=== PATIENT | male | born 1975 | race African-American/Black ===

== ENCOUNTER 2016-05-02 13:28 | Inpatient (IN) | payer OTHER ==
[2016-05-02 14:04] VITALS: BMI 23.7
--- NOTE | 2016-05-02 15:50 | HP ---
COWS - Scale Resting Pulse: 1= OR 81-100 Sweatin=Flushed/Facial Moisture Restless Observation: 1= Difficult to Sit Still Pupil Size: 0= Normal to Room Light Bone or Joint Aches: 2= Severe Diffuse Aches Runny Nose/ Eye Tearin= Runny Nose/Eyes GI Upset > 30mins: 2= Nausea/Diarrhea Tremor Observation: 2= Slight Tremor Visible Yawning Observation: 2= >3x During Session Anxiety or Irritability: 2=Irritable/Anxious Goose Flesh Skin: 3=Piloerection COWS Score: 19 CIWA Score - CIWA Score Nausea/Vomitin-Mild Nausea/No Vomiting Muscle Tremors: 4-Moderate,w/Arms Extend Anxiety: 4-Mod. Anxious/Guarded Agitation: 4-Moderately Restless Paroxysmal Sweats: 3 Orientation: 0-Oriented Tacttile Disturbances: 0-None Auditory Disturbances: 0-None Visual Disturbances: 0-None Headache: 2-Mild CIWA-Ar Total Score: 18 Admission ROS BHS - HPI Chief Complaint: I am here to detox. Allergies/Adverse Reactions: Allergies Allergy/AdvReac Type Severity Reaction Status Date / Time Fish Containing Products Allergy Severe Vomiting Verified 03/17/14 10:53 History of Present Illness: Pt is a 40yr old male with a history of alcohol, heroin dependence seeking detox for treatment. Exam Limitations: No Limitations - Ebola screening Have you traveled outside of the country in the last 21 days: No Have you had contact with anyone from an Ebola affected area: No Have you been sick,other than usual withdrawal symptoms: No Do you have a fever: No - Review of Systems Constitutional: Chills, Diaphoresis, Loss of Appetite, Night Sweats, Changes in sleep, Unintentional Wgt. Loss EENT: reports: Tearing, Nose Congestion Respiratory: reports: No Symptoms reported Cardiac: reports: No Symptoms Reported GI: reports: Diarrhea, Nausea, Poor Appetite, Poor Fluid Intake, Indigestion : reports: No Symptoms Reported Musculoskeletal: reports: Back Pain, Joint Pain Integumentary: reports: Flushing, Sweating Neuro: reports: Headache, Tingling, Tremors Endocrine: reports: See HPI, Excessive Sweating, Flushing, Intolerance to Cold, Intolerance to Heat Hematology: reports: No Symptoms Reported Psychiatric: reports: Judgement Intact, Mood/Affect Appropiate, Orientated x3, Agitated, Anxious Other Systems: Reviewed and Negative Patient History - Patient Medical History Hx Anemia: No Hx Asthma: No Hx Chronic Obstructive Pulmonary Disease (COPD): No Hx Cancer: No Hx Cardiac Disorders: Yes (cardiac arrest 1month d/t drugs) Hx Congestive Heart Failure: No Hx Hypertension: Yes Hx Hypercholesterolemia: No Hx Pacemaker: No HX Cerebrovascular Accident: No Hx Seizures: No Hx Dementia: No Hx Diabetes: No Hx Gastrointestinal Disorders: No Hx Liver Disease: No Hx Genitourinary Disorders: No Hx Sexually Transmitted Disorders: No Hx Renal Disease (ESRD): No Hx Thyroid Disease: No Hx Human Immunodeficiency Virus (HIV): No Hx Hepatitis C: Yes Hx Depression: No Hx Suicide Attempt: No (denies) Hx Bipolar Disorder: No Hx Schizophrenia: No - Patient Surgical History Past Surgical History: No Anesthesia Reaction: No - PPD History Previous Implant?: Yes Documented Results: Negative w/o proof Implanted On Prior [facility] Admission?: No PPD to be Administered?: Yes - Reproductive History Patient is a Female of Child Bearing Age (11 -55 yrs old): No - Smoking Cessation Smoking history: Current every day smoker Have you smoked in the past 12 months: Yes Aproximately how many cigarettes per day: 20 Hx Chewing Tobacco Use: No Initiated information on smoking cessation: Yes 'Breaking Loose' booklet given: 05/02/16 - Substance & Tx. History Hx Alcohol Use: No Hx Substance Use: No - Substances Abused heroine Route: Injection Frequency: Daily Amount used: 3 bundles Age of first use: 28 Date of Last Use: 05/02/16 Alcohol Route: Oral Frequency: Daily Amount used: 1-2 pints Age of first use: 20 Date of Last Use: 05/02/16 Family Disease History - Family Disease History Family History: Denies Admission Physical Exam BHS - Vital Signs Vital Signs: Vital Signs - 24 hr 05/02/16 13:59 Temperature 98.3 F Pulse Rate 88 Respiratory 18 Rate Blood Pressure 124/81 - Physical General Appearance: Yes: Appropriately Dressed, Moderate Distress, Tremorous, Irritable, Sweating, Anxious HEENTM: Yes: Normal Voice, Nasal Congestion, Rhinorrhea Respiratory: Yes: Lungs Clear, Normal Breath Sounds, No Respiratory Distress Neck: Yes: No masses,lesions,Nodules Breast: Yes: Within Normal Limits Cardiology: Yes: Regular Rhythm, Regular Rate, S1, S2 Abdominal: Yes: Normal Bowel Sounds, Non Tender, Soft Genitourinary: Yes: Within Normal Limits Back: Yes: Normal Inspection Musculoskeletal: Yes: full range of Motion, Gait Steady Extremities: Yes: Normal Capillary Refill, Normal Inspection, Non-Tender, Tremors 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: Yes: Fully Oriented, Alert, Normal Response Integumentary: Yes: Normal Color, Diaphoresis, Track Welch Lymphatic: Yes: Within Normal Limits - Diagnostic (1) Hepatitis C Current Visit: Yes Status: Chronic Qualifiers: Viral hepatitis chronicity: chronic Hepatic coma status: without hepatic coma Qualified Code(s): B18.2 - Chronic viral hepatitis C (2) Alcohol dependence with uncomplicated withdrawal Current Visit: Yes Status: Chronic (3) Opioid dependence with withdrawal Current Visit: Yes Status: Chronic (4) Nicotine dependence Current Visit: Yes Status: Chronic Qualifiers: Nicotine product type: cigarettes Substance use status: uncomplicated Qualified Code(s): F17.210 - Nicotine dependence, cigarettes, uncomplicated (5) Weight loss Current Visit: Yes Status: Acute Cleared for Admission [facility] - Detox or Rehab [facility] Level of Care: Medically Managed Detox Regimen/Protocol: Methadone [facility] Breath Alcohol Content Breath Alcohol Content: 0.029 Urine Drug Screen - Results Drug Screen Negative: No Urine Drug Screen Results: THC-Marijuana, OPI-Opiates, OXY-Oxycodone
[2016-05-02] MEDS ORDERED: guaiFENesin/D-METHORPHAN HB 10 ML UNIT-DOSE CUPS PO PRN (15:57)
[2016-05-02] MEDS ORDERED: IBUPROFEN 400 MG TABLET (FP) PO PRN (15:57)
[2016-05-02] MEDS ORDERED: NICOTINE POLACRILEX 4 MG GUM BC PRN (15:57)
[2016-05-02] MEDS ORDERED: MAG HYDROX/AL HYDROX/SIMETH 30 ML UNIT-DOSE CUP PO PRN (15:57)
[2016-05-02] MEDS ORDERED: MENTHOL/PHENOL 1 EACH UD MM PRN (15:57)
[2016-05-02] MEDS ORDERED: MAGNESIUM HYDROX 2400MG/30ML ORAL SUSPENSION 30 ML CUP PO PRN (15:57)
[2016-05-02] MEDS ORDERED: LOPERAMIDE HCL 2 MG CAPSULE PO PRN (15:57)
[2016-05-02] MEDS ORDERED: ACETAMINOPHEN 325 MG TABLET (FP) PO PRN (15:57)
[2016-05-02] MEDS ORDERED: hydrOXYzine PAMOATE 50 MG CAPSULE (FP) PO PRN (15:57)
[2016-05-02] MEDS ORDERED: P-EPHED 60MG/TRIPROLIDI 2.5MG TABLET PO PRN (15:57)
[2016-05-02] MEDS ORDERED: MAGNESIUM CITRATE 300 ML BOTTLE PO PRN (15:57)
[2016-05-02] MEDS ORDERED: METHADONE HCL 10 MG TABLET (FOR DETOX USE ONLY) PO ONE ×2 (18:15→23:00)
--- NOTE | 2016-05-02 18:29 | PN ---
[facility] Progress Note Note: RECEIVED NURSE CALL PATIENT REQUESTS TO WEAR OWN SHOES
[2016-05-02] MEDS: diazePAM 5 MG TABLET PO PRN (18:51)
[2016-05-02] MEDS: THIAMINE HCL 100 MG TABLET (FP) PO SCH (22:12)
[2016-05-02] MEDS: diphenhydrAMINE HCL 50 MG CAPSULE PO PRN (22:13)
[2016-05-02] MEDS: CARVEDILOL 3.125 MG TABLET (FP) PO SCH (22:14)
[2016-05-02 22:37] LABS: URINE APPEARANCE SLCLOUDY; URINE BILIRUBIN NEGATIVE (NEGATIVE); URINE BLOOD NEGATIVE (NEGATIVE); URINE COLOR AMBER; URINE GLUCOSE (UA) NEGATIVE (NEGATIVE); URINE KETONE NEGATIVE (NEGATIVE); URINE LEUK ESTERASE NEGATIVE (NEGATIVE); URINE NITRITE NEGATIVE (NEGATIVE); URINE PROTEIN NEGATIVE (NEGATIVE); URINE UROBILINOGEN 4.0 E.U/dl E.U./dl (0.2-1.0)
[2016-05-03] MEDS: diazePAM 5 MG TABLET PO PRN ×3 (05:47→15:09)
[2016-05-03] MEDS ORDERED: ASPIRIN COATED 81 MG TABLET.EC PO SCH (10:00)
[2016-05-03] MEDS ORDERED: LISINOPRIL 5 MG TABLET (FP) PO SCH (10:00)
[2016-05-03] MEDS ORDERED: METHADONE HCL 10 MG TABLET (FOR DETOX USE ONLY) PO ONE (10:00)
[2016-05-03] MEDS ORDERED: NICOTINE 21 MG/24 HOURS TOPICAL PATCH TD SCH (10:00)
[2016-05-03] MEDS ORDERED: PRENATAL VITAMINS W/ FOLIC ACID TABLET (FP) PO SCH (10:00)
[2016-05-03] MEDS: CARVEDILOL 3.125 MG TABLET (FP) PO SCH ×2 (10:13→22:16)
[2016-05-03 10:42] LABS: MCH 29.8 pg (25.7-33.7); MCHC 34.1 g/dl (32.0-35.9); MEAN CELL VOLUME 87.2 fl (80-96); MEAN PLT VOLUME 9.5 fl (7.5-11.1); PLATELET COUNT 194 K/MM3 (134-434); RDW 14.5 % (11.9-15.9); WHITE BLOOD COUNT 5.8 K/mm3 (4.0-10.0)
[2016-05-03 11:06] LABS: ALBUMIN 3.8 g/dl (3.4-5.0); ALK PHOS 71 U/L (45-117); ANION GAP 10 (8-16); BILIRUBIN,TOTAL 0.5 mg/dL (0.2-1.0); CALCIUM 8.6 mg/dL (8.5-10.1); CO2 26 mmol/L (21-32); CREATININE 0.9 mg/dL (0.7-1.3); GLUCOSE,RANDOM 99 mg/dL (74-106); SGOT/AST 18 U/L (15-37); SGPT/ALT 29 U/L (12-78); TOT PROT 6.7 g/dl (6.4-8.2)
--- NOTE | 2016-05-03 16:02 | PN ---
[facility] CIWA - CIWA Score Nausea/Vomitin Muscle Tremors: 4-Moderate,w/Arms Extend Anxiety: 4-Mod. Anxious/Guarded Agitation: 4-Moderately Restless Paroxysmal Sweats: 3 Orientation: 0-Oriented Tacttile Disturbances: 1-Very Mild Itch/Numbness Auditory Disturbances: 0-None Visual Disturbances: 0-None Headache: 0-None Present CIWA-Ar Total Score: 19 BHS COWS - Scale Resting Pulse: 1= [place] 81-100 Sweatin= Chills/Flushing Restless Observation: 1= Difficult to Sit Still Pupil Size: 1= Pupils >than Normal Bone or Joint Aches: 2= Severe Diffuse Aches Runny Nose/ Eye Tearin= Nasal Congestion GI Upset > 30mins: 2= Nausea/Diarrhea Tremor Observation of Outstretched Hands: 2= Slight Tremor Visible Yawning Observation: 1= 1-2x During Session Anxiety or Irritability: 2=Irritable/Anxious Goose Flesh Skin: 3=Piloerection COWS Score: 17 S Progress Note (SOAP) Subjective: nausea, sweats, interrupted sleep, anxeity, tremor Objective: 05/03/16 16:01 Vital Signs - 24 hr 05/02/16 05/03/16 05/03/16 21:48 00:25 03:26 Temperature 97.8 F Pulse Rate 59 L Respiratory 18 18 18 Rate Blood Pressure 97/59 05/03/16 05/03/16 05/03/16 06:03 09:34 13:28 Temperature 97.5 F L 97.6 F 97.8 F Pulse Rate 55 L 56 L 59 L Respiratory 18 18 18 Rate Blood Pressure 138/81 134/81 138/91 Laboratory Tests 05/02/16 05/03/16 05/03/16 19:20 06:15 06:15 WBC 5.8 D RBC 4.65 D Hgb 13.8 D Hct 40.5 D MCV 87.2 MCHC 34.1 RDW 14.5 Plt Count 194 D MPV 9.5 D Sodium 142 Potassium 3.8 Chloride 106 Carbon Dioxide 26 Anion Gap 10 BUN 13 D Creatinine 0.9 Creat Clearance w eGFR > 60 Random Glucose 99 Calcium 8.6 Total Bilirubin 0.5 D AST 18 ALT 29 D Alkaline Phosphatase 71 D Total Protein 6.7 Albumin 3.8 Urine Color [place] Urine Appearance Slcloudy Urine pH 5.0 Ur Specific [place] 1.021 Urine Protein Negative Urine Glucose (UA) Negative Urine Ketones Negative Urine Blood Negative Urine Nitrite Negative Urine Bilirubin Negative Urine Urobilinogen 4.0 e.u/dl Ur Leukocyte Esterase Negative RPR Titer 05/03/16 06:15 WBC RBC Hgb Hct MCV MCHC RDW Plt Count MPV Sodium Potassium Chloride Carbon Dioxide Anion Gap BUN Creatinine Creat Clearance w eGFR Random Glucose Calcium Total Bilirubin AST ALT Alkaline Phosphatase Total Protein Albumin Urine Color Urine Appearance Urine pH Ur Specific [place] Urine Protein Urine Glucose (UA) Urine Ketones Urine Blood Urine Nitrite Urine Bilirubin Urine Urobilinogen Ur Leukocyte Esterase RPR Titer Nonreactive Assessment: 05/03/16 16:01 withdrawal sx Plan: cont detox, encourage lfuids and ambulation
[2016-05-03] MEDS ORDERED: chlordiazePOXIDE HCL 25 MG CAPSULE PO PRN (18:08)
[2016-05-03] MEDS ORDERED: chlordiazePOXIDE HCL 25 MG CAPSULE PO ONE (18:08)
--- NOTE | 2016-05-03 18:11 | PN ---
B[facility] Progress Note Note: C/O ALCOHOL WITHDRAWAL SX, 3 PM VALIUM NOT EFFECTIVE DISCONTINUE VALIUM BEGIN LIBRIUM REGIMEN 50 MG X 1 NOW CONTINUE DETOX
[2016-05-03] MEDS: THIAMINE HCL 100 MG TABLET (FP) PO SCH (22:15)
[2016-05-03] MEDS: chlordiazePOXIDE HCL 25 MG CAPSULE PO SCH (22:16)
[2016-05-03] MEDS: diphenhydrAMINE HCL 50 MG CAPSULE PO PRN (22:16)
[2016-05-04] MEDS: chlordiazePOXIDE HCL 25 MG CAPSULE PO SCH (05:31)
[2016-05-04 06:21] VITALS: BP 159/101; PULSE 48; TEMP 98
[2016-05-04] MEDS ORDERED: METHADONE HCL 5 MG TABLET (FOR DETOX USE ONLY) PO ONE (10:00)
--- NOTE | 2016-05-04 12:09 | PN ---
BHS Progress Note Note: PATIENT DISCHARGED AMA
--- NOTE | 2016-05-04 12:09 | DS ---
[facility] Detox Discharge Summary Admission Date: 05/02/16 Discharge Date: 05/04/16 - History Present History: Alcohol Dependence, Cocaine Dependence, Opioid Dependence, Sedative Dependence - Physical Exam Results Vital Signs: Vital Signs Temperature 98 F 05/04/16 06:20 Pulse Rate 48 L 05/04/16 06:20 Respiratory Rate 18 05/04/16 06:20 Blood Pressure 159/101 05/04/16 06:20 O2 Sat by Pulse Oximetry (%) Pertinent Admission Physical Exam Findings: WITHDRAWAL SX Laboratory Last Values WBC 5.8 K/mm3 (4.0-10.0) D 05/03/16 06:15 RBC 4.65 M/mm3 (4.00-5.60) D 05/03/16 06:15 Hgb 13.8 GM/dL (11.7-16.9) D 05/03/16 06:15 Hct 40.5 % (35.4-49) D 05/03/16 06:15 MCV 87.2 fl (80-96) 05/03/16 06:15 MCHC 34.1 g/dl (32.0-35.9) 05/03/16 06:15 RDW 14.5 % (11.9-15.9) 05/03/16 06:15 Plt Count 194 K/MM3 (134-434) D 05/03/16 06:15 MPV 9.5 fl (7.5-11.1) D 05/03/16 06:15 Sodium 142 mmol/L (136-145) 05/03/16 06:15 Potassium 3.8 mmol/L (3.5-5.1) 05/03/16 06:15 Chloride 106 mmol/L (98-107) 05/03/16 06:15 Carbon Dioxide 26 mmol/L (21-32) 05/03/16 06:15 Anion Gap 10 (8-16) 05/03/16 06:15 BUN 13 mg/dL (7-18) D 05/03/16 06:15 Creatinine 0.9 mg/dL (0.7-1.3) 05/03/16 06:15 Creat Clearance w eGFR > 60 (>60) 05/03/16 06:15 Random Glucose 99 mg/dL (74-106) 05/03/16 06:15 Calcium 8.6 mg/dL (8.5-10.1) 05/03/16 06:15 Total Bilirubin 0.5 mg/dL (0.2-1.0) D 05/03/16 06:15 AST 18 U/L (15-37) 05/03/16 06:15 ALT 29 U/L (12-78) D 05/03/16 06:15 Alkaline Phosphatase 71 U/L (45-117) D 05/03/16 06:15 Total Protein 6.7 g/dl (6.4-8.2) 05/03/16 06:15 Albumin 3.8 g/dl (3.4-5.0) 05/03/16 06:15 Urine Color [place] 05/02/16 19:20 Urine Appearance Slcloudy 05/02/16 19:20 Urine pH 5.0 (5.0-8.0) 05/02/16 19:20 Ur Specific [place] 1.021 (1.001-1.035) 05/02/16 19:20 Urine Protein Negative (NEGATIVE) 05/02/16 19:20 Urine Glucose (UA) Negative (NEGATIVE) 05/02/16 19:20 Urine Ketones Negative (NEGATIVE) 05/02/16 19:20 Urine Blood Negative (NEGATIVE) 05/02/16 19:20 Urine Nitrite Negative (NEGATIVE) 05/02/16 19:20 Urine Bilirubin Negative (NEGATIVE) 05/02/16 19:20 Urine Urobilinogen 4.0 e.u/dl E.U./dl (0.2-1.0) 05/02/16 19:20 Ur Leukocyte Esterase Negative (NEGATIVE) 05/02/16 19:20 RPR Titer Nonreactive (NONREACTIVE) 05/03/16 06:15 LABS NOTED - Medication Discharge Medications: Ambulatory Orders Aspirin [Aspirin EC] 81 mg PO DAILY 05/02/16 Carvedilol [Coreg -] 3.125 mg PO BID 05/02/16 Lisinopril 5 mg PO DAILY 05/02/16 Thiamine HCl [B-1] 100 mg PO DAILY 05/02/16 - Diagnosis (1) Hepatitis C Status: Chronic Qualifiers: Viral hepatitis chronicity: chronic Hepatic coma status: without hepatic coma Qualified Code(s): B18.2 - Chronic viral hepatitis C (2) Nicotine dependence Status: Acute Qualifiers: Nicotine product type: cigarettes Substance use status: uncomplicated Qualified Code(s): F17.210 - Nicotine dependence, cigarettes, uncomplicated (3) Opioid dependence with withdrawal Status: Acute (4) Alcohol dependence Status: Acute Qualifiers: Substance use status: uncomplicated Qualified Code(s): F10.20 - Alcohol dependence, uncomplicated - AMA Did Patient Leave Against Medical Advice: Yes
[2016-05-04] MEDS ORDERED: chlordiazePOXIDE HCL 25 MG CAPSULE PO SCH (23:00)
[2016-05-05] MEDS ORDERED: METHADONE HCL 5 MG TABLET (FOR DETOX USE ONLY) PO ONE (10:00)
[2016-05-05] MEDS ORDERED: chlordiazePOXIDE 5 MG CAPSULE PO SCH (23:00)
[2016-05-06] MEDS ORDERED: METHADONE HCL 10 MG TABLET (FOR DETOX USE ONLY) PO ONE (10:00)
--- NOTE | 2016-05-06 12:53 | EKG ---
Test Reason : Blood Pressure : / mmHG Vent. Rate : 063 BPM Atrial Rate : 063 BPM P-R Int : 202 ms QRS Dur : 092 ms QT Int : 412 ms P-R-T Axes : 053 061 025 degrees QTc Int : 421 ms NORMAL SINUS RHYTHM INFERIOR-POSTERIOR INFARCT (CITED ON OR BEFORE 02-MAY-2016) ABNORMAL ECG WHEN COMPARED WITH ECG OF 02-MAY-2016 19:03, NO SIGNIFICANT CHANGE WAS FOUND Confirmed by NILESH HAMM, HUI ([id number]) on 05/06/2016 12:53:19 PM Referred By: Avel Escoto Confirmed By:HUI GALLOWAY MD
--- NOTE | 2016-05-06 13:01 | EKG ---
Test Reason : Blood Pressure : / mmHG Vent. Rate : 070 BPM Atrial Rate : 070 BPM P-R Int : 190 ms QRS Dur : 086 ms QT Int : 402 ms P-R-T Axes : 051 070 038 degrees QTc Int : 434 ms NORMAL SINUS RHYTHM INFERIOR-POSTERIOR INFARCT , AGE UNDETERMINED ABNORMAL ECG NO PREVIOUS ECGS AVAILABLE Confirmed by NILESH HAMM, HUI ([id number]) on 05/06/2016 1:01:19 PM Referred By: Avel Escoto Confirmed By:HUI GALLOWAY MD
[2016-05-06] MEDS ORDERED: chlordiazePOXIDE HCL 10 MG CAPSULE PO SCH (23:00)
[2016-05-07] MEDS ORDERED: METHADONE HCL 5 MG TABLET (FOR DETOX USE ONLY) PO ONE (06:00)
== END 2016-05-04 09:46 | disposition left against medical advice (07) | DRG 770 ==
LOC: YASAS 13:28 → Y3N 17:50
PROVIDERS: ADMIT Internal Medicine; ATTEND Internal Medicine
PROC: HZ2ZZZZ Detoxification Services for Substance Abuse Treatment (ICD-10-PCS; principal; 2016-05-02)
DX: F11.23 Opioid dependence with withdrawal (principal); F10.230 Alcohol dependence with withdrawal, uncomplicated; F17.210 Nicotine dependence, cigarettes, uncomplicated; B18.2 Chronic viral hepatitis C; I10 Essential (primary) hypertension; Z87.898 Personal history of other specified conditions; Z86.74 Personal history of sudden cardiac arrest
CPT/HCPCS: 36415; 80053; 81003; 85027; 86593; 93005; 93010

== ENCOUNTER 2016-06-27 14:34 | Inpatient (IN) | payer OTHER ==
[2016-06-27 15:14] VITALS: BMI 23.2
--- NOTE | 2016-06-27 16:25 | HP ---
COWS - Scale Resting Pulse: 1= [place] 81-100 Sweatin=Flushed/Facial Moisture Restless Observation: 3= Extraneous Movement Pupil Size: 2= Moderately Dilated Bone or Joint Aches: 2= Severe Diffuse Aches Runny Nose/ Eye Tearin= Runny Nose/Eyes GI Upset > 30mins: 3= Vomiting/Diarrhea Tremor Observation: 2= Slight Tremor Visible Yawning Observation: 1= 1-2x During Session Anxiety or Irritability: 2=Irritable/Anxious Goose Flesh Skin: 0=Smooth Skin COWS Score: 20 CIWA Score - CIWA Score Nausea/Vomitin Muscle Tremors: 3 Anxiety: 3 Agitation: 3 Paroxysmal Sweats: 2 Orientation: 0-Oriented Tacttile Disturbances: 2-Mild Itch/Numbness/Burn Auditory Disturbances: 2-Mild Harshness/Frighten Visual Disturbances: 2-Mild Sensitivity Headache: 2-Mild CIWA-Ar Total Score: 22 Admission ROS BHS - HPI Chief Complaint: I NEED HELP TO STOP USING HEROIN,ALCOHOL AND MARIJUANA Allergies/Adverse Reactions: Allergies Allergy/AdvReac Type Severity Reaction Status Date / Time Fish Containing Products Allergy Severe Vomiting Verified 06/27/16 16:15 No Known Drug Allergies Allergy Verified 06/27/16 16:15 History of Present Illness: THIS 40 YEARS OLD MALE WITH HEROIN,ALCOHOL AND MARIJUANA DEPENDENCE,WITHDRAWAL SYMPTOM,LAST DETOX 05/02/16 TO 05/04/16 NOT COMPLETED SEVERAL ADMISSIONS TO DETOX LONGEST PERIOD OF SOBRIETY 2 YEARS WEIGHT LOSS Exam Limitations: No Limitations - Ebola screening Have you traveled outside of the country in the last 21 days: No (N) Have you had contact with anyone from an Ebola affected area: No Have you been sick,other than usual withdrawal symptoms: No Do you have a fever: No - Review of Systems Constitutional: Chills, Diaphoresis, Loss of Appetite, Malaise, Night Sweats, Changes in sleep, Weakness, Unintentional Wgt. Loss EENT: reports: Tearing, Nose Congestion Respiratory: reports: No Symptoms reported, Other (OLD CT S/P ANGIOPLAST WITH STENT) Cardiac: reports: Palpitations GI: reports: Diarrhea, Nausea, Vomiting, Abdominal cramping : reports: No Symptoms Reported Musculoskeletal: reports: Back Pain, Joint Pain, Muscle Pain, Joint Stiffness Integumentary: reports: Dryness Neuro: reports: Headache, Tremors Endocrine: reports: No Symptoms Reported Hematology: reports: No Symptoms Reported Psychiatric: reports: No Sypmtoms Reported, Judgement Intact, Mood/Affect Appropiate, Orientated x3 Patient History - Patient Medical History Hx Anemia: No Hx Asthma: No Hx Chronic Obstructive Pulmonary Disease (COPD): No Hx Cancer: No Hx Cardiac Disorders: Yes (cardiac arrest 1month d/t drugs S/P ANGIOPLASTY WITH STENT) Hx Congestive Heart Failure: No Hx Hypertension: Yes (ON MEDICATION) Hx Hypercholesterolemia: No Hx Pacemaker: No HX Cerebrovascular Accident: No Hx Seizures: No Hx Dementia: No Hx Diabetes: No Hx Gastrointestinal Disorders: No Hx Liver Disease: No Hx Genitourinary Disorders: No Hx Sexually Transmitted Disorders: No Hx Renal Disease (ESRD): No Hx Thyroid Disease: No Hx Human Immunodeficiency Virus (HIV): No (LAST 03/29 NEGATIVE) Hx Hepatitis C: Yes Hx Depression: No Hx Suicide Attempt: No (denies) Hx Bipolar Disorder: No Hx Schizophrenia: No Other Medical History: NO SUICIDAL,NO HOMICIDAL - Patient Surgical History Past Surgical History: No Hx Cardiac Surgery: Yes (S/P ANGIOPLASTY WITH STENT) Anesthesia Reaction: No - PPD History Previous Implant?: Yes Documented Results: Negative w/o proof PPD to be Administered?: Yes - Smoking Cessation Smoking history: Current every day smoker Have you smoked in the past 12 months: Yes Aproximately how many cigarettes per day: 20 Hx Chewing Tobacco Use: No Initiated information on smoking cessation: Yes 'Breaking Loose' booklet given: 06/27/16 - Substance & Tx. History Hx Alcohol Use: Yes Hx Substance Use: Yes Substance Use Type: Alcohol, Heroin, Marijuana Hx Substance Use Treatment: Yes ([facility] 05/02/16 TO 05/04/16 NOT COMPLETED) - Substances Abused Heroin Route: Injection Frequency: Daily Amount used: 30 BAGS Age of first use: 28 Date of Last Use: 06/27/16 Alcohol Route: Oral Frequency: Daily Amount used: 1-2 [place] Age of first use: 20 Date of Last Use: 06/27/16 Marijuana/Hashish Route: Smoking Frequency: Daily Amount used: 1/4 OUNCE Age of first use: 17 Date of Last Use: 06/27/16 Family Disease History - Family Disease History Family History: Denies Admission Physical Exam BHS - Vital Signs Vital Signs: Vital Signs - 24 hr 06/27/16 15:10 Temperature 97.8 F Pulse Rate 81 Respiratory 18 Rate Blood Pressure 118/68 - Physical General Appearance: Yes: Moderate Distress, Tremorous, Irritable, Sweating, Anxious HEENTM: Yes: KADIE, Pharynx Normal, Nasal Congestion Respiratory: Yes: Lungs Clear, Normal Breath Sounds, No Respiratory Distress Neck: Yes: Within Normal Limits, Supple, Trachea in good position Breast: Yes: Within Normal Limits Cardiology: Yes: Within Normal Limits, Regular Rhythm, Regular Rate, S1, S2 Abdominal: Yes: Within Normal Limits, Normal Bowel Sounds, Non Tender, Flat, Soft Genitourinary: Yes: Within Normal Limits Back: Yes: Within Normal Limits, Normal Inspection, Muscle Spasm Musculoskeletal: Yes: Back pain, Joint Stiffness, Joint swelling, Muscle Pain Extremities: Yes: Within Normal Limits, Normal Range of Motion, Tremors 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, Fully Oriented, Alert, Motor Strength 5/5 Integumentary: Yes: Dry, Track Welch Lymphatic: Yes: Within Normal Limits - Diagnostic (1) Alcohol dependence with uncomplicated withdrawal Current Visit: No Status: Acute (2) Nicotine dependence Current Visit: No Status: Acute Qualifiers: Nicotine product type: cigarettes Substance use status: uncomplicated Qualified Code(s): F17.210 - Nicotine dependence, cigarettes, uncomplicated (3) Opioid dependence with withdrawal Current Visit: No Status: Acute (4) Weight loss Current Visit: No Status: Acute (5) Hepatitis C Current Visit: No Status: Chronic Qualifiers: Viral hepatitis chronicity: chronic Hepatic coma status: without hepatic coma Qualified Code(s): B18.2 - Chronic viral hepatitis C (6) PPD positive Current Visit: No Status: Chronic (7) Old CT (myocardial infarction) Current Visit: Yes Status: Acute (8) H/O heart artery stent Current Visit: Yes Status: Acute Cleared for Admission S - Detox or Rehab S Level of Care: Medically Managed Detox Regimen/Protocol: Methadone/Librium B[facility] Breath Alcohol Content Breath Alcohol Content: 0.062 Urine Drug Screen - Results Drug Screen Negative: No Urine Drug Screen Results: THC-Marijuana, OPI-Opiates, OXY-Oxycodone
[2016-06-27] MEDS ORDERED: hydrOXYzine PAMOATE 50 MG CAPSULE (FP) PO PRN (16:40)
[2016-06-27] MEDS ORDERED: MAGNESIUM CITRATE 300 ML BOTTLE PO PRN (16:40)
[2016-06-27] MEDS ORDERED: ACETAMINOPHEN 325 MG TABLET (FP) PO PRN (16:40)
[2016-06-27] MEDS ORDERED: guaiFENesin/D-METHORPHAN HB 10 ML UNIT-DOSE CUPS PO PRN (16:40)
[2016-06-27] MEDS ORDERED: MAGNESIUM HYDROX 2400MG/30ML ORAL SUSPENSION 30 ML CUP PO PRN (16:40)
[2016-06-27] MEDS ORDERED: P-EPHED 60MG/TRIPROLIDI 2.5MG TABLET PO PRN (16:40)
[2016-06-27] MEDS ORDERED: MAG HYDROX/AL HYDROX/SIMETH 30 ML UNIT-DOSE CUP PO PRN (16:40)
[2016-06-27] MEDS ORDERED: LOPERAMIDE HCL 2 MG CAPSULE PO PRN (16:40)
[2016-06-27] MEDS ORDERED: NICOTINE POLACRILEX 2 MG GUM BC PRN (16:40)
[2016-06-27] MEDS ORDERED: MENTHOL/PHENOL 1 EACH UD MM PRN (16:40)
[2016-06-27] MEDS ORDERED: METHADONE HCL 10 MG TABLET (FOR DETOX USE ONLY) PO ONE ×2 (18:15→23:00)
[2016-06-27] MEDS ORDERED: chlordiazePOXIDE HCL 25 MG CAPSULE PO ONE (18:15)
[2016-06-27] MEDS: chlordiazePOXIDE HCL 25 MG CAPSULE PO SCH ×2 (18:44→22:16)
[2016-06-27 20:23] LABS: URINE APPEARANCE CLEAR; URINE BILIRUBIN NEGATIVE (NEGATIVE); URINE BLOOD NEGATIVE (NEGATIVE); URINE COLOR YELLOW; URINE GLUCOSE (UA) NEGATIVE (NEGATIVE); URINE KETONE NEGATIVE (NEGATIVE); URINE NITRITE NEGATIVE (NEGATIVE); URINE PROTEIN NEGATIVE (NEGATIVE); URINE UROBILINOGEN 4.0 E.U/dl E.U./dl (0.2-1.0)
[2016-06-27 20:25] LABS: URINE LEUK ESTERASE TRACE (NEGATIVE)
[2016-06-27 20:41] LABS: GRANULAR CASTS 1 /lpf; URINE MUCUS RARE; URINE RBC 1 /hpf (0-3); URINE WBC 3 /hpf (3-5)
[2016-06-27] MEDS: diphenhydrAMINE HCL 50 MG CAPSULE PO PRN (22:16)
[2016-06-27] MEDS: cloNIDine HCL 0.1 MG TABLET PO SCH (22:16)
[2016-06-27] MEDS: THIAMINE HCL 100 MG TABLET (FP) PO SCH (22:16)
[2016-06-27] MEDS: CARVEDILOL 3.125 MG TABLET (FP) PO SCH (22:16)
[2016-06-28] MEDS: chlordiazePOXIDE HCL 25 MG CAPSULE PO SCH ×4 (05:58→22:14)
[2016-06-28] MEDS: CYCLOBENZAPRINE HCL 10 MG TABLET (FP) PO PRN ×2 (05:59→22:14)
[2016-06-28] MEDS ORDERED: METHADONE HCL 10 MG TABLET (FOR DETOX USE ONLY) PO SCH (10:00)
[2016-06-28 10:19] LABS: MCH 28.8 pg (25.7-33.7); MCHC 33.1 g/dl (32.0-35.9); MEAN PLT VOLUME 9.5 fl (7.5-11.1); PLATELET COUNT 191 K/MM3 (134-434); RDW 15.1 % (11.9-15.9); WHITE BLOOD COUNT 6.9 K/mm3 (4.0-10.0)
--- NOTE | 2016-06-28 10:27 | PN ---
[facility] CIWA - CIWA Score Nausea/Vomitin-Mild Nausea/No Vomiting Muscle Tremors: 4-Moderate,w/Arms Extend Anxiety: 3 Agitation: 4-Moderately Restless Paroxysmal Sweats: 3 Orientation: 0-Oriented Tacttile Disturbances: 0-None Auditory Disturbances: 0-None Visual Disturbances: 0-None Headache: 1-Very Mild CIWA-Ar Total Score: 16 BHS COWS - Scale Resting Pulse: 0= [place] 80 or Below Sweatin= Chills/Flushing Restless Observation: 0= Sits Still Pupil Size: 0= Normal to Room Light Bone or Joint Aches: 2= Severe Diffuse Aches Runny Nose/ Eye Tearin= Runny Nose/Eyes GI Upset > 30mins: 2= Nausea/Diarrhea Tremor Observation of Outstretched Hands: 2= Slight Tremor Visible Yawning Observation: 2= >3x During Session Anxiety or Irritability: 2=Irritable/Anxious Goose Flesh Skin: 3=Piloerection COWS Score: 16 [facility] Progress Note (SOAP) Subjective: sweats shakes body aches interrupted sleep agitation chills headache Objective: 06/28/16 10:25 Vital Signs Temperature 98.1 F 06/28/16 06:00 Pulse Rate 58 L 06/28/16 06:00 Respiratory Rate 18 06/28/16 06:00 Blood Pressure 139/90 06/28/16 06:00 O2 Sat by Pulse Oximetry (%) Laboratory Tests 06/27/16 20:01 Urine Color Yellow Urine Appearance Clear Urine pH 6.0 Ur Specific [place] 1.015 Urine Protein Negative Urine Glucose (UA) Negative Urine Ketones Negative Urine Blood Negative Urine Nitrite Negative Urine Bilirubin Negative Urine Urobilinogen 4.0 e.u/dl Ur Leukocyte Esterase Trace H Urine RBC 1 Urine WBC 3 Ur Epithelial Cells Rare Granular Casts 1 Urine Mucus Rare labs pending awake/alert ambulating no acute distress Assessment: 06/28/16 10:26 withdrawal sx Plan: continue detox increase fluids
[2016-06-28 10:28] LABS: ALBUMIN 3.7 g/dl (3.4-5.0); ANION GAP 11 (8-16); BILIRUBIN,TOTAL 0.8 mg/dL (0.2-1.0); CALCIUM 8.5 mg/dL (8.5-10.1); CO2 28 mmol/L (21-32); CREATININE 0.9 mg/dL (0.7-1.3); GLUCOSE,RANDOM 93 mg/dL (74-106); SGOT/AST 26 U/L (15-37); SGPT/ALT 32 U/L (12-78); TOT PROT 6.9 g/dl (6.4-8.2)
[2016-06-28 10:29] LABS: ALK PHOS 77 U/L (45-117)
[2016-06-28] MEDS: ASPIRIN COATED 81 MG TABLET.EC PO SCH (11:09)
[2016-06-28] MEDS: PRENATAL VITAMINS W/ FOLIC ACID TABLET (FP) PO SCH (11:09)
[2016-06-28] MEDS: cloNIDine HCL 0.1 MG TABLET PO SCH ×2 (11:09→22:14)
[2016-06-28] MEDS: LISINOPRIL 5 MG TABLET (FP) PO SCH (11:10)
[2016-06-28] MEDS: CARVEDILOL 3.125 MG TABLET (FP) PO SCH ×2 (11:10→22:14)
[2016-06-28] MEDS: diphenhydrAMINE HCL 50 MG CAPSULE PO PRN (22:13)
[2016-06-28] MEDS: THIAMINE HCL 100 MG TABLET (FP) PO SCH (22:14)
[2016-06-29] MEDS: chlordiazePOXIDE HCL 25 MG CAPSULE PO PRN (00:23)
[2016-06-29] MEDS: IBUPROFEN 400 MG TABLET (FP) PO PRN (00:24)
[2016-06-29] MEDS: CYCLOBENZAPRINE HCL 10 MG TABLET (FP) PO PRN ×3 (05:02→22:29)
[2016-06-29] MEDS: chlordiazePOXIDE HCL 25 MG CAPSULE PO SCH ×2 (05:02→10:48)
[2016-06-29] MEDS: PRENATAL VITAMINS W/ FOLIC ACID TABLET (FP) PO SCH (10:47)
[2016-06-29] MEDS: ASPIRIN COATED 81 MG TABLET.EC PO SCH (10:47)
[2016-06-29] MEDS: LISINOPRIL 5 MG TABLET (FP) PO SCH (10:48)
[2016-06-29] MEDS: cloNIDine HCL 0.1 MG TABLET PO SCH ×2 (10:48→22:25)
[2016-06-29] MEDS: CARVEDILOL 3.125 MG TABLET (FP) PO SCH ×2 (10:48→22:25)
[2016-06-29] MEDS: METHADONE HCL 5 MG TABLET (FOR DETOX USE ONLY) PO SCH (10:48)
--- NOTE | 2016-06-29 13:07 | PN ---
S CIWA - CIWA Score Nausea/Vomitin Muscle Tremors: 3 Anxiety: 2 Agitation: 2 Paroxysmal Sweats: 1-Minimal Palms Moist Orientation: 0-Oriented Tacttile Disturbances: 1-Very Mild Itch/Numbness Auditory Disturbances: 1-Very Mild Visual Disturbances: 1-Very Mild Sensitivity Headache: 2-Mild (0.) CIWA-Ar Total Score: 16 BHS COWS - Scale Resting Pulse: 0= [place] 80 or Below Sweatin= Chills/Flushing Restless Observation: 3= Extraneous Movement Pupil Size: 1= Pupils >than Normal Bone or Joint Aches: 2= Severe Diffuse Aches Runny Nose/ Eye Tearin= Nasal Congestion GI Upset > 30mins: 2= Nausea/Diarrhea Tremor Observation of Outstretched Hands: 2= Slight Tremor Visible Yawning Observation: 1= 1-2x During Session Anxiety or Irritability: 2=Irritable/Anxious Goose Flesh Skin: 0=Smooth Skin COWS Score: 15 S Progress Note (SOAP) Subjective: ALERT,IRRITABLE,ANXIOUS,INTERRUPTED SLEEP,PAIN N THE BODY,JOINT AND BACK Objective: 06/29/16 13:06 Vital Signs Temperature 98.2 F 06/29/16 10:37 Pulse Rate 53 L 06/29/16 10:37 Respiratory Rate 18 06/29/16 10:37 Blood Pressure 137/81 06/29/16 10:37 O2 Sat by Pulse Oximetry (%) Laboratory Last Values WBC 6.9 K/mm3 (4.0-10.0) 06/28/16 06:00 RBC 5.37 M/mm3 (4.00-5.60) 06/28/16 06:00 Hgb 15.5 GM/dL (11.7-16.9) D 06/28/16 06:00 Hct 46.7 % (35.4-49) D 06/28/16 06:00 MCV 87.0 fl (80-96) 06/28/16 06:00 MCHC 33.1 g/dl (32.0-35.9) 06/28/16 06:00 RDW 15.1 % (11.9-15.9) 06/28/16 06:00 Plt Count 191 K/MM3 (134-434) 06/28/16 06:00 MPV 9.5 fl (7.5-11.1) 06/28/16 06:00 Sodium 140 mmol/L (136-145) 06/28/16 06:00 Potassium 3.8 mmol/L (3.5-5.1) 06/28/16 06:00 Chloride 101 mmol/L (98-107) 06/28/16 06:00 Carbon Dioxide 28 mmol/L (21-32) 06/28/16 06:00 Anion Gap 11 (8-16) 06/28/16 06:00 BUN 14 mg/dL (7-18) 06/28/16 06:00 Creatinine 0.9 mg/dL (0.7-1.3) 06/28/16 06:00 Creat Clearance w eGFR > 60 (>60) 06/28/16 06:00 Random Glucose 93 mg/dL (74-106) 06/28/16 06:00 Calcium 8.5 mg/dL (8.5-10.1) 06/28/16 06:00 Total Bilirubin 0.8 mg/dL (0.2-1.0) D 06/28/16 06:00 AST 26 U/L (15-37) D 06/28/16 06:00 ALT 32 U/L (12-78) 06/28/16 06:00 Alkaline Phosphatase 77 U/L (45-117) 06/28/16 06:00 Total Protein 6.9 g/dl (6.4-8.2) 06/28/16 06:00 Albumin 3.7 g/dl (3.4-5.0) 06/28/16 06:00 Urine Color Yellow 06/27/16 20:01 Urine Appearance Clear 06/27/16 20:01 Urine pH 6.0 (5.0-8.0) 06/27/16 20:01 Ur Specific [place] 1.015 (1.001-1.035) 06/27/16 20:01 Urine Protein Negative (NEGATIVE) 06/27/16 20:01 Urine Glucose (UA) Negative (NEGATIVE) 06/27/16 20:01 Urine Ketones Negative (NEGATIVE) 06/27/16 20:01 Urine Blood Negative (NEGATIVE) 06/27/16 20:01 Urine Nitrite Negative (NEGATIVE) 06/27/16 20:01 Urine Bilirubin Negative (NEGATIVE) 06/27/16 20:01 Urine Urobilinogen 4.0 e.u/dl E.U./dl (0.2-1.0) 06/27/16 20:01 Ur Leukocyte Esterase Trace (NEGATIVE) H 06/27/16 20:01 Urine RBC 1 /hpf (0-3) 06/27/16 20:01 Urine WBC 3 /hpf (3-5) 06/27/16 20:01 Ur Epithelial Cells Rare /hpf (FEW) 06/27/16 20:01 Granular Casts 1 /lpf 06/27/16 20:01 Urine Mucus Rare 06/27/16 20:01 RPR Titer Nonreactive (NONREACTIVE) 06/28/16 06:00 Assessment: 06/29/16 13:07 WITHDRAWAL SYMPTOM Plan: CONTINUE DETOX
[2016-06-29] MEDS: chlordiazePOXIDE 5 MG CAPSULE PO SCH ×2 (18:03→22:26)
[2016-06-29] MEDS: THIAMINE HCL 100 MG TABLET (FP) PO SCH (22:25)
[2016-06-29] MEDS: diphenhydrAMINE HCL 50 MG CAPSULE PO PRN (22:28)
[2016-06-30] MEDS: chlordiazePOXIDE HCL 25 MG CAPSULE PO PRN (02:37)
[2016-06-30] MEDS: IBUPROFEN 400 MG TABLET (FP) PO PRN (02:37)
[2016-06-30] MEDS: chlordiazePOXIDE 5 MG CAPSULE PO SCH ×2 (05:59→11:27)
[2016-06-30] MEDS: CYCLOBENZAPRINE HCL 10 MG TABLET (FP) PO PRN (06:01)
--- NOTE | 2016-06-30 09:36 | PN ---
BHS Progress Note (SOAP) Subjective: ALERT,IRRITABLE,ANXIOUS,INTERRUPTED SLEEP,PAIN IN THE BODY AND BACK Objective: 06/30/16 09:35 Vital Signs Temperature 97.3 F L 06/30/16 07:34 Pulse Rate 67 06/30/16 07:34 Respiratory Rate 18 06/30/16 07:34 Blood Pressure 133/80 06/30/16 07:34 O2 Sat by Pulse Oximetry (%) Assessment: 06/30/16 09:35 WITHDRAWAL SYMPTOM Plan: CONTINUE DETOX
--- NOTE | 2016-06-30 09:37 | PN ---
S Progress Note Note: PATIENT DID NOT WANT TO COMPLETE TREATMENT,SINGED RELEASE AMA,SEEN BY COUNSELOR
--- NOTE | 2016-06-30 09:42 | DS ---
[facility] Detox Discharge Summary Admission Date: 06/27/16 Discharge Date: 06/30/16 - History Present History: Alcohol Dependence, Cocaine Dependence, Opioid Dependence Additional Comments: FOLLOW UP WITH AFTER CARE PROGRAM ARRANGEMENT AND PMD AND OWN [facility] FOR FOLLOW UP PATIENT DID NOT WANT TO COMPLETE TREATMENT,BON RELEASE AMA Pertinent Past History: OLD [place] HISTORY OF ANGIOPLASTY WITH STENT HEPATITIS C WEIGHT LOSS NICOTINE DEPENDENCE - Physical Exam Results Vital Signs: Vital Signs Temperature 97.3 F L 06/30/16 07:34 Pulse Rate 67 06/30/16 07:34 Respiratory Rate 18 06/30/16 07:34 Blood Pressure 133/80 06/30/16 07:34 O2 Sat by Pulse Oximetry (%) Pertinent Admission Physical Exam Findings: WITHDRAWAL SYMPTOM - Treatment Patient has Accepted a Rehab Referral to: DECLINED - Medication Discharge Medications: Ambulatory Orders Aspirin [Aspirin EC] 81 mg PO DAILY 05/02/16 Carvedilol [Coreg -] 3.125 mg PO BID 05/02/16 Lisinopril 5 mg PO DAILY 05/02/16 Thiamine HCl [B-1] 100 mg PO DAILY 05/02/16 - Diagnosis (1) Alcohol dependence with uncomplicated withdrawal Current Visit: No Status: Acute (2) Nicotine dependence Current Visit: No Status: Acute Qualifiers: Nicotine product type: cigarettes Substance use status: uncomplicated Qualified Code(s): F17.210 - Nicotine dependence, cigarettes, uncomplicated (3) Opioid dependence with withdrawal Current Visit: No Status: Acute (4) Weight loss Current Visit: No Status: Acute (5) Hepatitis C Current Visit: No Status: Chronic Qualifiers: Viral hepatitis chronicity: chronic Hepatic coma status: without hepatic coma Qualified Code(s): B18.2 - Chronic viral hepatitis C (6) 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
[2016-06-30 09:59] VITALS: BP 175/96; PULSE 52; TEMP 98.1
[2016-06-30] MEDS: ASPIRIN COATED 81 MG TABLET.EC PO SCH (11:27)
[2016-06-30] MEDS: LISINOPRIL 5 MG TABLET (FP) PO SCH (11:27)
[2016-06-30] MEDS: METHADONE HCL 5 MG TABLET (FOR DETOX USE ONLY) PO SCH (11:27)
[2016-06-30] MEDS: PRENATAL VITAMINS W/ FOLIC ACID TABLET (FP) PO SCH (11:27)
[2016-06-30] MEDS: cloNIDine HCL 0.1 MG TABLET PO SCH (11:28)
[2016-06-30] MEDS: CARVEDILOL 3.125 MG TABLET (FP) PO SCH (11:28)
[2016-06-30] MEDS ORDERED: chlordiazePOXIDE HCL 10 MG CAPSULE PO SCH (17:00)
[2016-07-01] MEDS ORDERED: METHADONE HCL 10 MG TABLET (FOR DETOX USE ONLY) PO SCH (10:00)
[2016-07-02] MEDS ORDERED: METHADONE HCL 5 MG TABLET (FOR DETOX USE ONLY) PO SCH (06:00)
--- NOTE | 2016-07-02 17:02 | EKG ---
Test Reason : Blood Pressure : / mmHG Vent. Rate : 059 BPM Atrial Rate : 059 BPM P-R Int : 186 ms QRS Dur : 088 ms QT Int : 424 ms P-R-T Axes : 054 067 089 degrees QTc Int : 419 ms SINUS RHYTM WITH MARKED SINUS ARRHYTHMIA NONSPECIFIC ST AND T WAVE ABNORMALITY SMALL Q WAVES IN INFERIOR LEADS WHEN COMPARED WITH ECG OF 03-MAY-2016 09:54, NO SIGNIFICANT CHANGE WAS FOUND Confirmed by NILESH HAMM, HUI ([id number]) on 07/02/2016 5:01:33 PM Referred By: Chase Muro Confirmed By:HUI GALLOWAY MD
== END 2016-06-30 11:28 | disposition left against medical advice (07) | DRG 770 ==
LOC: YASAS 14:34 → Y6N 17:53
PROVIDERS: ADMIT Internal Medicine Addiction Medicine; ATTEND Internal Medicine Addiction Medicine
PROC: HZ2ZZZZ Detoxification Services for Substance Abuse Treatment (ICD-10-PCS; principal; 2016-06-27)
DX: F11.23 Opioid dependence with withdrawal (principal); F10.230 Alcohol dependence with withdrawal, uncomplicated; F12.20 Cannabis dependence, uncomplicated; F17.210 Nicotine dependence, cigarettes, uncomplicated; I10 Essential (primary) hypertension; I25.2 Old myocardial infarction; B18.2 Chronic viral hepatitis C; R76.11 Nonspecific reaction to tuberculin skin test without active tuberculosis; Z95.5 Presence of coronary angioplasty implant and graft; Z86.74 Personal history of sudden cardiac arrest; Z87.898 Personal history of other specified conditions
CPT/HCPCS: 36415; 71020-TC; 80053; 81003; 81015; 85027; 86593; 93005; 93010

== ENCOUNTER 2016-08-23 10:05 | Inpatient (IN) | payer OTHER ==
--- NOTE | 2016-08-23 12:43 | HP ---
COWS - Scale Resting Pulse: 0= [place] 80 or Below Sweatin=Flushed/Facial Moisture Restless Observation: 1= Difficult to Sit Still Pupil Size: 0= Normal to Room Light Bone or Joint Aches: 2= Severe Diffuse Aches Runny Nose/ Eye Tearin= Runny Nose/Eyes GI Upset > 30mins: 1= Stomach Cramp Tremor Observation: 2= Slight Tremor Visible Yawning Observation: 2= >3x During Session Anxiety or Irritability: 2=Irritable/Anxious Goose Flesh Skin: 3=Piloerection COWS Score: 17 CIWA Score - CIWA Score Nausea/Vomitin-Mild Nausea/No Vomiting Muscle Tremors: 4-Moderate,w/Arms Extend Anxiety: 3 Agitation: 4-Moderately Restless Paroxysmal Sweats: 3 Orientation: 0-Oriented Tacttile Disturbances: 0-None Auditory Disturbances: 0-None Visual Disturbances: 0-None Headache: 0-None Present CIWA-Ar Total Score: 15 Admission ROS S - HPI Chief Complaint: I need to try again. Allergies/Adverse Reactions: Allergies Allergy/AdvReac Type Severity Reaction Status Date / Time Fish Containing Products Allergy Severe Vomiting Verified 08/23/16 12:26 No Known Drug Allergies Allergy Verified 08/23/16 12:26 History of Present Illness: pt is a 41yr old male with a history of alcohol, heroin and benzodiazapine dependence seeking detox for treatment. Exam Limitations: No Limitations - Ebola screening Have you traveled outside of the country in the last 21 days: No Have you had contact with anyone from an Ebola affected area: No Have you been sick,other than usual withdrawal symptoms: No Do you have a fever: No - Review of Systems Constitutional: Chills, Diaphoresis, Loss of Appetite, Night Sweats, Changes in sleep, Weight Stable, Unintentional Wgt. Loss EENT: reports: No Symptoms Reported, Nose Congestion Respiratory: reports: No Symptoms reported Cardiac: reports: No Symptoms Reported GI: reports: Nausea, Poor Appetite, Poor Fluid Intake, Indigestion : reports: No Symptoms Reported Musculoskeletal: reports: Back Pain, Joint Pain Integumentary: reports: Flushing, Sweating Neuro: reports: Headache, Tingling, Tremors Endocrine: reports: Excessive Sweating, Flushing, Intolerance to Cold, Intolerance to Heat Psychiatric: reports: Judgement Intact, Mood/Affect Appropiate, Orientated x3, Agitated, Anxious Other Systems: Reviewed and Negative Patient History - Patient Medical History Hx Anemia: No Hx Asthma: No Hx Chronic Obstructive Pulmonary Disease (COPD): No Hx Cancer: No Hx Cardiac Disorders: Yes (cardiac arrest 1month d/t drugs S/P ANGIOPLASTY WITH STENT) Hx Congestive Heart Failure: No Hx Hypertension: Yes (ON MEDICATION) Hx Hypercholesterolemia: No Hx Pacemaker: No HX Cerebrovascular Accident: No Hx Seizures: No Hx Dementia: No Hx Diabetes: No Hx Gastrointestinal Disorders: No Hx Liver Disease: No Hx Genitourinary Disorders: No Hx Sexually Transmitted Disorders: No Hx Renal Disease (ESRD): No Hx Thyroid Disease: No Hx Human Immunodeficiency Virus (HIV): No (negative) Hx Hepatitis C: Yes Hx Depression: No Hx Suicide Attempt: No (denies) Hx Bipolar Disorder: No Hx Schizophrenia: No - Patient Surgical History Past Surgical History: No Hx Cardiac Surgery: Yes (S/P ANGIOPLASTY WITH STENT) Anesthesia Reaction: No - PPD History Previous Implant?: Yes Documented Results: Negative w/o proof Implanted On Prior R Admission?: No PPD to be Administered?: No - Reproductive History Patient is a Female of Child Bearing Age (11 -55 yrs old): No - Smoking Cessation Smoking history: Current every day smoker Have you smoked in the past 12 months: Yes Aproximately how many cigarettes per day: 20 Hx Chewing Tobacco Use: No Initiated information on smoking cessation: Yes 'Breaking Loose' booklet given: 08/23/16 - Substance & Tx. History Hx Alcohol Use: Yes Hx Substance Use: Yes Substance Use Type: Alcohol, Heroin, Marijuana, Tranquilizers Hx Substance Use Treatment: Yes Family Disease History - Family Disease History Family History: Denies Admission Physical Exam S - Physical General Appearance: Yes: Appropriately Dressed, Moderate Distress, Tremorous, Irritable, Sweating, Anxious HEENTM: Yes: Normal Voice, Nasal Congestion Respiratory: Yes: Lungs Clear, Normal Breath Sounds, No Respiratory Distress Neck: Yes: No masses,lesions,Nodules Breast: Yes: Within Normal Limits Cardiology: Yes: Regular Rhythm, Regular Rate, S1, S2 Abdominal: Yes: Normal Bowel Sounds, Non Tender, Soft Genitourinary: Yes: Within Normal Limits Back: Yes: Normal Inspection Musculoskeletal: Yes: full range of Motion, Back pain Extremities: Yes: Normal Inspection, Tremors 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: Yes: Fully Oriented, Alert, Normal Response Integumentary: Yes: Normal Color, Diaphoresis Lymphatic: Yes: Within Normal Limits - Diagnostic (1) Sedative, hypnotic or anxiolytic dependence with withdrawal, uncomplicated Current Visit: Yes Status: Chronic (2) H/O heart artery stent Current Visit: No Status: Chronic (3) Old [place] (myocardial infarction) Current Visit: No Status: Chronic (4) Alcohol dependence with uncomplicated withdrawal Current Visit: Yes Status: Chronic (5) Hepatitis C Current Visit: Yes Status: Chronic Qualifiers: Viral hepatitis chronicity: chronic Hepatic coma status: without hepatic coma Qualified Code(s): B18.2 - Chronic viral hepatitis C (6) Nicotine dependence Current Visit: Yes Status: Chronic Qualifiers: Nicotine product type: cigarettes Substance use status: uncomplicated Qualified Code(s): F17.210 - Nicotine dependence, cigarettes, uncomplicated (7) Opioid dependence with withdrawal Current Visit: Yes Status: Chronic (8) PPD positive Current Visit: No Status: Chronic (9) Weight loss Current Visit: Yes Status: Chronic Cleared for Admission S - Detox or Rehab [facility] Level of Care: Medically Managed Detox Regimen/Protocol: Methadone/Valium S Breath Alcohol Content Breath Alcohol Content: 0.006
[2016-08-23 12:48] VITALS: BMI 23.6
[2016-08-23] MEDS ORDERED: guaiFENesin/D-METHORPHAN HB 10 ML UNIT-DOSE CUPS PO PRN (12:57)
[2016-08-23] MEDS ORDERED: MENTHOL/PHENOL 1 EACH UD MM PRN (12:57)
[2016-08-23] MEDS ORDERED: MAGNESIUM HYDROX 2400MG/30ML ORAL SUSPENSION 30 ML CUP PO PRN (12:57)
[2016-08-23] MEDS ORDERED: LOPERAMIDE HCL 2 MG CAPSULE PO PRN (12:57)
[2016-08-23] MEDS ORDERED: ACETAMINOPHEN 325 MG TABLET (FP) PO PRN (12:57)
[2016-08-23] MEDS ORDERED: P-EPHED 60MG/TRIPROLIDI 2.5MG TABLET PO PRN (12:57)
[2016-08-23] MEDS ORDERED: MAG HYDROX/AL HYDROX/SIMETH 30 ML UNIT-DOSE CUP PO PRN (12:57)
[2016-08-23] MEDS ORDERED: hydrOXYzine PAMOATE 50 MG CAPSULE (FP) PO PRN (12:57)
[2016-08-23] MEDS ORDERED: NICOTINE POLACRILEX 4 MG GUM BUC PRN (12:57)
[2016-08-23] MEDS ORDERED: IBUPROFEN 400 MG TABLET (FP) PO PRN (12:57)
[2016-08-23] MEDS ORDERED: diazePAM 5 MG TABLET PO ONE (13:30)
[2016-08-23] MEDS ORDERED: METHADONE HCL 10 MG TABLET (FOR DETOX USE ONLY) PO ONE ×2 (13:32→23:00)
[2016-08-23] MEDS: diazePAM 5 MG TABLET PO SCH ×2 (14:52→22:39)
[2016-08-23 18:40] LABS: URINE APPEARANCE CLEAR; URINE BILIRUBIN NEGATIVE (NEGATIVE); URINE BLOOD NEGATIVE (NEGATIVE); URINE COLOR YELLOW; URINE GLUCOSE (UA) NEGATIVE (NEGATIVE); URINE KETONE NEGATIVE (NEGATIVE); URINE LEUK ESTERASE NEGATIVE (NEGATIVE); URINE NITRITE NEGATIVE (NEGATIVE); URINE PROTEIN NEGATIVE (NEGATIVE); URINE UROBILINOGEN 4.0 E.U/dl E.U./dl (0.2-1.0)
[2016-08-23] MEDS: diazePAM 5 MG TABLET PO PRN (20:26)
[2016-08-23 20:31] LABS: HIV 1 & 2 AB NEGATIVE; HIV 1 AGp24 NEGATIVE
[2016-08-23] MEDS: THIAMINE HCL 100 MG TABLET (FP) PO SCH (22:39)
[2016-08-23] MEDS: diphenhydrAMINE HCL 50 MG CAPSULE PO PRN (22:40)
[2016-08-24] MEDS: diazePAM 5 MG TABLET PO SCH ×3 (06:00→22:15)
[2016-08-24] MEDS: cloNIDine HCL 0.1 MG TABLET PO PRN ×2 (06:38→10:35)
[2016-08-24] MEDS ORDERED: METHADONE HCL 10 MG TABLET (FOR DETOX USE ONLY) PO SCH (10:00)
[2016-08-24 10:20] LABS: MCH 29.5 pg (25.7-33.7); MCHC 33.5 g/dl (32.0-35.9); MEAN PLT VOLUME 9.5 fl (7.5-11.1); PLATELET COUNT 172 K/MM3 (134-434); RDW 15.8 % (11.9-15.9); WHITE BLOOD COUNT 6.6 K/mm3 (4.0-10.0)
[2016-08-24] MEDS: PRENATAL VITAMINS W/ FOLIC ACID TABLET (FP) PO SCH (10:34)
[2016-08-24] MEDS: diazePAM 5 MG TABLET PO PRN ×2 (10:35→19:04)
[2016-08-24] MEDS: NICOTINE 21 MG/24 HOURS TOPICAL PATCH TD SCH (10:35)
[2016-08-24 10:36] LABS: CALCIUM 9.1 mg/dL (8.5-10.1)
[2016-08-24 10:41] LABS: ALK PHOS 88 U/L (45-117); ANION GAP 10 (8-16); BILIRUBIN,TOTAL 0.5 mg/dL (0.2-1.0); CO2 31 mmol/L (21-32); COCKROFT - GAULT 127.25; CREATININE 0.8 mg/dL (0.7-1.3); GLUCOSE,RANDOM 77 mg/dL (74-106); SGOT/AST 28 U/L (15-37); SGPT/ALT 30 U/L (12-78); TOT PROT 7.2 g/dl (6.4-8.2)
[2016-08-24] MEDS: ASPIRIN COATED 81 MG TABLET.EC PO SCH (11:25)
[2016-08-24] MEDS: LISINOPRIL 5 MG TABLET (FP) PO SCH (11:25)
[2016-08-24] MEDS: CYCLOBENZAPRINE HCL 10 MG TABLET (FP) PO PRN ×2 (14:02→22:17)
--- NOTE | 2016-08-24 15:14 | PN ---
S CIWA - CIWA Score Nausea/Vomitin Muscle Tremors: 4-Moderate,w/Arms Extend Anxiety: 3 Agitation: 2 Paroxysmal Sweats: 4-Forehead w/Sweat Beads Orientation: 0-Oriented Tacttile Disturbances: 3-Moderate Itch/Numb/Burn Auditory Disturbances: 2-Mild Harshness/Frighten Visual Disturbances: 2-Mild Sensitivity Headache: 2-Mild CIWA-Ar Total Score: 25 BHS COWS - Scale Resting Pulse: 1= [place] 81-100 Sweatin=Flushed/Facial Moisture Restless Observation: 1= Difficult to Sit Still Pupil Size: 0= Normal to Room Light Bone or Joint Aches: 2= Severe Diffuse Aches Runny Nose/ Eye Tearin= None GI Upset > 30mins: 2= Nausea/Diarrhea Tremor Observation of Outstretched Hands: 4= Gross Tremor/Twitching Yawning Observation: 1= 1-2x During Session Anxiety or Irritability: 2=Irritable/Anxious Goose Flesh Skin: 3=Piloerection COWS Score: 18 BHS Progress Note (SOAP) Subjective: Diarrhea, Nausea, Interrupted sleep, Tremors, Anxious, Body aches, H/A, Sweating. Objective: PT. A & O X 3, OBSERVED AMBULATING ON UNIT. PT. DENIES CHEST PAIN. 08/24/16 15:10 Vital Signs Temperature 96.4 F L 08/24/16 13:11 Pulse Rate 94 H 08/24/16 13:11 Respiratory Rate 20 08/24/16 13:11 Blood Pressure 139/94 08/24/16 13:11 O2 Sat by Pulse Oximetry (%) Laboratory Last Values WBC 6.6 K/mm3 (4.0-10.0) 08/24/16 06:05 RBC 5.50 M/mm3 (4.00-5.60) 08/24/16 06:05 Hgb 16.2 GM/dL (11.7-16.9) 08/24/16 06:05 Hct 48.4 % (35.4-49) 08/24/16 06:05 MCV 88.0 fl (80-96) 08/24/16 06:05 MCHC 33.5 g/dl (32.0-35.9) 08/24/16 06:05 RDW 15.8 % (11.9-15.9) 08/24/16 06:05 Plt Count 172 K/MM3 (134-434) 08/24/16 06:05 MPV 9.5 fl (7.5-11.1) 08/24/16 06:05 Sodium 142 mmol/L (136-145) 08/24/16 06:05 Potassium 4.2 mmol/L (3.5-5.1) 08/24/16 06:05 Chloride 101 mmol/L (98-107) 08/24/16 06:05 Carbon Dioxide 31 mmol/L (21-32) 08/24/16 06:05 Anion Gap 10 (8-16) 08/24/16 06:05 BUN 12 mg/dL (7-18) 08/24/16 06:05 Creatinine 0.8 mg/dL (0.7-1.3) 08/24/16 06:05 Creat Clearance w eGFR > 60 (>60) 08/24/16 06:05 Random Glucose 77 mg/dL (74-106) 08/24/16 06:05 Calcium 9.1 mg/dL (8.5-10.1) 08/24/16 06:05 Total Bilirubin 0.5 mg/dL (0.2-1.0) D 08/24/16 06:05 AST 28 U/L (15-37) 08/24/16 06:05 ALT 30 U/L (12-78) 08/24/16 06:05 Alkaline Phosphatase 88 U/L (45-117) 08/24/16 06:05 Total Protein 7.2 g/dl (6.4-8.2) 08/24/16 06:05 Albumin 4.0 g/dl (3.4-5.0) 08/24/16 06:05 Urine Color Yellow 08/23/16 15:00 Urine Appearance Clear 08/23/16 15:00 Urine pH 7.0 (5.0-8.0) 08/23/16 15:00 Ur Specific [place] 1.015 (1.005-1.025) 08/23/16 15:00 Urine Protein Negative (NEGATIVE) 08/23/16 15:00 Urine Glucose (UA) Negative (NEGATIVE) 08/23/16 15:00 Urine Ketones Negative (NEGATIVE) 08/23/16 15:00 Urine Blood Negative (NEGATIVE) 08/23/16 15:00 Urine Nitrite Negative (NEGATIVE) 08/23/16 15:00 Urine Bilirubin Negative (NEGATIVE) 08/23/16 15:00 Urine Urobilinogen 4.0 e.u/dl E.U./dl (0.2-1.0) 08/23/16 15:00 Ur Leukocyte Esterase Negative (NEGATIVE) 08/23/16 15:00 RPR Titer Nonreactive (NONREACTIVE) 08/24/16 06:05 HIV 1&2 Antibody Screen Negative 08/23/16 14:00 HIV P24 Antigen Negative 08/23/16 14:00 LABS NOTED. Assessment: 08/24/16 15:12 WITHDRAWAL SYMPTOMS. Plan: CONTINUE DETOX. CLONIDINE, 0.1 MG FOR WITHDRAWAL SYMPTOMS AND ELEVATED BP. ADVISED PATIENT TO FOLLOW-UP WITH [facility] AFTER DISCHARGE FROM DETOX FOR GENERAL MEDICAL ASSESSMENT AND FOR ABNORMAL ADMISSION LAB VALUES.
[2016-08-24] MEDS: CARVEDILOL 3.125 MG TABLET (FP) PO SCH (22:15)
[2016-08-24] MEDS: diphenhydrAMINE HCL 50 MG CAPSULE PO PRN (22:16)
[2016-08-24] MEDS: THIAMINE HCL 100 MG TABLET (FP) PO SCH (22:16)
[2016-08-25] MEDS: diazePAM 5 MG TABLET PO PRN (04:31)
[2016-08-25] MEDS: CYCLOBENZAPRINE HCL 10 MG TABLET (FP) PO PRN (04:31)
[2016-08-25 06:32] VITALS: BP 173/94; PULSE 51; TEMP 97.7
[2016-08-25] MEDS ORDERED: TRIMETHOBENZAMIDE HCL 200MG/2ML INJ IM PRN (08:33)
[2016-08-25] MEDS ORDERED: TRIMETHOBENZAMIDE HCL 200MG/2ML INJ IM ONE (08:42)
[2016-08-25] MEDS ORDERED: METHADONE HCL 5 MG TABLET (FOR DETOX USE ONLY) PO SCH (10:00)
[2016-08-25] MEDS ORDERED: diazePAM 5 MG TABLET PO SCH (10:00)
[2016-08-25] MEDS: PRENATAL VITAMINS W/ FOLIC ACID TABLET (FP) PO SCH (10:01)
[2016-08-25] MEDS: CARVEDILOL 3.125 MG TABLET (FP) PO SCH (10:01)
[2016-08-25] MEDS: LISINOPRIL 5 MG TABLET (FP) PO SCH (10:01)
[2016-08-25] MEDS: ASPIRIN COATED 81 MG TABLET.EC PO SCH (10:01)
[2016-08-25] MEDS: NICOTINE 21 MG/24 HOURS TOPICAL PATCH TD SCH (10:02)
[2016-08-25] MEDS ORDERED: ONDANSETRON *ODT* 4 MG TABLET SL PRN (10:04)
[2016-08-25] MEDS: cloNIDine HCL 0.1 MG TABLET PO PRN (11:18)
--- NOTE | 2016-08-25 11:20 | PN ---
[facility] CIWA - CIWA Score Nausea/Vomitin-Cont. Nausea/Vomiting Muscle Tremors: 4-Moderate,w/Arms Extend Anxiety: 4-Mod. Anxious/Guarded Agitation: 3 Paroxysmal Sweats: 4-Forehead w/Sweat Beads Orientation: 0-Oriented Tacttile Disturbances: 2-Mild Itch/Numbness/Burn Auditory Disturbances: 0-None Visual Disturbances: 0-None Headache: 0-None Present CIWA-Ar Total Score: 24 S COWS - Scale Resting Pulse: 0= [place] 80 or Below Sweatin= Beads of Sweat on Face Restless Observation: 1= Difficult to Sit Still Pupil Size: 0= Normal to Room Light Bone or Joint Aches: 4=Acute Joint/Muscle Pain Runny Nose/ Eye Tearin= Constantly Teary/Runny GI Upset > 30mins: 5=Frequent Vomit/Diarrhea Tremor Observation of Outstretched Hands: 2= Slight Tremor Visible Yawning Observation: 0= None Anxiety or Irritability: 2=Irritable/Anxious Goose Flesh Skin: 0=Smooth Skin COWS Score: 21 [facility] Progress Note (SOAP) Subjective: Vomiting (Frequent), Stomach Cramping, Body Aches, Sweating, Anxious. Objective: PT. A & O X 3. 08/25/16 11:18 Vital Signs Temperature 97.7 F 08/25/16 06:31 Pulse Rate 51 L 08/25/16 06:31 Respiratory Rate 18 08/25/16 06:31 Blood Pressure 173/94 08/25/16 06:31 O2 Sat by Pulse Oximetry (%) Laboratory Last Values WBC 6.6 K/mm3 (4.0-10.0) 08/24/16 06:05 RBC 5.50 M/mm3 (4.00-5.60) 08/24/16 06:05 Hgb 16.2 GM/dL (11.7-16.9) 08/24/16 06:05 Hct 48.4 % (35.4-49) 08/24/16 06:05 MCV 88.0 fl (80-96) 08/24/16 06:05 MCHC 33.5 g/dl (32.0-35.9) 08/24/16 06:05 RDW 15.8 % (11.9-15.9) 08/24/16 06:05 Plt Count 172 K/MM3 (134-434) 08/24/16 06:05 MPV 9.5 fl (7.5-11.1) 08/24/16 06:05 Sodium 142 mmol/L (136-145) 08/24/16 06:05 Potassium 4.2 mmol/L (3.5-5.1) 08/24/16 06:05 Chloride 101 mmol/L (98-107) 08/24/16 06:05 Carbon Dioxide 31 mmol/L (21-32) 08/24/16 06:05 Anion Gap 10 (8-16) 08/24/16 06:05 BUN 12 mg/dL (7-18) 08/24/16 06:05 Creatinine 0.8 mg/dL (0.7-1.3) 08/24/16 06:05 Creat Clearance w eGFR > 60 (>60) 08/24/16 06:05 Random Glucose 77 mg/dL (74-106) 08/24/16 06:05 Calcium 9.1 mg/dL (8.5-10.1) 08/24/16 06:05 Total Bilirubin 0.5 mg/dL (0.2-1.0) D 08/24/16 06:05 AST 28 U/L (15-37) 08/24/16 06:05 ALT 30 U/L (12-78) 08/24/16 06:05 Alkaline Phosphatase 88 U/L (45-117) 08/24/16 06:05 Total Protein 7.2 g/dl (6.4-8.2) 08/24/16 06:05 Albumin 4.0 g/dl (3.4-5.0) 08/24/16 06:05 Urine Color Yellow 08/23/16 15:00 Urine Appearance Clear 08/23/16 15:00 Urine pH 7.0 (5.0-8.0) 08/23/16 15:00 Ur Specific [place] 1.015 (1.005-1.025) 08/23/16 15:00 Urine Protein Negative (NEGATIVE) 08/23/16 15:00 Urine Glucose (UA) Negative (NEGATIVE) 08/23/16 15:00 Urine Ketones Negative (NEGATIVE) 08/23/16 15:00 Urine Blood Negative (NEGATIVE) 08/23/16 15:00 Urine Nitrite Negative (NEGATIVE) 08/23/16 15:00 Urine Bilirubin Negative (NEGATIVE) 08/23/16 15:00 Urine Urobilinogen 4.0 e.u/dl E.U./dl (0.2-1.0) 08/23/16 15:00 Ur Leukocyte Esterase Negative (NEGATIVE) 08/23/16 15:00 RPR Titer Nonreactive (NONREACTIVE) 08/24/16 06:05 HIV 1&2 Antibody Screen Negative 08/23/16 14:00 HIV P24 Antigen Negative 08/23/16 14:00 LABS NOTED. Assessment: 08/25/16 11:19 WITHDRAWAL SYMPTOMS. Plan: CONTINUE DETOX. ADVISED PATIENT TO FOLLOW-UP WITH [facility] AFTER DISCHARGE FROM DETOX FOR GENERAL MEDICAL ASSESSMENT AND FOR ABNORMAL ADMISSION LAB VALUES.
--- NOTE | 2016-08-25 11:28 | PN ---
[facility] Progress Note Note: Patient reporting frequent vomiting since early this AM along with abdominal discomfort and severe body aches and sweating. Patient himself requesting to go to ER for evaluation. Patient appears to be in considerable distress. VS: BP: 183/97, P: 49; T: 97.9. Tigan, 200 mg IM administered at approx. 8:30 AM for relief of vomiting with moderate effect. Clonidine, 0.1 mg PO given at approx. 11:20 AM for relief of Detox symptoms and for elevated BP. Report given to Adenike Gallegos NP at [facility]. Patient taken via ambulance to [facility] for further evaluation. Lupis Kelley NP
--- NOTE | 2016-08-26 13:06 | EKG ---
Test Reason : Blood Pressure : / mmHG Vent. Rate : 071 BPM Atrial Rate : 071 BPM P-R Int : 190 ms QRS Dur : 092 ms QT Int : 410 ms P-R-T Axes : 051 049 048 degrees QTc Int : 445 ms NORMAL SINUS RHYTHM INFERIOR INFARCT (CITED ON OR BEFORE 23-AUG-2016) ABNORMAL ECG WHEN COMPARED WITH ECG OF 27-JUN-2016 17:57, NO SIGNIFICANT CHANGE WAS FOUND Confirmed by HUI GALLOWAY MD ([id number]) on 08/26/2016 1:05:54 PM Referred By: Confirmed By:HUI GALLOWAY MD
[2016-08-27] MEDS ORDERED: diazePAM 5 MG TABLET PO SCH (10:00)
[2016-08-27] MEDS ORDERED: METHADONE HCL 10 MG TABLET (FOR DETOX USE ONLY) PO SCH (10:00)
--- NOTE | 2016-08-27 11:45 | DS ---
[facility] Detox Discharge Summary Admission Date: 08/23/16 Discharge Date: 08/25/16 - History Present History: Alcohol Dependence - Physical Exam Results Vital Signs: Vital Signs Temperature 97.7 F 08/25/16 06:31 Pulse Rate 51 L 08/25/16 06:31 Respiratory Rate 18 08/25/16 06:31 Blood Pressure 173/94 08/25/16 06:31 O2 Sat by Pulse Oximetry (%) - Treatment Hospital Course: Detox Protocol Followed - Medication Discharge Medications: Ambulatory Orders Acetaminophen [Acetaminophen 8 Hour] 650 mg PO DAILY 08/25/16 Aspirin [ASA -] 81 mg PO DAILY 08/25/16 Carvedilol [Coreg -] 3.125 mg PO BID 08/25/16 Clonidine HCl [Clonidine HCl ER] 0.1 mg PO BID 08/25/16 Cyclobenzaprine HCl [Flexeril 10 mg] 10 mg PO TID 08/25/16 Diazepam [Valium] 5 mg PO BID 08/25/16 Diphenhydramine [Benadryl Capsule -] 50 mg PO DAILY 08/25/16 Eucalyptus/Menthol [Cough Drops] 1 each MM DAILY 08/25/16 Mag Hydrox/Al Hydrox/Simeth [Mylanta Oral Suspension -] 30 ml PO Q6H 08/25/16 Magnesium Hydroxide [Milk of Magnesia -] 30 ml PO DAILY 08/25/16 Nicotine [Nicotine Patch] 1 each TD DAILY 08/25/16 Ondansetron [Zofran Odt -] 4 mg SL BID 08/25/16 Pseudoephedrine HCl 30 mg PO DAILY 08/25/16 Thiamine HCl [B-1] 100 mg PO DAILY 08/25/16 - Diagnosis (1) Abdominal pain Status: Acute (2) Alcohol abuse Status: Chronic (3) Intractable vomiting Status: Acute (4) CAD (coronary artery disease) Status: Chronic Qualifiers: (5) Alcohol dependence with uncomplicated withdrawal Status: Chronic (6) Hepatitis C Status: Chronic Qualifiers: Viral hepatitis chronicity: chronic Hepatic coma status: without hepatic coma Qualified Code(s): B18.2 - Chronic viral hepatitis C (7) Nicotine dependence Status: Chronic Qualifiers: Nicotine product type: cigarettes Substance use status: uncomplicated Qualified Code(s): F17.210 - Nicotine dependence, cigarettes, uncomplicated (8) Opioid dependence with withdrawal Status: Chronic - AMA Did Patient Leave Against Medical Advice: No (pt trasfered to ED fpr further eval of abdominal pain )
[2016-08-28] MEDS ORDERED: METHADONE HCL 5 MG TABLET (FOR DETOX USE ONLY) PO SCH (06:00)
== END 2016-08-25 18:53 | disposition short-term general hospital (02) | DRG 773 ==
LOC: YASAS 10:05 → Y3N 13:24
PROVIDERS: ADMIT Internal Medicine Addiction Medicine; ATTEND Internal Medicine Addiction Medicine
PROC: HZ2ZZZZ Detoxification Services for Substance Abuse Treatment (ICD-10-PCS; principal; 2016-08-25)
DX: F11.23 Opioid dependence with withdrawal (principal); F13.230 Sedative, hypnotic or anxiolytic dependence with withdrawal, uncomplicated; F10.230 Alcohol dependence with withdrawal, uncomplicated; F17.210 Nicotine dependence, cigarettes, uncomplicated; B18.2 Chronic viral hepatitis C; I25.2 Old myocardial infarction; Z95.5 Presence of coronary angioplasty implant and graft; Z86.74 Personal history of sudden cardiac arrest; R76.11 Nonspecific reaction to tuberculin skin test without active tuberculosis; R63.4 Abnormal weight loss; Z68.23 Body mass index [BMI] 23.0-23.9, adult
CPT/HCPCS: 36415; 80053; 81003; 85027; 86593; 87389; 93005; 93010

== ENCOUNTER 2016-08-25 11:44 | Inpatient (IN) | payer OTHER ==
[2016-08-25 11:57] VITALS: BMI 23.6
[2016-08-25] MEDS ORDERED: ONDANSETRON 4 MG/2 ML VIAL IVPUSH ONE (12:04)
[2016-08-25] MEDS ORDERED: ONDANSETRON 4 MG/2 ML VIAL ONE (12:05)
--- NOTE | 2016-08-25 12:10 | PDOC ---
History of Present Illness - General History Source: Patient Exam Limitations: No Limitations - History of Present Illness Initial Comments: 41 y/o M w/PMH of alcohol, heroin and benzodiazapine dependence presents from detox at [facility] for abd pain and nausea and vomiting. Pt last used heroin, alcohol, xanax, and marijuana on Friday. He began having nausea and vomiting all of a sudden last night and has been vomiting "countless times" since. Vomit is yellow in color and without blood. Pt also c/o 10/10 diffuse abdominal pain. Last BM was yesterday and has been passing gas since. C/o chills since this morning. He denies fevers, chills, chest pain, sob, cough, sputum production, diarrhea, peripheral swelling. <Fabian Gallego - Last Filed: 08/25/16 16:11> <Darya Grewal - Last Filed: 08/25/16 17:07> - General Chief Complaint: Pain Stated Complaint: ABD PAIN/VOMITING Time Seen by Provider: 08/25/16 11:53 Past History - Past Medical History Anemia: No Asthma: No Cancer: No Cardiac Disorders: Yes (cardiac arrest d/t drugs S/P ANGIOPLASTY WITH STENT) CVA: No COPD: No CHF: No Dementia: No Diabetes: No GI Disorders: No Disorders: No HTN: Yes (ON MEDICATION) Hypercholesterolemia: No Kidney Stones: No Liver Disease: No Suicide Attempt (Hx): No (denies) Seizures: No Thyroid Disease: No - Surgical History Abdominal Surgery: No Appendectomy: No Cardiac Surgery: Yes (S/P ANGIOPLASTY WITH STENT) Cholecystectomy: No Lung Surgery: No Neurologic Surgery: No Orthopedic Surgery: No - Reproductive History Testicular Surgery: No - Immunization History Immunization Up to Date: Yes - Psycho/Social/Smoking Cessation Hx Anxiety: No Suicidal Ideation: No Smoking History: Current every day smoker Have you smoked in the past 12 months: Yes Number of Cigarettes Smoked Daily: 20 Information on smoking cessation initiated: No 'Breaking Loose' booklet given: 08/23/16 Hx Alcohol Use: No Drug/Substance Use Hx: No Substance Use Type: Alcohol, Heroin, Marijuana, Tranquilizers Hx Substance Use Treatment: Yes <Fabian Gallego - Last Filed: 08/25/16 16:11> <Darya Grewal - Last Filed: 08/25/16 17:07> - Past Medical History Allergies/Adverse Reactions: Allergies Allergy/AdvReac Type Severity Reaction Status Date / Time Fish Containing Products Allergy Severe Vomiting Verified 08/25/16 11:52 No Known Drug Allergies Allergy Verified 08/25/16 11:52 Home Medications: Ambulatory Orders Acetaminophen [Acetaminophen 8 Hour] 650 mg PO DAILY 08/25/16 Aspirin [ASA -] 81 mg PO DAILY 08/25/16 Carvedilol [Coreg -] 3.125 mg PO BID 08/25/16 Clonidine HCl [Clonidine HCl ER] 0.1 mg PO BID 08/25/16 Cyclobenzaprine HCl [Flexeril 10 mg] 10 mg PO TID 08/25/16 Diazepam [Valium] 5 mg PO BID 08/25/16 Diphenhydramine [Benadryl -] 50 mg PO DAILY 08/25/16 Eucalyptus/Menthol [Cough Drops] 1 each MM DAILY 08/25/16 Mag Hydrox/Al Hydrox/Simeth [Mylanta *Suspension*] 30 ml PO Q6H 08/25/16 Magnesium Hydroxide [Milk of Magnesia -] 30 ml PO DAILY 08/25/16 Nicotine [Nicotine Patch] 1 each TD DAILY 08/25/16 Ondansetron [Zofran Odt -] 4 mg SL BID 08/25/16 Pseudoephedrine HCl 30 mg PO DAILY 08/25/16 Thiamine HCl [B-1] 100 mg PO DAILY 08/25/16 Review of Systems - Review of Systems Able to Perform ROS?: Yes Comments:: CONSTITUTIONAL: +chills Absent: fever, no fatigue CARDIOVASCULAR: Absent: chest pain RESPIRATORY: Absent: cough, no SOB GI: +abd pain, nausea, vomiting Absent: no constipation, no diarrhea GENITOURINARY: Absent: dysuria NEURO: Absent: headache Is the patient limited Nigerien proficient: No <Fabian Gallego - Last Filed: 08/25/16 16:11> *Physical Exam - Vital Signs Last Vital Signs Temp Pulse Resp BP Pulse Ox 98.9 F 52 L 18 193/112 100 08/25/16 11:52 08/25/16 11:52 08/25/16 11:52 08/25/16 11:52 08/25/16 11:52 - Physical Exam Comments: GENERAL: Well-appearing, well-nourished. No apparent distress. HEENT: Normocephalic, atraumatic. EOM intact. CARDIOVASCULAR: Normal S1, S2. Regular rate and rhythm. PULMONARY: Auscultated anteriorly. B/L coarse breath sounds. ABDOMEN: Soft, Tender to palpation in all 4 quadrants, hypoactive bowel sounds. EXTREMITIES: No gross deformities. SKIN: Warm, dry. NEUROLOGICAL: No focal neurological deficits. <Fabian Gallego - Last Filed: 08/25/16 16:11> - Vital Signs Last Vital Signs Temp Pulse Resp BP Pulse Ox 98.9 F 52 L 18 193/112 100 08/25/16 11:52 08/25/16 11:52 08/25/16 11:52 08/25/16 11:52 08/25/16 11:52 <Darya Grewal - Last Filed: 08/25/16 17:07> Procedures - Bedside Ultrasound Bedside Ultrasound: Gallbladder Other: focused ED ultrasound RUQ, normal wall no edema, no stones, nml gb . <Darya Grewal - Last Filed: 08/25/16 17:07> Heart Score/ECG Review - ECG Intrepretation Comment:: NSR @ 71 bpm, QTc 445 J point elevations on V3-V6. NO changes compared to EKG from 06/27/2016 <Fabian Gallego - Last Filed: 08/25/16 16:11> ED Treatment Course - LABORATORY CBC & Chemistry Diagram: 08/25/16 14:07 08/25/16 13:56 <Fabian Gallego - Last Filed: 08/25/16 16:11> - LABORATORY CBC & Chemistry Diagram: 08/25/16 14:07 08/25/16 13:56 - ADDITIONAL ORDERS Additional order review: Laboratory Results 08/25/16 08/25/16 13:21 12:25 Sodium Cancelled Cancelled Potassium Cancelled Cancelled Chloride Cancelled Cancelled Carbon Dioxide Cancelled Cancelled Anion Gap Cancelled Cancelled BUN Cancelled Cancelled Creatinine Cancelled Cancelled Creat Clearance w eGFR Cancelled Cancelled Random Glucose Cancelled Cancelled Calcium Cancelled Cancelled Total Bilirubin Cancelled Cancelled AST Cancelled Cancelled ALT Cancelled Cancelled Alkaline Phosphatase Cancelled Cancelled Total Protein Cancelled Cancelled Albumin Cancelled Cancelled Lipase Cancelled Cancelled 08/25/16 12:25 RBC 6.52 H MCV 86.8 MCHC 33.7 RDW 15.9 MPV 8.0 D Neutrophils % 89.0 H Lymphocytes % 7.9 L Monocytes % 2.6 L Eosinophils % 0.1 Basophils % 0.4 - Medications Given in the ED: ED Medications Discontinued Medications Generic Name Dose Route Start Last Admin Trade Name Luis Felipe PRN Reason Stop Dose Admin Al Hydroxide/Mg Hydroxide 30 ml 08/25/16 12:21 08/25/16 12:36 Mylanta Oral Suspension - PO 08/25/16 12:22 Not Given ONCE ONE Famotidine/Sodium Chloride 50 mls @ 100 mls/hr 08/25/16 12:21 08/25/16 12:33 Pepcid 20 Mg Premixed Ivpb - IVPB 08/25/16 12:50 100 mls/hr ONCE ONE Administration Methadone HCl 10 mg 08/25/16 13:21 08/25/16 13:36 Dolophine - PO 08/25/16 13:22 10 mg ONCE ONE Administration Metoclopramide HCl 10 mg 08/25/16 14:07 08/25/16 14:11 Reglan Injection - IVPUSH 08/25/16 14:08 10 mg ONCE ONE Administration Ondansetron HCl 4 mg 08/25/16 12:04 08/25/16 12:29 Zofran Injection IVPUSH 08/25/16 12:05 4 mg ONCE ONE Administration <Darya Grewal - Last Filed: 08/25/16 17:07> Medical Decision Making - Medical Decision Making 08/25/16 12:21 Zofran 4 mg IV ordered. mylaanta and pepcid 20 mg iv ordred. IVF - NS @ 100 ml/hr ordered Will get CBC, CMP, RUQ US, Lipase, abd xr, EKG to r/o cholecystitis, cholelithiasis, pancreatitis, hypokalemia Will also get CXR to r/o aspiration pna 08/25/16 13:56 bloodwork hemolyzed. Will reorder CMP, and lipase 08/25/16 14:25 Pt reports he had similar symptoms 2 months ago and had CT abd at [facility] which was "normal". Methadone 10 mg given here as he threw up after taking methadone this morning at [facility], [place]. Bedside RUQ ultrasound done which shows no cholelithiasis, cholecystitis. 08/25/16 15:24 Pt c/o throwing up again. States he "threw up methadone" and would like pain meds. Vomit is bilious at this time. Offered patient tylenol and pt refused tylenol. Abd XR and CXR with no acute pathology. 08/25/16 15:53 Pt to be admitted for intractable vomiting. Case discussed with Dr. Horn and Dr. Rickey Eason. Admission accepted. Will make pt NPO as well at this time. <Fabian Gallego - Last Filed: 08/25/16 16:11> - Medical Decision Making 08/25/16 14:20 focused Ed ultrasound RUQ, indication epigastric pain, vomiting. GB scannned in two planes in B mode. no wall edema. no stones. CBD normal neg sonographic bah's. wall 2.8mm, CBD 3.8mm. impression: normal gallbladder. <Darya Grewal - Last Filed: 08/25/16 17:07> *DC/Admit/Observation/Transfer - Discharge Dispostion Admit: Yes <Fabian Gallego - Last Filed: 08/25/16 16:11> <Darya Grewal - Last Filed: 08/25/16 17:07> Diagnosis at time of Disposition: Intractable vomiting Qualifiers: Vomiting type: unspecified Nausea presence: with nausea Qualified Code(s): R11.2 - Nausea with vomiting, unspecified Abdominal pain Qualifiers: Abdominal location: generalized Qualified Code(s): R10.84 - Generalized abdominal pain - Discharge Dispostion Condition at time of disposition: Stable - Referrals Referrals: Yesi Wills [Primary Care Provider] -
[2016-08-25] MEDS ORDERED: FAMOTIDINE 20 MG/50 ML IVPB 50 ML IVPB ONE ×2 (12:21→12:30)
[2016-08-25] MEDS ORDERED: MAG HYDROX/AL HYDROX/SIMETH 30 ML UNIT-DOSE CUP PO ONE (12:21)
[2016-08-25] MEDS ORDERED: MAG HYDROX/AL HYDROX/SIMETH 30 ML UNIT-DOSE CUP ONE (12:30)
[2016-08-25 12:33] LABS: BASOPHIL 0.4 % (0-2.0); EOSINOPHIL 0.1 % (0-4.5); MCH 29.2 pg (25.7-33.7); MCHC 33.7 g/dl (32.0-35.9); MEAN CELL VOLUME 86.8 fl (80-96); PLATELET COUNT 232 K/MM3 (134-434); RDW 15.9 % (11.9-15.9); WHITE BLOOD COUNT 10.2 K/mm3 (4.0-10.0)
[2016-08-25] MEDS ORDERED: SODIUM CHLORIDE 1,000 ML IV SCH (12:45)
[2016-08-25] MEDS ORDERED: METHADONE HCL 10 MG TABLET PO ONE (13:21)
[2016-08-25] MEDS ORDERED: METHADONE HCL 10 MG TABLET ONE (13:27)
[2016-08-25] MEDS ORDERED: METOCLOPRAMIDE HCL INJECTION 10 MG/2 ML VIAL IVPUSH ONE (14:07)
[2016-08-25] MEDS ORDERED: METOCLOPRAMIDE HCL INJECTION 10 MG/2 ML VIAL ONE (14:09)
[2016-08-25 14:20] LABS: BASOPHIL 0.7 % (0-2.0); EOSINOPHIL 0.1 % (0-4.5); MCH 29.4 pg (25.7-33.7); MEAN CELL VOLUME 86.2 fl (80-96); MEAN PLT VOLUME 7.6 fl (7.5-11.1); NEUTROPHILS 88.1 % (42.8-82.8); PLATELET COUNT 195 K/MM3 (134-434); RDW 15.3 % (11.9-15.9); WHITE BLOOD COUNT 8.9 K/mm3 (4.0-10.0)
--- NOTE | 2016-08-25 14:34 | PDOC ---
Attending Attestation - Resident Resident Name: Fabian Gallego - ED Attending Attestation I have performed the following: I have examined & evaluated the patient, The case was reviewed & discussed with the resident, I agree w/resident's findings & plan, Exceptions are as noted - HPI HPI: 08/25/16 14:25 41 yo M with h/o heroin abuse etoh abuse, here from rehab/ detox. pt was currently being treated for heroin withdrawal. today sent to ED for evaluation of abdominal pain , n/v. states he threw up his methadone today. no cp no sob. no f/c. states had similar 2 mo ago was evaluated in [place] ed with ct a/p which was reportedly normal. burning sensation. - Physicial Exam PE: 08/25/16 14:34 awake alert NAD dry mucous membranes. lungs CTAB no wheeze no crackle, abd soft , mild epigastric ttp, no rebound no guarding. skin warm and dry. ext wwp. nuero alert intact. - Medical Decision Making 08/25/16 14:37 41 yo M with h/o heroin abuse, gastritis, currently in detox , here with n/v abd pain. differential gastritis, cholecystitis, cholelithiasis, pancreatitis., heroin withdrawal, plan treat wtih antacid, antiemetics, repleat methadone as pt threw his up this am, maalox, pepcid, zofran, methadone. bedside us, xray abdomien. no ct at this time due to recent normal ct. reassess.
[2016-08-25 14:50] LABS: ALBUMIN 3.9 g/dl (3.4-5.0); ANION GAP 12 (8-16); BILIRUBIN,TOTAL 0.8 mg/dL (0.2-1.0); CALCIUM 9.3 mg/dL (8.5-10.1); CO2 26 mmol/L (21-32); GLUCOSE,RANDOM 89 mg/dL (74-106); SGPT/ALT 32 U/L (12-78); TOT PROT 7.6 g/dl (6.4-8.2)
[2016-08-25 14:54] LABS: ALK PHOS 95 U/L (45-117); TROPONIN I 0.02 ng/ml (0.00-0.05)
[2016-08-25 14:55] LABS: SGOT/AST 34 U/L (15-37)
[2016-08-25] MEDS ORDERED: amLODIPine BESYLATE 10 MG TABLET (FP) PO ONE (17:09)
[2016-08-25] MEDS ORDERED: chlordiazePOXIDE HCL 25 MG CAPSULE PO PRN (17:12)
[2016-08-25] MEDS ORDERED: ONDANSETRON 4 MG/2 ML VIAL IVPB PRN (17:14)
[2016-08-25] MEDS ORDERED: FOLIC ACID 1 MG TABLET (FP) PO ONE (17:15)
--- NOTE | 2016-08-25 17:17 | HP ---
CHIEF COMPLAINT: vomiting/abdominal pain PCP: HISTORY OF PRESENT ILLNESS: 41 yo M with signicant pmhx of heroin and Alcohol abuse, sent here from [facility] detox for intractable abdmonial pain and vomiting. He is currently being treated for heroin withdrawal on methadone.He states that he last used drugs on 3 days prior and today has had countless bouts of non-billous vomiting. Denies CP, GRAFF, SOB, palpitations. Similar event 2 mo ago was evaluated in [place] ed with ct a/p which was reportedly normal. ER course was notable for: (1) EKG - NSR with no ST or T wave changes (2) Bedside RUQ US was negative for gallbladder wall thickening/sludge or stones. (3) Given IVF and Zofran Recent Travel: Denies PAST MEDICAL HISTORY: CAD (s/p stent) , ETOH and heroin abuse PAST SURGICAL HISTORY: angioplasty and stent Social History: Smoking:yes - 1ppd Alcohol:yes - h/o abuse Drugs: yes- cocaine/marijuana/heroin Family History: Allergies Fish Containing Products Allergy (Severe, Verified 08/25/16 11:52) Vomiting No Known Drug Allergies Allergy (Verified 08/25/16 11:52) HOME MEDICATIONS: Home Medications Medication Instructions Recorded Acetaminophen [Acetaminophen 8 650 mg PO DAILY 08/25/16 Hour] Aspirin [ASA -] 81 mg PO DAILY 08/25/16 Carvedilol [Coreg -] 3.125 mg PO BID 08/25/16 Clonidine HCl [Clonidine HCl ER] 0.1 mg PO BID 08/25/16 Cyclobenzaprine HCl [Flexeril 10 10 mg PO TID 08/25/16 mg] Diazepam [Valium] 5 mg PO BID 08/25/16 Diphenhydramine [Benadryl -] 50 mg PO DAILY 08/25/16 Eucalyptus/Menthol [Cough Drops] 1 each MM DAILY 08/25/16 Mag Hydrox/Al Hydrox/Simeth 30 ml PO Q6H 08/25/16 [Mylanta *Suspension*] Magnesium Hydroxide [Milk of 30 ml PO DAILY 08/25/16 Magnesia -] Nicotine [Nicotine Patch] 1 each TD DAILY 08/25/16 Ondansetron [Zofran Odt -] 4 mg SL BID 08/25/16 Pseudoephedrine HCl 30 mg PO DAILY 08/25/16 Thiamine HCl [B-1] 100 mg PO DAILY 08/25/16 REVIEW OF SYSTEMS CONSTITUTIONAL: (+)chills, diaphoresis Absent: fever, generalized weakness, malaise, loss of appetite, weight change HEENT: Absent: rhinorrhea, nasal congestion, throat pain, throat swelling, difficulty swallowing, mouth swelling, ear pain, eye pain, visual changes CARDIOVASCULAR: Absent: chest pain, syncope, palpitations, irregular heart rate, lightheadedness , peripheral edema RESPIRATORY: Absent: cough, shortness of breath, dyspnea with exertion, orthopnea, wheezing, stridor, hemoptysis GASTROINTESTINAL:(+)abdominal pain, nausea, vomiting Absent: , abdominal distension,, diarrhea, constipation, melena, hematochezia GENITOURINARY: Absent: dysuria, frequency, urgency, hesitancy, hematuria, flank pain, genital pain MUSCULOSKELETAL: Absent: myalgia, arthralgia, joint swelling, back pain, neck pain SKIN: Absent: rash, itching, pallor HEMATOLOGIC/IMMUNOLOGIC: Absent: easy bleeding, easy bruising, lymphadenopathy, frequent infections ENDOCRINE: Absent: unexplained weight gain, unexplained weight loss, heat intolerance, cold intolerance NEUROLOGIC: Absent: headache, focal weakness or paresthesias, dizziness, unsteady gait, seizure, mental status changes, bladder or bowel incontinence PSYCHIATRIC: Absent: anxiety, depression, suicidal or homicidal ideation, hallucinations. PHYSICAL EXAMINATION Vital Signs - 24 hr 08/25/16 11:52 Temperature 98.9 F Pulse Rate 52 L Respiratory 18 Rate Blood Pressure 193/112 O2 Sat by Pulse 100 Oximetry (%) GENERAL: AAOx3, mod. distress HEAD: NC/AT EYES: PERRLA,EOMI, sclera anicteric, conjunctiva clear. No lid lag. EARS, NOSE, THROAT: Dry mucous membranes. NECK: supple without lymphadenopathy, JVD, or masses. LUNGS: CTAB, No wheezes, and no crackles. No accessory muscle use. HEART: RRR, normal S1 and S2 , no m/g/r ABDOMEN: Soft, generalized tenderness, not distended, normoactive bowel sounds, no guarding, no rebound, no masses. No hepatomegaly or splenomegaly. MUSCULOSKELETAL: Normal range of motion at all joints. No bony deformities or tenderness. No CVA tenderness. UPPER EXTREMITIES: 2+ pulses, warm, well-perfused. No cyanosis. No clubbing. No peripheral edema. LOWER EXTREMITIES: 2+ pulses, warm, well-perfused. No calf tenderness. No peripheral edema. NEUROLOGICAL: Cranial nerves II-XII intact. Normal speech. gait not observed. PSYCHIATRIC: anxious SKIN: Warm, clammy, normal turgor, no rashes or lesions noted, normal capillary refill. Laboratory Results - last 24 hr 08/25/16 08/25/16 08/25/16 12:25 12:25 13:21 WBC 10.2 H D RBC 6.52 H Hgb 19.1 H D Hct 56.6 H D MCV 86.8 MCHC 33.7 RDW 15.9 Plt Count 232 D MPV 8.0 D Neutrophils % 89.0 H Lymphocytes % 7.9 L Monocytes % 2.6 L Eosinophils % 0.1 Basophils % 0.4 Sodium Cancelled Cancelled Potassium Cancelled Cancelled Chloride Cancelled Cancelled Carbon Dioxide Cancelled Cancelled Anion Gap Cancelled Cancelled BUN Cancelled Cancelled Creatinine Cancelled Cancelled Creat Clearance w eGFR Cancelled Cancelled Random Glucose Cancelled Cancelled Calcium Cancelled Cancelled Total Bilirubin Cancelled Cancelled AST Cancelled Cancelled ALT Cancelled Cancelled Alkaline Phosphatase Cancelled Cancelled Creatine Kinase Creatine Kinase Index CK-MB (CK-2) CK-MB (CK-2) Rel Index Troponin I Total Protein Cancelled Cancelled Albumin Cancelled Cancelled Lipase Cancelled Cancelled 08/25/16 08/25/16 08/25/16 13:56 13:56 14:07 WBC 8.9 RBC 6.50 H Hgb 19.1 H Hct 56.0 H MCV 86.2 MCHC 34.0 RDW 15.3 Plt Count 195 MPV 7.6 Neutrophils % 88.1 H Lymphocytes % 8.6 Monocytes % 2.5 L Eosinophils % 0.1 Basophils % 0.7 Sodium 143 Potassium 4.4 Chloride 105 Carbon Dioxide 26 Anion Gap 12 BUN 11 Creatinine 1.0 D Creat Clearance w eGFR > 60 Random Glucose 89 Calcium 9.3 Total Bilirubin 0.8 D AST 34 D ALT 32 Alkaline Phosphatase 95 Creatine Kinase 393 H Creatine Kinase Index 0.5 CK-MB (CK-2) 1.8 CK-MB (CK-2) Rel Index Cancelled Troponin I 0.02 Total Protein 7.6 Albumin 3.9 Lipase 102 08/25/16 14:07 WBC RBC Hgb Hct MCV MCHC RDW Plt Count MPV Neutrophils % Lymphocytes % Monocytes % Eosinophils % Basophils % Sodium Potassium Chloride Carbon Dioxide Anion Gap BUN Creatinine Creat Clearance w eGFR Random Glucose Calcium Total Bilirubin AST ALT Alkaline Phosphatase Creatine Kinase Cancelled Creatine Kinase Index CK-MB (CK-2) CK-MB (CK-2) Rel Index Troponin I Cancelled Total Protein Albumin Lipase ASSESSMENT/PLAN: 41 yo M with h/o heroin abuse ,etoh abuse, here from rehab/ detox. admitted for heroin withdrawl and intractable vomiting/abdominal pain. Problem List - Problem (1) Opioid dependence with withdrawal Assessment/Plan: * NPO * IVF with NS @ 125 ml/hr * Zofran Q4H PRN * Protonix 40mg IV daily * Methadone 15mg PO daily - confirmed (2) Alcohol abuse Assessment/Plan: * [facility] detox protocol * Librium taper * [facility] consulted * Thiamine and Folic acid supplementation (3) CAD (coronary artery disease) Assessment/Plan: * s/p stent * ASA * Coreg 3.125 mg PO BID * EKG done in ED showed NSR with no st or t wave abnorm. (4) DVT prophylaxis Assessment/Plan: * Lovenox 40mg SQ Visit type - Emergency Visit Emergency Visit: Yes ED Registration Date: 08/25/16 Care time: The patient presented to the Emergency Department on the above date and was hospitalized for further evaluation of their emergent condition. - New Patient This patient is new to me today: Yes Date on this admission: 08/25/16 - Critical Care Critical Care patient: No
[2016-08-25] MEDS ORDERED: amLODIPine BESYLATE 5 MG TABLET (FP) PO ONE (17:30)
[2016-08-25] MEDS ORDERED: chlordiazePOXIDE HCL 25 MG CAPSULE ONE (17:43)
[2016-08-25] MEDS ORDERED: amLODIPine BESYLATE 5 MG TABLET (FP) ONE (17:43)
[2016-08-25] MEDS ORDERED: FOLIC ACID 1 MG TABLET (FP) ONE (17:44)
[2016-08-25] MEDS: chlordiazePOXIDE HCL 25 MG CAPSULE PO SCH ×2 (17:53→23:20)
[2016-08-25] MEDS ORDERED: MAG HYDROX/AL HYDROX/SIMETH 30 ML UNIT-DOSE CUP PO PRN (18:30)
--- NOTE | 2016-08-25 18:51 | PN ---
Teaching Attending Note Name of Resident: Rickey Eason ATTENDING PHYSICIAN STATEMENT I saw and evaluated the patient. I reviewed the resident's note and discussed the case with the resident. I agree with the resident's findings and plan as documented. SUBJECTIVE: C/o severe abdominal pain , unable to tolerate any diet at this time. OBJECTIVE: Vital Signs Temperature 98.9 F 08/25/16 11:52 Pulse Rate 55 L 08/25/16 17:57 Respiratory Rate 17 08/25/16 17:57 Blood Pressure 174/80 08/25/16 17:57 O2 Sat by Pulse Oximetry (%) 100 08/25/16 17:57 CBCD WBC 8.9 K/mm3 (4.0-10.0) 08/25/16 14:07 RBC 6.50 M/mm3 (4.00-5.60) H 08/25/16 14:07 Hgb 19.1 GM/dL (11.7-16.9) H 08/25/16 14:07 Hct 56.0 % (35.4-49) H 08/25/16 14:07 MCV 86.2 fl (80-96) 08/25/16 14:07 MCHC 34.0 g/dl (32.0-35.9) 08/25/16 14:07 RDW 15.3 % (11.9-15.9) 08/25/16 14:07 Plt Count 195 K/MM3 (134-434) 08/25/16 14:07 MPV 7.6 fl (7.5-11.1) 08/25/16 14:07 CMP Sodium 143 mmol/L (136-145) 08/25/16 13:56 Potassium 4.4 mmol/L (3.5-5.1) 08/25/16 13:56 Chloride 105 mmol/L (98-107) 08/25/16 13:56 Carbon Dioxide 26 mmol/L (21-32) 08/25/16 13:56 Anion Gap 12 (8-16) 08/25/16 13:56 BUN 11 mg/dL (7-18) 08/25/16 13:56 Creatinine 1.0 mg/dL (0.7-1.3) D 08/25/16 13:56 Creat Clearance w eGFR > 60 (>60) 08/25/16 13:56 Random Glucose 89 mg/dL (74-106) 08/25/16 13:56 Calcium 9.3 mg/dL (8.5-10.1) 08/25/16 13:56 Total Bilirubin 0.8 mg/dL (0.2-1.0) D 08/25/16 13:56 AST 34 U/L (15-37) D 08/25/16 13:56 ALT 32 U/L (12-78) 08/25/16 13:56 Alkaline Phosphatase 95 U/L (45-117) 08/25/16 13:56 Total Protein 7.6 g/dl (6.4-8.2) 08/25/16 13:56 Albumin 3.9 g/dl (3.4-5.0) 08/25/16 13:56 CARDIAC ENZYMES Creatine Kinase Cancelled 08/25/16 14:07 Troponin I Cancelled 08/25/16 14:07 Current Medications Generic Name Dose Route Start Last Admin Trade Name Freq PRN Reason Stop Dose Admin Al Hydroxide/Mg Hydroxide 30 ml 08/25/16 18:30 Mylanta Oral Suspension - PO Q6H TAY Aspirin 81 mg 08/26/16 10:00 Asa - PO DAILY TAY Carvedilol 3.125 mg 08/25/16 22:00 Coreg - PO BID TAY Chlordiazepoxide HCl 50 mg 08/25/16 17:00 08/25/16 17:53 Librium - PO 08/26/16 11:01 50 mg [id number] TAY Administration Chlordiazepoxide HCl 25 mg 08/25/16 17:12 Librium - PO 08/28/16 17:11 Q4H PRN WITHDRAWAL(CONT SUBST) Chlordiazepoxide HCl 25 mg 08/26/16 17:00 Librium - PO 08/27/16 11:01 [id number] TAY Chlordiazepoxide HCl 15 mg 08/27/16 17:00 Librium - PO 08/28/16 11:01 [id number] TAY Diphenhydramine HCl 50 mg 08/26/16 10:00 Benadryl - PO DAILY TAY Enoxaparin Sodium 40 mg 08/26/16 10:00 Lovenox - SQ DAILY [facility] Sodium Chloride 1,000 mls @ 125 mls/hr 08/25/16 12:45 08/25/16 12:34 Normal Saline - IV 125 mls/hr ASDIR TAY Administration Non-Formulary Medication 650 mg 08/26/16 10:00 Acetaminophen [Acetaminophen 8 Hour] PO DAILY [facility] Non-Formulary Medication 0.1 mg 08/25/16 22:00 Clonidine Hcl [Clonidine Hcl Er] PO BID [facility] Non-Formulary Medication 1 each 08/26/16 10:00 Eucalyptus/Menthol [Cough Drops] MM DAILY [facility] Non-Formulary Medication 30 ml 08/26/16 10:00 Magnesium Hydroxide PO DAILY [facility] Non-Formulary Medication 1 each 08/26/16 10:00 Nicotine [Nicotine Patch] TD DAILY [facility] Ondansetron HCl 4 mg 08/25/16 17:14 Zofran Injection IVPB Q4H PRN NAUSEA AND/OR VOMITING Thiamine HCl 200 mg 08/26/16 10:00 Vitamin B1 Injection - IVPB DAILY [facility] Home Medications Medication Instructions Recorded Acetaminophen [Acetaminophen 8 650 mg PO DAILY 08/25/16 Hour] Aspirin [ASA -] 81 mg PO DAILY 08/25/16 Carvedilol [Coreg -] 3.125 mg PO BID 08/25/16 Clonidine HCl [Clonidine HCl ER] 0.1 mg PO BID 08/25/16 Cyclobenzaprine HCl [Flexeril 10 10 mg PO TID 08/25/16 mg] Diazepam [Valium] 5 mg PO BID 08/25/16 Diphenhydramine [Benadryl -] 50 mg PO DAILY 08/25/16 Eucalyptus/Menthol [Cough Drops] 1 each MM DAILY 08/25/16 Mag Hydrox/Al Hydrox/Simeth 30 ml PO Q6H 08/25/16 [Mylanta *Suspension*] Magnesium Hydroxide [Milk of 30 ml PO DAILY 08/25/16 Magnesia -] Nicotine [Nicotine Patch] 1 each TD DAILY 08/25/16 Ondansetron [Zofran Odt -] 4 mg SL BID 08/25/16 Pseudoephedrine HCl 30 mg PO DAILY 08/25/16 Thiamine HCl [B-1] 100 mg PO DAILY 08/25/16 ASSESSMENT AND PLAN: 41 yo M with h/o heroin abuse ,etoh abuse, here from rehab/ detox.[facility] admitted for heroin withdrawl and intractable vomiting and abdominal pain. # Opioid dependence with withdrawal with intractable nausea and vomiting ; keep him NPO for now, IVF with NS @ 125 ml/hrZofran Q4H PRN, Protonix 40mg IV daily; Methadone 15mg PO daily - confirmed , Missy treviño for consult # Alcohol abuse r/p DTs on Librium detox protocol; [facility] consulted; on Thiamine 100mg and Folic acid 1mg daily # CAD (coronary artery disease): s/p stent , continue Asa, coreg DVT prophylaxis :Lovenox 40mg SQ
[2016-08-25] MEDS ORDERED: MAGNESIUM HYDROX 2400MG/30ML ORAL SUSPENSION 30 ML CUP PO PRN (18:57)
[2016-08-25] MEDS ORDERED: ZOLPIDEM TARTRATE 5 MG TABLET PO PRN (18:57)
[2016-08-25] MEDS ORDERED: ACETAMINOPHEN 325 MG TABLET (FP) PO PRN (19:00)
[2016-08-25] MEDS ORDERED: DICYCLOMINE HCL 20 MG/2 ML AMPUL IM PRN (19:36)
[2016-08-25] MEDS: cloNIDine HCL 0.1 MG TABLET PO SCH (21:29)
[2016-08-25] MEDS: CARVEDILOL 3.125 MG TABLET (FP) PO SCH (21:29)
[2016-08-25] MEDS: NICOTINE 14 MG/24 HOURS TOPICAL PATCH TD SCH (21:29)
[2016-08-25] MEDS: FAMOTIDINE 20 MG/50 ML IVPB 50 ML IVPB SCH (21:30)
[2016-08-25] MEDS ORDERED: diphenhydrAMINE HCL 25 MG CAPSULE (FP) PO SCH (22:00)
[2016-08-26] MEDS: chlordiazePOXIDE HCL 25 MG CAPSULE PO SCH ×2 (05:33→12:14)
[2016-08-26 08:38] LABS: BASOPHIL 0.8 % (0-2.0); EOSINOPHIL 0.2 % (0-4.5); MCHC 33.8 g/dl (32.0-35.9); MEAN CELL VOLUME 85.8 fl (80-96); MEAN PLT VOLUME 7.6 fl (7.5-11.1); PLATELET COUNT 203 K/MM3 (134-434); RDW 15.5 % (11.9-15.9); WHITE BLOOD COUNT 10.2 K/mm3 (4.0-10.0)
[2016-08-26 09:21] LABS: ALBUMIN 3.6 g/dl (3.4-5.0); ALK PHOS 83 U/L (45-117); ANION GAP 14 (8-16); BILIRUBIN,TOTAL 0.9 mg/dL (0.2-1.0); CALCIUM 8.9 mg/dL (8.5-10.1); CO2 24 mmol/L (21-32); GLUCOSE,RANDOM 87 mg/dL (74-106); PHOSPHOROUS 3.4 mg/dL (2.5-4.9); SGOT/AST 37 U/L (15-37); SGPT/ALT 30 U/L (12-78)
[2016-08-26] MEDS: CARVEDILOL 3.125 MG TABLET (FP) PO SCH (09:34)
[2016-08-26] MEDS: FAMOTIDINE 20 MG/50 ML IVPB 50 ML IVPB SCH (09:34)
[2016-08-26] MEDS: cloNIDine HCL 0.1 MG TABLET PO SCH (09:34)
[2016-08-26] MEDS: NICOTINE 14 MG/24 HOURS TOPICAL PATCH TD SCH (09:38)
[2016-08-26] MEDS ORDERED: MENTHOL MM SCH (10:00)
[2016-08-26] MEDS ORDERED: ENOXAPARIN NA (PORCINE) 40 MG/0.4 ML DISP.SYRIN SQ SCH (10:00)
[2016-08-26] MEDS ORDERED: ASPIRIN 81 MG CHEWABLE TABLETS PO SCH (10:00)
[2016-08-26] MEDS ORDERED: EUCALYPTUS MM SCH (10:00)
[2016-08-26] MEDS ORDERED: THIAMINE HCL 200 MG/2 ML VIAL IVPB SCH (10:00)
[2016-08-26] MEDS ORDERED: diphenhydrAMINE HCL 25 MG CAPSULE (FP) PO SCH (10:00)
[2016-08-26] MEDS ORDERED: METHADONE HCL 10 MG TABLET PO ONE (10:30)
--- NOTE | 2016-08-26 10:36 | EKG ---
Test Reason : Blood Pressure : / mmHG Vent. Rate : 050 BPM Atrial Rate : 050 BPM P-R Int : 156 ms QRS Dur : 084 ms QT Int : 464 ms P-R-T Axes : -29 060 057 degrees QTc Int : 423 ms SINUS BRADYCARDIA PROMINENT T WAVE IN V3 NONSPECIFIC ST AND T WAVE ABNORMALITY ABNORMAL ECG WHEN COMPARED WITH ECG OF 23-AUG-2016 14:00, NO SIGNIFICANT CHANGE WAS FOUND Confirmed by HUI GALLOWAY MD ([id number]) on 08/26/2016 10:36:02 AM Referred By: Confirmed By:HIU GALLOWAY MD
--- NOTE | 2016-08-26 10:57 | PN ---
[facility] Progress Note (SOAP) Subjective: Pt. was transferred from [facility] to med/surg because of constant vomiting. Lipase is WNL r/o pancreatitis. Pt. is not vomiting at present. Objective: 08/26/16 10:55 Vital Signs - 8 hr 08/26/16 06:00 Temperature 98.8 F Pulse Rate 55 L Respiratory 18 Rate Blood Pressure 154/86 Laboratory Tests 08/25/16 08/25/16 08/25/16 12:25 12:25 13:21 WBC 10.2 H D RBC 6.52 H Hgb 19.1 H D Hct 56.6 H D MCV 86.8 MCHC 33.7 RDW 15.9 Plt Count 232 D MPV 8.0 D Neutrophils % 89.0 H Lymphocytes % 7.9 L Monocytes % 2.6 L Eosinophils % 0.1 Basophils % 0.4 Sodium Cancelled Cancelled Potassium Cancelled Cancelled Chloride Cancelled Cancelled Carbon Dioxide Cancelled Cancelled Anion Gap Cancelled Cancelled BUN Cancelled Cancelled Creatinine Cancelled Cancelled Creat Clearance w eGFR Cancelled Cancelled Random Glucose Cancelled Cancelled Calcium Cancelled Cancelled Phosphorus Magnesium Total Bilirubin Cancelled Cancelled AST Cancelled Cancelled ALT Cancelled Cancelled Alkaline Phosphatase Cancelled Cancelled Creatine Kinase Creatine Kinase Index CK-MB (CK-2) CK-MB (CK-2) Rel Index Troponin I Total Protein Cancelled Cancelled Albumin Cancelled Cancelled Lipase Cancelled Cancelled 08/25/16 08/25/16 08/25/16 13:56 13:56 14:07 WBC 8.9 RBC 6.50 H Hgb 19.1 H Hct 56.0 H MCV 86.2 MCHC 34.0 RDW 15.3 Plt Count 195 MPV 7.6 Neutrophils % 88.1 H Lymphocytes % 8.6 Monocytes % 2.5 L Eosinophils % 0.1 Basophils % 0.7 Sodium 143 Potassium 4.4 Chloride 105 Carbon Dioxide 26 Anion Gap 12 BUN 11 Creatinine 1.0 D Creat Clearance w eGFR > 60 Random Glucose 89 Calcium 9.3 Phosphorus Magnesium Total Bilirubin 0.8 D AST 34 D ALT 32 Alkaline Phosphatase 95 Creatine Kinase 393 H Creatine Kinase Index 0.5 CK-MB (CK-2) 1.8 CK-MB (CK-2) Rel Index Cancelled Troponin I 0.02 Total Protein 7.6 Albumin 3.9 Lipase 102 08/25/16 08/26/16 08/26/16 14:07 08:25 08:25 WBC 10.2 H RBC 5.93 H Hgb 17.2 H Hct 50.9 H MCV 85.8 MCHC 33.8 RDW 15.5 Plt Count 203 MPV 7.6 Neutrophils % 76.0 Lymphocytes % 14.4 D Monocytes % 8.6 D Eosinophils % 0.2 D Basophils % 0.8 Sodium 141 Potassium 4.2 Chloride 103 Carbon Dioxide 24 Anion Gap 14 BUN 16 D Creatinine 1.0 Creat Clearance w eGFR > 60 Random Glucose 87 Calcium 8.9 Phosphorus 3.4 Magnesium 2.0 Total Bilirubin 0.9 AST 37 ALT 30 Alkaline Phosphatase 83 Creatine Kinase Cancelled Creatine Kinase Index CK-MB (CK-2) CK-MB (CK-2) Rel Index Troponin I Cancelled Total Protein 7.0 Albumin 3.6 Lipase labs noted Assessment: 08/26/16 10:56 Withdrawal sx. Plan: Continue detox
[2016-08-26 13:50] VITALS: PULSE 83; TEMP 98.9
[2016-08-26 13:52] VITALS: BP 125/68
--- NOTE | 2016-08-26 13:59 | PN ---
Teaching Attending Note Name of Resident: Rickey Eason ATTENDING PHYSICIAN STATEMENT I saw and evaluated the patient. I reviewed the resident's note and discussed the case with the resident. I agree with the resident's findings and plan as documented. SUBJECTIVE: Patient is comfortable today , no further abdominal pain OBJECTIVE: Vital Signs Temperature 98.9 F 08/26/16 13:49 Pulse Rate 83 08/26/16 13:49 Respiratory Rate 18 08/26/16 13:49 Blood Pressure 125/68 08/26/16 13:49 O2 Sat by Pulse Oximetry (%) 100 08/26/16 09:00 CBCD WBC 10.2 K/mm3 (4.0-10.0) H 08/26/16 08:25 RBC 5.93 M/mm3 (4.00-5.60) H 08/26/16 08:25 Hgb 17.2 GM/dL (11.7-16.9) H 08/26/16 08:25 Hct 50.9 % (35.4-49) H 08/26/16 08:25 MCV 85.8 fl (80-96) 08/26/16 08:25 MCHC 33.8 g/dl (32.0-35.9) 08/26/16 08:25 RDW 15.5 % (11.9-15.9) 08/26/16 08:25 Plt Count 203 K/MM3 (134-434) 08/26/16 08:25 MPV 7.6 fl (7.5-11.1) 08/26/16 08:25 CMP Sodium 141 mmol/L (136-145) 08/26/16 08:25 Potassium 4.2 mmol/L (3.5-5.1) 08/26/16 08:25 Chloride 103 mmol/L (98-107) 08/26/16 08:25 Carbon Dioxide 24 mmol/L (21-32) 08/26/16 08:25 Anion Gap 14 (8-16) 08/26/16 08:25 BUN 16 mg/dL (7-18) D 08/26/16 08:25 Creatinine 1.0 mg/dL (0.7-1.3) 08/26/16 08:25 Creat Clearance w eGFR > 60 (>60) 08/26/16 08:25 Random Glucose 87 mg/dL (74-106) 08/26/16 08:25 Calcium 8.9 mg/dL (8.5-10.1) 08/26/16 08:25 Total Bilirubin 0.9 mg/dL (0.2-1.0) 08/26/16 08:25 AST 37 U/L (15-37) 08/26/16 08:25 ALT 30 U/L (12-78) 08/26/16 08:25 Alkaline Phosphatase 83 U/L (45-117) 08/26/16 08:25 Total Protein 7.0 g/dl (6.4-8.2) 08/26/16 08:25 Albumin 3.6 g/dl (3.4-5.0) 08/26/16 08:25 CARDIAC ENZYMES Creatine Kinase Cancelled 08/25/16 14:07 Troponin I Cancelled 08/25/16 14:07 Current Medications Generic Name Dose Route Start Last Admin Trade Name Freq PRN Reason Stop Dose Admin Acetaminophen 650 mg 08/25/16 19:00 Tylenol - PO Q4H PRN FEVER OR PAIN Al Hydroxide/Mg Hydroxide 30 ml 08/25/16 18:30 Mylanta Oral Suspension - PO Q6H PRN INDIGESTION Carvedilol 3.125 mg 08/25/16 22:00 08/26/16 09:34 Coreg - PO 3.125 mg BID TAY Administration Chlordiazepoxide HCl 25 mg 08/25/16 17:12 Librium - PO 08/28/16 17:11 Q4H PRN WITHDRAWAL(CONT SUBST) Chlordiazepoxide HCl 25 mg 08/26/16 17:00 Librium - PO 08/27/16 11:01 [id number] TAY Chlordiazepoxide HCl 15 mg 08/27/16 17:00 Librium - PO 08/28/16 11:01 [id number] TAY Clonidine 0.1 mg 08/25/16 22:00 08/26/16 09:34 Catapres - PO 0.1 mg BID TAY Administration Diphenhydramine HCl 50 mg 08/25/16 22:00 08/25/16 21:29 Benadryl - PO 50 mg HS TAY Administration Enoxaparin Sodium 40 mg 08/26/16 10:00 08/26/16 09:38 Lovenox - SQ Not Given DAILY TAY Sodium Chloride 1,000 mls @ 125 mls/hr 08/25/16 12:45 08/25/16 12:34 Normal Saline - IV 125 mls/hr ASDIR TAY Administration Famotidine/Sodium Chloride 50 mls @ 100 mls/hr 08/25/16 22:00 08/26/16 09:34 Pepcid 20 Mg Premixed Ivpb - IVPB 100 mls/hr BID TAY Administration Magnesium Hydroxide 30 ml 08/25/16 18:57 Milk Of Magnesia - PO DAILY PRN CONSTIPATION Methadone HCl 10 mg 08/27/16 10:00 Dolophine - PO 08/27/16 10:01 ONCE ONE Methadone HCl 5 mg 08/28/16 06:00 Dolophine - PO 08/28/16 06:01 DAILY@0600 [facility] Nicotine 14 mg 08/25/16 19:00 08/26/16 09:38 Nicoderm Patch - TD Not Given DAILY [facility] Ondansetron HCl 4 mg 08/25/16 17:14 Zofran Injection IVPB Q4H PRN NAUSEA AND/OR VOMITING Thiamine HCl 200 mg 08/26/16 10:00 08/26/16 11:04 Vitamin B1 Injection - IVPB 200 mg DAILY TAY Administration Home Medications Medication Instructions Recorded Acetaminophen [Acetaminophen 8 650 mg PO DAILY 08/25/16 Hour] Aspirin [ASA -] 81 mg PO DAILY 08/25/16 Carvedilol [Coreg -] 3.125 mg PO BID 08/25/16 Clonidine HCl [Clonidine HCl ER] 0.1 mg PO BID 08/25/16 Cyclobenzaprine HCl [Flexeril 10 10 mg PO TID 08/25/16 mg] Diazepam [Valium] 5 mg PO BID 08/25/16 Diphenhydramine [Benadryl -] 50 mg PO DAILY 08/25/16 Eucalyptus/Menthol [Cough Drops] 1 each MM DAILY 08/25/16 Mag Hydrox/Al Hydrox/Simeth 30 ml PO Q6H 08/25/16 [Mylanta *Suspension*] Magnesium Hydroxide [Milk of 30 ml PO DAILY 08/25/16 Magnesia -] Nicotine [Nicotine Patch] 1 each TD DAILY 08/25/16 Ondansetron [Zofran Odt -] 4 mg SL BID 08/25/16 Pseudoephedrine HCl 30 mg PO DAILY 08/25/16 Thiamine HCl [B-1] 100 mg PO DAILY 08/25/16 ASSESSMENT AND PLAN: 41 yo M with h/o heroin abuse ,etoh abuse, here from rehab/ detox.[facility] admitted for heroin withdrawl and intractable vomiting and abdominal pain. # Opioid dependence with withdrawal , will send the patient back to Detox, since no further nausea and vomiting. Methadone 15mg PO daily - confirmed , Missy treviño accepted the patient back to [facility] for Detox # Alcohol abuse on Librium detox protocol; [facility] accepted the patient on Thiamine 100mg and Folic acid 1mg daily. will send the patient back to detox. # CAD (coronary artery disease): s/p stent , continue Asa, coreg
--- NOTE | 2016-08-26 16:32 | DS ---
Physical Exam: SUBJECTIVE: Patient seen and examined at bedside. No overnight events. No new complaints. Abd. pain is resolved. Denies CP,GRAFF,SOB, abd. pain, N/V. OBJECTIVE: Vital Signs Period Temp Pulse Resp BP Sys/Lehman Pulse Ox Last 24 Hr 98.0 F-99.7 F 52-83 17-18 125-174/68-99 100-100 PHYSICAL EXAM GENERAL: The patient is awake, alert, and fully oriented, in no acute distress. HEAD: Normal with no signs of trauma. EYES: PERRL, extraocular movements intact, sclera anicteric, conjunctiva clear. ENT: Ears normal, nares patent, oropharynx clear without exudates, moist mucous membranes. NECK: Trachea midline, full range of motion, supple. LUNGS: Breath sounds equal, clear to auscultation bilaterally, no wheezes, no crackles, no accessory muscle use. HEART: Regular rate and rhythm, S1, S2 without murmur, rub or gallop. ABDOMEN: Soft, nontender, nondistended, normoactive bowel sounds, no guarding, no rebound, no hepatosplenomegaly, no masses. EXTREMITIES: 2+ pulses, warm, well-perfused, no edema. NEUROLOGICAL: Cranial nerves II through XII grossly intact. Normal speech, gait not observed. PSYCH: Normal mood, normal affect. SKIN: Warm, dry, normal turgor, no rashes or lesions noted. LABS Laboratory Results - last 24 hr 08/26/16 08/26/16 08:25 08:25 WBC 10.2 H RBC 5.93 H Hgb 17.2 H Hct 50.9 H MCV 85.8 MCHC 33.8 RDW 15.5 Plt Count 203 MPV 7.6 Neutrophils % 76.0 Lymphocytes % 14.4 D Monocytes % 8.6 D Eosinophils % 0.2 D Basophils % 0.8 Sodium 141 Potassium 4.2 Chloride 103 Carbon Dioxide 24 Anion Gap 14 BUN 16 D Creatinine 1.0 Creat Clearance w eGFR > 60 Random Glucose 87 Calcium 8.9 Phosphorus 3.4 Magnesium 2.0 Total Bilirubin 0.9 AST 37 ALT 30 Alkaline Phosphatase 83 Total Protein 7.0 Albumin 3.6 HOSPITAL COURSE: Patient was admitted for opiate withdrawal symptoms of intractable vomiting and abdominal pain. He was given Zofran and kept npo. Patient was also continued on librium lili for his etoh detox. Patient abdominal pain improved to point where he was able to tolerate his PO methadone and was later discharge back to [facility] for continuation of his detox. Patient was medically stable at time of discharge. Date of Admission:08/25/16 Date of Discharge: 08/26/16 Minutes to complete discharge: 33 Discharge Summary Reason For Visit: DEHYDRATION, INTRACTABLE VOMITING, GASTRI Current Active Problems Abdominal pain (Acute) Alcohol abuse (Acute) DVT prophylaxis (Acute) Intractable vomiting (Acute) CAD (coronary artery disease) (Chronic) Condition: Stable - Instructions Diet, Activity, Other Instructions: Please continue and complete detox treatment at [facility]. Follow up with PCP once discharged from detox. Regular diet. Increase activity as tolerated. Referrals: Yesi Wills [Primary Care Provider] - Disposition: TRANSFER ACUTE CARE/OTHER HOSP - Home Medications Comprehensive Discharge Medication List: Ambulatory Orders Acetaminophen [Acetaminophen 8 Hour] 650 mg PO DAILY 08/25/16 Aspirin [ASA -] 81 mg PO DAILY 08/25/16 Carvedilol [Coreg -] 3.125 mg PO BID 08/25/16 Clonidine HCl [Clonidine HCl ER] 0.1 mg PO BID 08/25/16 Cyclobenzaprine HCl [Flexeril 10 mg] 10 mg PO TID 08/25/16 Diazepam [Valium] 5 mg PO BID 08/25/16 Diphenhydramine [Benadryl Capsule -] 50 mg PO DAILY 08/25/16 Eucalyptus/Menthol [Cough Drops] 1 each MM DAILY 08/25/16 Mag Hydrox/Al Hydrox/Simeth [Mylanta Oral Suspension -] 30 ml PO Q6H 08/25/16 Magnesium Hydroxide [Milk of Magnesia -] 30 ml PO DAILY 08/25/16 Nicotine [Nicotine Patch] 1 each TD DAILY 08/25/16 Ondansetron [Zofran Odt -] 4 mg SL BID 08/25/16 Pseudoephedrine HCl 30 mg PO DAILY 08/25/16 Thiamine HCl [B-1] 100 mg PO DAILY 08/25/16 Problem List - Problems (1) Opioid dependence with withdrawal Assessment/Plan: * NPO * IVF with NS @ 125 ml/hr * Zofran Q4H PRN * Protonix 40mg IV daily * Methadone 15mg PO daily - confirmed (2) Alcohol abuse (3) CAD (coronary artery disease) (4) DVT prophylaxis This patient is new to me today: No Emergency Visit: Yes ED Registration Date: 08/25/16 Care time: The patient presented to the Emergency Department on the above date and was hospitalized for further evaluation of their emergent condition. Critical Care patient: No - Discharge Referral Referred to [facility] No
[2016-08-26] MEDS ORDERED: chlordiazePOXIDE HCL 25 MG CAPSULE PO SCH (17:00)
[2016-08-26] MEDS ORDERED: RANITIDINE HCL 150 MG TABLET (FP) PO SCH (22:00)
[2016-08-27] MEDS ORDERED: METHADONE HCL 10 MG TABLET PO ONE (10:00)
[2016-08-27] MEDS ORDERED: chlordiazePOXIDE 5 MG CAPSULE PO SCH (17:00)
[2016-08-28] MEDS ORDERED: METHADONE HCL 5 MG TABLET PO SCH (06:00)
== END 2016-08-26 15:27 | disposition other institution (70) | DRG 773 ==
LOC: JER 11:44 → JERBED 16:04 → UNDOADMIN 17:25 → J8W 18:45
PROVIDERS: ADMIT Internal Medicine; ATTEND Internal Medicine
PROC: HZ2ZZZZ Detoxification Services for Substance Abuse Treatment (ICD-10-PCS; principal; 2016-08-25)
DX: F11.23 Opioid dependence with withdrawal (principal); F10.10 Alcohol abuse, uncomplicated; I25.10 Atherosclerotic heart disease of native coronary artery without angina pectoris; Z98.61 Coronary angioplasty status; F17.210 Nicotine dependence, cigarettes, uncomplicated; E86.0 Dehydration; R11.10 Vomiting, unspecified; R10.9 Unspecified abdominal pain
CPT/HCPCS: 36415; 71020-TC; 74190-TC; 80053; 82550; 82553; 83690; 83735; 84100; 84484; 85025; 93005; 93010; 99285-25

== ENCOUNTER 2016-11-05 11:47 | Inpatient (IN) | payer OTHER ==
[2016-11-05 12:59] VITALS: BMI 24.3
--- NOTE | 2016-11-05 14:35 | HP ---
COWS - Scale Resting Pulse: 1= DC 81-100 Sweatin=Flushed/Facial Moisture Restless Observation: 1= Difficult to Sit Still Pupil Size: 0= Normal to Room Light Bone or Joint Aches: 2= Severe Diffuse Aches Runny Nose/ Eye Tearin= Runny Nose/Eyes GI Upset > 30mins: 2= Nausea/Diarrhea Tremor Observation: 2= Slight Tremor Visible Yawning Observation: 2= >3x During Session Anxiety or Irritability: 2=Irritable/Anxious Goose Flesh Skin: 3=Piloerection COWS Score: 19 CIWA Score - CIWA Score Nausea/Vomitin-Mild Nausea/No Vomiting Muscle Tremors: 4-Moderate,w/Arms Extend Anxiety: 3 Agitation: 4-Moderately Restless Paroxysmal Sweats: 3 Orientation: 0-Oriented Tacttile Disturbances: 0-None Auditory Disturbances: 0-None Visual Disturbances: 0-None Headache: 0-None Present CIWA-Ar Total Score: 15 Admission ROS S - HPI Chief Complaint: I am here for detox and try to stay sober. Allergies/Adverse Reactions: Allergies Allergy/AdvReac Type Severity Reaction Status Date / Time Fish Containing Products Allergy Severe Vomiting Verified 11/05/16 14:10 No Known Drug Allergies Allergy Verified 11/05/16 14:10 History of Present Illness: pt is a 41yr old male with a history of alcohol and heroin dependence seeking detox for treatment. Pt last detox was here at [facility] on 08/2016. Exam Limitations: No Limitations - Ebola screening Have you traveled outside of the country in the last 21 days: No Have you had contact with anyone from an Ebola affected area: No Have you been sick,other than usual withdrawal symptoms: No - Review of Systems Constitutional: Chills, Diaphoresis, Loss of Appetite, Night Sweats, Changes in sleep EENT: reports: Nose Congestion Cardiac: reports: No Symptoms Reported GI: reports: Nausea, Poor Fluid Intake : reports: No Symptoms Reported Musculoskeletal: reports: No Symptoms Reported Integumentary: reports: Flushing, Sweating Neuro: reports: Tingling, Tremors Endocrine: reports: Excessive Sweating, Flushing, Intolerance to Cold, Intolerance to Heat Hematology: reports: No Symptoms Reported Psychiatric: reports: Judgement Intact, Mood/Affect Appropiate, Orientated x3, Agitated, Anxious Other Systems: Reviewed and Negative Patient History - Patient Medical History Hx Anemia: No Hx Asthma: No Hx Chronic Obstructive Pulmonary Disease (COPD): No Hx Cancer: No Hx Cardiac Disorders: Yes (cardiac arrest d/t drugs S/P ANGIOPLASTY WITH STENT) Hx Congestive Heart Failure: No Hx Hypertension: Yes (ON MEDICATION) Hx Hypercholesterolemia: No Hx Pacemaker: No HX Cerebrovascular Accident: No Hx Seizures: No Hx Dementia: No Hx Diabetes: No Hx Gastrointestinal Disorders: No Hx Liver Disease: No Hx Genitourinary Disorders: No Hx Sexually Transmitted Disorders: No Hx Renal Disease (ESRD): No Hx Thyroid Disease: No Hx Human Immunodeficiency Virus (HIV): No (negative) Hx Hepatitis C: Yes Hx Depression: No Hx Suicide Attempt: No (denies) Hx Bipolar Disorder: No Hx Schizophrenia: No - Patient Surgical History Past Surgical History: No Hx Neurologic Surgery: No Hx Cataract Extraction: No Hx Cardiac Surgery: Yes (S/P ANGIOPLASTY WITH STENT) Hx Lung Surgery: No Hx Breast Surgery: No Hx Breast Biopsy: No Hx Abdominal Surgery: No Hx Appendectomy: No Hx Cholecystectomy: No Hx Genitourinary Surgery: No Hx Section: No Hx Orthopedic Surgery: No Anesthesia Reaction: No - PPD History Previous Implant?: No PPD to be Administered?: No - Reproductive History Patient is a Female of Child Bearing Age (11 -55 yrs old): No - Smoking Cessation Smoking history: Current every day smoker Have you smoked in the past 12 months: Yes Aproximately how many cigarettes per day: 20 Hx Chewing Tobacco Use: No Initiated information on smoking cessation: Yes 'Breaking Loose' booklet given: 11/05/16 - Substance & Tx. History Hx Alcohol Use: Yes Hx Substance Use: Yes Substance Use Type: Alcohol, Heroin Hx Substance Use Treatment: Yes (last detox [facility] 08/2016) - Substances Abused Alcohol-cognac Route: Oral Frequency: Daily Amount used: 3 pts. Age of first use: 20 Date of Last Use: 11/05/16 Xanax Route: Oral Frequency: Daily Amount used: 2 mg. Age of first use: 41 Date of Last Use: 11/01/16 Heroin Route: Injection Frequency: Daily Amount used: 20 bags Age of first use: 27 Date of Last Use: 11/05/16 Family Disease History - Family Disease History Family History: Denies Admission Physical Exam BHS - Vital Signs Vital Signs: Vital Signs - 24 hr 11/05/16 12:57 Temperature 97.8 F Pulse Rate 89 Respiratory 20 Rate Blood Pressure 97/78 - Physical General Appearance: Yes: Appropriately Dressed, Moderate Distress, Thin, Tremorous, Irritable, Sweating, Anxious HEENTM: Yes: Normal Voice, Nasal Congestion, Rhinorrhea Respiratory: Yes: Lungs Clear, Normal Breath Sounds, No Respiratory Distress Neck: Yes: No masses,lesions,Nodules Breast: Yes: Within Normal Limits Cardiology: Yes: Regular Rhythm, Regular Rate, S1, S2 Abdominal: Yes: Normal Bowel Sounds, Non Tender, Soft Genitourinary: Yes: Within Normal Limits Back: Yes: Normal Inspection Musculoskeletal: Yes: full range of Motion, Gait Steady Extremities: Yes: Normal Capillary Refill, Normal Inspection, Non-Tender, Tremors 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: Yes: Fully Oriented, Alert, Normal Response Integumentary: Yes: Normal Color, Diaphoresis, Track Welch Lymphatic: Yes: Within Normal Limits - Diagnostic (1) Alcohol dependence with uncomplicated withdrawal Current Visit: Yes Status: Chronic (2) H/O heart artery stent Current Visit: No Status: Chronic (3) Hepatitis C Current Visit: Yes Status: Chronic Qualifiers: Viral hepatitis chronicity: chronic Hepatic coma status: without hepatic coma Qualified Code(s): B18.2 - Chronic viral hepatitis C (4) Nicotine dependence Current Visit: Yes Status: Chronic Qualifiers: Nicotine product type: cigarettes Substance use status: uncomplicated Qualified Code(s): F17.210 - Nicotine dependence, cigarettes, uncomplicated (5) Old VA (myocardial infarction) Current Visit: No Status: Chronic (6) Opioid dependence with withdrawal Current Visit: No Status: Chronic (7) PPD positive Current Visit: No Status: Chronic Cleared for Admission [facility] - Detox or Rehab [facility] Level of Care: Medically Managed Detox Regimen/Protocol: Methadone/Librium [facility] Breath Alcohol Content Breath Alcohol Content: 0.093 Urine Drug Screen - Results Drug Screen Negative: No Urine Drug Screen Results: THC-Marijuana, OPI-Opiates
[2016-11-05] MEDS ORDERED: MAGNESIUM CITRATE 300 ML BOTTLE PO PRN (14:43)
[2016-11-05] MEDS ORDERED: NICOTINE POLACRILEX 4 MG GUM BUC PRN (14:43)
[2016-11-05] MEDS ORDERED: MENTHOL/PHENOL 1 EACH UD MM PRN (14:43)
[2016-11-05] MEDS ORDERED: LOPERAMIDE HCL 2 MG CAPSULE PO PRN (14:43)
[2016-11-05] MEDS ORDERED: guaiFENesin/D-METHORPHAN HB 10 ML UNIT-DOSE CUPS PO PRN (14:43)
[2016-11-05] MEDS ORDERED: MAG HYDROX/AL HYDROX/SIMETH 30 ML UNIT-DOSE CUP PO PRN (14:43)
[2016-11-05] MEDS ORDERED: IBUPROFEN 400 MG TABLET (FP) PO PRN (14:43)
[2016-11-05] MEDS ORDERED: MAGNESIUM HYDROX 2400MG/30ML ORAL SUSPENSION 30 ML CUP PO PRN (14:43)
[2016-11-05] MEDS ORDERED: P-EPHED 60MG/TRIPROLIDI 2.5MG TABLET PO PRN (14:43)
[2016-11-05] MEDS ORDERED: ACETAMINOPHEN 325 MG TABLET (FP) PO PRN (14:43)
[2016-11-05] MEDS ORDERED: chlordiazePOXIDE HCL 25 MG CAPSULE PO PRN (14:43)
[2016-11-05] MEDS ORDERED: METHADONE HCL 10 MG TABLET (FOR DETOX USE ONLY) PO ONE ×2 (15:01→23:00)
[2016-11-05] MEDS ORDERED: chlordiazePOXIDE HCL 25 MG CAPSULE PO ONE (15:01)
[2016-11-05 16:29] LABS: MCH 29.8 pg (25.7-33.7); MEAN CELL VOLUME 87.5 fl (80-96); MEAN PLT VOLUME 8.1 fl (7.5-11.1); PLATELET COUNT 253 K/MM3 (134-434); RDW 14.4 % (11.9-15.9); WHITE BLOOD COUNT 6.3 K/mm3 (4.0-10.0)
[2016-11-05] MEDS: METOCLOPRAMIDE HCL 10 MG TABLET (FP) PO SCH ×2 (17:26→22:19)
[2016-11-05] MEDS: chlordiazePOXIDE HCL 25 MG CAPSULE PO SCH ×2 (17:27→22:18)
[2016-11-05 17:29] LABS: ALBUMIN 3.7 g/dl (3.4-5.0); ANION GAP 8 (8-16); CALCIUM 9.2 mg/dL (8.5-10.1); CO2 30 mmol/L (21-32); GLUCOSE,RANDOM 93 mg/dL (74-106)
[2016-11-05 17:33] LABS: ALK PHOS 83 U/L (45-117); BILIRUBIN,TOTAL 0.7 mg/dL (0.2-1.0); SGOT/AST 32 U/L (15-37); SGPT/ALT 40 U/L (12-78); TOT PROT 7.1 g/dl (6.4-8.2)
[2016-11-05] MEDS: THIAMINE HCL 100 MG TABLET (FP) PO SCH (22:19)
[2016-11-05] MEDS: diphenhydrAMINE HCL 50 MG CAPSULE PO PRN (22:22)
[2016-11-05 23:30] LABS: URINE APPEARANCE CLEAR; URINE BILIRUBIN NEGATIVE (NEGATIVE); URINE BLOOD NEGATIVE (NEGATIVE); URINE COLOR LTYELLOW; URINE GLUCOSE (UA) NEGATIVE (NEGATIVE); URINE KETONE NEGATIVE (NEGATIVE); URINE LEUK ESTERASE NEGATIVE (NEGATIVE); URINE NITRITE NEGATIVE (NEGATIVE); URINE PROTEIN NEGATIVE (NEGATIVE); URINE UROBILINOGEN NEGATIVE mg/dL (0.2-1.0)
[2016-11-06] MEDS: chlordiazePOXIDE HCL 25 MG CAPSULE PO SCH ×4 (05:52→21:59)
[2016-11-06] MEDS: METOCLOPRAMIDE HCL 10 MG TABLET (FP) PO SCH ×4 (07:27→21:57)
[2016-11-06] MEDS ORDERED: METHADONE HCL 10 MG TABLET (FOR DETOX USE ONLY) PO SCH (10:00)
[2016-11-06] MEDS: PRENATAL VITAMINS W/ FOLIC ACID TABLET (FP) PO SCH (10:21)
[2016-11-06] MEDS: ASPIRIN 81 MG CHEWABLE TABLETS PO SCH (10:22)
[2016-11-06] MEDS: NICOTINE 21 MG/24 HOURS TOPICAL PATCH TD SCH (10:22)
--- NOTE | 2016-11-06 10:27 | PN ---
[facility] CIWA - CIWA Score Nausea/Vomitin-Mild Nausea/No Vomiting Muscle Tremors: 4-Moderate,w/Arms Extend Anxiety: 3 Agitation: 4-Moderately Restless Paroxysmal Sweats: 3 Orientation: 0-Oriented Tacttile Disturbances: 0-None Auditory Disturbances: 0-None Visual Disturbances: 0-None Headache: 1-Very Mild CIWA-Ar Total Score: 16 S COWS - Scale Resting Pulse: 0= DC 80 or Below Sweatin=Flushed/Facial Moisture Restless Observation: 1= Difficult to Sit Still Pupil Size: 0= Normal to Room Light Bone or Joint Aches: 2= Severe Diffuse Aches Runny Nose/ Eye Tearin= Runny Nose/Eyes GI Upset > 30mins: 2= Nausea/Diarrhea Tremor Observation of Outstretched Hands: 2= Slight Tremor Visible Yawning Observation: 2= >3x During Session Anxiety or Irritability: 2=Irritable/Anxious Goose Flesh Skin: 3=Piloerection COWS Score: 18 [facility] Progress Note (SOAP) Subjective: agitation anxiety sweats shakes teary eyes nausea body aches Objective: 11/06/16 10:24 Vital Signs Temperature 98.8 F 11/06/16 10:00 Pulse Rate 63 11/06/16 10:00 Respiratory Rate 16 11/06/16 10:00 Blood Pressure 118/78 11/06/16 10:00 O2 Sat by Pulse Oximetry (%) Laboratory Tests 11/05/16 11/05/16 11/05/16 14:00 14:00 14:00 WBC 6.3 D RBC 5.13 Hgb 15.3 D Hct 44.9 MCV 87.5 MCH 29.8 MCHC 34.0 RDW 14.4 Plt Count 253 D MPV 8.1 Sodium 141 Potassium 4.4 Chloride 103 Carbon Dioxide 30 D Anion Gap 8 BUN 15 Creatinine 1.0 Creat Clearance w eGFR > 60 Random Glucose 93 Calcium 9.2 Total Bilirubin 0.7 D AST 32 ALT 40 D Alkaline Phosphatase 83 Total Protein 7.1 Albumin 3.7 Urine Color Urine Appearance Urine pH Urine Protein Urine Glucose (UA) Urine Ketones Urine Blood Urine Nitrite Urine Bilirubin Urine Urobilinogen Ur Leukocyte Esterase RPR Titer Nonreactive 11/05/16 20:00 WBC RBC Hgb Hct MCV MCH MCHC RDW Plt Count MPV Sodium Potassium Chloride Carbon Dioxide Anion Gap BUN Creatinine Creat Clearance w eGFR Random Glucose Calcium Total Bilirubin AST ALT Alkaline Phosphatase Total Protein Albumin Urine Color Ltyellow Urine Appearance Clear Urine pH 6.0 Urine Protein Negative Urine Glucose (UA) Negative Urine Ketones Negative Urine Blood Negative Urine Nitrite Negative Urine Bilirubin Negative Urine Urobilinogen Negative Ur Leukocyte Esterase Negative RPR Titer awake/alert ambulating no acute distress Assessment: 11/06/16 10:26 withdrawal sx Plan: continue detox increase fluids continue reglan po as scheduled
[2016-11-06] MEDS ORDERED: TRIMETHOBENZAMIDE HCL 200MG/2ML INJ IM ONE (10:42)
--- NOTE | 2016-11-06 10:50 | PN ---
[facility] Progress Note Note: Pt was just medicated and pt began to feel nausea. Pt was given anti-nausea medication and had pt sit near the nurses station for observation. No more than five minutes pt vomited all had just ingested. Tigan IM x one ordered. Methadone 10mg IM x one ordered. will continue to monitor.
[2016-11-06] MEDS ORDERED: ONDANSETRON *ODT* 4 MG TABLET SL ONE (10:55)
[2016-11-06] MEDS ORDERED: METHADONE DETOX 10 MG/1 ML [20ML VIAL] IM ONE (10:59)
--- NOTE | 2016-11-06 12:21 | EKG ---
Test Reason : Blood Pressure : / mmHG Vent. Rate : 074 BPM Atrial Rate : 074 BPM P-R Int : 170 ms QRS Dur : 088 ms QT Int : 388 ms P-R-T Axes : 050 063 046 degrees QTc Int : 430 ms NORMAL SINUS RHYTHM LATERAL INFARCT , AGE UNDETERMINED INFERIOR-POSTERIOR INFARCT (CITED ON OR BEFORE 05-NOV-2016) ABNORMAL ECG WHEN COMPARED WITH ECG OF 25-AUG-2016 13:58, VENT. RATE HAS INCREASED BY 24 BPM Confirmed by SASCHA OLIVEIRA MD ([id number]) on 11/06/2016 12:21:35 PM Referred By: Confirmed By:SASCHA OLIVEIRA MD
[2016-11-06] MEDS: ONDANSETRON *ODT* 4 MG TABLET SL PRN (21:31)
[2016-11-06] MEDS ORDERED: cloNIDine HCL 0.1 MG TABLET PO ONE (21:52)
[2016-11-06] MEDS: diphenhydrAMINE HCL 50 MG CAPSULE PO PRN (21:57)
[2016-11-06] MEDS: CYCLOBENZAPRINE HCL 10 MG TABLET (FP) PO PRN (21:57)
[2016-11-06] MEDS: THIAMINE HCL 100 MG TABLET (FP) PO SCH (21:57)
--- NOTE | 2016-11-06 22:41 | PN ---
[facility] Progress Note Note: patient with withdrawal symptom,nausea,vomiting with pain over the body,extremities at this present time no vomiting t98.1,p55/min,r18,t 98.1 no chest pain,no sob,no dizziness heart normal heart sound lung clear abdomen soft,no distension,no pain or tenderness bowel sound active no calf tenderness withdrawal symptom clonidine 0.1 mg po then bid flexeril 10 mgs po tid prn zofran 4 mgs sl q 6hrs prn for naudsea,vomiting contiune detox
[2016-11-07] MEDS: hydrOXYzine PAMOATE 50 MG CAPSULE (FP) PO PRN ×3 (01:31→18:20)
[2016-11-07] MEDS ORDERED: cloNIDine HCL 0.1 MG TABLET PO ONE (02:30)
[2016-11-07] MEDS: ONDANSETRON *ODT* 4 MG TABLET SL PRN ×2 (02:35→11:14)
--- NOTE | 2016-11-07 02:41 | PN ---
S Progress Note Note: withdrawal symptom Vital Signs Temperature 98.1 F 11/06/16 22:55 Pulse Rate 55 L 11/06/16 22:55 Respiratory Rate 18 11/07/16 00:30 Blood Pressure 158/90 11/06/16 22:55 O2 Sat by Pulse Oximetry (%) continue detox clonidine 0.1 mg po now libnrium 25 mgs po prn dose close monotoring
[2016-11-07] MEDS: METOCLOPRAMIDE HCL 10 MG TABLET (FP) PO SCH ×4 (06:50→21:23)
[2016-11-07] MEDS: CYCLOBENZAPRINE HCL 10 MG TABLET (FP) PO PRN ×2 (06:50→23:33)
[2016-11-07] MEDS: chlordiazePOXIDE HCL 25 MG CAPSULE PO SCH ×2 (06:50→11:13)
[2016-11-07] MEDS ORDERED: METHADONE DETOX 10 MG/1 ML [20ML VIAL] IM ONE (09:25)
[2016-11-07] MEDS ORDERED: METHADONE HCL 5 MG TABLET (FOR DETOX USE ONLY) PO SCH (10:00)
[2016-11-07] MEDS: ASPIRIN 81 MG CHEWABLE TABLETS PO SCH (11:13)
[2016-11-07] MEDS: PRENATAL VITAMINS W/ FOLIC ACID TABLET (FP) PO SCH (11:13)
[2016-11-07] MEDS: NICOTINE 21 MG/24 HOURS TOPICAL PATCH TD SCH (11:14)
--- NOTE | 2016-11-07 11:44 | PN ---
[facility] CIWA - CIWA Score Nausea/Vomitin Muscle Tremors: 5 Anxiety: 4-Mod. Anxious/Guarded Agitation: 2 Paroxysmal Sweats: 3 Orientation: 0-Oriented Tacttile Disturbances: 2-Mild Itch/Numbness/Burn Auditory Disturbances: 0-None Visual Disturbances: 0-None Headache: 0-None Present CIWA-Ar Total Score: 22 BHS COWS - Scale Resting Pulse: 0= [place] 80 or Below Sweatin=Flushed/Facial Moisture Restless Observation: 1= Difficult to Sit Still Pupil Size: 0= Normal to Room Light Bone or Joint Aches: 2= Severe Diffuse Aches Runny Nose/ Eye Tearin= Runny Nose/Eyes GI Upset > 30mins: 5=Frequent Vomit/Diarrhea Tremor Observation of Outstretched Hands: 2= Slight Tremor Visible Yawning Observation: 1= 1-2x During Session Anxiety or Irritability: 2=Irritable/Anxious Goose Flesh Skin: 0=Smooth Skin COWS Score: 17 S Progress Note (SOAP) Subjective: Vomiting, Interrupted sleep, Tremors, Sweating. Objective: PT. A & O X 3. NO ACUTE DISTRESS. 11/07/16 11:40 Vital Signs Temperature 97.0 F L 11/07/16 10:00 Pulse Rate 53 L 11/07/16 10:00 Respiratory Rate 18 11/07/16 10:00 Blood Pressure 151/89 11/07/16 10:00 O2 Sat by Pulse Oximetry (%) Laboratory Tests 11/05/16 11/05/16 11/05/16 14:00 14:00 14:00 WBC 6.3 D RBC 5.13 Hgb 15.3 D Hct 44.9 MCV 87.5 MCH 29.8 MCHC 34.0 RDW 14.4 Plt Count 253 D MPV 8.1 Sodium 141 Potassium 4.4 Chloride 103 Carbon Dioxide 30 D Anion Gap 8 BUN 15 Creatinine 1.0 Creat Clearance w eGFR > 60 Random Glucose 93 Calcium 9.2 Total Bilirubin 0.7 D AST 32 ALT 40 D Alkaline Phosphatase 83 Total Protein 7.1 Albumin 3.7 Urine Color Urine Appearance Urine pH Ur Specific [place] Urine Protein Urine Glucose (UA) Urine Ketones Urine Blood Urine Nitrite Urine Bilirubin Urine Urobilinogen Ur Leukocyte Esterase RPR Titer Nonreactive 11/05/16 20:00 WBC RBC Hgb Hct MCV MCH MCHC RDW Plt Count MPV Sodium Potassium Chloride Carbon Dioxide Anion Gap BUN Creatinine Creat Clearance w eGFR Random Glucose Calcium Total Bilirubin AST ALT Alkaline Phosphatase Total Protein Albumin Urine Color Ltyellow Urine Appearance Clear Urine pH 6.0 Ur Specific [place] <= 1.005 Urine Protein Negative Urine Glucose (UA) Negative Urine Ketones Negative Urine Blood Negative Urine Nitrite Negative Urine Bilirubin Negative Urine Urobilinogen Negative Ur Leukocyte Esterase Negative RPR Titer LABS NOTED. Assessment: 11/07/16 11:40 WITHDRAWAL SYMPTOMS. Plan: CONTINUE DETOX. TODAY'S DOSE OF DETOX METHADONE GIVEN IN IM FORM (7.5 MG) DUE TO VOMITING. PRN ZOFRAN SL FOR NAUSEA / VOMITING.
[2016-11-07] MEDS: LISINOPRIL 5 MG TABLET (FP) PO SCH (13:31)
[2016-11-07] MEDS: amLODIPine BESYLATE 5 MG TABLET (FP) PO SCH (13:31)
[2016-11-07] MEDS: ISOSORBIDE MONONITRATE 60 MG TAB.SR.24H (FP) PO SCH (14:48)
[2016-11-07] MEDS: chlordiazePOXIDE 5 MG CAPSULE PO SCH ×2 (18:19→23:34)
[2016-11-07] MEDS: THIAMINE HCL 100 MG TABLET (FP) PO SCH (23:34)
[2016-11-07] MEDS: diphenhydrAMINE HCL 50 MG CAPSULE PO PRN (23:34)
[2016-11-08] MEDS: ONDANSETRON *ODT* 4 MG TABLET SL PRN ×2 (04:40→11:53)
[2016-11-08] MEDS: hydrOXYzine PAMOATE 50 MG CAPSULE (FP) PO PRN (04:41)
[2016-11-08] MEDS ORDERED: cloNIDine HCL 0.1 MG TABLET PO ONE (04:51)
[2016-11-08] MEDS: CYCLOBENZAPRINE HCL 10 MG TABLET (FP) PO PRN ×2 (05:01→22:30)
[2016-11-08] MEDS: chlordiazePOXIDE 5 MG CAPSULE PO SCH ×2 (05:02→11:16)
[2016-11-08] MEDS: METOCLOPRAMIDE HCL 10 MG TABLET (FP) PO SCH ×4 (08:14→22:30)
[2016-11-08] MEDS ORDERED: METHADONE HCL 5 MG TABLET (FOR DETOX USE ONLY) PO SCH (10:00)
[2016-11-08] MEDS ORDERED: METHADONE HCL 10 MG TABLET (FOR DETOX USE ONLY) PO ONE (11:12)
[2016-11-08] MEDS: amLODIPine BESYLATE 5 MG TABLET (FP) PO SCH (11:15)
[2016-11-08] MEDS: PRENATAL VITAMINS W/ FOLIC ACID TABLET (FP) PO SCH (11:15)
[2016-11-08] MEDS: LISINOPRIL 5 MG TABLET (FP) PO SCH (11:15)
[2016-11-08] MEDS: ISOSORBIDE MONONITRATE 60 MG TAB.SR.24H (FP) PO SCH (11:15)
[2016-11-08] MEDS: ASPIRIN 81 MG CHEWABLE TABLETS PO SCH (11:15)
[2016-11-08] MEDS: NICOTINE 21 MG/24 HOURS TOPICAL PATCH TD SCH (11:16)
--- NOTE | 2016-11-08 11:19 | PN ---
[facility] Progress Note (SOAP) Subjective: nausea dry heave body aches sweats Objective: 11/08/16 11:19 Vital Signs Temperature 100.8 F H 11/08/16 10:00 Pulse Rate 58 L 11/08/16 10:00 Respiratory Rate 16 11/08/16 10:00 Blood Pressure 140/87 11/08/16 10:00 O2 Sat by Pulse Oximetry (%) Laboratory Tests 11/05/16 11/05/16 11/05/16 14:00 14:00 14:00 WBC 6.3 D RBC 5.13 Hgb 15.3 D Hct 44.9 MCV 87.5 MCH 29.8 MCHC 34.0 RDW 14.4 Plt Count 253 D MPV 8.1 Sodium 141 Potassium 4.4 Chloride 103 Carbon Dioxide 30 D Anion Gap 8 BUN 15 Creatinine 1.0 Creat Clearance w eGFR > 60 Random Glucose 93 Calcium 9.2 Total Bilirubin 0.7 D AST 32 ALT 40 D Alkaline Phosphatase 83 Total Protein 7.1 Albumin 3.7 Urine Color Urine Appearance Urine pH Ur Specific [place] Urine Protein Urine Glucose (UA) Urine Ketones Urine Blood Urine Nitrite Urine Bilirubin Urine Urobilinogen Ur Leukocyte Esterase RPR Titer Nonreactive 11/05/16 20:00 WBC RBC Hgb Hct MCV MCH MCHC RDW Plt Count MPV Sodium Potassium Chloride Carbon Dioxide Anion Gap BUN Creatinine Creat Clearance w eGFR Random Glucose Calcium Total Bilirubin AST ALT Alkaline Phosphatase Total Protein Albumin Urine Color Ltyellow Urine Appearance Clear Urine pH 6.0 Ur Specific [place] <= 1.005 Urine Protein Negative Urine Glucose (UA) Negative Urine Ketones Negative Urine Blood Negative Urine Nitrite Negative Urine Bilirubin Negative Urine Urobilinogen Negative Ur Leukocyte Esterase Negative RPR Titer awake/alert ambulating no acute distress Assessment: 11/08/16 11:20 withdrawal sx Plan: continue detox methadone detox 7.5mg IMx one ordered continue reglan po
[2016-11-08] MEDS ORDERED: METHADONE DETOX 10 MG/1 ML [20ML VIAL] IM ONE (11:34)
[2016-11-08] MEDS: chlordiazePOXIDE HCL 10 MG CAPSULE PO SCH ×2 (18:01→22:30)
[2016-11-08] MEDS: THIAMINE HCL 100 MG TABLET (FP) PO SCH (22:30)
[2016-11-08] MEDS: diphenhydrAMINE HCL 50 MG CAPSULE PO PRN (22:31)
[2016-11-09] MEDS: chlordiazePOXIDE HCL 10 MG CAPSULE PO SCH ×2 (06:07→10:11)
[2016-11-09] MEDS: METOCLOPRAMIDE HCL 10 MG TABLET (FP) PO SCH ×2 (07:07→10:10)
[2016-11-09 09:52] VITALS: BP 115/60; PULSE 92; TEMP 96.3
[2016-11-09] MEDS ORDERED: METHADONE HCL 5 MG TABLET (FOR DETOX USE ONLY) PO SCH (10:00)
[2016-11-09] MEDS ORDERED: METHADONE HCL 10 MG TABLET (FOR DETOX USE ONLY) PO SCH (10:00)
[2016-11-09] MEDS: ISOSORBIDE MONONITRATE 60 MG TAB.SR.24H (FP) PO SCH (10:10)
[2016-11-09] MEDS: LISINOPRIL 5 MG TABLET (FP) PO SCH (10:10)
[2016-11-09] MEDS: ASPIRIN 81 MG CHEWABLE TABLETS PO SCH (10:10)
[2016-11-09] MEDS: PRENATAL VITAMINS W/ FOLIC ACID TABLET (FP) PO SCH (10:10)
[2016-11-09] MEDS: amLODIPine BESYLATE 5 MG TABLET (FP) PO SCH (10:13)
[2016-11-09] MEDS: NICOTINE 21 MG/24 HOURS TOPICAL PATCH TD SCH (10:14)
--- NOTE | 2016-11-09 15:20 | DS ---
[facility] Detox Discharge Summary Admission Date: 11/05/16 Discharge Date: 11/09/16 - History Present History: Alcohol Dependence, Opioid Dependence Pertinent Past History: CAD Hep C - Physical Exam Results Vital Signs: Vital Signs Temperature 96.3 F L 11/09/16 09:52 Pulse Rate 92 H 11/09/16 09:52 Respiratory Rate 16 11/09/16 09:52 Blood Pressure 115/60 11/09/16 09:52 O2 Sat by Pulse Oximetry (%) Pertinent Admission Physical Exam Findings: Withdrawal sx. Laboratory Last Values WBC 6.3 K/mm3 (4.0-10.0) D 11/05/16 14:00 RBC 5.13 M/mm3 (4.00-5.60) 11/05/16 14:00 Hgb 15.3 GM/dL (11.7-16.9) D 11/05/16 14:00 Hct 44.9 % (35.4-49) 11/05/16 14:00 MCV 87.5 fl (80-96) 11/05/16 14:00 MCH 29.8 pg (25.7-33.7) 11/05/16 14:00 MCHC 34.0 g/dl (32.0-35.9) 11/05/16 14:00 RDW 14.4 % (11.9-15.9) 11/05/16 14:00 Plt Count 253 K/MM3 (134-434) D 11/05/16 14:00 MPV 8.1 fl (7.5-11.1) 11/05/16 14:00 Sodium 141 mmol/L (136-145) 11/05/16 14:00 Potassium 4.4 mmol/L (3.5-5.1) 11/05/16 14:00 Chloride 103 mmol/L (98-107) 11/05/16 14:00 Carbon Dioxide 30 mmol/L (21-32) D 11/05/16 14:00 Anion Gap 8 (8-16) 11/05/16 14:00 BUN 15 mg/dL (7-18) 11/05/16 14:00 Creatinine 1.0 mg/dL (0.7-1.3) 11/05/16 14:00 Creat Clearance w eGFR > 60 (>60) 11/05/16 14:00 Random Glucose 93 mg/dL (74-106) 11/05/16 14:00 Calcium 9.2 mg/dL (8.5-10.1) 11/05/16 14:00 Total Bilirubin 0.7 mg/dL (0.2-1.0) D 11/05/16 14:00 AST 32 U/L (15-37) 11/05/16 14:00 ALT 40 U/L (12-78) D 11/05/16 14:00 Alkaline Phosphatase 83 U/L (45-117) 11/05/16 14:00 Total Protein 7.1 g/dl (6.4-8.2) 11/05/16 14:00 Albumin 3.7 g/dl (3.4-5.0) 11/05/16 14:00 Urine Color Ltyellow 11/05/16 20:00 Urine Appearance Clear 11/05/16 20:00 Urine pH 6.0 (5.0-8.0) 11/05/16 20:00 Ur Specific [place] <= 1.005 (1.005-1.025) 11/05/16 20:00 Urine Protein Negative (NEGATIVE) 11/05/16 20:00 Urine Glucose (UA) Negative (NEGATIVE) 11/05/16 20:00 Urine Ketones Negative (NEGATIVE) 11/05/16 20:00 Urine Blood Negative (NEGATIVE) 11/05/16 20:00 Urine Nitrite Negative (NEGATIVE) 11/05/16 20:00 Urine Bilirubin Negative (NEGATIVE) 11/05/16 20:00 Urine Urobilinogen Negative mg/dL (0.2-1.0) 11/05/16 20:00 Ur Leukocyte Esterase Negative (NEGATIVE) 11/05/16 20:00 RPR Titer Nonreactive (NONREACTIVE) 11/05/16 14:00 labs noted - Treatment Hospital Course: Detox Protocol Followed, Detoxed Safely, Responded well, Discharged Condition Good, Rehab Referral Accepted Patient has Accepted a Rehab Referral to: Pt. was not accepted by [facility] for rehab,refuses other referral. - Medication Discharge Medications: Ambulatory Orders Aspirin [ASA -] 81 mg PO DAILY 08/25/16 Amlodipine Besylate [Norvasc -] 5 mg PO DAILY 11/05/16 Isosorbide Mononitrate [Imdur -] 60 mg PO DAILY 11/05/16 Lisinopril [Zestril] 2.5 mg PO DAILY 11/05/16 - Diagnosis (1) Alcohol dependence with uncomplicated withdrawal Status: Acute (2) CAD (coronary artery disease) Status: Chronic Qualifiers: Coronary Disease-Associated Artery/Lesion type: [place] artery [place] vs. transplanted heart: [place] heart Associated angina: without angina Qualified Code(s): I25.10 - Atherosclerotic heart disease of [place] coronary artery without angina pectoris (3) H/O heart artery stent Status: Chronic (4) Hepatitis C Status: Chronic Qualifiers: Viral hepatitis chronicity: chronic Hepatic coma status: without hepatic coma Qualified Code(s): B18.2 - Chronic viral hepatitis C (5) Nicotine dependence Status: Chronic Qualifiers: Nicotine product type: cigarettes Substance use status: uncomplicated Qualified Code(s): F17.210 - Nicotine dependence, cigarettes, uncomplicated (6) Opioid dependence with withdrawal Status: Acute - AMA Did Patient Leave Against Medical Advice: No
[2016-11-10] MEDS ORDERED: METHADONE HCL 5 MG TABLET (FOR DETOX USE ONLY) PO SCH (06:00)
== END 2016-11-09 10:57 | disposition home or self-care (01) | DRG 773 ==
LOC: YASAS 11:47 → Y6N 14:58
PROVIDERS: ADMIT Internal Medicine; ATTEND Internal Medicine
PROC: HZ2ZZZZ Detoxification Services for Substance Abuse Treatment (ICD-10-PCS; principal; 2016-11-09)
DX: F11.23 Opioid dependence with withdrawal (principal); F10.230 Alcohol dependence with withdrawal, uncomplicated; F17.210 Nicotine dependence, cigarettes, uncomplicated; I25.2 Old myocardial infarction; I25.10 Atherosclerotic heart disease of native coronary artery without angina pectoris; I10 Essential (primary) hypertension; Z95.5 Presence of coronary angioplasty implant and graft; B18.2 Chronic viral hepatitis C; R76.11 Nonspecific reaction to tuberculin skin test without active tuberculosis; Z86.74 Personal history of sudden cardiac arrest
CPT/HCPCS: 36415; 80053; 81003; 85027; 86593; 93005; 93010

== ENCOUNTER 2017-04-30 11:22 | Inpatient (IN) | payer OTHER ==
[2017-04-30 13:07] VITALS: BMI 25.1
--- NOTE | 2017-04-30 15:42 | HP ---
COWS - Scale Resting Pulse: 1= [place] 81-100 Sweatin=Flushed/Facial Moisture Restless Observation: 1= Difficult to Sit Still Pupil Size: 1= Pupils >than Normal Bone or Joint Aches: 2= Severe Diffuse Aches Runny Nose/ Eye Tearin= Nasal Congestion GI Upset > 30mins: 2= Nausea/Diarrhea Tremor Observation: 1= Tremor [place], Not Seen Yawning Observation: 0= None Anxiety or Irritability: 1=Feels Anxious/Irritable Goose Flesh Skin: 0=Smooth Skin COWS Score: 12 CIWA Score - CIWA Score Nausea/Vomitin Muscle Tremors: 2 Anxiety: 2 Agitation: 2 Paroxysmal Sweats: 3 Orientation: 0-Oriented Tacttile Disturbances: 2-Mild Itch/Numbness/Burn Auditory Disturbances: 0-None Visual Disturbances: 0-None Headache: 1-Very Mild CIWA-Ar Total Score: 15 Admission [facility] Chief Complaint: 41 y/o m pt with h/o heroin , xanax and alcohol dependency. Allergies/Adverse Reactions: Allergies Allergy/AdvReac Type Severity Reaction Status Date / Time Fish Containing Products Allergy Severe Vomiting Verified 11/05/16 14:10 No Known Drug Allergies Allergy Verified 11/05/16 14:10 History of Present Illness: pt seeking detox has h/o drug and alcohol dependency /abuse since age 27. Pt now seeking detox. Exam Limitations: No Limitations - Ebola screening Have you traveled outside of the country in the last 21 days: No Have you had contact with anyone from an Ebola affected area: No Have you been sick,other than usual withdrawal symptoms: No Do you have a fever: No - Review of Systems Constitutional: Diaphoresis, Malaise EENT: reports: Blurred Vision Respiratory: reports: Shortness of Breath Cardiac: reports: Chest Pain, Other (h/o cad s/p stent x -2016) GI: reports: Diarrhea, Nausea : reports: No Symptoms Reported Musculoskeletal: reports: Back Pain Integumentary: reports: Rash, Other (eczema) Neuro: reports: Headache, Weakness, Dizziness Endocrine: reports: No Symptoms Reported Hematology: reports: No Symptoms Reported Psychiatric: reports: No Sypmtoms Reported Other Systems: Reviewed and Negative Patient History - Patient Medical History Hx Anemia: No Hx Asthma: No Hx Chronic Obstructive Pulmonary Disease (COPD): No Hx Cancer: No Hx Cardiac Disorders: Yes (cardiac arrest d/t drugs S/P ANGIOPLASTY WITH STENT) Hx Congestive Heart Failure: No Hx Hypertension: Yes (ON MEDICATION) Hx Hypercholesterolemia: No Hx Pacemaker: No HX Cerebrovascular Accident: No Hx Seizures: No Hx Dementia: No Hx Diabetes: No Hx Gastrointestinal Disorders: No Hx Liver Disease: No Hx Genitourinary Disorders: No Hx Sexually Transmitted Disorders: No Hx Renal Disease (ESRD): No Hx Thyroid Disease: No Hx Human Immunodeficiency Virus (HIV): No (negative) Hx Hepatitis C: Yes Hx Depression: No Hx Suicide Attempt: No (denies) Hx Bipolar Disorder: No Hx Schizophrenia: No - Patient Surgical History Past Surgical History: No Hx Neurologic Surgery: No Hx Cataract Extraction: No Hx Cardiac Surgery: Yes (S/P ANGIOPLASTY WITH STENT) Hx Lung Surgery: No Hx Breast Surgery: No Hx Breast Biopsy: No Hx Abdominal Surgery: No Hx Appendectomy: No Hx Cholecystectomy: No Hx Genitourinary Surgery: No Hx Section: No Hx Orthopedic Surgery: No Anesthesia Reaction: No - PPD History Results: c-xray(-), Reproductive History Patient is a Female of Child Bearing Age (11 -55 yrs old): No - Smoking Cessation Smoking history: Smoker current status UNK Have you smoked in the past 12 months: No Aproximately how many cigarettes per day: 20 Cigars Per Day: 0 Hx Chewing Tobacco Use: No Initiated information on smoking cessation: Yes 'Breaking Loose' booklet given: 04/30/17 - Substance & Tx. History Hx Alcohol Use: Yes Hx Substance Use: Yes Substance Use Type: Alcohol, Heroin, Marijuana Hx Substance Use Treatment: Yes - Substances Abused Alprazolam (Xanax) Route: Oral Frequency: Daily Amount used: 12mg Age of first use: 20 Date of Last Use: 04/29/17 Heroin Route: Injection Frequency: Daily Amount used: 3 bags Age of first use: 27 Date of Last Use: 04/29/17 Alcohol Route: Oral Frequency: Daily Amount used: 2 quarts Age of first use: 20 Date of Last Use: 04/30/17 Family Disease History - Family Disease History Family History: Denies Admission Physical Exam BHS - Vital Signs Vital Signs: Vital Signs - 24 hr 04/30/17 13:02 Temperature 97.7 F Pulse Rate 76 Respiratory 20 Rate Blood Pressure 135/87 41 y/o m pt aox3 in nad ambulating , cooperative with exam. - Physical General Appearance: Yes: Disheveled HEENTM: Yes: EOMI, Hearing grossly Normal, Normocephalic, KADIE, Muffled/Hoarse Voice Respiratory: Yes: Rhonchi, Wheezing Neck: Yes: Supple, Trachea in good position Breast: Yes: Within Normal Limits Cardiology: Yes: Regular Rhythm, Regular Rate, S1, S2 Abdominal: Yes: Normal Bowel Sounds, Non Tender, Flat, Soft, Increased Bowel Sounds Genitourinary: Yes: Within Normal Limits Back: Yes: Decreased Range of Motion Musculoskeletal: Yes: Back pain, Muscle Pain Extremities: Yes: Tremors 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: Yes: services account manager II-XII NML intact, Fully Oriented, Alert, Motor Strength 5/5, Abnormal Cranial NS Integumentary: Yes: Moist, Track [place] Lymphatic: Yes: Within Normal Limits - Diagnostic (1) Alcohol dependence with uncomplicated withdrawal Current Visit: No Status: Chronic (2) Opioid dependence with withdrawal Current Visit: No Status: Chronic (3) CAD (coronary artery disease) Current Visit: No Status: Chronic Qualifiers: Coronary Disease-Associated Artery/Lesion type: [place] artery [place] vs. transplanted heart: [place] heart Associated angina: without angina Qualified Code(s): I25.10 - Atherosclerotic heart disease of [place] coronary artery without angina pectoris (4) Hepatitis C Current Visit: No Status: Chronic Qualifiers: Viral hepatitis chronicity: chronic Hepatic coma status: without hepatic coma Qualified Code(s): B18.2 - Chronic viral hepatitis C (5) Nicotine dependence Current Visit: Yes Status: Chronic Qualifiers: Nicotine product type: cigarettes Substance use status: uncomplicated Qualified Code(s): F17.210 - Nicotine dependence, cigarettes, uncomplicated Cleared for Admission [facility] - Detox or Rehab [facility] Level of Care: Medically Managed Detox Regimen/Protocol: Methadone/Valium [facility] Breath Alcohol Content Breath Alcohol Content: 0.015 Urine Drug Screen - Results Drug Screen Negative: No Urine Drug Screen Results: THC-Marijuana, OPI-Opiates, BZO-Benzodiazepines
[2017-04-30] MEDS ORDERED: guaiFENesin/D-METHORPHAN HB 10 ML UNIT-DOSE CUPS PO PRN (16:01)
[2017-04-30] MEDS ORDERED: MENTHOL/PHENOL 1 EACH UD MM PRN (16:01)
[2017-04-30] MEDS ORDERED: MAGNESIUM CITRATE 300 ML BOTTLE PO PRN (16:01)
[2017-04-30] MEDS ORDERED: LOPERAMIDE HCL 2 MG CAPSULE PO PRN (16:01)
[2017-04-30] MEDS ORDERED: ACETAMINOPHEN 325 MG TABLET (FP) PO PRN (16:01)
[2017-04-30] MEDS ORDERED: MAGNESIUM HYDROX 2400MG/30ML ORAL SUSPENSION 30 ML CUP PO PRN (16:01)
[2017-04-30] MEDS ORDERED: MAG HYDROX/AL HYDROX/SIMETH 30 ML UNIT-DOSE CUP PO PRN (16:01)
[2017-04-30] MEDS ORDERED: P-EPHED 60MG/TRIPROLIDI 2.5MG TABLET PO PRN (16:01)
[2017-04-30] MEDS ORDERED: IBUPROFEN 400 MG TABLET (FP) PO PRN (16:01)
[2017-04-30] MEDS ORDERED: diazePAM 5 MG TABLET PO ONE (17:30)
[2017-04-30] MEDS ORDERED: METHADONE HCL 10 MG TABLET (FOR DETOX USE ONLY) PO ONE ×2 (17:30→23:00)
[2017-04-30] MEDS: THIAMINE HCL 100 MG TABLET (FP) PO SCH (22:55)
[2017-04-30] MEDS: diazePAM 5 MG TABLET PO SCH (22:56)
[2017-04-30] MEDS: TOLNAFTATE 1% CREAM 15 GM TUBE TP SCH (22:56)
[2017-04-30 23:36] LABS: URINE APPEARANCE CLEAR; URINE BILIRUBIN NEGATIVE (NEGATIVE); URINE BLOOD NEGATIVE (NEGATIVE); URINE COLOR YELLOW; URINE GLUCOSE (UA) NEGATIVE (NEGATIVE); URINE KETONE NEGATIVE (NEGATIVE); URINE LEUK ESTERASE NEGATIVE (NEGATIVE); URINE NITRITE NEGATIVE (NEGATIVE); URINE PROTEIN NEGATIVE (NEGATIVE); URINE UROBILINOGEN 4.0 E.U/dl mg/dL (0.2-1.0)
[2017-05-01] MEDS: diazePAM 5 MG TABLET PO SCH ×3 (05:36→22:11)
[2017-05-01] MEDS ORDERED: CYCLOBENZAPRINE HCL 10 MG TABLET (FP) PO ONE (09:40)
[2017-05-01] MEDS ORDERED: ONDANSETRON *ODT* 4 MG TABLET SL PRN (09:41)
[2017-05-01] MEDS ORDERED: METHADONE HCL 10 MG TABLET (FOR DETOX USE ONLY) PO SCH (10:00)
[2017-05-01] MEDS: amLODIPine BESYLATE 5 MG TABLET (FP) PO SCH (10:21)
[2017-05-01] MEDS: ASPIRIN 81 MG CHEWABLE TABLETS PO SCH (10:21)
[2017-05-01] MEDS: PRENATAL VITAMINS W/ FOLIC ACID TABLET (FP) PO SCH (10:21)
[2017-05-01] MEDS: LISINOPRIL 5 MG TABLET (FP) PO SCH (10:21)
[2017-05-01] MEDS: diazePAM 5 MG TABLET PO PRN (10:21)
[2017-05-01] MEDS: NICOTINE 21 MG/24 HOURS TOPICAL PATCH TD SCH (10:22)
[2017-05-01] MEDS: TOLNAFTATE 1% CREAM 15 GM TUBE TP SCH ×2 (10:22→22:11)
[2017-05-01 10:43] LABS: HEMATOCRIT 43.3 % (35.4-49); HEMOGLOBIN 14.3 GM/dL (11.7-16.9); MCHC 33.1 g/dl (32.0-35.9); MEAN CELL VOLUME 87.7 fl (80-96); MEAN PLT VOLUME 9.7 fl (7.5-11.1); PLATELET COUNT 224 K/MM3 (134-434); RBC 4.94 M/mm3 (4.00-5.60); RDW 15.3 % (11.9-15.9); WHITE BLOOD COUNT 6.2 K/mm3 (4.0-10.0)
[2017-05-01 10:51] LABS: CHLORIDE 106 mmol/L (98-107); POTASSIUM 4.7 mmol/L (3.5-5.1); SODIUM 142 mmol/L (136-145)
[2017-05-01 11:00] LABS: ALBUMIN 3.6 g/dl (3.4-5.0); ALK PHOS 96 U/L (45-117); ANION GAP 8 (8-16); BILIRUBIN,TOTAL 0.4 mg/dL (0.2-1.0); BLOOD UREA NITROGEN 14 mg/dL (7-18); CALCIUM 8.8 mg/dL (8.5-10.1); CO2 28 mmol/L (21-32); GLUCOSE,RANDOM 74 mg/dL (74-106); SGOT/AST 33 U/L (15-37); SGPT/ALT 42 U/L (12-78); TOT PROT 7.1 g/dl (6.4-8.2)
[2017-05-01] MEDS: ISOSORBIDE MONONITRATE 60 MG TAB.SR.24H (FP) PO SCH (11:45)
--- NOTE | 2017-05-01 12:27 | PN ---
S CIWA - CIWA Score Nausea/Vomitin Muscle Tremors: 3 Anxiety: 4-Mod. Anxious/Guarded Agitation: 0-Normal Activity Paroxysmal Sweats: 3 Orientation: 2-Disoriented Date<2 days Tacttile Disturbances: 2-Mild Itch/Numbness/Burn Auditory Disturbances: 0-None Visual Disturbances: 0-None Headache: 0-None Present CIWA-Ar Total Score: 19 BHS COWS - Scale Resting Pulse: 0= [place] 80 or Below Sweatin=Flushed/Facial Moisture Restless Observation: 1= Difficult to Sit Still Pupil Size: 0= Normal to Room Light Bone or Joint Aches: 2= Severe Diffuse Aches Runny Nose/ Eye Tearin= None GI Upset > 30mins: 3= Vomiting/Diarrhea Tremor Observation of Outstretched Hands: 2= Slight Tremor Visible Yawning Observation: 0= None Anxiety or Irritability: 4=Extreme Anxiety Goose Flesh Skin: 3=Piloerection COWS Score: 17 BHS Progress Note (SOAP) Subjective: Tremors, Vomiting, Body Aches, Sweating, Anxious, Diarrhea, Interrupted Sleep. Objective: PT. A & O X 2 (UNCERTAIN ABOUT CURRENT DAY/ DATE). PT. OBSERVED AMBULATING ON UNIT. NO ACUTE DISTRESS. 05/01/17 12:24 Vital Signs Temperature 98.4 F 05/01/17 09:15 Pulse Rate 66 05/01/17 09:15 Respiratory Rate 18 05/01/17 09:15 Blood Pressure 159/107 05/01/17 09:15 O2 Sat by Pulse Oximetry (%) Laboratory Tests 04/30/17 05/01/17 05/01/17 21:06 06:00 06:00 WBC 6.2 RBC 4.94 Hgb 14.3 Hct 43.3 MCV 87.7 MCH 29.0 MCHC 33.1 RDW 15.3 Plt Count 224 MPV 9.7 D Sodium 142 Potassium 4.7 Chloride 106 Carbon Dioxide 28 Anion Gap 8 BUN 14 Creatinine 1.0 Creat Clearance w eGFR > 60 Random Glucose 74 D Calcium 8.8 Total Bilirubin 0.4 D AST 33 ALT 42 Alkaline Phosphatase 96 Total Protein 7.1 Albumin 3.6 Urine Color Yellow Urine Appearance Clear Urine pH 6.0 Ur Specific [place] 1.013 Urine Protein Negative Urine Glucose (UA) Negative Urine Ketones Negative Urine Blood Negative Urine Nitrite Negative Urine Bilirubin Negative Urine Urobilinogen 4.0 e.u/dl Ur Leukocyte Esterase Negative LABS NOTED. HIV AB, RPR RESULTS PENDING. 05/01/17 12:27 Assessment: 05/01/17 12:25 WITHDRAWAL SYMPTOMS. Plan: CONTINUE DETOX. PRN ZOFRAN SL FOR NAUSEA / VOMITING. FLEXERIL, 10 MG PO X 1 FOR BODY ACHES /MUSCLE SPASMS. INCREASE DAILY PO FLUID INTAKE. CONTINUE TO MONITOR BP.
--- NOTE | 2017-05-01 12:35 | EKG ---
Test Reason : Blood Pressure : / mmHG Vent. Rate : 069 BPM Atrial Rate : 069 BPM P-R Int : 186 ms QRS Dur : 082 ms QT Int : 394 ms P-R-T Axes : 055 047 064 degrees QTc Int : 422 ms NORMAL SINUS RHYTHM NORMAL ECG WHEN COMPARED WITH ECG OF 30-APR-2017 18:55, T WAVE AMPLITUDE HAS DECREASED IN LATERAL LEADS Confirmed by RANDY CONTI MD ([id number]) on 05/01/2017 12:35:28 PM Referred By: Confirmed By:RANDY CONTI MD
--- NOTE | 2017-05-01 12:36 | EKG ---
Test Reason : Blood Pressure : / mmHG Vent. Rate : 063 BPM Atrial Rate : 063 BPM P-R Int : 166 ms QRS Dur : 092 ms QT Int : 402 ms P-R-T Axes : 059 069 067 degrees QTc Int : 411 ms NORMAL SINUS RHYTHM WITH SINUS ARRHYTHMIA INCREASED R/S RATIO IN V1, CONSIDER EARLY TRANSITION OR POSTERIOR INFARCT ABNORMAL ECG WHEN COMPARED WITH ECG OF 05-NOV-2016 15:05, CRITERIA FOR LATERAL INFARCT ARE NO LONGER PRESENT ST ELEVATION NOW PRESENT IN LATERAL LEADS NONSPECIFIC T WAVE ABNORMALITY NO LONGER EVIDENT IN INFERIOR LEADS NONSPECIFIC T WAVE ABNORMALITY NO LONGER EVIDENT IN LATERAL LEADS Confirmed by RANDY CONTI MD ([id number]) on 05/01/2017 12:36:24 PM Referred By: Confirmed By:RANDY CONTI MD
[2017-05-01] MEDS: hydrOXYzine PAMOATE 25 MG CAPSULE (FP) PO PRN ×2 (12:49→22:11)
[2017-05-01] MEDS ORDERED: NICOTINE POLACRILEX 2 MG GUM BUC PRN (13:35)
[2017-05-01] MEDS: THIAMINE HCL 100 MG TABLET (FP) PO SCH (22:11)
[2017-05-02] MEDS: hydrOXYzine PAMOATE 25 MG CAPSULE (FP) PO PRN (06:49)
[2017-05-02] MEDS: diazePAM 5 MG TABLET PO PRN ×2 (07:24→16:37)
[2017-05-02] MEDS ORDERED: METHADONE HCL 5 MG TABLET (FOR DETOX USE ONLY) PO SCH (10:00)
[2017-05-02] MEDS ORDERED: METHADONE DETOX 10 MG/1 ML [20ML VIAL] IM ONE (10:35)
[2017-05-02] MEDS ORDERED: TRIMETHOBENZAMIDE HCL 200MG/2ML INJ IM ONE (10:38)
[2017-05-02] MEDS ORDERED: TRIMETHOBENZAMIDE HCL 200MG/2ML INJ IM PRN (10:51)
[2017-05-02] MEDS: ISOSORBIDE MONONITRATE 60 MG TAB.SR.24H (FP) PO SCH (12:24)
[2017-05-02] MEDS: NICOTINE 21 MG/24 HOURS TOPICAL PATCH TD SCH (12:24)
[2017-05-02] MEDS: ASPIRIN 81 MG CHEWABLE TABLETS PO SCH (12:24)
[2017-05-02] MEDS: amLODIPine BESYLATE 5 MG TABLET (FP) PO SCH (12:24)
[2017-05-02] MEDS: diazePAM 5 MG TABLET PO SCH ×2 (12:24→22:29)
[2017-05-02] MEDS: TOLNAFTATE 1% CREAM 15 GM TUBE TP SCH ×2 (12:25→22:29)
[2017-05-02] MEDS: PRENATAL VITAMINS W/ FOLIC ACID TABLET (FP) PO SCH (12:25)
[2017-05-02] MEDS: LISINOPRIL 5 MG TABLET (FP) PO SCH (12:26)
[2017-05-02] MEDS ORDERED: BACLOFEN 10 MG TABLET (FP) PO ONE (12:33)
--- NOTE | 2017-05-02 12:37 | PN ---
S CIWA - CIWA Score Nausea/Vomitin Muscle Tremors: 2 Anxiety: 4-Mod. Anxious/Guarded Agitation: 3 Paroxysmal Sweats: 3 Orientation: 0-Oriented Tacttile Disturbances: 1-Very Mild Itch/Numbness Auditory Disturbances: 0-None Visual Disturbances: 1-Very Mild Sensitivity Headache: 0-None Present CIWA-Ar Total Score: 19 BHS COWS - Scale Resting Pulse: 0= [place] 80 or Below Sweatin=Flushed/Facial Moisture Restless Observation: 1= Difficult to Sit Still Pupil Size: 0= Normal to Room Light Bone or Joint Aches: 2= Severe Diffuse Aches Runny Nose/ Eye Tearin= None GI Upset > 30mins: 3= Vomiting/Diarrhea Tremor Observation of Outstretched Hands: 2= Slight Tremor Visible Yawning Observation: 0= None Anxiety or Irritability: 4=Extreme Anxiety Goose Flesh Skin: 3=Piloerection COWS Score: 17 S Progress Note (SOAP) Subjective: Tremors, Body Aches, Sweating, Vomiting, Interrupted Sleep, Diarrhea, Stomach Cramping. Objective: PT. A & O X 3, OBSERVED AMBULATING ON UNIT. NO ACUTE DISTRESS. 05/02/17 12:34 Vital Signs Temperature 94.8 F L 05/02/17 09:53 Pulse Rate 66 05/02/17 09:53 Respiratory Rate 18 05/02/17 09:53 Blood Pressure 130/87 05/02/17 09:53 O2 Sat by Pulse Oximetry (%) Laboratory Tests 04/30/17 05/01/17 05/01/17 21:06 06:00 06:00 WBC 6.2 RBC 4.94 Hgb 14.3 Hct 43.3 MCV 87.7 MCH 29.0 MCHC 33.1 RDW 15.3 Plt Count 224 MPV 9.7 D Sodium Potassium Chloride Carbon Dioxide Anion Gap BUN Creatinine Creat Clearance w eGFR Random Glucose Calcium Total Bilirubin AST ALT Alkaline Phosphatase Total Protein Albumin Urine Color Yellow Urine Appearance Clear Urine pH 6.0 Ur Specific [place] 1.013 Urine Protein Negative Urine Glucose (UA) Negative Urine Ketones Negative Urine Blood Negative Urine Nitrite Negative Urine Bilirubin Negative Urine Urobilinogen 4.0 e.u/dl Ur Leukocyte Esterase Negative RPR Titer HIV 1&2 Antibody Screen Negative HIV P24 Antigen Negative 05/01/17 05/01/17 06:00 06:00 WBC RBC Hgb Hct MCV MCH MCHC RDW Plt Count MPV Sodium 142 Potassium 4.7 Chloride 106 Carbon Dioxide 28 Anion Gap 8 BUN 14 Creatinine 1.0 Creat Clearance w eGFR > 60 Random Glucose 74 D Calcium 8.8 Total Bilirubin 0.4 D AST 33 ALT 42 Alkaline Phosphatase 96 Total Protein 7.1 Albumin 3.6 Urine Color Urine Appearance Urine pH Ur Specific [place] Urine Protein Urine Glucose (UA) Urine Ketones Urine Blood Urine Nitrite Urine Bilirubin Urine Urobilinogen Ur Leukocyte Esterase RPR Titer Nonreactive HIV 1&2 Antibody Screen HIV P24 Antigen LABS NOTED. Assessment: 05/02/17 12:34 WITHDRAWAL SYMPTOMS. Plan: CONTINUE DETOX. INCREASE DAILY PO FLUID INTAKE. TIGAN IM X 1 NOW, THEN PRN AFTER FOR NAUSEA / VOMITING. BACLOFEN, 10 MG PO X 1 NOW FOR SEVERE MUSCLE SPASMS WHEN LYING DOWN. AT PATIENT'S REQUEST, DAILY METHADONE DETOX DOSE FOR TODAY (15 MG PO) CHANGED TO IM (7.5 MG) DUE TO FREQUENCY OF VOMITING.
--- NOTE | 2017-05-02 13:26 | PN ---
[facility] Progress Note Note: Clonidine, 0.2 mg PO X 1 ordered at 1400 for persistently elevated BP and for severe detox symptoms. Lupis Kelley AUTHORIZATION MANAGER
[2017-05-02] MEDS ORDERED: cloNIDine HCL 0.1 MG TABLET PO ONE (14:45)
[2017-05-02 18:19] VITALS: TEMP 100.2
--- NOTE | 2017-05-02 21:32 | PN ---
[facility] Progress Note Note: Patient was seen and examined with complaint of chest pain radiating to his left arm, multiple episodes of vomiting and low grade fever. He has a history of HTN, cardiac arrest and he is status post angioplasty with stent. V/S 154/85 , HR 63, R18, T100.3F. He has dry mucous membrane and reports that he has been unable to eat all day. Patient is transferred to [facility] for evaluation. Endorsed to Dr. Olivo.
[2017-05-02 22:17] VITALS: BP 159/91; PULSE 58
[2017-05-02] MEDS: THIAMINE HCL 100 MG TABLET (FP) PO SCH (22:30)
[2017-05-03] MEDS ORDERED: METHADONE DETOX 10 MG/1 ML [20ML VIAL] IM ONE (10:00)
--- NOTE | 2017-05-03 15:22 | DS ---
[facility] Detox Discharge Summary Admission Date: 04/30/17 Discharge Date: 05/03/17 - History Present History: Alcohol Dependence, Opioid Dependence Pertinent Past History: CAD DVT - Physical Exam Results Vital Signs: Vital Signs Temperature 100.2 F H 05/02/17 22:16 Pulse Rate 58 L 05/02/17 22:16 Respiratory Rate 20 05/02/17 22:16 Blood Pressure 159/91 05/02/17 22:16 O2 Sat by Pulse Oximetry (%) Pertinent Admission Physical Exam Findings: Withdrawal sx. Laboratory Last Values WBC 6.2 K/mm3 (4.0-10.0) 05/01/17 06:00 RBC 4.94 M/mm3 (4.00-5.60) 05/01/17 06:00 Hgb 14.3 GM/dL (11.7-16.9) 05/01/17 06:00 Hct 43.3 % (35.4-49) 05/01/17 06:00 MCV 87.7 fl (80-96) 05/01/17 06:00 MCH 29.0 pg (25.7-33.7) 05/01/17 06:00 MCHC 33.1 g/dl (32.0-35.9) 05/01/17 06:00 RDW 15.3 % (11.9-15.9) 05/01/17 06:00 Plt Count 224 K/MM3 (134-434) 05/01/17 06:00 MPV 9.7 fl (7.5-11.1) D 05/01/17 06:00 Sodium 142 mmol/L (136-145) 05/01/17 06:00 Potassium 4.7 mmol/L (3.5-5.1) 05/01/17 06:00 Chloride 106 mmol/L (98-107) 05/01/17 06:00 Carbon Dioxide 28 mmol/L (21-32) 05/01/17 06:00 Anion Gap 8 (8-16) 05/01/17 06:00 BUN 14 mg/dL (7-18) 05/01/17 06:00 Creatinine 1.0 mg/dL (0.7-1.3) 05/01/17 06:00 Creat Clearance w eGFR > 60 (>60) 05/01/17 06:00 Random Glucose 74 mg/dL (74-106) D 05/01/17 06:00 Calcium 8.8 mg/dL (8.5-10.1) 05/01/17 06:00 Total Bilirubin 0.4 mg/dL (0.2-1.0) D 05/01/17 06:00 AST 33 U/L (15-37) 05/01/17 06:00 ALT 42 U/L (12-78) 05/01/17 06:00 Alkaline Phosphatase 96 U/L (45-117) 05/01/17 06:00 Total Protein 7.1 g/dl (6.4-8.2) 05/01/17 06:00 Albumin 3.6 g/dl (3.4-5.0) 05/01/17 06:00 Urine Color Yellow 04/30/17 21:06 Urine Appearance Clear 04/30/17 21:06 Urine pH 6.0 (5.0-8.0) 04/30/17 21:06 Ur Specific Hermann 1.013 (1.001-1.035) 04/30/17 21:06 Urine Protein Negative (NEGATIVE) 04/30/17 21:06 Urine Glucose (UA) Negative (NEGATIVE) 04/30/17 21:06 Urine Ketones Negative (NEGATIVE) 04/30/17 21:06 Urine Blood Negative (NEGATIVE) 04/30/17 21:06 Urine Nitrite Negative (NEGATIVE) 04/30/17 21:06 Urine Bilirubin Negative (NEGATIVE) 04/30/17 21:06 Urine Urobilinogen 4.0 e.u/dl mg/dL (0.2-1.0) 04/30/17 21:06 Ur Leukocyte Esterase Negative (NEGATIVE) 04/30/17 21:06 RPR Titer Nonreactive (NONREACTIVE) 05/01/17 06:00 HIV 1&2 Antibody Screen Negative 05/01/17 06:00 HIV P24 Antigen Negative 05/01/17 06:00 labs noted - Treatment Patient has Accepted a Rehab Referral to: pt. was sent to [email or web address]] because of chest pain, he signed out AMA from the ED - Medication Discharge Medications: Ambulatory Orders Aspirin [ASA -] 81 mg PO DAILY 08/25/16 Amlodipine Besylate [Norvasc -] 5 mg PO DAILY 11/05/16 Lisinopril [Zestril] 5 mg PO DAILY 11/05/16 Diazepam [Valium] 5 mg PO DAILY 05/03/17 Isosorbide Mononitrate [Imdur -] 60 mg PO DAILY 05/03/17 Mag Hydrox/Al Hydrox/Simeth [Mylanta *Suspension*] 30 ml PO Q6H 05/03/17 Methadone [Dolophine -] 10 mg PO DAILY 05/03/17 Thiamine HCl [B-1] 100 mg PO HS 05/03/17 - Diagnosis (1) Alcohol dependence with uncomplicated withdrawal Status: Acute (2) CAD (coronary artery disease) Status: Chronic Qualifiers: Coronary Disease-Associated Artery/Lesion type: [place] artery [place] vs. transplanted heart: [place] heart Associated angina: without angina Qualified Code(s): I25.10 - Atherosclerotic heart disease of [place] coronary artery without angina pectoris (3) Nicotine dependence Status: Chronic Qualifiers: Nicotine product type: cigarettes Substance use status: uncomplicated Qualified Code(s): F17.210 - Nicotine dependence, cigarettes, uncomplicated (4) Opioid dependence with withdrawal Status: Acute - AMA Did Patient Leave Against Medical Advice: No
[2017-05-04] MEDS ORDERED: diazePAM 5 MG TABLET PO SCH (10:00)
[2017-05-04] MEDS ORDERED: METHADONE HCL 10 MG TABLET (FOR DETOX USE ONLY) PO SCH (10:00)
[2017-05-05] MEDS ORDERED: METHADONE HCL 5 MG TABLET (FOR DETOX USE ONLY) PO SCH (06:00)
== END 2017-05-03 06:58 | disposition short-term general hospital (02) | DRG 773 ==
LOC: YASAS 11:22 → Y3N 16:43
PROVIDERS: ADMIT Internal Medicine; ATTEND Internal Medicine
PROC: HZ2ZZZZ Detoxification Services for Substance Abuse Treatment (ICD-10-PCS; principal; 2017-04-30)
DX: F11.23 Opioid dependence with withdrawal (principal); F10.230 Alcohol dependence with withdrawal, uncomplicated; F17.210 Nicotine dependence, cigarettes, uncomplicated; I25.10 Atherosclerotic heart disease of native coronary artery without angina pectoris; I10 Essential (primary) hypertension; B18.2 Chronic viral hepatitis C; R50.9 Fever, unspecified; R07.9 Chest pain, unspecified; R11.10 Vomiting, unspecified; M62.838 Other muscle spasm; Z79.82 Long term (current) use of aspirin; Z95.5 Presence of coronary angioplasty implant and graft; Z86.74 Personal history of sudden cardiac arrest; Z91.013 Allergy to seafood
CPT/HCPCS: 36415; 80053; 81003; 85027; 86593; 87389; 93005; 93010; J0475

== ENCOUNTER 2017-05-02 22:01 | Inpatient (IN) | payer OTHER ==
--- NOTE | 2017-05-02 22:09 | PDOC ---
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 He has had nausea and vomiting since 8 hours after admission to [facility] on 04/30. He describes the vomit as bilious but non-bloody. States that his chest pain started suddenly this AM at an unknown time and is worse with vomiting and wretching. Did not see any blood specks in his spit or vomit. Describes the chest pain as sharp, 10/10 in severity, co-presentied twith diaphoresis, occasionally radiates down his arms, is non-exertional, and radiates to his back. States that he feels some of his active withdrawal symptoms which includes tremors but denies visual symptoms. Last BM was three days prior has been passing gas since. He denies fevers, chills, sob, cough, sputum production, diarrhea, peripheral swelling, palpitations, or other sick symptoms. 05/02/17 22:25 <Kavya Vega - Last Filed: 05/02/17 23:31> <Emil Noriega - Last Filed: 05/03/17 01:46> - General Chief Complaint: Chest Pain Stated Complaint: CHEST PAIN Time Seen by Provider: 05/02/17 22:09 Past History - Past Medical History Anemia: No Asthma: No Cancer: No Cardiac Disorders: Yes (cardiac arrest d/t drugs S/P ANGIOPLASTY WITH STENT) CVA: No COPD: No CHF: No Dementia: No Diabetes: No GI Disorders: No Disorders: No HTN: Yes (ON MEDICATION) Hypercholesterolemia: No Kidney Stones: No Liver Disease: No Seizures: No Thyroid Disease: No - Surgical History Abdominal Surgery: No Appendectomy: No Cardiac Surgery: Yes (S/P ANGIOPLASTY WITH STENT) Cholecystectomy: No Lung Surgery: No Neurologic Surgery: No Orthopedic Surgery: No - Reproductive History Testicular Surgery: No - Immunization History Immunization Up to Date: Yes - Suicide/Smoking/Psychosocial Hx Smoking History: Smoker current status UNK Have you smoked in the past 12 months: No Number of Cigarettes Smoked Daily: 20 Cigars Per Day: 0 'Breaking Loose' booklet given: 04/30/17 Hx Alcohol Use: Yes Drug/Substance Use Hx: Yes Substance Use Type: Alcohol, Heroin, Marijuana Hx Substance Use Treatment: Yes <Kavya Vega - Last Filed: 05/02/17 23:31> <Emil Noriega - Last Filed: 05/03/17 01:46> - Past Medical History Allergies/Adverse Reactions: Allergies Allergy/AdvReac Type Severity Reaction Status Date / Time Fish Containing Products Allergy Severe Vomiting Verified 05/02/17 22:08 No Known Drug Allergies Allergy Verified 05/02/17 22:08 Home Medications: Ambulatory Orders Aspirin [ASA -] 81 mg PO DAILY 08/25/16 Amlodipine Besylate [Norvasc -] 5 mg PO DAILY 11/05/16 Isosorbide Mononitrate [Imdur -] 60 mg PO DAILY 11/05/16 Lisinopril [Zestril] 2.5 mg PO DAILY 11/05/16 Review of Systems - Review of Systems Constitutional: No: Chills, Diaphoresis <Kavya Vega - Last Filed: 05/02/17 23:31> *Physical Exam - Vital Signs Last Vital Signs Temp Pulse Resp BP Pulse Ox 99.3 F 58 L 20 142/81 97 05/02/17 22:08 05/02/17 22:08 05/02/17 22:08 05/02/17 22:08 05/02/17 22:08 <Emil Noriega - Last Filed: 05/03/17 01:46> ED Treatment Course - LABORATORY CBC & Chemistry Diagram: 05/02/17 22:38 05/02/17 22:38 <Kavya Vega - Last Filed: 05/02/17 23:31> - LABORATORY CBC & Chemistry Diagram: 05/02/17 22:38 05/02/17 22:38 - ADDITIONAL ORDERS Additional order review: Laboratory Results 05/02/17 05/02/17 22:38 22:38 Sodium 142 Potassium 4.2 Chloride 103 Carbon Dioxide 29 Anion Gap 10 BUN 17 D Creatinine 1.1 Creat Clearance w eGFR > 60 Random Glucose 103 D Calcium 8.7 Total Bilirubin 0.6 D AST 36 ALT 45 Alkaline Phosphatase 100 Creatine Kinase 155 Creatine Kinase Index CK-MB (CK-2) < 1.000 Troponin I < 0.02 B-Natriuretic Peptide 4202.14 H Total Protein 7.9 Albumin 3.8 05/02/17 22:38 RBC 5.82 H MCV 85.5 MCHC 34.0 RDW 15.1 MPV 7.7 D Neutrophils % 75.4 Lymphocytes % 17.9 D Monocytes % 5.7 Eosinophils % 0.4 D Basophils % 0.6 - Medications Given in the ED: ED Medications Discontinued Medications Generic Name Dose Route Start Last Admin Trade Name Luis Felipe PRN Reason Stop Dose Admin Acetaminophen 1,000 mg 05/02/17 22:52 05/02/17 22:59 Ofirmev Injection - IVPB 05/02/17 22:53 1,000 mg ONCE ONE Administration Hydromorphone HCl 1 mg 05/02/17 23:37 05/03/17 00:06 Dilaudid Injection - IVPUSH 05/02/17 23:38 1 mg ONCE ONE Administration Sodium Chloride 1,000 ml 05/02/17 22:55 05/02/17 23:00 Normal Saline - IV 05/02/17 22:56 1,000 ml ONCE ONE Administration <Emil Noriega - Last Filed: 05/03/17 01:46> *DC/Admit/Observation/Transfer <Kavya Vega - Last Filed: 05/02/17 23:31> - Discharge Dispostion Admit: Yes <Emil Noriega - Last Filed: 05/03/17 01:46> Diagnosis at time of Disposition: Fever Qualifiers: Fever type: unspecified Qualified Code(s): R50.9 - Fever, unspecified
[2017-05-02 22:11] VITALS: BMI 25.0
[2017-05-02] MEDS ORDERED: ACETAMINOPHEN 1000 MG/100 ML VIAL (NON FORMULARY) IVPB ONE (22:52)
[2017-05-02] MEDS ORDERED: ACETAMINOPHEN INJECTION 100 ML IVPB ONE (22:54)
[2017-05-02] MEDS ORDERED: SODIUM CHLORIDE 0.9% 1000 ML INFUS.BAG IV ONE (22:55)
[2017-05-02 23:09] LABS: BASO % 0.6 % (0-2.0); EOS % 0.4 % (0-4.5); HEMATOCRIT 49.7 % (35.4-49); HEMOGLOBIN 16.9 GM/dL (11.7-16.9); LYMPH % 17.9 % (8-40); MEAN CELL VOLUME 85.5 fl (80-96); MEAN PLT VOLUME 7.7 fl (7.5-11.1); MONO % 5.7 % (3.8-10.2); NEUT % 75.4 % (42.8-82.8); PLATELET COUNT 284 K/MM3 (134-434); RBC 5.82 M/mm3 (4.00-5.60); RDW 15.1 % (11.9-15.9); WHITE BLOOD COUNT 7.7 K/mm3 (4.0-10.0)
[2017-05-02 23:34] LABS: ALBUMIN 3.8 g/dl (3.4-5.0); ANION GAP 10 (8-16); BILIRUBIN,TOTAL 0.6 mg/dL (0.2-1.0); BLOOD UREA NITROGEN 17 mg/dL (7-18); CALCIUM 8.7 mg/dL (8.5-10.1); CHLORIDE 103 mmol/L (98-107); CO2 29 mmol/L (21-32); CREATININE 1.1 mg/dL (0.7-1.3); GLUCOSE,RANDOM 103 mg/dL (74-106); POTASSIUM 4.2 mmol/L (3.5-5.1); SGOT/AST 36 U/L (15-37); SGPT/ALT 45 U/L (12-78); SODIUM 142 mmol/L (136-145); TOT PROT 7.9 g/dl (6.4-8.2)
[2017-05-02 23:37] LABS: ALK PHOS 100 U/L (45-117)
[2017-05-02] MEDS ORDERED: HYDROmorphone HCL CARPU-JECT 1 MG/1 ML DISP.SYRIN IVPUSH ONE (23:37)
[2017-05-02] MEDS ORDERED: HYDROmorphone HCL CARPU-JECT 2 MG/1 ML DISP.SYRIN ONE (23:57)
[2017-05-03] MEDS ORDERED: VANCOMYCIN 1,000 MG in DEXTROSE 5%-WATER - 250 ML IVPB ONE ×2 (01:36→03:25)
[2017-05-03] MEDS ORDERED: LEVOFLOXACIN 750 MG IVPB 750 MG/150 ML BAG IVPB ONE ×3 (01:36→03:24)
[2017-05-03] MEDS ORDERED: METHADONE HCL 10 MG TABLET (FOR DETOX USE ONLY) PO ONE (01:42)
--- NOTE | 2017-05-03 01:47 | PDOC ---
Attending Attestation - Resident Resident Name: GaryLeoneljose - ED Attending Attestation I have performed the following: I have examined & evaluated the patient, The case was reviewed & discussed with the resident, I agree w/resident's findings & plan, Exceptions are as noted - Medical Decision Making 05/03/17 01:46 41 years old recent IV drug use presents to the ED with fever or chills left- sided chest pain. Patient also with significant cardiac history status post stent one year ago Given fever or chills recent drug use slight concern for endocarditis although clinical examination more consistent with pneumonia No elevated white blood cell count on CBC. No definitive evidence of pneumonia on chest x-ray We will check blood cultures. We'll treat empirically with Vanc for possible endocarditis and Levaquin for possible pneumonia admit to hospitalist for further management. <Emil Noriega - Last Filed: 05/03/17 01:46> - HPI HPI: 05/03/17 01:50 The patient is a 41 year old male with past medical history of hypertension, [place] s/p stent, polysubstance abuse (alcohol, benzos, marijuana, IV heroin and cocaine use, last use was three days ago) who was sent from [facility] with complaints of chest pain. He complains of L sided, non-exertional chest pain that is 10/10 in severity and radiates to his back and occasionally down his arms. The patient states that the onset of his pain was this morning at some point and was accompanied by diaphoresis. He also notes multiple episodes of nausea and vomiting which is bilious but non-bloody. He complains of withdrawal tremors and shakes as well since admission to [facility]. - Physicial Exam PE: 05/03/17 01:50 General Appearance: well nourished, well developed Head: Atraumatic, normocephalic Neck: Supple;No Nuchal rigidity Chest Wall: Nontender Cardiac: Regular rate and rhythm, no murmurs, no rubs, no gallops, Lungs: Diffuse crackles, good air movement bilaterally, Abdomen: Soft, nondistended, normal bowel sounds, nontender to palpation Rectal: Exam deferred Extremities: Full range of motion to all extremities, no cyanosis, clubbing, or edema Skin: Warm and dry, no rashes or lesions, no petechiae Neuro: AOX3; Cranial Nerves 2-12 grossly c intact Psych: teary on evaluation - Medical Decision Making 05/03/17 01:52 Documentation prepared by Izabella June, acting as director biomedical engineering for Emil Noriega MD. <Izabella June - Last Filed: 05/03/17 01:52>
[2017-05-03] MEDS ORDERED: METHADONE HCL 10 MG TABLET ONE (01:58)
[2017-05-03] MEDS ORDERED: VANCOMYCIN 1 GRAM (PRE-DOCKED) 1,000 MG/250 ML BAG IVPB ONE (01:58)
[2017-05-03] MEDS ORDERED: SODIUM CHLORIDE 1,000 ML IV SCH (03:45)
[2017-05-03] MEDS ORDERED: morphine CARPU-JECT 10 MG/1 ML DISP.SYRIN IVPUSH ONE (04:01)
[2017-05-03] MEDS ORDERED: morphine CARPU-JECT 10 MG/1 ML DISP.SYRIN IVPUSH PRN (04:05)
--- NOTE | 2017-05-03 04:13 | HP ---
CHIEF COMPLAINT: chest pain PCP: unknown HISTORY OF PRESENT ILLNESS: 41 year old male with a past medical history of IVDA (heroin, cocaine and xanax , currently only using heroin and xanax), CAD s/p stent in 2016, cardiac arrest , hypertension was transferred to the ED from [facility] for chest pain which he states radiates to his back and his arms bilaterally and multiple episodes of non-bilious vomiting and low grade fever. He states that he gets these chest pain episodes fairly frequently, and makes it go away by holding his breath, but states that this time it has stayed. He states that he has some abdominal pain, which he attributes to withdrawal symptoms. States that he hasnt taken any of his home medications in a long time. ER course was notable for: (1) Low grade fever (2) Normal CXR (3) BNP 4000 Recent Travel: unknown PAST MEDICAL HISTORY: Cocaine abuse, quit Heroin dependence, current Xanax dependence, current PAST SURGICAL HISTORY: Coronary stent placement 2015 Social History: Smoking: current smoker Alcohol: unknown Drugs: cocaine abuse, heroin dependence, xanax dependence Family History: unknown Allergies Fish Containing Products Allergy (Severe, Verified 05/02/17 22:08) Vomiting No Known Drug Allergies Allergy (Verified 05/02/17 22:08) HOME MEDICATIONS: Home Medications Medication Instructions Recorded Aspirin [ASA -] 81 mg PO DAILY 08/25/16 Amlodipine Besylate [Norvasc -] 5 mg PO DAILY 11/05/16 Lisinopril [Zestril] 5 mg PO DAILY 11/05/16 Diazepam [Valium] 5 mg PO DAILY 05/03/17 Isosorbide Mononitrate [Imdur -] 60 mg PO DAILY 05/03/17 Mag Hydrox/Al Hydrox/Simeth 30 ml PO Q6H 05/03/17 [Mylanta *Suspension*] Methadone [Dolophine -] 10 mg PO DAILY 05/03/17 Thiamine HCl [B-1] 100 mg PO HS 05/03/17 REVIEW OF SYSTEMS CONSTITUTIONAL: fever, chills, diaphoresis, Absent: generalized weakness, malaise, loss of appetite, weight change HEENT: Absent: rhinorrhea, nasal congestion, throat pain, throat swelling, difficulty swallowing, mouth swelling, ear pain, eye pain, visual changes CARDIOVASCULAR: chest pain, Absent: syncope, palpitations, irregular heart rate, lightheadedness, peripheral edema RESPIRATORY: Absent: cough, shortness of breath, dyspnea with exertion, orthopnea, wheezing, stridor, hemoptysis GASTROINTESTINAL: abdominal pain, nausea, vomiting Absent: abdominal distension, diarrhea, constipation, melena, hematochezia GENITOURINARY: Absent: dysuria, frequency, urgency, hesitancy, hematuria, flank pain, genital pain MUSCULOSKELETAL: Absent: myalgia, arthralgia, joint swelling, back pain, neck pain SKIN: Absent: rash, itching, pallor HEMATOLOGIC/IMMUNOLOGIC: Absent: easy bleeding, easy bruising, lymphadenopathy, frequent infections ENDOCRINE: Absent: unexplained weight gain, unexplained weight loss, heat intolerance, cold intolerance NEUROLOGIC: Absent: headache, focal weakness or paresthesias, dizziness, unsteady gait, seizure, mental status changes, bladder or bowel incontinence PSYCHIATRIC: Absent: anxiety, depression, suicidal or homicidal ideation, hallucinations. PHYSICAL EXAMINATION Vital Signs - 24 hr 05/02/17 22:08 Temperature 99.3 F Pulse Rate 58 L Respiratory 20 Rate Blood Pressure 142/81 O2 Sat by Pulse 97 Oximetry (%) GENERAL: Awake, alert, and fully oriented, in no acute distress. HEAD: Normal with no signs of trauma. EYES: Pupils equal, round and reactive to light, extraocular movements intact, sclera anicteric, conjunctiva clear. No lid lag. LUNGS: Breath sounds equal, diffuse crackles auscultated in both lobes of the lungs bilaterally HEART: Regular rate and rhythm, normal S1 and S2 without murmur, rub or gallop. ABDOMEN: Soft, mildly tender to palpation in the hypogastrum, not distended, normoactive bowel sounds, no guarding, no rebound, no masses. No hepatomegaly or splenomegaly. MUSCULOSKELETAL: Normal range of motion at all joints. No bony deformities or tenderness. No CVA tenderness. UPPER EXTREMITIES: 2+ pulses, warm, well-perfused. No cyanosis. No clubbing. No peripheral edema. LOWER EXTREMITIES: 2+ pulses, warm, well-perfused. No calf tenderness. No peripheral edema. NEUROLOGICAL: Cranial nerves II-XII intact. Normal speech. Normal gait. PSYCHIATRIC: Cooperative. Good eye contact. Appropriate mood and affect. Somewhat restless appearing. SKIN: Warm, dry, normal turgor, no rashes or lesions noted, normal capillary refill. Laboratory Results - last 24 hr 05/02/17 05/02/17 05/02/17 22:38 22:38 22:38 WBC 7.7 RBC 5.82 H Hgb 16.9 D Hct 49.7 H MCV 85.5 MCH 29.0 MCHC 34.0 RDW 15.1 Plt Count 284 D MPV 7.7 D Neutrophils % 75.4 Lymphocytes % 17.9 D Monocytes % 5.7 Eosinophils % 0.4 D Basophils % 0.6 Sodium 142 Potassium 4.2 Chloride 103 Carbon Dioxide 29 Anion Gap 10 BUN 17 D Creatinine 1.1 Creat Clearance w eGFR > 60 Random Glucose 103 D Calcium 8.7 Total Bilirubin 0.6 D AST 36 ALT 45 Alkaline Phosphatase 100 Creatine Kinase 155 Creatine Kinase Index CK-MB (CK-2) < 1.000 Troponin I < 0.02 B-Natriuretic Peptide 4202.14 H Total Protein 7.9 Albumin 3.8 Current Medications Al Hydroxide/Mg Hydroxide (Mylanta Oral Suspension -) 30 ml PO Q6H PRN PRN Reason: INDIGESTION Amlodipine Besylate (Norvasc -) 5 mg PO DAILY [facility] Aspirin (Asa -) 81 mg PO DAILY [facility] Diazepam (Valium -) 5 mg PO DAILY [facility] Heparin Sodium (Porcine) (Heparin -) 5,000 unit SQ Q8H-IV TAY Levofloxacin (Levaquin 750 Mg Premixed Ivpb -) 750 mg in 150 mls @ 100 mls/hr IVPB HS [facility] Sodium Chloride (Normal Saline -) 1,000 mls @ 100 mls/hr IV ASDIR [facility] Isosorbide Mononitrate (Imdur -) 60 mg PO DAILY [facility] Lisinopril (Prinivil) 5 mg PO DAILY [facility] Methadone HCl (Dolophine -) 10 mg PO DAILY [facility] Morphine Sulfate (Morphine Injection -) 2 mg IVPUSH Q4H PRN PRN Reason: PAIN LEVEL 7 - 10 Thiamine HCl (Vitamin B1 -) 100 mg PO HS [facility] ASSESSMENT/PLAN: 41 year old male with a hx of IV drug abuse (current heroin/xanax dependence), CAD s/p stent 2015, cardiac arrest, and hypertension is admitted for the treatment of suspected endocarditis and/or pneumonia. #Endocarditis: risk factors of consistent IV drug abuse make this diagnosis a possibility -echocardiogram -EKG in the ED did not show QT prolongation -repeat EKG in AM -morphine 2mg for cardiac-related pain -Vanc/Levoquin given in ED -continue Vanc 1000 QD and levoquin 750 tomorrow -appreciate ID/cardiology recommendations #Pneumonia: possible due to the fever and diffuse crackles on exam -CXR not suggested of PNA. However, presentation could be either an early sign of PNA without radiographic evidence or patient is hypovolemic and not producing the changes on CXR -continue vanc and levoquin -repeat CXR -appreciate ID recommendations #CAD s/p stent in 2016: this does not look like an acute ACS event -continue aspirin 81mg QD -continue isosorbide mononitrate 60mg PO -trops and EKG negative -repeat trops and get new EKG -cardiology recs appreciated #Hypertension: blood pressure elevated and pt not taking his home medications -restart home lisinopril 2.5mg -restart amlodipine 5mg -recheck BP in AM #FEN -NS @ 100cc/hr -Repeat lytes in AM -cholesterol diet #Prophylaxis -Heparin 5000 subQ #Disposition -Admit to telemetry -full code Visit type - Emergency Visit Emergency Visit: Yes ED Registration Date: 05/03/17 Care time: The patient presented to the Emergency Department on the above date and was hospitalized for further evaluation of their emergent condition. - New Patient This patient is new to me today: Yes Date on this admission: 05/03/17 - Critical Care Critical Care patient: No
[2017-05-03] MEDS ORDERED: MAG HYDROX/AL HYDROX/SIMETH 30 ML UNIT-DOSE CUP PO PRN (04:15)
[2017-05-03] MEDS ORDERED: MAG HYDROX/AL HYDROX/SIMETH 30 ML UNIT-DOSE CUP ONE (04:19)
[2017-05-03] MEDS ORDERED: morphine CARPU-JECT 10 MG/1 ML DISP.SYRIN ONE ×2 (04:19→09:49)
[2017-05-03] MEDS ORDERED: HEPARIN NA (PORCINE) 5,000 UNITS/ML 1ML VIAL ONE (04:19)
[2017-05-03] MEDS: HEPARIN NA (PORCINE) 5,000 UNITS/ML 1ML VIAL SQ SCH ×2 (04:28→12:36)
--- NOTE | 2017-05-03 05:01 | PN ---
Teaching Attending Note Name of Resident: Scooter Rey ATTENDING PHYSICIAN STATEMENT I saw and evaluated the patient. I reviewed the resident's note and discussed the case with the resident. I agree with the resident's findings and plan as documented. SUBJECTIVE: OBJECTIVE: ASSESSMENT AND PLAN: 41 year old male with a hx of IV drug abuse (current heroin/xanax dependence), CAD s/p stent 2016, cardiac arrest, and hypertension is admitted for the treatment of suspected endocarditis and/or pneumonia. #possible Endocarditis: risk factors of consistent IV drug abuse make this diagnosis a possibility -echocardiogram -EKG in the ED did not show QT prolongation -repeat EKG in AM -morphine 2mg for cardiac-related pain -Vanc/Levoquin given in ED -continue Vanc 1000 QD and levoquin 750 tomorrow -appreciate ID/cardiology recommendations #Pneumonia: possible due to the fever and diffuse crackles on exam -CXR not suggested of PNA. However, presentation could be either an early sign of PNA without radiographic evidence or patient is hypovolemic and not producing the changes on CXR -continue vanc and levofloxacin -appreciate ID recommendations #CAD s/p stent in 2016: this does not look like an acute ACS event -continue aspirin 81mg QD -continue isosorbide mononitrate 60mg PO -trops and EKG negative -repeat trops and get new EKG -cardiology recs appreciated - obtain echocardiogram #Hypertension: blood pressure elevated and pt not taking his home medications -restart home lisinopril 2.5mg -restart amlodipine 5mg -recheck BP in AM
--- NOTE | 2017-05-03 08:30 | CON.CARD ---
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 He has had nausea and vomiting since 8 hours after admission to [facility] on 04/30. He describes the vomit as bilious but non-bloody. States that his chest pain started suddenly this AM at an unknown time and is worse with vomiting and wretching. Did not see any blood specks in his spit or vomit. Describes the chest pain as sharp, 10/10 in severity, co-presentied twith diaphoresis, occasionally radiates down his arms, is non-exertional, and radiates to his back. States that he feels some of his active withdrawal symptoms which includes tremors but denies visual symptoms. Last BM was three days prior has been passing gas since. He denies fevers, chills, sob, cough, sputum production, diarrhea, peripheral swelling, palpitations, or other sick symptoms. 05/02/17 22:25 - History Source History Provided By: Patient, Medical Record - Alcohol/Substance Use Hx Alcohol Use: Yes - Smoking History Smoking history: Smoker current status UNK Have you smoked in the past 12 months: No Aproximately how many cigarettes per day: 20 Home Medications - Allergies Allergies/Adverse Reactions: Allergies Allergy/AdvReac Type Severity Reaction Status Date / Time Fish Containing Products Allergy Severe Vomiting Verified 05/02/17 22:08 No Known Drug Allergies Allergy Verified 05/02/17 22:08 - Home Medications Home Medications: Ambulatory Orders Aspirin [ASA -] 81 mg PO DAILY 08/25/16 Amlodipine Besylate [Norvasc -] 5 mg PO DAILY 11/05/16 Lisinopril [Zestril] 5 mg PO DAILY 11/05/16 Diazepam [Valium] 5 mg PO DAILY 05/03/17 Isosorbide Mononitrate [Imdur -] 60 mg PO DAILY 05/03/17 Mag Hydrox/Al Hydrox/Simeth [Mylanta *Suspension*] 30 ml PO Q6H 05/03/17 Methadone [Dolophine -] 10 mg PO DAILY 05/03/17 Thiamine HCl [B-1] 100 mg PO HS 05/03/17 Vital Signs: Vital Signs Temperature 98.1 F 05/03/17 06:37 Pulse Rate 63 05/03/17 06:37 Respiratory Rate 16 05/03/17 06:37 Blood Pressure 140/80 05/03/17 06:37 O2 Sat by Pulse Oximetry (%) 98 05/03/17 07:10 - Other Data Labs, Other Data: CBC, BMP 05/02/17 22:38 05/02/17 22:38 Troponin, BNP 05/02/17 05/02/17 05/03/17 22:38 22:38 06:15 Troponin I < 0.02 0.02 B-Natriuretic Peptide 4202.14 H Troponin, BNP 05/02/17 05/02/17 05/03/17 22:38 22:38 06:15 Troponin I < 0.02 0.02 B-Natriuretic Peptide 4202.14 H
[2017-05-03] MEDS ORDERED: amLODIPine BESYLATE 5 MG TABLET (FP) PO SCH (10:00)
[2017-05-03] MEDS ORDERED: METHADONE HCL 10 MG TABLET PO SCH (10:00)
[2017-05-03] MEDS ORDERED: LISINOPRIL 5 MG TABLET (FP) PO SCH (10:00)
[2017-05-03] MEDS ORDERED: ASPIRIN 81 MG CHEWABLE TABLETS PO SCH (10:00)
[2017-05-03] MEDS ORDERED: ISOSORBIDE MONONITRATE 60 MG TAB.SR.24H (FP) PO SCH (10:00)
[2017-05-03] MEDS ORDERED: diazePAM 5 MG TABLET PO SCH (10:00)
--- NOTE | 2017-05-03 10:00 | HOSP ---
Subjective - Review of Symptoms Events since last encounter: Vital Signs Temperature 98.1 F 05/03/17 06:37 Pulse Rate 63 05/03/17 06:37 Respiratory Rate 16 05/03/17 06:37 Blood Pressure 140/80 05/03/17 06:37 O2 Sat by Pulse Oximetry (%) 98 05/03/17 07:10 CBCD WBC 7.7 K/mm3 (4.0-10.0) 05/02/17 22:38 RBC 5.82 M/mm3 (4.00-5.60) H 05/02/17 22:38 Hgb 16.9 GM/dL (11.7-16.9) D 05/02/17 22:38 Hct 49.7 % (35.4-49) H 05/02/17 22:38 MCV 85.5 fl (80-96) 05/02/17 22:38 MCHC 34.0 g/dl (32.0-35.9) 05/02/17 22:38 RDW 15.1 % (11.9-15.9) 05/02/17 22:38 Plt Count 284 K/MM3 (134-434) D 05/02/17 22:38 MPV 7.7 fl (7.5-11.1) D 05/02/17 22:38 CMP Sodium 142 mmol/L (136-145) 05/02/17 22:38 Potassium 4.2 mmol/L (3.5-5.1) 05/02/17 22:38 Chloride 103 mmol/L (98-107) 05/02/17 22:38 Carbon Dioxide 29 mmol/L (21-32) 05/02/17 22:38 Anion Gap 10 (8-16) 05/02/17 22:38 BUN 17 mg/dL (7-18) D 05/02/17 22:38 Creatinine 1.1 mg/dL (0.7-1.3) 05/02/17 22:38 Creat Clearance w eGFR > 60 (>60) 05/02/17 22:38 Random Glucose 103 mg/dL (74-106) D 05/02/17 22:38 Calcium 8.7 mg/dL (8.5-10.1) 05/02/17 22:38 Total Bilirubin 0.6 mg/dL (0.2-1.0) D 05/02/17 22:38 AST 36 U/L (15-37) 05/02/17 22:38 ALT 45 U/L (12-78) 05/02/17 22:38 Alkaline Phosphatase 100 U/L (45-117) 05/02/17 22:38 Total Protein 7.9 g/dl (6.4-8.2) 05/02/17 22:38 Albumin 3.8 g/dl (3.4-5.0) 05/02/17 22:38 CARDIAC ENZYMES Creatine Kinase 110 IU/L (39-308) 05/03/17 06:15 Troponin I 0.02 ng/ml (0.00-0.05) 05/03/17 06:15 Current Medications Generic Name Dose Route Start Last Admin Trade Name Freq PRN Reason Stop Dose Admin Al Hydroxide/Mg Hydroxide 30 ml 05/03/17 04:15 05/03/17 04:28 Mylanta Oral Suspension - PO 30 ml Q6H PRN Administration INDIGESTION Amlodipine Besylate 5 mg 05/03/17 10:00 Norvasc - PO DAILY [facility] Aspirin 81 mg 05/03/17 10:00 Asa - PO DAILY [facility] Diazepam 5 mg 05/03/17 10:00 Valium - PO DAILY [facility] Heparin Sodium (Porcine) 5,000 unit 05/03/17 03:45 05/03/17 04:28 Heparin - SQ Not Given Q8H-IV [facility] Levofloxacin 750 mg in 150 mls @ 100 mls/hr 05/03/17 22:00 Levaquin 750 Mg Premixed Ivpb - IVPB HS [facility] Sodium Chloride 1,000 mls @ 100 mls/hr 05/03/17 03:45 05/03/17 04:28 Normal Saline - IV 100 mls/hr ASDIR [facility] Administration Isosorbide Mononitrate 60 mg 05/03/17 10:00 Imdur - PO DAILY [facility] Lisinopril 5 mg 05/03/17 10:00 Prinivil PO DAILY [facility] Methadone HCl 10 mg 05/03/17 10:00 Dolophine - PO DAILY [facility] Morphine Sulfate 2 mg 05/03/17 04:05 05/03/17 09:54 Morphine Injection - IVPUSH 2 mg Q4H PRN Administration PAIN LEVEL 7 - 10 Thiamine HCl 100 mg 05/03/17 22:00 Vitamin B1 - PO HS [facility] Home Medications Medication Instructions Recorded Aspirin [ASA -] 81 mg PO DAILY 08/25/16 Amlodipine Besylate [Norvasc -] 5 mg PO DAILY 11/05/16 Lisinopril [Zestril] 5 mg PO DAILY 11/05/16 Diazepam [Valium] 5 mg PO DAILY 05/03/17 Isosorbide Mononitrate [Imdur -] 60 mg PO DAILY 05/03/17 Mag Hydrox/Al Hydrox/Simeth 30 ml PO Q6H 05/03/17 [Mylanta *Suspension*] Methadone [Dolophine -] 10 mg PO DAILY 05/03/17 Thiamine HCl [B-1] 100 mg PO HS 05/03/17 Physical Examination Vital Signs: Vital Signs Temperature 98.1 F 05/03/17 06:37 Pulse Rate 63 05/03/17 06:37 Respiratory Rate 16 05/03/17 06:37 Blood Pressure 140/80 05/03/17 06:37 O2 Sat by Pulse Oximetry (%) 98 05/03/17 07:10 Labs: CBC, BMP 05/02/17 22:38 05/02/17 22:38
[2017-05-03 11:15] LABS: COCAINE, UR NEGATIVE ng/ml (CUTOFF=300); METHADONE, UR NEGATIVE ng/ml (CUTOFF=300); URINE AMPHETAMINES NEGATIVE ng/ml (CUTOFF=500); URINE BARBITURATES NEGATIVE ng/ml (CUTOFF=200)
[2017-05-03 11:16] LABS: URINE BENZODIAZEPINES POSITIVE ng/ml (CUTOFF=200)
[2017-05-03 11:17] LABS: OPIATES, URI POSITIVE ng/ml (CUTOFF=300); PHENCYCLIDINE,URINE POSITIVE ng/ml (CUTOFF=25)
--- NOTE | 2017-05-03 12:40 | PN ---
[facility] Progress Note (SOAP) Subjective: Pt. was sent from detox because of nausea, vomiting, chest pain radiating to left UE Objective: 05/03/17 12:39 Vital Signs - 8 hr 05/03/17 05/03/17 06:37 07:10 Temperature 98.1 F Pulse Rate [ 63 Apical] Respiratory 16 Rate Blood Pressure 140/80 [Right Arm] O2 Sat by Pulse 99 98 Oximetry (%) Laboratory Tests 05/02/17 05/02/17 05/02/17 22:38 22:38 22:38 WBC 7.7 RBC 5.82 H Hgb 16.9 D Hct 49.7 H MCV 85.5 MCH 29.0 MCHC 34.0 RDW 15.1 Plt Count 284 D MPV 7.7 D Neutrophils % 75.4 Lymphocytes % 17.9 D Monocytes % 5.7 Eosinophils % 0.4 D Basophils % 0.6 Sodium 142 Potassium 4.2 Chloride 103 Carbon Dioxide 29 Anion Gap 10 BUN 17 D Creatinine 1.1 Creat Clearance w eGFR > 60 Random Glucose 103 D Calcium 8.7 Total Bilirubin 0.6 D AST 36 ALT 45 Alkaline Phosphatase 100 Creatine Kinase 155 Creatine Kinase Index CK-MB (CK-2) < 1.000 Troponin I < 0.02 B-Natriuretic Peptide 4202.14 H Total Protein 7.9 Albumin 3.8 Triglycerides Cholesterol Total LDL Cholesterol HDL Cholesterol TSH Opiates Screen Methadone Screen Barbiturate Screen Phencyclidine Screen Ur Amphetamines Screen MDMA (Ecstasy) Screen Benzodiazepines Screen Cocaine Screen U Marijuana (THC) Screen Alcohol, Quantitative 05/03/17 05/03/17 05/03/17 06:15 06:15 06:15 WBC RBC Hgb Hct MCV MCH MCHC RDW Plt Count MPV Neutrophils % Lymphocytes % Monocytes % Eosinophils % Basophils % Sodium Potassium Chloride Carbon Dioxide Anion Gap BUN Creatinine Creat Clearance w eGFR Random Glucose Calcium Total Bilirubin AST ALT Alkaline Phosphatase Creatine Kinase 110 Creatine Kinase Index CK-MB (CK-2) Troponin I 0.02 B-Natriuretic Peptide Total Protein Albumin Triglycerides 107 Cancelled Cholesterol 210 H Cancelled Total LDL Cholesterol 106 H Cancelled HDL Cholesterol 89 H Cancelled TSH 0.86 Cancelled Opiates Screen Methadone Screen Barbiturate Screen Phencyclidine Screen Ur Amphetamines Screen MDMA (Ecstasy) Screen Benzodiazepines Screen Cocaine Screen U Marijuana (THC) Screen Alcohol, Quantitative 05/03/17 05/03/17 08:40 09:09 WBC RBC Hgb Hct MCV MCH MCHC RDW Plt Count MPV Neutrophils % Lymphocytes % Monocytes % Eosinophils % Basophils % Sodium Potassium Chloride Carbon Dioxide Anion Gap BUN Creatinine Creat Clearance w eGFR Random Glucose Calcium Total Bilirubin AST ALT Alkaline Phosphatase Creatine Kinase Creatine Kinase Index CK-MB (CK-2) Troponin I B-Natriuretic Peptide Total Protein Albumin Triglycerides Cholesterol Total LDL Cholesterol HDL Cholesterol TSH Opiates Screen Positive Methadone Screen Negative Barbiturate Screen Negative Phencyclidine Screen Positive Ur Amphetamines Screen Negative MDMA (Ecstasy) Screen Negative Benzodiazepines Screen Positive Cocaine Screen Negative U Marijuana (THC) Screen Positive Alcohol, Quantitative < 5.0 labs noted Assessment: 05/03/17 12:40 Withdrawal sx Plan: Continue detox Pt. signed out AMA from [place]
[2017-05-03 12:51] VITALS: BP 147/87; PULSE 68; TEMP 98.6
--- NOTE | 2017-05-03 16:54 | DS ---
Physical Exam: SUBJECTIVE: Patient seen and examined Patient is feeling better, does not want to stay , wants to sign against medical advice. OBJECTIVE: Vital Signs Temperature 98.6 F 05/03/17 11:00 Pulse Rate 68 05/03/17 11:00 Respiratory Rate 18 05/03/17 11:00 Blood Pressure 147/87 05/03/17 11:00 O2 Sat by Pulse Oximetry (%) 98 05/03/17 11:00 PHYSICAL EXAM GENERAL: The patient is awake, alert, and fully oriented, in no acute distress. HEAD: Normal with no signs of trauma. EYES: PERRL, extraocular movements intact, sclera anicteric, conjunctiva clear. ENT: Ears normal, oropharynx clear without exudates, moist mucous membranes. NECK: Trachea midline, full range of motion, supple. LUNGS: Breath sounds equal, clear to auscultation bilaterally, no wheezes, no crackles, no accessory muscle use. HEART: Regular rate and rhythm, S1, S2 without murmur, rub or gallop. ABDOMEN: Soft, nontender, nondistended, normoactive bowel sounds, no guarding, no rebound, no hepatosplenomegaly, no masses. EXTREMITIES: 2+ pulses, warm, well-perfused, no edema. NEUROLOGICAL: Cranial nerves II through XII grossly intact. Normal speech, gait is stable PSYCH: Normal mood, normal affect. SKIN: Warm, dry, normal turgor, no rashes or lesions noted. LABS Laboratory Results - last 24 hr 05/02/17 05/02/17 05/02/17 22:38 22:38 22:38 WBC 7.7 RBC 5.82 H Hgb 16.9 D Hct 49.7 H MCV 85.5 MCH 29.0 MCHC 34.0 RDW 15.1 Plt Count 284 D MPV 7.7 D Neutrophils % 75.4 Lymphocytes % 17.9 D Monocytes % 5.7 Eosinophils % 0.4 D Basophils % 0.6 Sodium 142 Potassium 4.2 Chloride 103 Carbon Dioxide 29 Anion Gap 10 BUN 17 D Creatinine 1.1 Creat Clearance w eGFR > 60 Random Glucose 103 D Calcium 8.7 Total Bilirubin 0.6 D AST 36 ALT 45 Alkaline Phosphatase 100 Creatine Kinase 155 Creatine Kinase Index CK-MB (CK-2) < 1.000 Troponin I < 0.02 B-Natriuretic Peptide 4202.14 H Total Protein 7.9 Albumin 3.8 Triglycerides Cholesterol Total LDL Cholesterol HDL Cholesterol TSH Opiates Screen Methadone Screen Barbiturate Screen Phencyclidine Screen Ur Amphetamines Screen MDMA (Ecstasy) Screen Benzodiazepines Screen Cocaine Screen U Marijuana (THC) Screen Alcohol, Quantitative 05/03/17 05/03/17 05/03/17 06:15 06:15 06:15 WBC RBC Hgb Hct MCV MCH MCHC RDW Plt Count MPV Neutrophils % Lymphocytes % Monocytes % Eosinophils % Basophils % Sodium Potassium Chloride Carbon Dioxide Anion Gap BUN Creatinine Creat Clearance w eGFR Random Glucose Calcium Total Bilirubin AST ALT Alkaline Phosphatase Creatine Kinase 110 Creatine Kinase Index CK-MB (CK-2) Troponin I 0.02 B-Natriuretic Peptide Total Protein Albumin Triglycerides 107 Cancelled Cholesterol 210 H Cancelled Total LDL Cholesterol 106 H Cancelled HDL Cholesterol 89 H Cancelled TSH 0.86 Cancelled Opiates Screen Methadone Screen Barbiturate Screen Phencyclidine Screen Ur Amphetamines Screen MDMA (Ecstasy) Screen Benzodiazepines Screen Cocaine Screen U Marijuana (THC) Screen Alcohol, Quantitative 05/03/17 05/03/17 08:40 09:09 WBC RBC Hgb Hct MCV MCH MCHC RDW Plt Count MPV Neutrophils % Lymphocytes % Monocytes % Eosinophils % Basophils % Sodium Potassium Chloride Carbon Dioxide Anion Gap BUN Creatinine Creat Clearance w eGFR Random Glucose Calcium Total Bilirubin AST ALT Alkaline Phosphatase Creatine Kinase Creatine Kinase Index CK-MB (CK-2) Troponin I B-Natriuretic Peptide Total Protein Albumin Triglycerides Cholesterol Total LDL Cholesterol HDL Cholesterol TSH Opiates Screen Positive Methadone Screen Negative Barbiturate Screen Negative Phencyclidine Screen Positive Ur Amphetamines Screen Negative MDMA (Ecstasy) Screen Negative Benzodiazepines Screen Positive Cocaine Screen Negative U Marijuana (THC) Screen Positive Alcohol, Quantitative < 5.0 Current Medications Generic Name Dose Route Start Last Admin Trade Name Freq PRN Reason Stop Dose Admin Al Hydroxide/Mg Hydroxide 30 ml 05/03/17 04:15 05/03/17 04:28 Mylanta Oral Suspension - PO 30 ml Q6H PRN Administration INDIGESTION Amlodipine Besylate 5 mg 05/03/17 10:00 05/03/17 12:36 Norvasc - PO Not Given DAILY TAY Aspirin 81 mg 05/03/17 10:00 05/03/17 12:36 Asa - PO Not Given DAILY TAY Diazepam 5 mg 05/03/17 10:00 05/03/17 12:38 Valium - PO 05/05/17 09:59 Not Given DAILY [facility] Heparin Sodium (Porcine) 5,000 unit 05/03/17 03:45 05/03/17 12:36 Heparin - SQ Not Given Q8H-IV [facility] Levofloxacin 750 mg in 150 mls @ 100 mls/hr 05/03/17 22:00 Levaquin 750 Mg Premixed Ivpb - IVPB [facility] Sodium Chloride 1,000 mls @ 100 mls/hr 05/03/17 03:45 05/03/17 04:28 Normal Saline - IV 100 mls/hr ASDIR [facility] Administration Isosorbide Mononitrate 60 mg 05/03/17 10:00 05/03/17 12:36 Imdur - PO 60 mg DAILY [facility] Administration Lisinopril 5 mg 05/03/17 10:00 05/03/17 12:38 Prinivil PO Not Given DAILY [facility] Methadone HCl 10 mg 05/04/17 10:00 Dolophine - PO 05/04/17 10:01 ONCE ONE Methadone HCl 5 mg 05/05/17 10:00 Dolophine - PO 05/05/17 10:01 DAILY [facility] Morphine Sulfate 2 mg 05/03/17 04:05 05/03/17 09:54 Morphine Injection - IVPUSH 2 mg Q4H PRN Administration PAIN LEVEL 7 - 10 Thiamine HCl 100 mg 05/03/17 22:00 Vitamin B1 - PO [facility] Home Medications Medication Instructions Recorded Aspirin [ASA -] 81 mg PO DAILY 08/25/16 Amlodipine Besylate [Norvasc -] 5 mg PO DAILY 11/05/16 Lisinopril [Zestril] 5 mg PO DAILY 11/05/16 Diazepam [Valium] 5 mg PO DAILY 05/03/17 Isosorbide Mononitrate [Imdur -] 60 mg PO DAILY 05/03/17 Mag Hydrox/Al Hydrox/Simeth 30 ml PO Q6H 05/03/17 [Mylanta *Suspension*] Methadone [Dolophine -] 10 mg PO DAILY 05/03/17 Thiamine HCl [B-1] 100 mg PO HS 05/03/17 HOSPITAL COURSE: Date of Admission:05/03/17 Date of Discharge: 05/03/17 Patient is a 41 year old male with a hx of IV drug abuse (current heroin/xanax dependence), CAD s/p stent 2016, cardiac arrest, and hypertension is admitted for chest pain, and tertained , with possible early endocarditis and/or pneumonia. #questionable Pneumonia: given Vancomycin and Levaquin in ED #CAD s/p stent in 2016: continue home meds #Hypertension: restart home lisinopril 2.5mg, and amlodipine 5mg daily patient signed AMA , patient was explained the risks of signing against medical advice, cardiac arrest, heart attack, heart failure and . Minutes to complete discharge: 35 Discharge Summary Reason For Visit: CHEST PAIN,FEVER Current Active Problems Fever (Acute) - Instructions - Home Medications Comprehensive Discharge Medication List: Ambulatory Orders Aspirin [ASA -] 81 mg PO DAILY 08/25/16 Amlodipine Besylate [Norvasc -] 5 mg PO DAILY 11/05/16 Lisinopril [Zestril] 5 mg PO DAILY 11/05/16 Diazepam [Valium] 5 mg PO DAILY 05/03/17 Isosorbide Mononitrate [Imdur -] 60 mg PO DAILY 05/03/17 Mag Hydrox/Al Hydrox/Simeth [Mylanta *Suspension*] 30 ml PO Q6H 05/03/17 Methadone [Dolophine -] 10 mg PO DAILY 05/03/17 Thiamine HCl [B-1] 100 mg PO HS 05/03/17 This patient is new to me today: Yes Date on this admission: 05/03/17 Emergency Visit: Yes ED Registration Date: 05/03/17 Care time: The patient presented to the Emergency Department on the above date and was hospitalized for further evaluation of their emergent condition. Critical Care patient: No - Discharge Referral Referred to [facility] No
[2017-05-03] MEDS ORDERED: LEVOFLOXACIN 750 MG IVPB 750 MG/150 ML BAG IVPB SCH (22:00)
[2017-05-03] MEDS ORDERED: THIAMINE HCL 100 MG TABLET (FP) PO SCH (22:00)
[2017-05-04] MEDS ORDERED: METHADONE HCL 10 MG TABLET (FOR DETOX USE ONLY) PO ONE (10:00)
--- NOTE | 2017-05-04 14:34 | PN ---
Progress Note, Physician - Current Medication List Current Medications: Active Medications Al Hydroxide/Mg Hydroxide (Mylanta Oral Suspension -) 30 ml PO Q6H PRN PRN Reason: INDIGESTION Last Admin: 05/03/17 04:28 Dose: 30 ml Amlodipine Besylate (Norvasc -) 5 mg PO DAILY [facility] Last Admin: 05/03/17 12:36 Dose: Not Given Aspirin (Asa -) 81 mg PO DAILY [facility] Last Admin: 05/03/17 12:36 Dose: Not Given Diazepam (Valium -) 5 mg PO DAILY [facility] Stop: 05/05/17 09:59 Last Admin: 05/03/17 12:38 Dose: Not Given Heparin Sodium (Porcine) (Heparin -) 5,000 unit SQ Q8H-IV [facility] Last Admin: 05/03/17 12:36 Dose: Not Given Levofloxacin (Levaquin 750 Mg Premixed Ivpb -) 750 mg in 150 mls @ 100 mls/hr IVPB [facility] Sodium Chloride (Normal Saline -) 1,000 mls @ 100 mls/hr IV ASDIR [facility] Last Admin: 05/03/17 04:28 Dose: 100 mls/hr Isosorbide Mononitrate (Imdur -) 60 mg PO DAILY [facility] Last Admin: 05/03/17 12:36 Dose: 60 mg Lisinopril (Prinivil) 5 mg PO DAILY [facility] Last Admin: 05/03/17 12:38 Dose: Not Given Methadone HCl (Dolophine -) 5 mg PO DAILY [facility] Stop: 05/05/17 10:01 Morphine Sulfate (Morphine Injection -) 2 mg IVPUSH Q4H PRN PRN Reason: PAIN LEVEL 7 - 10 Last Admin: 05/03/17 09:54 Dose: 2 mg Thiamine HCl (Vitamin B1 -) 100 mg PO [facility] - Objective Vital Signs: Vital Signs Temperature 98.6 F 05/03/17 11:00 Pulse Rate 68 05/03/17 11:00 Respiratory Rate 18 05/03/17 11:00 Blood Pressure 147/87 05/03/17 11:00 O2 Sat by Pulse Oximetry (%) 98 05/03/17 11:00 Labs: CBC, BMP 05/02/17 22:38 05/02/17 22:38
[2017-05-05] MEDS ORDERED: METHADONE HCL 5 MG TABLET (FOR DETOX USE ONLY) PO SCH (10:00)
--- NOTE | 2017-05-05 21:47 | EKG ---
Test Reason : Blood Pressure : / mmHG Vent. Rate : 058 BPM Atrial Rate : 058 BPM P-R Int : 136 ms QRS Dur : 086 ms QT Int : 472 ms P-R-T Axes : 050 073 083 degrees QTc Int : 463 ms SINUS BRADYCARDIA NONSPECIFIC T WAVE ABNORMALITY WHEN COMPARED WITH ECG OF 01-MAY-2017 10:01, NO SIGNIFICANT CHANGE WAS FOUND Confirmed by HUI GALLOWAY MD ([id number]) on 05/05/2017 9:47:19 PM Referred By: Confirmed By:HUI GALLOWAY MD
== END 2017-05-03 16:54 | disposition home or self-care (01) | DRG 139 ==
LOC: JER 22:01 → JERBED 05-03 01:39 → UNDOADMOB 05-03 01:55 → JERBED 05-03 01:55 → OBSVTOIN 05-03 03:33
PROVIDERS: ADMIT Internal Medicine; ATTEND Internal Medicine
DX: J18.9 Pneumonia, unspecified organism (principal); I25.10 Atherosclerotic heart disease of native coronary artery without angina pectoris; Z98.61 Coronary angioplasty status; I10 Essential (primary) hypertension; R50.9 Fever, unspecified; F11.20 Opioid dependence, uncomplicated; F12.20 Cannabis dependence, uncomplicated
CPT/HCPCS: 36415; 71045-TC; 80053; 80061; 80307; 82550; 82553; 83721; 83880; 84443; 84484; 85025; 87040; 93005; 93010; 99285-25; G0378

== ENCOUNTER 2017-06-09 11:38 | Inpatient (IN) | payer OTHER ==
[2017-06-09 14:16] VITALS: BMI 24.2
--- NOTE | 2017-06-09 14:55 | HP ---
COWS - Scale Resting Pulse: 0= FL 80 or Below Sweatin=Flushed/Facial Moisture Restless Observation: 5= Unable to Sit Still Pupil Size: 0= Normal to Room Light Bone or Joint Aches: 1= Mild Discomfort Runny Nose/ Eye Tearin= Nasal Congestion GI Upset > 30mins: 2= Nausea/Diarrhea Tremor Observation: 4= Gross Tremor/Twitching Yawning Observation: 1= 1-2x During Session Anxiety or Irritability: 2=Irritable/Anxious Goose Flesh Skin: 3=Piloerection COWS Score: 21 CIWA Score - CIWA Score Nausea/Vomitin Muscle Tremors: 4-Moderate,w/Arms Extend Anxiety: 5 Agitation: 4-Moderately Restless Paroxysmal Sweats: 1-Minimal Palms Moist Orientation: 0-Oriented Tacttile Disturbances: 0-None Auditory Disturbances: 0-None Visual Disturbances: 0-None Headache: 0-None Present CIWA-Ar Total Score: 17 Admission ROS S - HPI Allergies/Adverse Reactions: Allergies Allergy/AdvReac Type Severity Reaction Status Date / Time Fish Containing Products Allergy Severe Vomiting Verified 05/02/17 22:08 No Known Drug Allergies Allergy Verified 05/02/17 22:08 Exam Limitations: No Limitations - Ebola screening Have you traveled outside of the country in the last 21 days: No Have you had contact with anyone from an Ebola affected area: No Have you been sick,other than usual withdrawal symptoms: No Do you have a fever: No - Review of Systems Constitutional: No Symptoms Reported EENT: reports: Nose Congestion Respiratory: reports: No Symptoms reported Cardiac: reports: No Symptoms Reported GI: reports: Diarrhea, Nausea : reports: No Symptoms Reported Musculoskeletal: reports: Back Pain, Other (ocassional leg spasm from withdrawal per pt) Neuro: reports: No Symptoms reported Endocrine: reports: No Symptoms Reported Hematology: reports: No Symptoms Reported Psychiatric: reports: Anxious Other Systems: Reviewed and Negative Patient History - Patient Medical History Hx Anemia: No Hx Asthma: No Hx Chronic Obstructive Pulmonary Disease (COPD): No Hx Cancer: No Hx Cardiac Disorders: Yes (cardiac arrest d/t drugs S/P ANGIOPLASTY WITH STENT ( Feb 2013)) Hx Congestive Heart Failure: No Hx Hypertension: Yes (ON MEDICATION - Unable to remeber name now) Hx Hypercholesterolemia: No Hx Pacemaker: No HX Cerebrovascular Accident: No Hx Seizures: No Hx Dementia: No Hx Diabetes: No Hx Gastrointestinal Disorders: No Hx Liver Disease: No Hx Genitourinary Disorders: No Hx Sexually Transmitted Disorders: No Hx Renal Disease (ESRD): No Hx Thyroid Disease: No Hx Human Immunodeficiency Virus (HIV): No (negative) Hx Hepatitis C: Yes (Not treated) Hx Depression: No Hx Suicide Attempt: No (denies past or current ideation/Attempt) Hx Bipolar Disorder: No Hx Schizophrenia: No - Patient Surgical History Past Surgical History: No Hx Neurologic Surgery: No Hx Cataract Extraction: No Hx Cardiac Surgery: Yes (S/P ANGIOPLASTY WITH STENT) Hx Lung Surgery: No Hx Breast Surgery: No Hx Breast Biopsy: No Hx Abdominal Surgery: No Hx Appendectomy: No Hx Cholecystectomy: No Hx Genitourinary Surgery: No Hx Section: No Hx Orthopedic Surgery: No Anesthesia Reaction: No - PPD History Previous Implant?: Yes Results: c-xray(-), Reproductive History Patient is a Female of Child Bearing Age (11 -55 yrs old): No - Smoking Cessation Smoking history: Current every day smoker Have you smoked in the past 12 months: Yes Aproximately how many cigarettes per day: 20 Cigars Per Day: 0 Hx Chewing Tobacco Use: No Initiated information on smoking cessation: Yes 'Breaking Loose' booklet given: 06/09/17 - Substance & Tx. History Hx Alcohol Use: Yes (vodka - a pint/daily, 2(40oz) beer daily) Hx Substance Use: Yes Substance Use Type: Alcohol, Heroin, Marijuana, Tranquilizers Hx Substance Use Treatment: Yes - Substances Abused Alcohol Route: Oral Frequency: Daily Amount used: 1 pint vodka, 2 (40oz) beer Age of first use: 18 Date of Last Use: 06/09/17 Heroin Route: Injection (neck vein) Frequency: Daily Amount used: 3 bundles ($300) Age of first use: 27 Date of Last Use: 06/09/17 Alprazolam (Xanax) Route: Oral Frequency: Daily Amount used: "4 sticks" Age of first use: 37 Date of Last Use: 06/08/17 Family Disease History - Family Disease History Family Disease History: Respiratory: Mother (Emphysema), Other: Father (Unknown) Admission Physical Exam [facility] - Vital Signs Vital Signs: Vital Signs - 24 hr 06/09/17 14:15 Temperature 98 F Pulse Rate 79 Respiratory 20 Rate Blood Pressure 111/66 - Physical General Appearance: Yes: Moderate Distress, Anxious HEENTM: Yes: Nasal Congestion Respiratory: Yes: Chest Non-Tender, Lungs Clear, Normal Breath Sounds Neck: Yes: Other (Track rhona to L external jugular) Breast: Yes: Breast Exam Deferred Cardiology: Yes: Regular Rhythm, Regular Rate Abdominal: Yes: Normal Bowel Sounds, Soft, Tenderness Genitourinary: Yes: Within Normal Limits Back: Yes: Normal Inspection Musculoskeletal: Yes: full range of Motion, Back pain (lower back) Extremities: Yes: Normal Inspection, Tremors 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: Yes: Fully Oriented Integumentary: Yes: Dry, Warm Lymphatic: Yes: Within Normal Limits - Diagnostic (1) Alcohol dependence with uncomplicated withdrawal Current Visit: No Status: Acute (2) Opioid dependence with withdrawal Current Visit: No Status: Acute (3) H/O heart artery stent Current Visit: No Status: Chronic (4) Hepatitis C Current Visit: No Status: Chronic Qualifiers: Viral hepatitis chronicity: chronic Hepatic coma status: without hepatic coma Qualified Code(s): B18.2 - Chronic viral hepatitis C (5) Nicotine dependence Current Visit: No Status: Chronic Qualifiers: Nicotine product type: cigarettes Substance use status: uncomplicated Qualified Code(s): F17.210 - Nicotine dependence, cigarettes, uncomplicated (6) [place] (myocardial infarction) Current Visit: No Status: Chronic (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
[2017-06-09] MEDS ORDERED: hydrOXYzine PAMOATE 50 MG CAPSULE (FP) PO PRN (15:25)
[2017-06-09] MEDS ORDERED: MAGNESIUM HYDROX 2400MG/30ML ORAL SUSPENSION 30 ML CUP PO PRN (15:25)
[2017-06-09] MEDS ORDERED: ACETAMINOPHEN 325 MG TABLET (FP) PO PRN (15:25)
[2017-06-09] MEDS ORDERED: guaiFENesin/D-METHORPHAN HB 10 ML UNIT-DOSE CUPS PO PRN (15:25)
[2017-06-09] MEDS ORDERED: MENTHOL/PHENOL 1 EACH UD MM PRN (15:25)
[2017-06-09] MEDS ORDERED: LOPERAMIDE HCL 2 MG CAPSULE PO PRN (15:25)
[2017-06-09] MEDS ORDERED: MAG HYDROX/AL HYDROX/SIMETH 30 ML UNIT-DOSE CUP PO PRN (15:25)
[2017-06-09] MEDS ORDERED: MAGNESIUM CITRATE 300 ML BOTTLE PO PRN (15:25)
[2017-06-09] MEDS ORDERED: P-EPHED 60MG/TRIPROLIDI 2.5MG TABLET PO PRN (15:25)
[2017-06-09] MEDS ORDERED: IBUPROFEN 400 MG TABLET (FP) PO PRN (15:25)
[2017-06-09] MEDS ORDERED: chlordiazePOXIDE HCL 25 MG CAPSULE PO ONE (19:15)
[2017-06-09] MEDS ORDERED: METHADONE HCL 10 MG TABLET (FOR DETOX USE ONLY) PO ONE ×2 (19:15→23:00)
[2017-06-09] MEDS: ASPIRIN 81 MG CHEWABLE TABLETS PO SCH (19:18)
[2017-06-09] MEDS: NICOTINE 21 MG/24 HOURS TOPICAL PATCH TD SCH (19:21)
[2017-06-09] MEDS: NICOTINE POLACRILEX 2 MG GUM BC PRN ×2 (19:22→22:39)
[2017-06-09] MEDS ORDERED: TRIMETHOBENZAMIDE HCL 200MG/2ML INJ IM ONE (22:11)
--- NOTE | 2017-06-09 22:13 | PN ---
S Progress Note Note: Patient vomiting profusely on the unit . Attributes vomiting d/t apple juice consumption. Patent AOx3, in no apparent distress. withdrawal symptoms Continue to monitor [facility]
[2017-06-09] MEDS: THIAMINE HCL 100 MG TABLET (FP) PO SCH (22:36)
[2017-06-09] MEDS: chlordiazePOXIDE HCL 25 MG CAPSULE PO SCH (22:37)
[2017-06-10 00:01] LABS: URINE APPEARANCE CLEAR; URINE BILIRUBIN NEGATIVE (NEGATIVE); URINE BLOOD NEGATIVE (NEGATIVE); URINE COLOR YELLOW; URINE GLUCOSE (UA) NEGATIVE (NEGATIVE); URINE KETONE NEGATIVE (NEGATIVE); URINE LEUK ESTERASE NEGATIVE (NEGATIVE); URINE NITRITE NEGATIVE (NEGATIVE); URINE PROTEIN NEGATIVE (NEGATIVE); URINE UROBILINOGEN 4.0 E.U/dl mg/dL (0.2-1.0)
[2017-06-10] MEDS: chlordiazePOXIDE HCL 25 MG CAPSULE PO SCH ×4 (06:01→22:41)
--- NOTE | 2017-06-10 09:44 | CONSULT ---
[facility] Psychiatric Consult - Data Date of interview: 06/10/17 Admission source: [facility] Identifying data: Pt. is a 41 year old male, single, father of three, and currently unemployed. This is one of multiple admissions for patient. Pt. admitted to for alcohol, opiate, and benzodiazepine dependence. Substance Abuse History: Following information confirmed with Mr. Fuller: Smoking Cessation. Smoking history: Current every day smoker. Have you smoked in the past 12 months: Yes. Aproximately how many cigarettes per day: 20. Cigars Per Day: 0. Hx Chewing Tobacco Use: No. Initiated information on smoking cessation: Yes. 'Breaking Loose' booklet given: 06/09/17. - Substance & Tx. History. Hx Alcohol Use: Yes (vodka - a pint/daily, 2(40oz) beer daily). Hx Substance Use: Yes. Substance Use Type: Alcohol, Heroin, Marijuana, Tranquilizers. Hx Substance Use Treatment: Yes. - Substances Abused. Alcohol. Route: Oral. Frequency: Daily. Amount used: 1 pint vodka, 2 (40oz) beer. Age of first use: 18. Date of Last Use: 06/09/17. Heroin. Route: Injection (neck vein). Frequency: Daily. Amount used: 3 bundles ($300). Age of first use: 27. Date of Last Use: 06/09/17. Alprazolam (Xanax). Route: Oral. Frequency: Daily. Amount used: "4 sticks". Age of first use: 37. Date of Last Use: 06/08/17 Medical History: cardiac arrest d/t drugs S/P ANGIOPLASTY WITH STENT Feb 2013. Hypertension. Hep C Psychiatric History: Pt. denies h/o psychiatric hospitalizations, suicide attempts, and outpatient care. Physical/Sexual Abuse/Trauma History: Denies. Mental Status Exam - Mental Status Exam Alert and Oriented to: Time, Place, Person Cognitive Function: Good Mood: Euthymic Affect: Flat Patient Behavior: Guarded, Cooperative Speech Pattern: Clear Voice Loudness: Normal Thought Process: Goal Oriented Thought Disorder: Not Present Hallucinations: Denies Suicidal Ideation: Denies Homicidal Ideation: Denies Insight/Judgement: Poor Sleep: Poorly Appetite: Fair Muscle strength/Tone: Normal Gait/Station: Normal Psychiatric Findings - Problem List ([place] 1, 2,3) (1) Alcohol dependence with uncomplicated withdrawal Current Visit: Yes Status: Acute (2) Opioid dependence with withdrawal Current Visit: Yes Status: Acute (3) Nicotine dependence Current Visit: Yes Status: Chronic Qualifiers: Nicotine product type: cigarettes Substance use status: uncomplicated Qualified Code(s): F17.210 - Nicotine dependence, cigarettes, uncomplicated (4) Benzodiazepine dependence Current Visit: Yes Status: Acute (5) Insomnia Current Visit: Yes Status: Acute - Initial Treatment Plan Initial Treatment Plan: Psychoeducation provided. Detoxification in progress. Ambien 10mg qhs prn ordered. Benefits and side effects (sleep walking) discussed. Verbal consent given. Will continue to monitor patient.
[2017-06-10 09:49] LABS: ALBUMIN 3.4 g/dl (3.4-5.0); ANION GAP 7 (8-16); BLOOD UREA NITROGEN 16 mg/dL (7-18); CHLORIDE 104 mmol/L (98-107); CO2 29 mmol/L (21-32); GLUCOSE,RANDOM 68 mg/dL (74-106); POTASSIUM 4.2 mmol/L (3.5-5.1); SODIUM 140 mmol/L (136-145)
[2017-06-10 09:50] LABS: HEMATOCRIT 44.3 % (35.4-49); HEMOGLOBIN 14.6 GM/dL (11.7-16.9); MCH 29.4 pg (25.7-33.7); MEAN CELL VOLUME 89.1 fl (80-96); MEAN PLT VOLUME 8.4 fl (7.5-11.1); PLATELET COUNT 163 K/MM3 (134-434); RBC 4.97 M/mm3 (4.00-5.60); RDW 15.1 % (11.9-15.9); WHITE BLOOD COUNT 5.2 K/mm3 (4.0-10.0)
[2017-06-10 09:54] LABS: ALK PHOS 87 U/L (45-117); BILIRUBIN,TOTAL 1.1 mg/dL (0.2-1.0); CREATININE 0.9 mg/dL (0.7-1.3); SGOT/AST 34 U/L (15-37); SGPT/ALT 35 U/L (12-78); TOT PROT 6.3 g/dl (6.4-8.2)
[2017-06-10] MEDS ORDERED: METHADONE HCL 10 MG TABLET (FOR DETOX USE ONLY) PO SCH (10:00)
[2017-06-10] MEDS: NICOTINE POLACRILEX 2 MG GUM BC PRN (10:18)
[2017-06-10] MEDS: amLODIPine BESYLATE 5 MG TABLET (FP) PO SCH (10:18)
[2017-06-10] MEDS: NICOTINE 21 MG/24 HOURS TOPICAL PATCH TD SCH (10:18)
[2017-06-10] MEDS: ASPIRIN 81 MG CHEWABLE TABLETS PO SCH (10:18)
[2017-06-10] MEDS: LISINOPRIL 5 MG TABLET (FP) PO SCH (10:18)
[2017-06-10] MEDS: PRENATAL VITAMINS W/ FOLIC ACID TABLET (FP) PO SCH (10:18)
--- NOTE | 2017-06-10 10:47 | PN ---
S CIWA - CIWA Score Nausea/Vomitin Muscle Tremors: 3 Anxiety: 3 Agitation: 3 Paroxysmal Sweats: 1-Minimal Palms Moist Orientation: 0-Oriented Tacttile Disturbances: 1-Very Mild Itch/Numbness Auditory Disturbances: 1-Very Mild Visual Disturbances: 0-None Headache: 2-Mild CIWA-Ar Total Score: 17 BHS Progress Note (SOAP) Subjective: ALERT,IRRITABLE,ANXIOUS,INTERRUPTED SLEEP,TREMOR,PAIN IN THE BODY AND BACK, TREMOR Objective: 06/10/17 10:43 Vital Signs Temperature 98.4 F 06/10/17 09:59 Pulse Rate 67 06/10/17 09:59 Respiratory Rate 18 06/10/17 09:59 Blood Pressure 140/61 06/10/17 09:59 O2 Sat by Pulse Oximetry (%) EKG SINUS BRADYCARDIA WITH SINUS ARRHYTHMIA ST IN V3 NO CHEST PAIN,NO SOB,NO DIZZINESS Laboratory Last Values WBC 5.2 K/mm3 (4.0-10.0) D 06/10/17 07:30 RBC 4.97 M/mm3 (4.00-5.60) 06/10/17 07:30 Hgb 14.6 GM/dL (11.7-16.9) D 06/10/17 07:30 Hct 44.3 % (35.4-49) 06/10/17 07:30 MCV 89.1 fl (80-96) 06/10/17 07:30 MCH 29.4 pg (25.7-33.7) 06/10/17 07:30 MCHC 33.0 g/dl (32.0-35.9) 06/10/17 07:30 RDW 15.1 % (11.9-15.9) 06/10/17 07:30 Plt Count 163 K/MM3 (134-434) D 06/10/17 07:30 MPV 8.4 fl (7.5-11.1) 06/10/17 07:30 Sodium 140 mmol/L (136-145) 06/10/17 07:30 Potassium 4.2 mmol/L (3.5-5.1) 06/10/17 07:30 Chloride 104 mmol/L (98-107) 06/10/17 07:30 Carbon Dioxide 29 mmol/L (21-32) 02/27/18 07:30 Anion Gap 7 (8-16) L 06/10/17 07:30 BUN 16 mg/dL (7-18) 06/10/17 07:30 Creatinine 0.9 mg/dL (0.7-1.3) 06/10/17 07:30 Creat Clearance w eGFR > 60 (>60) 06/10/17 07:30 Random Glucose 68 mg/dL (74-106) L D 06/10/17 07:30 Calcium 8.0 mg/dL (8.5-10.1) L 06/10/17 07:30 Total Bilirubin 1.1 mg/dL (0.2-1.0) H D 06/10/17 07:30 AST 34 U/L (15-37) 06/10/17 07:30 ALT 35 U/L (12-78) D 06/10/17 07:30 Alkaline Phosphatase 87 U/L (45-117) 06/10/17 07:30 Total Protein 6.3 g/dl (6.4-8.2) L D 06/10/17 07:30 Albumin 3.4 g/dl (3.4-5.0) 06/10/17 07:30 Urine Color Yellow 06/09/17 23:40 Urine Appearance Clear 06/09/17 23:40 Urine pH 6.0 (5.0-8.0) 06/09/17 23:40 Ur Specific [place] 1.014 (1.001-1.035) 06/09/17 23:40 Urine Protein Negative (NEGATIVE) 06/09/17 23:40 Urine Glucose (UA) Negative (NEGATIVE) 06/09/17 23:40 Urine Ketones Negative (NEGATIVE) 06/09/17 23:40 Urine Blood Negative (NEGATIVE) 06/09/17 23:40 Urine Nitrite Negative (NEGATIVE) 06/09/17 23:40 Urine Bilirubin Negative (NEGATIVE) 06/09/17 23:40 Urine Urobilinogen 4.0 e.u/dl mg/dL (0.2-1.0) 06/09/17 23:40 Ur Leukocyte Esterase Negative (NEGATIVE) 06/09/17 23:40 Assessment: 06/10/17 10:46 WITHDRAWAL SYMPTOM Plan: CONTINUE DETOX
--- NOTE | 2017-06-10 13:34 | EKG ---
Test Reason : Blood Pressure : / mmHG Vent. Rate : 056 BPM Atrial Rate : 056 BPM P-R Int : 176 ms QRS Dur : 088 ms QT Int : 422 ms P-R-T Axes : 048 054 044 degrees QTc Int : 407 ms SINUS BRADYCARDIA WITH SINUS ARRHYTHMIA POSSIBLE INFERIOR INFARCT (CITED ON OR BEFORE 09-JUN-2017) ABNORMAL ECG WHEN COMPARED WITH ECG OF 02-MAY-2017 22:12, QT HAS SHORTENED Confirmed by MD Gil, Butch ([id number]) on 06/10/2017 1:34:12 PM Referred By: Confirmed By:Butch Cordero MD
[2017-06-10] MEDS: chlordiazePOXIDE HCL 25 MG CAPSULE PO PRN (13:53)
[2017-06-10] MEDS ORDERED: ZOLPIDEM TARTRATE 10 MG TABLET (PARK CARE ONLY) PO PRN (22:00)
[2017-06-10] MEDS: THIAMINE HCL 100 MG TABLET (FP) PO SCH (22:41)
[2017-06-11] MEDS: chlordiazePOXIDE HCL 25 MG CAPSULE PO PRN (01:27)
[2017-06-11] MEDS: chlordiazePOXIDE HCL 25 MG CAPSULE PO SCH ×2 (05:48→10:19)
[2017-06-11] MEDS ORDERED: METHADONE HCL 5 MG TABLET (FOR DETOX USE ONLY) PO SCH (10:00)
[2017-06-11] MEDS: PRENATAL VITAMINS W/ FOLIC ACID TABLET (FP) PO SCH (10:20)
[2017-06-11] MEDS: amLODIPine BESYLATE 5 MG TABLET (FP) PO SCH (10:21)
[2017-06-11] MEDS: ASPIRIN 81 MG CHEWABLE TABLETS PO SCH (10:21)
[2017-06-11] MEDS: LISINOPRIL 5 MG TABLET (FP) PO SCH (10:21)
[2017-06-11] MEDS: NICOTINE POLACRILEX 2 MG GUM BC PRN (10:21)
[2017-06-11] MEDS: NICOTINE 21 MG/24 HOURS TOPICAL PATCH TD SCH (10:21)
--- NOTE | 2017-06-11 11:23 | PN ---
S CIWA - CIWA Score Nausea/Vomitin Muscle Tremors: 3 Anxiety: 3 Agitation: 3 Paroxysmal Sweats: 1-Minimal Palms Moist Orientation: 0-Oriented Tacttile Disturbances: 1-Very Mild Itch/Numbness Auditory Disturbances: 1-Very Mild Visual Disturbances: 0-None Headache: 2-Mild CIWA-Ar Total Score: 17 BHS COWS - Scale Resting Pulse: 0= [place] 80 or Below Sweatin= Chills/Flushing Restless Observation: 3= Extraneous Movement Pupil Size: 1= Pupils >than Normal Bone or Joint Aches: 2= Severe Diffuse Aches Runny Nose/ Eye Tearin= Runny Nose/Eyes GI Upset > 30mins: 2= Nausea/Diarrhea Tremor Observation of Outstretched Hands: 2= Slight Tremor Visible Yawning Observation: 1= 1-2x During Session Anxiety or Irritability: 2=Irritable/Anxious Goose Flesh Skin: 0=Smooth Skin COWS Score: 16 S Progress Note (SOAP) Subjective: ALERT,IRRITABLE,ANXIOUS,INTERRUPTED SLEEP,TREMOR,PAIN IN THE BODY AND BACK Objective: 06/11/17 11:21 Vital Signs Temperature 99.7 F H 06/11/17 09:54 Pulse Rate 57 L 06/11/17 09:54 Respiratory Rate 18 06/11/17 09:54 Blood Pressure 141/63 06/11/17 09:54 O2 Sat by Pulse Oximetry (%) Laboratory Last Values WBC 5.2 K/mm3 (4.0-10.0) D 06/10/17 07:30 RBC 4.97 M/mm3 (4.00-5.60) 06/10/17 07:30 Hgb 14.6 GM/dL (11.7-16.9) D 06/10/17 07:30 Hct 44.3 % (35.4-49) 06/10/17 07:30 MCV 89.1 fl (80-96) 06/10/17 07:30 MCH 29.4 pg (25.7-33.7) 06/10/17 07:30 MCHC 33.0 g/dl (32.0-35.9) 06/10/17 07:30 RDW 15.1 % (11.9-15.9) 06/10/17 07:30 Plt Count 163 K/MM3 (134-434) D 06/10/17 07:30 MPV 8.4 fl (7.5-11.1) 06/10/17 07:30 Sodium 140 mmol/L (136-145) 06/10/17 07:30 Potassium 4.2 mmol/L (3.5-5.1) 06/10/17 07:30 Chloride 104 mmol/L (98-107) 06/10/17 07:30 Carbon Dioxide 29 mmol/L (21-32) 06/10/17 07:30 Anion Gap 7 (8-16) L 06/10/17 07:30 BUN 16 mg/dL (7-18) 06/10/17 07:30 Creatinine 0.9 mg/dL (0.7-1.3) 06/10/17 07:30 Creat Clearance w eGFR > 60 (>60) 06/10/17 07:30 Random Glucose 68 mg/dL (74-106) L D 06/10/17 07:30 Calcium 8.0 mg/dL (8.5-10.1) L 06/10/17 07:30 Total Bilirubin 1.1 mg/dL (0.2-1.0) H D 06/10/17 07:30 AST 34 U/L (15-37) 06/10/17 07:30 ALT 35 U/L (12-78) D 06/10/17 07:30 Alkaline Phosphatase 87 U/L (45-117) 06/10/17 07:30 Total Protein 6.3 g/dl (6.4-8.2) L D 06/10/17 07:30 Albumin 3.4 g/dl (3.4-5.0) 06/10/17 07:30 Urine Color Yellow 06/09/17 23:40 Urine Appearance Clear 06/09/17 23:40 Urine pH 6.0 (5.0-8.0) 06/09/17 23:40 Ur Specific [place] 1.014 (1.001-1.035) 06/09/17 23:40 Urine Protein Negative (NEGATIVE) 06/09/17 23:40 Urine Glucose (UA) Negative (NEGATIVE) 06/09/17 23:40 Urine Ketones Negative (NEGATIVE) 06/09/17 23:40 Urine Blood Negative (NEGATIVE) 06/09/17 23:40 Urine Nitrite Negative (NEGATIVE) 06/09/17 23:40 Urine Bilirubin Negative (NEGATIVE) 06/09/17 23:40 Urine Urobilinogen 4.0 e.u/dl mg/dL (0.2-1.0) 06/09/17 23:40 Ur Leukocyte Esterase Negative (NEGATIVE) 06/09/17 23:40 RPR Titer Nonreactive (NONREACTIVE) 06/10/17 07:30 Assessment: 06/11/17 11:22 WITHDRAWAL SYMPTOM Plan: CONTINUE DETOX
--- NOTE | 2017-06-11 13:17 | PN ---
S Progress Note Note: PATIENT DID NOT WANT TO COMPLETE TREATMENT,SEEN BY COUNSELOR,DAVIDED KHUSHI CUBA, DID NOT WANT TO WAIT
--- NOTE | 2017-06-11 13:20 | DS ---
[facility] Detox Discharge Summary Admission Date: 06/09/17 Discharge Date: 06/11/17 - History Present History: Alcohol Dependence, Opioid Dependence, Sedative Dependence Additional Comments: PATIENT DID NOT WANT TO COMPLETE TREATMENT,SEEN BY COUNSELOR,SIGNED RELEASE AMA, DID NOT WANT TO WAIT Pertinent Past History: CORONARY ARTERY DISEASE S/P ANGIOPLASTY WITH STENT [place] HEPATITIS C POSITIVE PPD - Physical Exam Results Vital Signs: Vital Signs Temperature 99.7 F H 06/11/17 09:54 Pulse Rate 57 L 06/11/17 09:54 Respiratory Rate 18 06/11/17 09:54 Blood Pressure 141/63 06/11/17 09:54 O2 Sat by Pulse Oximetry (%) Pertinent Admission Physical Exam Findings: WITHDRAWAL SIGNS AND SYMPTOM - Medication Discharge Medications: Ambulatory Orders Aspirin [ASA -] 81 mg PO DAILY 08/25/16 Amlodipine Besylate [Norvasc -] 5 mg PO DAILY 11/05/16 Lisinopril [Zestril] 5 mg PO DAILY 11/05/16 Isosorbide Mononitrate [Imdur -] 60 mg PO DAILY 05/03/17 - Diagnosis (1) Opioid dependence with withdrawal Current Visit: Yes Status: Acute (2) Alcohol dependence with uncomplicated withdrawal Current Visit: Yes Status: Acute (3) Benzodiazepine dependence Current Visit: Yes Status: Acute (4) Nicotine dependence Current Visit: Yes Status: Chronic Qualifiers: Nicotine product type: cigarettes Substance use status: uncomplicated Qualified Code(s): F17.210 - Nicotine dependence, cigarettes, uncomplicated (5) CAD (coronary artery disease) Current Visit: No Status: Chronic Qualifiers: Coronary Disease-Associated Artery/Lesion type: [place] artery [place] vs. transplanted heart: [place] heart Associated angina: without angina Qualified Code(s): I25.10 - Atherosclerotic heart disease of [place] coronary artery without angina pectoris (6) H/O heart artery stent Current Visit: No Status: Chronic (7) Hepatitis C Current Visit: No Status: Chronic Qualifiers: Viral hepatitis chronicity: chronic Hepatic coma status: without hepatic coma Qualified Code(s): B18.2 - Chronic viral hepatitis C (8) [place] (myocardial infarction) Current Visit: No Status: Chronic (9) PPD positive Current Visit: No Status: Chronic (10) Hypertension Current Visit: Yes Status: Acute - AMA Did Patient Leave Against Medical Advice: Yes
[2017-06-11 15:45] VITALS: BP 155/84; PULSE 73; TEMP 98.4
[2017-06-11] MEDS ORDERED: chlordiazePOXIDE 5 MG CAPSULE PO SCH (23:00)
[2017-06-12] MEDS ORDERED: chlordiazePOXIDE HCL 10 MG CAPSULE PO SCH (23:00)
[2017-06-13] MEDS ORDERED: METHADONE HCL 10 MG TABLET (FOR DETOX USE ONLY) PO SCH (10:00)
[2017-06-14] MEDS ORDERED: METHADONE HCL 5 MG TABLET (FOR DETOX USE ONLY) PO SCH (06:00)
== END 2017-06-11 15:00 | disposition left against medical advice (07) | DRG 770 ==
LOC: YASAS 11:38 → Y6N 17:09
PROVIDERS: ADMIT Internal Medicine; ATTEND Internal Medicine
PROC: HZ2ZZZZ Detoxification Services for Substance Abuse Treatment (ICD-10-PCS; principal; 2017-06-07)
DX: F11.23 Opioid dependence with withdrawal (principal); F10.230 Alcohol dependence with withdrawal, uncomplicated; F13.20 Sedative, hypnotic or anxiolytic dependence, uncomplicated; F17.210 Nicotine dependence, cigarettes, uncomplicated; I10 Essential (primary) hypertension; I25.10 Atherosclerotic heart disease of native coronary artery without angina pectoris; I25.2 Old myocardial infarction; I49.9 Cardiac arrhythmia, unspecified; R00.1 Bradycardia, unspecified; B18.2 Chronic viral hepatitis C; Z86.74 Personal history of sudden cardiac arrest; Z95.5 Presence of coronary angioplasty implant and graft; Z91.013 Allergy to seafood
CPT/HCPCS: 36415; 80053; 81003; 85027; 86593; 93005; 93010

== ENCOUNTER 2018-03-29 14:06 | Inpatient (IN) | payer OTHER ==
[2018-03-29 14:18] VITALS: BMI 22.7
--- NOTE | 2018-03-29 16:38 | HP ---
COWS - Scale Resting Pulse: 1= [place] 81-100 Sweatin= Chills/Flushing Restless Observation: 0= Sits Still Pupil Size: 0= Normal to Room Light Bone or Joint Aches: 2= Severe Diffuse Aches Runny Nose/ Eye Tearin= Nasal Congestion GI Upset > 30mins: 3= Vomiting/Diarrhea Tremor Observation: 2= Slight Tremor Visible Yawning Observation: 0= None Anxiety or Irritability: 1=Feels Anxious/Irritable Goose Flesh Skin: 0=Smooth Skin COWS Score: 11 CIWA Score Nausea/Vomitin Muscle Tremors: 3 Anxiety: 3 Agitation: 4-Moderately Restless Paroxysmal Sweats: 3 Orientation: 0-Oriented Tacttile Disturbances: 0-None Auditory Disturbances: 0-None Visual Disturbances: 0-None Headache: 0-None Present CIWA-Ar Total Score: 16 - Admission Criteria [facility]ASAS Guidelines: Admission for Medically Managed Detox: Requires at least one of the followin. CIWA greater than 12 2. Seizures within the past 24 hours 3. Delirium tremens within the past 24 hours 4. Hallucinations within the past 24 hours 5. Acute intervention needed for co occurring medical disorder 6. Acute intervention needed for co occurring psychiatric disorder 7. Severe withdrawal that cannot be handled at a lower level of care (continued vomiting, continued diarrhea, abnormal vital signs) requiring intravenous medication and/or fluids 8. Patient presents the following: CIWA greater than 12 Admission Criteria Met: Admission criteria met Admission ROS [facility] Chief Complaint: "I am here to get help" I never did the rehab befor, I want to do the rehab this time Allergies/Adverse Reactions: Allergies Allergy/AdvReac Type Severity Reaction Status Date / Time Fish Containing Products Allergy Severe Vomiting Verified 03/29/18 14:23 No Known Drug Allergies Allergy Verified 03/29/18 14:23 History of Present Illness: 42 yr old male with a heroin and alcohol addiction presents for detox. pt was last here in may. Endorses a 2yr Sober period in 2016 18 months of which he was in skilled nursing. Denies withdrawal induced seizures or blackouts. Denies previous nor past SI/HI. Hx: [place] (2016), cardiac stent, HTN, Hep C Denies psych hx Exam Limitations: No Limitations - Ebola screening Have you traveled outside of the country in the last 21 days: No Have you had contact with anyone from an Ebola affected area: No Have you been sick,other than usual withdrawal symptoms: No Do you have a fever: No - Review of Systems Constitutional: Loss of Appetite, Night Sweats, Unintentional Wgt. Loss EENT: reports: Nose Congestion Respiratory: reports: No Symptoms reported Cardiac: reports: Irregular Heart Rate GI: reports: Constipated, Diarrhea, Nausea, Poor Appetite, Vomiting : reports: No Symptoms Reported Musculoskeletal: reports: Back Pain (lower) Integumentary: reports: No Symptoms Reported Neuro: reports: No Symptoms reported Endocrine: reports: No Symptoms Reported Hematology: reports: No Symptoms Reported Psychiatric: reports: No Sypmtoms Reported, Orientated x3 Other Systems: Reviewed and Negative Patient History - Patient Medical History Hx Anemia: No Hx Asthma: No Hx Chronic Obstructive Pulmonary Disease (COPD): No Hx Cancer: No Hx Cardiac Disorders: Yes (cardiac arrest d/t drugs S/P ANGIOPLASTY WITH STENT ( Feb 2013)) Hx Congestive Heart Failure: No Hx Hypertension: Yes (ON MEDICATION - Lisinopril 5 mg and Isorbide ) Hx Hypercholesterolemia: No Hx Pacemaker: No HX Cerebrovascular Accident: No Hx Seizures: No Hx Dementia: No Hx Diabetes: No Hx Gastrointestinal Disorders: No Hx Liver Disease: No Hx Genitourinary Disorders: No Hx Sexually Transmitted Disorders: No Hx Renal Disease (ESRD): No Hx Thyroid Disease: No Hx Human Immunodeficiency Virus (HIV): No (negative) Hx Hepatitis C: Yes (Not treated) Hx Depression: No Hx Suicide Attempt: No (denies past or current ideation/Attempt) Hx Bipolar Disorder: No Hx Schizophrenia: No - Patient Surgical History Past Surgical History: Yes Hx Neurologic Surgery: No Hx Cataract Extraction: No Hx Cardiac Surgery: Yes (S/P ANGIOPLASTY WITH STENT) Hx Lung Surgery: No Hx Breast Surgery: No Hx Breast Biopsy: No Hx Abdominal Surgery: No Hx Appendectomy: No Hx Cholecystectomy: No Hx Genitourinary Surgery: No Hx Section: No Hx Orthopedic Surgery: No Other Surgical History: tonsillectomy in 1994 Anesthesia Reaction: No - PPD History Previous Implant?: No Results: c-xray(-),08/25/ PPD to be Administered?: No - Reproductive History Patient is a Female of Child Bearing Age (11 -55 yrs old): No - Smoking Cessation Smoking history: Current every day smoker Have you smoked in the past 12 months: Yes Aproximately how many cigarettes per day: 20 Cigars Per Day: 0 Hx Chewing Tobacco Use: No Initiated information on smoking cessation: Yes 'Breaking Loose' booklet given: 03/29/18 - Substance & Tx. History Hx Alcohol Use: Yes Hx Substance Use: Yes Substance Use Type: Alcohol, Heroin, Marijuana Hx Substance Use Treatment: Yes - Substances Abused Heroin Route: Injection Frequency: Daily Amount used: 22 bags Age of first use: 27 Date of Last Use: 03/29/18 Alcohol Route: Oral Frequency: Daily Amount used: 2 pints of vodka, 2 40oz cans of malt liquor Age of first use: 18 Date of Last Use: 03/29/18 Alprazolam (Xanax) Route: Oral Frequency: Daily Amount used: 2 mg daily Age of first use: 37 Date of Last Use: 03/28/18 marijuana Route: Smoking Frequency: Daily Amount used: 1 Age of first use: 18 Date of Last Use: 03/29/18 Family Disease History - Family Disease History Family Disease History: Respiratory: Mother (Emphysema), Other: Father (Unknown) Admission Physical Exam S - Vital Signs Vital Signs: Vital Signs - 24 hr 03/29/18 14:15 Temperature 99.6 F Pulse Rate 89 Respiratory 18 Rate Blood Pressure 125/85 - Physical General Appearance: Yes: Mild Distress, Other (labile mood) HEENTM: Yes: Nasal Congestion Respiratory: Yes: Lungs Clear, No Respiratory Distress, No Accessory Muscle Use Neck: Yes: No masses,lesions,Nodules, Trachea in good position, Other (Track qureshi to L aspect, no s/s of infection) Breast: Yes: Breast Exam Deferred Cardiology: Yes: Regular Rate Abdominal: Yes: Non Tender, Soft, Distended Genitourinary: Yes: Within Normal Limits Back: Yes: Normal Inspection Musculoskeletal: Yes: full range of Motion, Gait Steady Extremities: Yes: Normal Capillary Refill, Normal Inspection 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: Yes: Within Normal Limits, Fully Oriented, Alert, Motor Strength 5 /5 Integumentary: Yes: Normal Color, Dry, Warm Lymphatic: Yes: Within Normal Limits - Diagnostic (1) Alcohol dependence with uncomplicated withdrawal Current Visit: Yes Status: Acute (2) Benzodiazepine dependence Current Visit: Yes Status: Acute (3) DVT prophylaxis Current Visit: Yes Status: Chronic (4) Opioid dependence with withdrawal Current Visit: Yes Status: Acute (5) H/O heart artery stent Current Visit: Yes Status: Chronic (6) Hepatitis C Current Visit: Yes Status: Chronic Qualifiers: Viral hepatitis chronicity: chronic Hepatic coma status: without hepatic coma Qualified Code(s): B18.2 - Chronic viral hepatitis C (7) Hypertension Current Visit: Yes Status: Chronic (8) Nicotine dependence Current Visit: Yes Status: Acute Qualifiers: Nicotine product type: cigarettes Substance use status: uncomplicated Qualified Code(s): F17.210 - Nicotine dependence, cigarettes, uncomplicated (9) [place] (myocardial infarction) Current Visit: Yes Status: Chronic (10) PPD positive Current Visit: No Status: Chronic (11) Tinea pedis of both feet Current Visit: Yes Status: Chronic (12) Track qureshi due to intravenous drug abuse Current Visit: Yes Status: Acute Cleared for Admission [facility] - Detox or Rehab [facility] Level of Care: Medically Managed Detox Regimen/Protocol: Methadone/Valium S Breath Alcohol Content Breath Alcohol Content: 0.041 Urine Drug Screen - Results Drug Screen Negative: No Urine Drug Screen Results: THC-Marijuana, LUPIS-Cocaine, OPI-Opiates, BZO- Benzodiazepines
[2018-03-29] MEDS ORDERED: diazePAM 5 MG TABLET PO ONE (17:18)
[2018-03-29] MEDS ORDERED: P-EPHED 60MG/TRIPROLIDI 2.5MG TABLET PO PRN (17:18)
[2018-03-29] MEDS ORDERED: MENTHOL/PHENOL 1 EACH UD MM PRN (17:18)
[2018-03-29] MEDS ORDERED: IBUPROFEN 400 MG TABLET (FP) PO PRN (17:18)
[2018-03-29] MEDS ORDERED: LOPERAMIDE HCL 2 MG CAPSULE PO PRN (17:18)
[2018-03-29] MEDS ORDERED: NICOTINE POLACRILEX 2 MG GUM BC PRN (17:18)
[2018-03-29] MEDS ORDERED: METHADONE HCL 10 MG TABLET (FOR DETOX USE ONLY) PO ONE ×2 (17:18→23:00)
[2018-03-29] MEDS ORDERED: MAG HYDROX/AL HYDROX/SIMETH 30 ML UNIT-DOSE CUP PO PRN (17:18)
[2018-03-29] MEDS ORDERED: MAGNESIUM CITRATE 300 ML BOTTLE PO PRN (17:18)
[2018-03-29] MEDS ORDERED: MAGNESIUM HYDROX 2400MG/30ML ORAL SUSPENSION 30 ML CUP PO PRN (17:18)
[2018-03-29] MEDS ORDERED: guaiFENesin/D-METHORPHAN HB 10 ML UNIT-DOSE CUPS PO PRN (17:18)
[2018-03-29] MEDS ORDERED: ISOSORBIDE MONONITRATE 60 MG TAB.SR.24H (FP) PO SCH (17:45)
--- NOTE | 2018-03-29 18:42 | PN ---
S Progress Note Note: Imdur stopped and Verapamil ordered because pt's stated pt does not take IMDUR (any more?) but is on verapamil 80mg daily
[2018-03-29] MEDS: amLODIPine BESYLATE 5 MG TABLET (FP) PO SCH (19:54)
[2018-03-29] MEDS: LISINOPRIL 5 MG TABLET (FP) PO SCH (19:55)
[2018-03-29] MEDS: ASPIRIN 81 MG CHEWABLE TABLETS PO SCH (19:55)
[2018-03-29] MEDS: NICOTINE 14 MG/24 HOURS TOPICAL PATCH TD SCH (19:55)
[2018-03-29] MEDS: diazePAM 5 MG TABLET PO SCH (23:28)
[2018-03-29] MEDS: THIAMINE HCL 100 MG TABLET (FP) PO SCH (23:28)
[2018-03-30] MEDS: diazePAM 5 MG TABLET PO SCH ×3 (05:28→22:36)
[2018-03-30] MEDS ORDERED: TRIMETHOBENZAMIDE HCL 200MG/2ML INJ IM PRN (05:42)
[2018-03-30] MEDS: ONDANSETRON *ODT* 4 MG TABLET SL PRN ×3 (06:27→15:59)
[2018-03-30] MEDS ORDERED: METHADONE HCL 10 MG TABLET (FOR DETOX USE ONLY) PO SCH (10:00)
[2018-03-30] MEDS: diazePAM 5 MG TABLET PO PRN ×2 (11:00→14:49)
[2018-03-30] MEDS: VERAPAMIL HCL 80 MG TABLET PO SCH (11:05)
[2018-03-30] MEDS: BACITRACIN 0.9 GM PACKET TP SCH (11:05)
[2018-03-30] MEDS: ASPIRIN 81 MG CHEWABLE TABLETS PO SCH (11:05)
[2018-03-30] MEDS: LISINOPRIL 5 MG TABLET (FP) PO SCH (11:06)
[2018-03-30] MEDS: amLODIPine BESYLATE 5 MG TABLET (FP) PO SCH (11:06)
[2018-03-30] MEDS: NICOTINE 14 MG/24 HOURS TOPICAL PATCH TD SCH (11:06)
[2018-03-30] MEDS: PRENATAL VITAMINS W/ FOLIC ACID TABLET (FP) PO SCH (11:06)
--- NOTE | 2018-03-30 12:28 | PN ---
[facility] CIWA - CIWA Score Nausea/Vomitin-Mild Nausea/No Vomiting (patient reports vomiting requests IM methadone no vomitus noted methadone jpo given tolerate well) Muscle Tremors: 4-Moderate,w/Arms Extend Anxiety: 3 Agitation: 2 Paroxysmal Sweats: 1-Minimal Palms Moist Orientation: 1-Uncertain about Date Tacttile Disturbances: 0-None Auditory Disturbances: 0-None Visual Disturbances: 0-None Headache: 2-Mild CIWA-Ar Total Score: 14 S COWS - Scale Resting Pulse: 0= [place] 80 or Below Sweatin= Chills/Flushing Restless Observation: 0= Sits Still Pupil Size: 0= Normal to Room Light Bone or Joint Aches: 2= Severe Diffuse Aches Runny Nose/ Eye Tearin= Runny Nose/Eyes GI Upset > 30mins: 2= Nausea/Diarrhea Tremor Observation of Outstretched Hands: 2= Slight Tremor Visible Yawning Observation: 2= >3x During Session Anxiety or Irritability: 2=Irritable/Anxious Goose Flesh Skin: 0=Smooth Skin COWS Score: 13 S Progress Note (SOAP) Subjective: gi distress nausea tremor sweat body ache joints pain Objective: 03/30/18 12:29 Vital Signs Temperature 98.7 F 03/30/18 06:04 Pulse Rate 64 03/30/18 06:04 Respiratory Rate 18 03/30/18 06:04 Blood Pressure 138/84 03/30/18 06:04 O2 Sat by Pulse Oximetry (%) lab pending Assessment: 03/30/18 12:33 withdrawal sx Plan: continue detox
[2018-03-30] MEDS ORDERED: VERAPAMIL HCL 80 MG TABLET PO ONE (12:57)
[2018-03-30] MEDS ORDERED: LISINOPRIL 5 MG TABLET (FP) PO ONE ×2 (12:58→18:30)
[2018-03-30] MEDS ORDERED: amLODIPine BESYLATE 5 MG TABLET (FP) PO ONE (12:59)
--- NOTE | 2018-03-30 15:43 | EKG ---
Test Reason : Blood Pressure : / mmHG Vent. Rate : 068 BPM Atrial Rate : 068 BPM P-R Int : 176 ms QRS Dur : 092 ms QT Int : 418 ms P-R-T Axes : 056 060 067 degrees QTc Int : 444 ms NORMAL SINUS RHYTHM INFERIOR-POSTERIOR INFARCT (CITED ON OR BEFORE 09-JUN-2017) ABNORMAL ECG WHEN COMPARED WITH ECG OF 09-JUN-2017 22:02, NO SIGNIFICANT CHANGE WAS FOUND Confirmed by HUI GALLOWAY MD ([id number]) on 03/30/2018 3:42:46 PM Referred By: Bouchra Jackson Confirmed By:HUI GALLOWAY MD
[2018-03-30] MEDS ORDERED: ONDANSETRON *ODT* 4 MG TABLET SL ONE (15:47)
[2018-03-30] MEDS ORDERED: METHOCARBAMOL 500 MG TABLET PO ONE (16:15)
[2018-03-30] MEDS: RANITIDINE HCL 150 MG TABLET (FP) PO SCH (22:36)
[2018-03-30] MEDS: ACETAMINOPHEN 325 MG TABLET (FP) PO PRN (22:37)
[2018-03-30] MEDS: THIAMINE HCL 100 MG TABLET (FP) PO SCH (22:39)
[2018-03-30] MEDS: MELATONIN 5 MG TABLETS PO PRN (23:52)
[2018-03-31] MEDS: ONDANSETRON *ODT* 4 MG TABLET SL PRN (00:54)
[2018-03-31] MEDS: diazePAM 5 MG TABLET PO PRN ×2 (00:59→16:39)
[2018-03-31] MEDS ORDERED: CYCLOBENZAPRINE HCL 5 MG TABLET PO ONE (03:27)
[2018-03-31] MEDS: cloNIDine HCL 0.1 MG TABLET PO PRN ×2 (07:21→17:22)
[2018-03-31 10:22] LABS: HEMATOCRIT 50.8 % (35.4-49); MCH 29.1 pg (25.7-33.7); MCHC 33.4 g/dl (32.0-35.9); MEAN CELL VOLUME 87.1 fl (80-96); MEAN PLT VOLUME 8.3 fl (7.5-11.1); PLATELET COUNT 223 K/MM3 (134-434); RBC 5.84 M/mm3 (4.00-5.60); RDW 14.1 % (11.9-15.9); WHITE BLOOD COUNT 8.7 K/mm3 (4.0-10.0)
[2018-03-31] MEDS: amLODIPine BESYLATE 5 MG TABLET (FP) PO SCH ×2 (11:18→22:33)
[2018-03-31] MEDS: METHADONE HCL 5 MG TABLET (FOR DETOX USE ONLY) PO SCH (11:18)
[2018-03-31] MEDS: BACITRACIN 0.9 GM PACKET TP SCH (11:18)
[2018-03-31] MEDS: RANITIDINE HCL 150 MG TABLET (FP) PO SCH ×2 (11:18→22:33)
[2018-03-31] MEDS: PRENATAL VITAMINS W/ FOLIC ACID TABLET (FP) PO SCH (11:18)
[2018-03-31] MEDS: diazePAM 5 MG TABLET PO SCH ×2 (11:18→22:33)
[2018-03-31] MEDS: ASPIRIN 81 MG CHEWABLE TABLETS PO SCH (11:19)
[2018-03-31] MEDS: VERAPAMIL HCL 80 MG TABLET PO SCH (11:19)
[2018-03-31] MEDS: NICOTINE 14 MG/24 HOURS TOPICAL PATCH TD SCH (11:19)
[2018-03-31] MEDS: LISINOPRIL 5 MG TABLET (FP) PO SCH ×2 (11:20→22:33)
[2018-03-31 12:07] LABS: ALK PHOS 108 U/L (45-117); ANION GAP 10 MMOL/L (8-16); BLOOD UREA NITROGEN 16 mg/dL (7-18); CALCIUM 9.1 mg/dL (8.5-10.1); CHLORIDE 103 mmol/L (98-107); CO2 26 mmol/L (21-32); CREATININE 1.2 mg/dL (0.55-1.3); GLUCOSE,RANDOM 94 mg/dL (74-106); POTASSIUM 3.5 mmol/L (3.5-5.1); SGOT/AST 48 U/L (15-37); SGPT/ALT 43 U/L (13-61); SODIUM 138 mmol/L (136-145); TOT PROT 8.4 g/dl (6.4-8.2)
--- NOTE | 2018-03-31 15:07 | PN ---
[facility] CIWA - CIWA Score Nausea/Vomitin-Mild Nausea/No Vomiting (no vomiting today) Muscle Tremors: 4-Moderate,w/Arms Extend Anxiety: 3 Agitation: 3 Paroxysmal Sweats: 1-Minimal Palms Moist Orientation: 0-Oriented Tacttile Disturbances: 0-None Auditory Disturbances: 0-None Visual Disturbances: 0-None Headache: 1-Very Mild CIWA-Ar Total Score: 13 BHS COWS - Scale Resting Pulse: 0= [place] 80 or Below Sweatin= Chills/Flushing Restless Observation: 0= Sits Still Pupil Size: 0= Normal to Room Light Bone or Joint Aches: 2= Severe Diffuse Aches Runny Nose/ Eye Tearin= Nasal Congestion GI Upset > 30mins: 2= Nausea/Diarrhea Tremor Observation of Outstretched Hands: 2= Slight Tremor Visible Yawning Observation: 1= 1-2x During Session Anxiety or Irritability: 1=Feels Anxious/Irritable Goose Flesh Skin: 0=Smooth Skin COWS Score: 10 [facility] Progress Note (SOAP) Subjective: tremor sweat body aches joints pain restlessness gi distress Objective: 03/31/18 15:27 Vital Signs Temperature 98.4 F 03/31/18 14:49 Pulse Rate 55 L 03/31/18 14:49 Respiratory Rate 16 03/31/18 14:49 Blood Pressure 150/91 03/31/18 14:49 O2 Sat by Pulse Oximetry (%) Laboratory Last Values WBC 8.7 K/mm3 (4.0-10.0) 03/31/18 07:00 RBC 5.84 M/mm3 (4.00-5.60) H 03/31/18 07:00 Hgb 17.0 GM/dL (11.7-16.9) H 03/31/18 07:00 Hct 50.8 % (35.4-49) H 03/31/18 07:00 MCV 87.1 fl (80-96) 03/31/18 07:00 MCH 29.1 pg (25.7-33.7) 03/31/18 07:00 MCHC 33.4 g/dl (32.0-35.9) 03/31/18 07:00 RDW 14.1 % (11.9-15.9) 03/31/18 07:00 Plt Count 223 K/MM3 (134-434) D 03/31/18 07:00 MPV 8.3 fl (7.5-11.1) 03/31/18 07:00 Sodium 138 mmol/L (136-145) 03/31/18 07:00 Potassium 3.5 mmol/L (3.5-5.1) 03/31/18 07:00 Chloride 103 mmol/L (98-107) 03/31/18 07:00 Carbon Dioxide 26 mmol/L (21-32) 03/31/18 07:00 Anion Gap 10 MMOL/L (8-16) 03/31/18 07:00 BUN 16 mg/dL (7-18) 03/31/18 07:00 Creatinine 1.2 mg/dL (0.55-1.3) 03/31/18 07:00 Creat Clearance w eGFR > 60 (>60) 03/31/18 07:00 Random Glucose 94 mg/dL (74-106) 03/31/18 07:00 Calcium 9.1 mg/dL (8.5-10.1) 03/31/18 07:00 Total Bilirubin 1.0 mg/dL (0.2-1) 03/31/18 07:00 AST 48 U/L (15-37) H 03/31/18 07:00 ALT 43 U/L (13-61) 03/31/18 07:00 Alkaline Phosphatase 108 U/L (45-117) 03/31/18 07:00 Total Protein 8.4 g/dl (6.4-8.2) H 03/31/18 07:00 Albumin 4.0 g/dl (3.4-5.0) 03/31/18 07:00 RPR Titer Nonreactive (NONREACTIVE) 03/31/18 07:00 HIV 1&2 Antibody Screen Negative 03/31/18 07:00 HIV P24 Antigen Negative 03/31/18 07:00 lab noted Assessment: 03/31/18 15:37 withdrawal sx Plan: continue detox increase amlodipine to 5 mg bid
[2018-03-31] MEDS: THIAMINE HCL 100 MG TABLET (FP) PO SCH (22:33)
[2018-03-31] MEDS: MELATONIN 5 MG TABLETS PO PRN (22:38)
[2018-04-01] MEDS: ACETAMINOPHEN 325 MG TABLET (FP) PO PRN (01:01)
[2018-04-01] MEDS: diazePAM 5 MG TABLET PO PRN ×4 (01:01→17:13)
[2018-04-01] MEDS: amLODIPine BESYLATE 5 MG TABLET (FP) PO SCH ×2 (09:33→22:25)
[2018-04-01] MEDS: ASPIRIN 81 MG CHEWABLE TABLETS PO SCH (09:33)
[2018-04-01] MEDS: PRENATAL VITAMINS W/ FOLIC ACID TABLET (FP) PO SCH (09:33)
[2018-04-01] MEDS: RANITIDINE HCL 150 MG TABLET (FP) PO SCH ×2 (09:33→22:26)
[2018-04-01] MEDS: VERAPAMIL HCL 80 MG TABLET PO SCH (09:33)
[2018-04-01] MEDS: BACITRACIN 0.9 GM PACKET TP SCH (09:33)
[2018-04-01] MEDS: LISINOPRIL 5 MG TABLET (FP) PO SCH ×2 (09:33→22:25)
[2018-04-01] MEDS: diazePAM 5 MG TABLET PO SCH ×2 (09:34→22:26)
[2018-04-01] MEDS: NICOTINE 14 MG/24 HOURS TOPICAL PATCH TD SCH (09:34)
[2018-04-01] MEDS: METHADONE HCL 5 MG TABLET (FOR DETOX USE ONLY) PO SCH (09:34)
--- NOTE | 2018-04-01 11:36 | PN ---
[facility] Progress Note Note: PATIENT CONTINUES WITH DETOX REGIMEN. C/O NAUSEA, CHILLS AND SHAKES. Vital Signs Temperature 97.7 F 04/01/18 09:08 Pulse Rate 63 04/01/18 09:08 Respiratory Rate 16 04/01/18 09:08 Blood Pressure 136/90 04/01/18 09:08 O2 Sat by Pulse Oximetry (%) Laboratory Tests 03/31/18 03/31/18 03/31/18 07:00 07:00 07:00 WBC 8.7 RBC 5.84 H Hgb 17.0 H Hct 50.8 H MCV 87.1 MCH 29.1 MCHC 33.4 RDW 14.1 Plt Count 223 D MPV 8.3 Sodium 138 Potassium 3.5 Chloride 103 Carbon Dioxide 26 Anion Gap 10 BUN 16 Creatinine 1.2 Creat Clearance w eGFR > 60 Random Glucose 94 Calcium 9.1 Total Bilirubin 1.0 AST 48 H ALT 43 Alkaline Phosphatase 108 Total Protein 8.4 H Albumin 4.0 RPR Titer HIV 1&2 Antibody Screen Negative HIV P24 Antigen Negative 03/31/18 07:00 WBC RBC Hgb Hct MCV MCH MCHC RDW Plt Count MPV Sodium Potassium Chloride Carbon Dioxide Anion Gap BUN Creatinine Creat Clearance w eGFR Random Glucose Calcium Total Bilirubin AST ALT Alkaline Phosphatase Total Protein Albumin RPR Titer Nonreactive HIV 1&2 Antibody Screen HIV P24 Antigen PE: ALERT AND ORIENTED X 3 SKIN WARM AND DRY EXT FULL ROM, NO VISIBLE TREMORS AT THIS TIME AMB AD TRUDY WITHDRAWAL SX CONTINUE DETOX ENCOURAGE ORAL FLUIDS CONTINUE TO MONITOR CLINICALLY FOR D/C Friday04/03/18
[2018-04-01] MEDS: cloNIDine HCL 0.1 MG TABLET PO PRN (12:11)
[2018-04-01] MEDS: CYCLOBENZAPRINE HCL 10 MG TABLET (FP) PO PRN (19:01)
[2018-04-01] MEDS: MELATONIN 5 MG TABLETS PO PRN (22:26)
[2018-04-01] MEDS: THIAMINE HCL 100 MG TABLET (FP) PO SCH (22:26)
[2018-04-02] MEDS: cloNIDine HCL 0.1 MG TABLET PO PRN (02:43)
[2018-04-02] MEDS: CYCLOBENZAPRINE HCL 10 MG TABLET (FP) PO PRN (02:43)
--- NOTE | 2018-04-02 08:09 | PN ---
[facility] Progress Note Note: seen for report of pain to right inner wrist after blood draw. Client denies numbness, tingling, decrease/loss of rom to hand/wrist or digits, fever, chills. client seen seated at bedside after just coming out of the shower a/o x 3 nad pointing to his right wrist, concerned about having his blood drawn right wrist examined no visible injuries, swelling, ecchyhmosis or s/sx of infection noted. there is full rom to wrist, elbow and shoulder. muscle strength 5/5. good radial/ ulnar and brachial pulses noted. no tactile disturbances noted Vital Signs Temperature 97.5 F L 04/02/18 06:26 Pulse Rate 53 L 04/02/18 06:26 Respiratory Rate 18 04/02/18 06:26 Blood Pressure 122/83 04/02/18 06:26 O2 Sat by Pulse Oximetry (%) a- s/p blood draw with no injuries noted p- continue to monitor may use ice packs for comfort should client request prn x 10 mn qid x 24 hours tylenol for pain
[2018-04-02] MEDS ORDERED: METHADONE HCL 5 MG TABLET (FOR DETOX USE ONLY) PO ONE (08:57)
[2018-04-02 09:11] VITALS: BP 109/75; PULSE 74; TEMP 98.4
[2018-04-02] MEDS: RANITIDINE HCL 150 MG TABLET (FP) PO SCH (09:20)
[2018-04-02] MEDS: ASPIRIN 81 MG CHEWABLE TABLETS PO SCH (09:20)
[2018-04-02] MEDS: BACITRACIN 0.9 GM PACKET TP SCH (09:20)
[2018-04-02] MEDS: LISINOPRIL 5 MG TABLET (FP) PO SCH (09:20)
[2018-04-02] MEDS: PRENATAL VITAMINS W/ FOLIC ACID TABLET (FP) PO SCH (09:20)
[2018-04-02] MEDS: NICOTINE 14 MG/24 HOURS TOPICAL PATCH TD SCH (09:20)
[2018-04-02] MEDS: VERAPAMIL HCL 80 MG TABLET PO SCH (09:20)
[2018-04-02] MEDS: amLODIPine BESYLATE 5 MG TABLET (FP) PO SCH (09:20)
[2018-04-02] MEDS ORDERED: METHADONE HCL 10 MG TABLET (FOR DETOX USE ONLY) PO SCH (10:00)
[2018-04-02] MEDS ORDERED: diazePAM 5 MG TABLET PO SCH (10:00)
--- NOTE | 2018-04-02 13:49 | DS ---
[facility] Detox Discharge Summary Admission Date: 03/29/18 Discharge Date: 04/02/18 - History Present History: Alcohol Dependence, Opioid Dependence - Physical Exam Results Vital Signs: Vital Signs Temperature 98.4 F 04/02/18 09:10 Pulse Rate 74 04/02/18 09:10 Respiratory Rate 18 04/02/18 09:10 Blood Pressure 109/75 04/02/18 09:10 O2 Sat by Pulse Oximetry (%) Pertinent Admission Physical Exam Findings: PATIENT REQUESTED EARLY DISCHARGE FOR TODAY. PATIENT DENIES MEDICAL COMPLAINTS TODAY AND SI/HI. PATIENT TOLERATED DETOX WITHOUT ADVERSE EVENT. PATIENT TO ARRANGE OUTPATIENT TREATMENT INDEPENDENTLY. ENCOURAGE PATIENT TO ATTEND GROUP MEETINGS TO PREVENT RELAPSE. PATIENT OFFERED NARCAN KIT BUT STATES HE HAS ONE ALREADY. PATIENT D/C HOME AND D/C INSTRUCTIONS GIVEN BY TO PATIENT BY STAFF. - Treatment Hospital Course: Detox Protocol Followed, Detoxed Safely, Responded well, Discharged Condition Good, Rehab Referral Accepted - Medication Discharge Medications: Ambulatory Orders Isosorbide Mononitrate [Imdur -] 60 mg PO DAILY #30 tab.sr.24h 06/11/17 Amlodipine Besylate [Norvasc -] 5 mg PO BID #28 tablet 04/01/18 Aspirin [ASA -] 81 mg PO DAILY #14 tab.chew 04/01/18 Lisinopril [Prinivil] 10 mg PO DAILY #14 tablet 04/01/18 - Diagnosis (1) Alcohol dependence with uncomplicated withdrawal Status: Resolved (2) Opioid dependence with withdrawal Status: Resolved - AMA Did Patient Leave Against Medical Advice: No
[2018-04-03] MEDS ORDERED: METHADONE HCL 5 MG TABLET (FOR DETOX USE ONLY) PO SCH (06:00)
== END 2018-04-02 09:25 | disposition home or self-care (01) | DRG 773 ==
LOC: YASAS 14:06 → Y3N 18:50
PROC: HZ2ZZZZ Detoxification Services for Substance Abuse Treatment (ICD-10-PCS; principal; 2018-03-29)
DX: F11.23 Opioid dependence with withdrawal (principal); F10.230 Alcohol dependence with withdrawal, uncomplicated; F13.230 Sedative, hypnotic or anxiolytic dependence with withdrawal, uncomplicated; F17.210 Nicotine dependence, cigarettes, uncomplicated; I10 Essential (primary) hypertension; I25.2 Old myocardial infarction; B18.2 Chronic viral hepatitis C; R76.11 Nonspecific reaction to tuberculin skin test without active tuberculosis; B35.3 Tinea pedis; L90.5 Scar conditions and fibrosis of skin; Z86.74 Personal history of sudden cardiac arrest; Z95.5 Presence of coronary angioplasty implant and graft; Z91.013 Allergy to seafood
CPT/HCPCS: 36415; 71045-TC-FY; 80053; 85027; 86593; 87389; 93005; 93010; J0735; Q0162

== ENCOUNTER 2018-06-01 12:50 | Inpatient (IN) | payer OTHER ==
[2018-06-01 13:51] VITALS: BMI 24.2
--- NOTE | 2018-06-01 14:52 | HP ---
COWS - Scale Resting Pulse: 0= [place] 80 or Below Sweatin=Flushed/Facial Moisture Restless Observation: 1= Difficult to Sit Still Pupil Size: 0= Normal to Room Light Bone or Joint Aches: 1= Mild Discomfort Runny Nose/ Eye Tearin= Runny Nose/Eyes GI Upset > 30mins: 2= Nausea/Diarrhea Tremor Observation: 2= Slight Tremor Visible Yawning Observation: 2= >3x During Session Anxiety or Irritability: 2=Irritable/Anxious Goose Flesh Skin: 0=Smooth Skin COWS Score: 14 CIWA Score Nausea/Vomitin-Mild Nausea/No Vomiting Muscle Tremors: 4-Moderate,w/Arms Extend Anxiety: 3 Agitation: 3 Paroxysmal Sweats: 2 Orientation: 0-Oriented Tacttile Disturbances: 0-None Auditory Disturbances: 0-None Visual Disturbances: 0-None Headache: 0-None Present CIWA-Ar Total Score: 13 - Admission Criteria [facility]ASAS Guidelines: Admission for Medically Managed Detox: Requires at least one of the followin. CIWA greater than 12 2. Seizures within the past 24 hours 3. Delirium tremens within the past 24 hours 4. Hallucinations within the past 24 hours 5. Acute intervention needed for co occurring medical disorder 6. Acute intervention needed for co occurring psychiatric disorder 7. Severe withdrawal that cannot be handled at a lower level of care (continued vomiting, continued diarrhea, abnormal vital signs) requiring intravenous medication and/or fluids 8. Admission ROS S - HPI Chief Complaint: I need to stop using I am going go to rehab and complete. Allergies/Adverse Reactions: Allergies Allergy/AdvReac Type Severity Reaction Status Date / Time Fish Containing Products Allergy Severe Vomiting Verified 06/01/18 14:20 No Known Drug Allergies Allergy Verified 06/01/18 14:20 History of Present Illness: pt is a 42yr old male with a long history of alcohol and heroin dependence seeking detox for treatment. Exam Limitations: No Limitations - Ebola screening Have you traveled outside of the country in the last 21 days: No Have you had contact with anyone from an Ebola affected area: No Have you been sick,other than usual withdrawal symptoms: No Do you have a fever: No - Review of Systems Constitutional: Chills, Night Sweats, Changes in sleep EENT: reports: Tearing, Nose Congestion Respiratory: reports: No Symptoms reported Cardiac: reports: Lightheadedness, Syncope GI: reports: Diarrhea, Poor Fluid Intake : reports: No Symptoms Reported Musculoskeletal: reports: Back Pain Integumentary: reports: Flushing, Sweating Neuro: reports: Headache, Tingling, Tremors Endocrine: reports: Excessive Sweating, Flushing, Intolerance to Cold, Intolerance to Heat Hematology: reports: No Symptoms Reported Psychiatric: reports: Judgement Intact, Mood/Affect Appropiate, Orientated x3, Agitated, Anxious Other Systems: Reviewed and Negative Patient History - Patient Medical History Hx Anemia: No Hx Asthma: No Hx Chronic Obstructive Pulmonary Disease (COPD): No Hx Cancer: No Hx Cardiac Disorders: Yes (cardiac arrest d/t drugs S/P ANGIOPLASTY WITH STENT ( Feb 2013)) Hx Congestive Heart Failure: No Hx Hypertension: Yes (ON MEDICATION - Lisinopril 5 mg and Isorbide ) Hx Hypercholesterolemia: No Hx Pacemaker: No HX Cerebrovascular Accident: No Hx Seizures: No Hx Dementia: No Hx Diabetes: No Hx Gastrointestinal Disorders: No Hx Liver Disease: No Hx Genitourinary Disorders: No Hx Sexually Transmitted Disorders: No Hx Renal Disease (ESRD): No Hx Thyroid Disease: No Hx Human Immunodeficiency Virus (HIV): No (negative) Hx Hepatitis C: Yes (Not treated) Hx Depression: No Hx Suicide Attempt: No (denies) Hx Bipolar Disorder: No Hx Schizophrenia: No - Patient Surgical History Past Surgical History: Yes Hx Neurologic Surgery: No Hx Cataract Extraction: No Hx Cardiac Surgery: Yes (S/P ANGIOPLASTY [id number]) Hx Lung Surgery: No Hx Breast Surgery: No Hx Breast Biopsy: No Hx Abdominal Surgery: No Hx Appendectomy: No Hx Cholecystectomy: No Hx Genitourinary Surgery: No Hx Section: No Hx Orthopedic Surgery: No Other Surgical History: tonsillectomy in 1994 Anesthesia Reaction: No - PPD History Previous Implant?: Yes Documented Results: Positive w/proof Results: c-xray(-),03/31 PPD to be Administered?: No - Reproductive History Patient is a Female of Child Bearing Age (11 -55 yrs old): No - Smoking Cessation Smoking history: Current every day smoker Have you smoked in the past 12 months: Yes Aproximately how many cigarettes per day: 20 Cigars Per Day: 0 Hx Chewing Tobacco Use: No Initiated information on smoking cessation: Yes 'Breaking Loose' booklet given: 06/01/18 - Substance & Tx. History Hx Alcohol Use: Yes Hx Substance Use: Yes Substance Use Type: Alcohol, Cocaine, Heroin, Marijuana Hx Substance Use Treatment: Yes (last detox 2017) - Substances Abused Heroin Route: Injection Frequency: Daily Amount used: 4 BUNDLES Age of first use: 27 Date of Last Use: 06/01/18 Alcohol Route: Oral Frequency: Daily Amount used: 3 PINTS OF [place] Age of first use: 20 Date of Last Use: 06/01/18 Marijuana/Hashish Route: Smoking Frequency: Daily Amount used: 2/8TH Age of first use: 16 Date of Last Use: 06/01/18 Family Disease History - Family Disease History Family Disease History: Respiratory: Mother (Emphysema), Other: Father (Unknown) Admission Physical Exam [facility] - Vital Signs Vital Signs: Vital Signs - 24 hr 06/01/18 13:49 Temperature 98.4 F Pulse Rate 60 Respiratory 20 Rate Blood Pressure 125/79 - Physical General Appearance: Yes: Appropriately Dressed, Moderate Distress, Tremorous, Irritable, Sweating, Anxious HEENTM: Yes: Normal Voice, Nasal Congestion, Rhinorrhea Respiratory: Yes: Lungs Clear, Normal Breath Sounds Neck: Yes: No masses,lesions,Nodules Breast: Yes: Within Normal Limits Cardiology: Yes: Regular Rhythm, Regular Rate, S1, S2 Abdominal: Yes: Normal Bowel Sounds, Non Tender, Flat Genitourinary: Yes: Within Normal Limits Back: Yes: Normal Inspection Musculoskeletal: Yes: Back pain Extremities: Yes: Normal Capillary Refill, Normal Inspection, Non-Tender, Tremors 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: Yes: Fully Oriented, Alert, Normal Mood/Affect, Normal Response Integumentary: Yes: Normal Color, Diaphoresis, Track Qureshi Lymphatic: Yes: Within Normal Limits - Diagnostic (1) Nicotine dependence Current Visit: Yes Status: Chronic Qualifiers: Nicotine product type: cigarettes Substance use status: uncomplicated Qualified Code(s): F17.210 - Nicotine dependence, cigarettes, uncomplicated (2) Track qureshi due to intravenous drug abuse Current Visit: Yes Status: Chronic (3) CAD (coronary artery disease) Current Visit: Yes Status: Chronic Qualifiers: Coronary Disease-Associated Artery/Lesion type: [place] artery [place] vs. transplanted heart: [place] heart Associated angina: without angina Qualified Code(s): I25.10 - Atherosclerotic heart disease of [place] coronary artery without angina pectoris (4) H/O heart artery stent Current Visit: Yes Status: Chronic (5) Hepatitis C Current Visit: Yes Status: Chronic Qualifiers: Viral hepatitis chronicity: chronic Hepatic coma status: without hepatic coma Qualified Code(s): B18.2 - Chronic viral hepatitis C (6) Hypertension Current Visit: Yes Status: Chronic Qualifiers: Hypertension type: essential hypertension Qualified Code(s): I10 - Essential (primary) hypertension (7) Old [place] (myocardial infarction) Current Visit: Yes Status: Chronic (8) PPD positive Current Visit: No Status: Chronic (9) Tinea pedis of both feet Current Visit: Yes Status: Chronic (10) Alcohol dependence with uncomplicated withdrawal Current Visit: Yes Status: Chronic (11) Opioid dependence with withdrawal Current Visit: Yes Status: Chronic Cleared for Admission [facility] - Detox or Rehab [facility] Level of Care: Medically Managed Detox Regimen/Protocol: Methadone/Valium S Breath Alcohol Content Breath Alcohol Content: 0.075 Urine Drug Screen - Results Drug Screen Negative: No Urine Drug Screen Results: THC-Marijuana, LUPIS-Cocaine, OPI-Opiates Inpatient Rehab Admission - Rehab Decision to Admit Inpatient rehab admission?: No
[2018-06-01] MEDS ORDERED: LOPERAMIDE HCL 2 MG CAPSULE PO PRN (15:00)
[2018-06-01] MEDS ORDERED: MAGNESIUM HYDROX 2400MG/30ML ORAL SUSPENSION 30 ML CUP PO PRN (15:00)
[2018-06-01] MEDS ORDERED: ACETAMINOPHEN 325 MG TABLET (FP) PO PRN (15:00)
[2018-06-01] MEDS ORDERED: guaiFENesin/D-METHORPHAN HB 10 ML UNIT-DOSE CUPS PO PRN (15:00)
[2018-06-01] MEDS ORDERED: NICOTINE POLACRILEX 4 MG GUM BC PRN (15:00)
[2018-06-01] MEDS ORDERED: MAGNESIUM CITRATE 300 ML BOTTLE PO PRN (15:00)
[2018-06-01] MEDS ORDERED: MAG HYDROX/AL HYDROX/SIMETH 30 ML UNIT-DOSE CUP PO PRN (15:00)
[2018-06-01] MEDS ORDERED: P-EPHED 60MG/TRIPROLIDI 2.5MG TABLET PO PRN (15:00)
[2018-06-01] MEDS ORDERED: IBUPROFEN 400 MG TABLET (FP) PO PRN (15:00)
[2018-06-01] MEDS ORDERED: MENTHOL/PHENOL 1 EACH UD MM PRN (15:00)
[2018-06-01] MEDS ORDERED: METHADONE HCL 10 MG TABLET (FOR DETOX USE ONLY) PO ONE ×2 (16:00→23:00)
[2018-06-01] MEDS ORDERED: diazePAM 5 MG TABLET PO ONE (16:00)
[2018-06-01] MEDS ORDERED: ONDANSETRON *ODT* 4 MG TABLET SL ONE (22:15)
--- NOTE | 2018-06-01 22:16 | PN ---
S Progress Note Note: Patient vomited x 1, as per nurse Vital Signs Temperature 98.2 F 06/01/18 18:15 Pulse Rate 61 06/01/18 18:15 Respiratory Rate 19 06/01/18 18:15 Blood Pressure 138/98 06/01/18 18:15 O2 Sat by Pulse Oximetry (%) Action: Zofran 4mg sublingual ordered
[2018-06-01] MEDS: amLODIPine BESYLATE 5 MG TABLET (FP) PO SCH (22:53)
[2018-06-01] MEDS: diazePAM 5 MG TABLET PO SCH (22:54)
[2018-06-01] MEDS: THIAMINE HCL 100 MG TABLET (FP) PO SCH (22:54)
[2018-06-01] MEDS: hydrOXYzine PAMOATE 50 MG CAPSULE (FP) PO PRN (22:55)
[2018-06-02] MEDS ORDERED: ONDANSETRON *ODT* 4 MG TABLET SL ONE (02:21)
[2018-06-02] MEDS: diazePAM 5 MG TABLET PO PRN (04:06)
[2018-06-02] MEDS: diazePAM 5 MG TABLET PO SCH ×3 (06:08→22:48)
[2018-06-02] MEDS ORDERED: cloNIDine HCL 0.1 MG TABLET PO ONE (06:56)
--- NOTE | 2018-06-02 07:01 | PN ---
S Progress Note Note: Patient's blood pressure is B/P 196/99. Patient is asymptomatic Vital Signs Temperature 99.0 F 06/02/18 06:00 Pulse Rate 57 L 06/02/18 06:00 Respiratory Rate 22 H 06/02/18 06:00 Blood Pressure 196/99 H 06/02/18 06:00 O2 Sat by Pulse Oximetry (%) Action: Clonidine 0.1mg tablet 1 tablet oral daily
[2018-06-02] MEDS ORDERED: METHADONE HCL 10 MG TABLET (FOR DETOX USE ONLY) PO SCH (10:00)
[2018-06-02] MEDS ORDERED: ONDANSETRON *ODT* 4 MG TABLET SL PRN (10:05)
[2018-06-02] MEDS: NICOTINE 21 MG/24 HOURS TOPICAL PATCH TD SCH ×2 (10:28→10:37)
[2018-06-02] MEDS: ASPIRIN 81 MG CHEWABLE TABLETS PO SCH (10:28)
[2018-06-02] MEDS: ISOSORBIDE MONONITRATE 60 MG TAB.SR.24H (FP) PO SCH (10:28)
[2018-06-02] MEDS: amLODIPine BESYLATE 5 MG TABLET (FP) PO SCH ×2 (10:29→22:48)
[2018-06-02] MEDS: LISINOPRIL 10 MG TABLET (FP) PO SCH (10:29)
[2018-06-02] MEDS: PRENATAL VITAMINS W/ FOLIC ACID TABLET (FP) PO SCH (10:29)
--- NOTE | 2018-06-02 10:34 | PN ---
S CIWA - CIWA Score Nausea/Vomitin-No Nausea/No Vomiting Muscle Tremors: 4-Moderate,w/Arms Extend Anxiety: 4-Mod. Anxious/Guarded Agitation: 4-Moderately Restless Paroxysmal Sweats: 3 Orientation: 0-Oriented Tacttile Disturbances: 0-None Auditory Disturbances: 0-None Visual Disturbances: 0-None Headache: 0-None Present CIWA-Ar Total Score: 15 BHS COWS - Scale Resting Pulse: 0= [place] 80 or Below Sweatin=Flushed/Facial Moisture Restless Observation: 1= Difficult to Sit Still Pupil Size: 0= Normal to Room Light Bone or Joint Aches: 2= Severe Diffuse Aches Runny Nose/ Eye Tearin= Nasal Congestion GI Upset > 30mins: 2= Nausea/Diarrhea Tremor Observation of Outstretched Hands: 2= Slight Tremor Visible Yawning Observation: 2= >3x During Session Anxiety or Irritability: 2=Irritable/Anxious Goose Flesh Skin: 0=Smooth Skin COWS Score: 14 B[facility] Progress Note (SOAP) Subjective: nausea sweats shakes interrupted sleep body aches agitation Objective: 06/02/18 10:33 Vital Signs Temperature 99.7 F H 06/02/18 09:58 Pulse Rate 52 L 06/02/18 09:58 Respiratory Rate 18 06/02/18 09:58 Blood Pressure 195/96 H 06/02/18 09:58 O2 Sat by Pulse Oximetry (%) labs pending aaox3 ambulating no acute distress Assessment: 06/02/18 10:34 withdrawal sx Plan: continue detox increase fluids zofran SL prn pt has hypertensive medication ordered for this am.
[2018-06-02 11:14] LABS: ALBUMIN 3.8 g/dl (3.4-5.0); ALK PHOS 100 U/L (45-117); ANION GAP 9 MMOL/L (8-16); BILIRUBIN,TOTAL 0.8 mg/dL (0.2-1); BLOOD UREA NITROGEN 15 mg/dL (7-18); CHLORIDE 103 mmol/L (98-107); CO2 29 mmol/L (21-32); CREATININE 1.1 mg/dL (0.55-1.3); GLUCOSE,RANDOM 118 mg/dL (74-106); POTASSIUM 3.9 mmol/L (3.5-5.1); SGOT/AST 42 U/L (15-37); SGPT/ALT 43 U/L (13-61); SODIUM 141 mmol/L (136-145); TOT PROT 7.6 g/dl (6.4-8.2)
[2018-06-02 11:47] LABS: HEMATOCRIT 45.6 % (35.4-49); HEMOGLOBIN 15.7 GM/dL (11.7-16.9); MCH 30.8 pg (25.7-33.7); MCHC 34.5 g/dl (32.0-35.9); MEAN CELL VOLUME 89.3 fl (80-96); MEAN PLT VOLUME 8.9 fl (7.5-11.1); PLATELET COUNT 186 K/MM3 (134-434); RDW 14.8 % (11.9-15.9)
[2018-06-02] MEDS: hydrOXYzine PAMOATE 50 MG CAPSULE (FP) PO PRN (17:15)
[2018-06-02] MEDS: THIAMINE HCL 100 MG TABLET (FP) PO SCH (22:49)
[2018-06-02] MEDS: CYCLOBENZAPRINE HCL 5 MG TABLET PO PRN (23:35)
[2018-06-03] MEDS: ASPIRIN 81 MG CHEWABLE TABLETS PO SCH (10:17)
[2018-06-03] MEDS: PRENATAL VITAMINS W/ FOLIC ACID TABLET (FP) PO SCH (10:17)
[2018-06-03] MEDS: METHADONE HCL 5 MG TABLET (FOR DETOX USE ONLY) PO SCH (10:17)
[2018-06-03] MEDS: LISINOPRIL 10 MG TABLET (FP) PO SCH (10:17)
[2018-06-03] MEDS: diazePAM 5 MG TABLET PO SCH ×2 (10:17→22:47)
[2018-06-03] MEDS: amLODIPine BESYLATE 5 MG TABLET (FP) PO SCH ×2 (10:17→22:47)
[2018-06-03] MEDS: ISOSORBIDE MONONITRATE 60 MG TAB.SR.24H (FP) PO SCH (10:17)
[2018-06-03] MEDS: NICOTINE 21 MG/24 HOURS TOPICAL PATCH TD SCH (10:18)
[2018-06-03] MEDS: CYCLOBENZAPRINE HCL 5 MG TABLET PO PRN (10:18)
--- NOTE | 2018-06-03 11:19 | PN ---
S CIWA - CIWA Score Nausea/Vomitin-Mild Nausea/No Vomiting Muscle Tremors: 4-Moderate,w/Arms Extend Anxiety: 2 Agitation: 4-Moderately Restless Paroxysmal Sweats: 2 Orientation: 0-Oriented Tacttile Disturbances: 0-None Auditory Disturbances: 0-None Visual Disturbances: 0-None Headache: 0-None Present CIWA-Ar Total Score: 13 BHS COWS - Scale Resting Pulse: 0= [place] 80 or Below Sweatin=Flushed/Facial Moisture Restless Observation: 1= Difficult to Sit Still Pupil Size: 0= Normal to Room Light Bone or Joint Aches: 2= Severe Diffuse Aches Runny Nose/ Eye Tearin= None GI Upset > 30mins: 2= Nausea/Diarrhea Tremor Observation of Outstretched Hands: 2= Slight Tremor Visible Yawning Observation: 2= >3x During Session Anxiety or Irritability: 2=Irritable/Anxious Goose Flesh Skin: 0=Smooth Skin COWS Score: 13 S Progress Note (SOAP) Subjective: nausea restless body aches interrupted sleep shakes muscle cramps Objective: 06/03/18 11:18 Vital Signs Temperature 99.3 F 06/03/18 09:32 Pulse Rate 55 L 06/03/18 09:32 Respiratory Rate 18 06/03/18 09:32 Blood Pressure 172/91 H 06/03/18 09:32 O2 Sat by Pulse Oximetry (%) Laboratory Tests 06/02/18 06/02/18 06/02/18 08:00 08:00 08:00 WBC 8.0 RBC 5.10 Hgb 15.7 Hct 45.6 MCV 89.3 MCH 30.8 MCHC 34.5 RDW 14.8 Plt Count 186 MPV 8.9 Sodium 141 Potassium 3.9 Chloride 103 Carbon Dioxide 29 Anion Gap 9 BUN 15 Creatinine 1.1 Creat Clearance w eGFR > 60 Random Glucose 118 H Calcium 9.0 Total Bilirubin 0.8 AST 42 H ALT 43 Alkaline Phosphatase 100 Total Protein 7.6 Albumin 3.8 RPR Titer Nonreactive aaox3 ambulating no acute distress Assessment: 06/03/18 11:19 withdrawal sx Plan: continue detox increase fluids clonidine 0.1mg bid baclofen ordered
[2018-06-03] MEDS: cloNIDine HCL 0.1 MG TABLET PO SCH ×2 (14:31→22:47)
[2018-06-03] MEDS: diazePAM 5 MG TABLET PO PRN (15:46)
[2018-06-03] MEDS: BACLOFEN 10 MG TABLET (FP) PO SCH ×2 (15:46→22:47)
[2018-06-03] MEDS: LISINOPRIL 20 MG TABLET (FP) PO ONE (19:20)
[2018-06-03] MEDS: MELATONIN 5 MG TABLETS PO PRN (22:47)
[2018-06-03] MEDS: THIAMINE HCL 100 MG TABLET (FP) PO SCH (22:48)
[2018-06-04] MEDS: BACLOFEN 10 MG TABLET (FP) PO SCH ×3 (06:49→22:39)
[2018-06-04] MEDS: diazePAM 5 MG TABLET PO PRN (06:49)
[2018-06-04] MEDS: ASPIRIN 81 MG CHEWABLE TABLETS PO SCH (10:48)
[2018-06-04] MEDS: NICOTINE 21 MG/24 HOURS TOPICAL PATCH TD SCH (10:48)
[2018-06-04] MEDS: LISINOPRIL 10 MG TABLET (FP) PO SCH (10:49)
[2018-06-04] MEDS: amLODIPine BESYLATE 5 MG TABLET (FP) PO SCH ×2 (10:49→22:40)
[2018-06-04] MEDS: cloNIDine HCL 0.1 MG TABLET PO SCH ×2 (10:49→22:39)
[2018-06-04] MEDS: PRENATAL VITAMINS W/ FOLIC ACID TABLET (FP) PO SCH (10:49)
[2018-06-04] MEDS: ISOSORBIDE MONONITRATE 60 MG TAB.SR.24H (FP) PO SCH (10:49)
[2018-06-04] MEDS: METHADONE HCL 5 MG TABLET (FOR DETOX USE ONLY) PO SCH (10:51)
[2018-06-04] MEDS: CYCLOBENZAPRINE HCL 5 MG TABLET PO PRN ×2 (10:51→20:01)
[2018-06-04] MEDS: diazePAM 5 MG TABLET PO SCH ×2 (10:53→22:39)
--- NOTE | 2018-06-04 11:03 | PN ---
[facility] Progress Note (SOAP) Subjective: sweats feeling so much better Objective: 06/04/18 11:02 Vital Signs Temperature 99.1 F 06/04/18 09:26 Pulse Rate 73 06/04/18 09:26 Respiratory Rate 18 06/04/18 09:26 Blood Pressure 149/96 06/04/18 09:26 O2 Sat by Pulse Oximetry (%) aaox3 ambulating no acute distress Assessment: 06/04/18 11:02 mild withdrawal sx Plan: continue detox increase fluids
[2018-06-04] MEDS: hydrOXYzine PAMOATE 50 MG CAPSULE (FP) PO PRN ×2 (20:03→22:40)
[2018-06-04] MEDS: THIAMINE HCL 100 MG TABLET (FP) PO SCH (22:41)
[2018-06-04] MEDS: MELATONIN 5 MG TABLETS PO PRN (22:43)
[2018-06-05] MEDS: BACLOFEN 10 MG TABLET (FP) PO SCH (05:30)
[2018-06-05] MEDS ORDERED: METHADONE HCL 10 MG TABLET (FOR DETOX USE ONLY) PO ONE (06:00)
[2018-06-05 08:56] VITALS: BP 123/66; PULSE 84; TEMP 98.7
[2018-06-05] MEDS: PRENATAL VITAMINS W/ FOLIC ACID TABLET (FP) PO SCH (09:11)
[2018-06-05] MEDS: ASPIRIN 81 MG CHEWABLE TABLETS PO SCH (09:13)
[2018-06-05] MEDS: cloNIDine HCL 0.1 MG TABLET PO SCH (09:13)
[2018-06-05] MEDS: amLODIPine BESYLATE 5 MG TABLET (FP) PO SCH (09:13)
[2018-06-05] MEDS: ISOSORBIDE MONONITRATE 60 MG TAB.SR.24H (FP) PO SCH (09:13)
[2018-06-05] MEDS: LISINOPRIL 10 MG TABLET (FP) PO SCH (09:13)
--- NOTE | 2018-06-05 09:50 | DS ---
[facility] Detox Discharge Summary Admission Date: 06/01/18 Discharge Date: 06/05/18 - History Present History: Alcohol Dependence, Opioid Dependence - Physical Exam Results Vital Signs: Vital Signs Temperature 98.7 F 06/05/18 08:55 Pulse Rate 84 06/05/18 08:55 Respiratory Rate 18 06/05/18 08:55 Blood Pressure 123/66 06/05/18 08:55 O2 Sat by Pulse Oximetry (%) - Treatment Hospital Course: Detox Protocol Followed, Detoxed Safely, Responded well, Discharged Condition Good, Rehab Referral Accepted - Medication Discharge Medications: Ambulatory Orders Isosorbide Mononitrate [Imdur -] 60 mg PO DAILY #30 tab.sr.24h 06/11/17 Amlodipine Besylate [Norvasc -] 5 mg PO BID #28 tablet 04/01/18 Aspirin [ASA -] 81 mg PO DAILY #14 tab.chew 04/01/18 Lisinopril [Prinivil] 10 mg PO DAILY #14 tablet 04/01/18 - Diagnosis (1) Nicotine dependence Current Visit: Yes Status: Chronic Qualifiers: Nicotine product type: cigarettes Substance use status: uncomplicated Qualified Code(s): F17.210 - Nicotine dependence, cigarettes, uncomplicated (2) Track qureshi due to intravenous drug abuse Current Visit: Yes Status: Chronic (3) CAD (coronary artery disease) Current Visit: Yes Status: Chronic Qualifiers: Coronary Disease-Associated Artery/Lesion type: [place] artery [place] vs. transplanted heart: [place] heart Associated angina: without angina Qualified Code(s): I25.10 - Atherosclerotic heart disease of [place] coronary artery without angina pectoris (4) H/O heart artery stent Current Visit: Yes Status: Chronic (5) Hepatitis C Current Visit: Yes Status: Chronic Qualifiers: Viral hepatitis chronicity: chronic Hepatic coma status: without hepatic coma Qualified Code(s): B18.2 - Chronic viral hepatitis C (6) Hypertension Current Visit: Yes Status: Chronic Qualifiers: Hypertension type: essential hypertension Qualified Code(s): I10 - Essential (primary) hypertension (7) Old [place] (myocardial infarction) Current Visit: Yes Status: Chronic (8) PPD positive Current Visit: No Status: Chronic (9) Tinea pedis of both feet Current Visit: Yes Status: Chronic (10) Alcohol dependence with uncomplicated withdrawal Current Visit: Yes Status: Chronic (11) Opioid dependence with withdrawal Current Visit: Yes Status: Chronic - AMA Did Patient Leave Against Medical Advice: No (pt referred to [facility])
[2018-06-05] MEDS ORDERED: diazePAM 5 MG TABLET PO SCH (10:00)
[2018-06-05] MEDS ORDERED: METHADONE HCL 10 MG TABLET (FOR DETOX USE ONLY) PO SCH (10:00)
[2018-06-06] MEDS ORDERED: METHADONE HCL 5 MG TABLET (FOR DETOX USE ONLY) PO SCH (06:00)
== END 2018-06-05 11:53 | disposition other institution (70) | DRG 773 ==
LOC: YASAS 12:50 → Y6N 15:42
PROVIDERS: ADMIT Surgery; ATTEND Surgery
PROC: HZ2ZZZZ Detoxification Services for Substance Abuse Treatment (ICD-10-PCS; principal; 2018-06-01)
DX: F11.23 Opioid dependence with withdrawal (principal); F10.230 Alcohol dependence with withdrawal, uncomplicated; F17.210 Nicotine dependence, cigarettes, uncomplicated; I25.10 Atherosclerotic heart disease of native coronary artery without angina pectoris; I10 Essential (primary) hypertension; Z95.5 Presence of coronary angioplasty implant and graft; I25.2 Old myocardial infarction; B18.2 Chronic viral hepatitis C; B35.3 Tinea pedis; R76.11 Nonspecific reaction to tuberculin skin test without active tuberculosis; Z91.013 Allergy to seafood
CPT/HCPCS: 36415; 80053; 85027; 86593; J0475; J0735; Q0162

== ENCOUNTER 2018-09-08 12:05 | Inpatient (IN) | payer OTHER ==
[2018-09-08 14:26] VITALS: BMI 24.2
--- NOTE | 2018-09-08 15:16 | HP ---
COWS - Scale Resting Pulse: 0= [place] 80 or Below Sweatin= Chills/Flushing Restless Observation: 1= Difficult to Sit Still Pupil Size: 1= Pupils >than Normal Bone or Joint Aches: 2= Severe Diffuse Aches Runny Nose/ Eye Tearin= Runny Nose/Eyes GI Upset > 30mins: 2= Nausea/Diarrhea Tremor Observation: 2= Slight Tremor Visible Yawning Observation: 2= >3x During Session Anxiety or Irritability: 2=Irritable/Anxious Goose Flesh Skin: 0=Smooth Skin COWS Score: 15 CIWA Score Nausea/Vomitin Muscle Tremors: 3 Anxiety: 2 Agitation: 2 Paroxysmal Sweats: 1-Minimal Palms Moist Orientation: 0-Oriented Tacttile Disturbances: 1-Very Mild Itch/Numbness Auditory Disturbances: 1-Very Mild Visual Disturbances: 0-None Headache: 2-Mild CIWA-Ar Total Score: 14 - Admission Criteria OASAS Guidelines: Admission for Medically Managed Detox: Requires at least one of the followin. CIWA greater than 12 2. Seizures within the past 24 hours 3. Delirium tremens within the past 24 hours 4. Hallucinations within the past 24 hours 5. Acute intervention needed for co occurring medical disorder 6. Acute intervention needed for co occurring psychiatric disorder 7. Severe withdrawal that cannot be handled at a lower level of care (continued vomiting, continued diarrhea, abnormal vital signs) requiring intravenous medication and/or fluids 8. Admission ROS S - [facility] Chief Complaint: i need help to stop using heroin,alcohol,cocaine and marijuana Allergies/Adverse Reactions: Allergies Allergy/AdvReac Type Severity Reaction Status Date / Time No Known Drug Allergies Allergy Verified 09/08/18 14:16 Fish Containing Products AdvReac Severe Vomiting Verified 09/08/18 14:16 History of Present Illness: this 43 years old male with heroin,alcohol,cocaine and marijuana dependence, seeking detox,withdrawal symptom, multiple admissions in detox,last 06/01/18 to 05/16/18 but keep relapsing hypertension non compliance hepatitis c not treated weight loss nicotine dependence 1 pack /day,would like to have gum anxiety,insomnia callus both feet 10 years has been 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 Loss EENT: reports: Tearing, Nose Congestion Respiratory: reports: No Symptoms reported Cardiac: reports: No Symptoms Reported GI: reports: Diarrhea, Nausea, Abdominal cramping : reports: No Symptoms Reported Musculoskeletal: reports: Back Pain, Joint Pain, Muscle Pain, Other (callus both fet) Integumentary: reports: Dryness Neuro: reports: Headache, Tremors Endocrine: reports: No Symptoms Reported Hematology: reports: No Symptoms Reported Psychiatric: reports: No Sypmtoms Reported, Judgement Intact, Mood/Affect Appropiate, Orientated x3, Anxious, other (insomnia) Other Systems: Reviewed and Negative Patient History - Patient Medical History Hx Anemia: No Hx Asthma: No Hx Chronic Obstructive Pulmonary Disease (COPD): No Hx Cancer: No Hx Cardiac Disorders: Yes (cardiac arrest d/t drugs S/P ANGIOPLASTY WITH STENT ( Feb 2013)) Hx Congestive Heart Failure: No Hx Hypertension: Yes (ON MEDICATION - Lisinopril 5 mg and Isorbide ) Hx Hypercholesterolemia: No Hx Pacemaker: No HX Cerebrovascular Accident: No Hx Seizures: No Hx Dementia: No Hx Diabetes: No Hx Gastrointestinal Disorders: No Hx Liver Disease: No Hx Genitourinary Disorders: No Hx Sexually Transmitted Disorders: No Hx Renal Disease (ESRD): No Hx Thyroid Disease: No Hx Human Immunodeficiency Virus (HIV): No (negative last 03/01) Hx Hepatitis C: Yes (Not treated) Hx Depression: No Hx Suicide Attempt: No (denies) Hx Bipolar Disorder: No Hx Schizophrenia: No Other Medical History: insomnia.anxiety,no suicidal,no homicidal - Patient Surgical History Past Surgical History: Yes Hx Neurologic Surgery: No Hx Cataract Extraction: No Hx Cardiac Surgery: Yes (S/P ANGIOPLASTY [id number]) Hx Lung Surgery: No Hx Breast Surgery: No Hx Breast Biopsy: No Hx Abdominal Surgery: No Hx Appendectomy: No Hx Cholecystectomy: No Hx Genitourinary Surgery: No Hx Section: No Hx Orthopedic Surgery: No Other Surgical History: tonsillectomy in 1994 Anesthesia Reaction: No - PPD History Previous Implant?: Yes Documented Results: Positive w/proof Results: c-xray(-),03/31 PPD to be Administered?: No - Smoking Cessation Smoking history: Current every day smoker Have you smoked in the past 12 months: Yes Aproximately how many cigarettes per day: 20 Cigars Per Day: 0 Hx Chewing Tobacco Use: No Initiated information on smoking cessation: Yes 'Breaking Loose' booklet given: 09/08/18 - Substance & Tx. History Hx Alcohol Use: Yes Hx Substance Use: Yes Substance Use Type: Alcohol, Cocaine, Heroin, Marijuana Hx Substance Use Treatment: Yes ([facility] 06/01/18 to 06/05/18) - Substances abused Alcohol Substance route: Oral Frequency: Daily Amount used: 1 PINT OF COGNA[place] Age of first use: 32 Date of last use: 09/08/18 Heroin Substance route: Injection Frequency: Daily Amount used: 2 BUNDLES Age of first use: 27 Date of last use: 09/07/18 Marijuana/Hashish Substance route: Smoking Frequency: Daily Amount used: 30$ Age of first use: 17 Date of last use: 09/08/18 Cocaine Substance route: Smoking Frequency: Daily Amount used: 50$ Age of first use: 40 Date of last use: 09/07/18 Family Disease History - Family Disease History Family Disease History: Respiratory: Mother (Emphysema), Other: Father (Unknown) Admission Physical Exam S - Vital Signs Vital Signs: Vital Signs - 24 hr 09/08/18 14:14 Temperature 98.5 F Pulse Rate 65 Respiratory 20 Rate Blood Pressure 130/77 - Physical General Appearance: Yes: Moderate Distress, Tremorous, Irritable, Sweating, Anxious HEENTM: Yes: Normocephalic, KADIE, Pharynx Normal Respiratory: Yes: Lungs Clear, Normal Breath Sounds, No Respiratory Distress Neck: Yes: Within Normal Limits, Supple, Trachea in good position Breast: Yes: Within Normal Limits Cardiology: Yes: Within Normal Limits, Regular Rhythm, Regular Rate, S1, S2 Abdominal: Yes: Within Normal Limits, Normal Bowel Sounds, Soft Genitourinary: Yes: Within Normal Limits Back: Yes: Normal Inspection, Muscle Spasm Musculoskeletal: Yes: Back pain, Joint Stiffness, Muscle Pain Extremities: Yes: Within Normal Limits, Normal Range of Motion, Tremors 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: Yes: 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 transplanted heart: [place]ung heart Associated angina: without angina Qualified Code(s): I25.10 - Atherosclerotic heart disease of [place] coronary artery without angina pectoris (4) H/O heart artery stent Current Visit: No Status: Chronic (5) Hepatitis C Current Visit: No Status: Chronic Qualifiers: Viral hepatitis chronicity: chronic Hepatic coma status: without hepatic coma Qualified Code(s): B18.2 - Chronic viral hepatitis C (6) Hypertension Current Visit: No Status: Chronic Qualifiers: Hypertension type: essential hypertension Qualified Code(s): I10 - Essential (primary) hypertension (7) Nicotine dependence Current Visit: No Status: Chronic Qualifiers: Nicotine product type: cigarettes Substance use status: uncomplicated Qualified Code(s): F17.210 - Nicotine dependence, cigarettes, uncomplicated (8) Old AR (myocardial infarction) Current Visit: No Status: Chronic (9) PPD positive Current Visit: No Status: Chronic (10) Tinea pedis of both feet Current Visit: No Status: Chronic (11) Track qureshi due to intravenous drug abuse Current Visit: No Status: Chronic (12) IVDU (intravenous drug user) Current Visit: Yes Status: Acute Cleared for Admission S - Detox or Rehab [facility] Level of Care: Medically Managed Detox Regimen/Protocol: Methadone/Valium Inpatient Rehab Admission - Rehab Decision to Admit Inpatient rehab admission?: No
[2018-09-08] MEDS ORDERED: MELATONIN 5 MG TABLETS PO PRN (15:37)
[2018-09-08] MEDS ORDERED: MAGNESIUM HYDROX 2400MG/30ML ORAL SUSPENSION 30 ML CUP PO PRN (15:37)
[2018-09-08] MEDS ORDERED: BISMUTH SUBSALICYLATE 262 MG/15 ML BTL PO PRN (15:37)
[2018-09-08] MEDS ORDERED: MAGNESIUM CITRATE 300 ML BOTTLE PO PRN (15:37)
[2018-09-08] MEDS ORDERED: ACETAMINOPHEN 325 MG TABLET (FP) PO PRN ×2 (15:37)
[2018-09-08] MEDS ORDERED: MENTHOL/PHENOL 1 EACH UD MM PRN (15:37)
[2018-09-08] MEDS ORDERED: METHADONE HCL 10 MG TABLET (FOR DETOX USE ONLY) PO ONE ×2 (15:40→23:00)
[2018-09-08] MEDS: diazePAM 5 MG TABLET PO PRN (16:35)
[2018-09-08 17:37] LABS: HEMATOCRIT 48.9 % (35.4-49); MCH 30.6 pg (25.7-33.7); MCHC 32.8 g/dl (32.0-35.9); MEAN CELL VOLUME 93.3 fl (80-96); MEAN PLT VOLUME 8.4 fl (7.5-11.1); PLATELET COUNT 197 K/MM3 (134-434); RBC 5.24 M/mm3 (4.00-5.60); RDW 14.5 % (11.9-15.9); WHITE BLOOD COUNT 4.8 K/mm3 (4.0-10.0)
[2018-09-08 17:45] LABS: BILIRUBIN,TOTAL 0.9 mg/dL (0.2-1); CREATININE 1.2 mg/dL (0.55-1.3); POTASSIUM 4.2 mmol/L (3.5-5.1)
[2018-09-08] MEDS: MAG HYDROX/AL HYDROX/SIMETH 30 ML UNIT-DOSE CUP PO PRN (20:05)
[2018-09-08] MEDS: METHOCARBAMOL 500 MG TABLET PO PRN (20:05)
[2018-09-08] MEDS: QUEtiapine FUMARATE 100 MG TABLET (FP) PO SCH (22:05)
[2018-09-08] MEDS: cloNIDine HCL 0.1 MG TABLET PO PRN (22:05)
[2018-09-08] MEDS: diazePAM 5 MG TABLET PO SCH (22:05)
[2018-09-08] MEDS: THIAMINE HCL 100 MG TABLET (FP) PO SCH (22:05)
[2018-09-08] MEDS: TOLNAFTATE 1% CREAM 15 GM TUBE TP SCH (22:07)
[2018-09-09] MEDS: diazePAM 5 MG TABLET PO SCH ×3 (06:29→22:20)
[2018-09-09 07:34] LABS: PH,URINE 6.5 (5.0-8.0); URINE APPEARANCE CLEAR; URINE BILIRUBIN NEGATIVE (NEGATIVE); URINE COLOR YELLOW; URINE GLUCOSE (UA) NEGATIVE (NEGATIVE); URINE KETONE NEGATIVE (NEGATIVE); URINE LEUK ESTERASE NEGATIVE (NEGATIVE); URINE NITRITE NEGATIVE (NEGATIVE); URINE PROTEIN NEGATIVE (NEGATIVE)
[2018-09-09] MEDS ORDERED: METHADONE HCL 10 MG TABLET (FOR DETOX USE ONLY) PO ONE (10:00)
[2018-09-09] MEDS: amLODIPine BESYLATE 5 MG TABLET (FP) PO SCH (10:41)
[2018-09-09] MEDS: ASPIRIN 81 MG CHEWABLE TABLETS PO SCH (10:41)
[2018-09-09] MEDS: LISINOPRIL 10 MG TABLET (FP) PO SCH (10:41)
[2018-09-09] MEDS: PRENATAL VITAMINS W/ FOLIC ACID TABLET (FP) PO SCH (10:41)
[2018-09-09] MEDS: METHOCARBAMOL 500 MG TABLET PO PRN ×2 (10:42→18:09)
[2018-09-09] MEDS: ISOSORBIDE MONONITRATE 60 MG TAB.SR.24H (FP) PO SCH (10:42)
[2018-09-09] MEDS: TOLNAFTATE 1% CREAM 15 GM TUBE TP SCH ×2 (10:44→22:20)
[2018-09-09] MEDS: NICOTINE POLACRILEX 2 MG GUM BUC PRN (10:45)
--- NOTE | 2018-09-09 10:47 | PN ---
[facility] CIWA - CIWA Score Nausea/Vomitin-Mild Nausea/No Vomiting Muscle Tremors: 3 Anxiety: 3 Agitation: 3 Paroxysmal Sweats: 1-Minimal Palms Moist Orientation: 1-Uncertain about Date Tacttile Disturbances: 0-None Auditory Disturbances: 0-None Visual Disturbances: 0-None Headache: 1-Very Mild CIWA-Ar Total Score: 13 BHS COWS - Scale Resting Pulse: 1= [place] 81-100 Sweatin= Chills/Flushing Restless Observation: 0= Sits Still Pupil Size: 0= Normal to Room Light Bone or Joint Aches: 1= Mild Discomfort Runny Nose/ Eye Tearin= None GI Upset > 30mins: 2= Nausea/Diarrhea Tremor Observation of Outstretched Hands: 2= Slight Tremor Visible Yawning Observation: 2= >3x During Session Anxiety or Irritability: 1=Feels Anxious/Irritable Goose Flesh Skin: 3=Piloerection COWS Score: 13 [facility] Progress Note (SOAP) Subjective: body aches tremor trouble sleep at night otherwise doing well with methadone and valium detox regimen Objective: 09/09/18 10:46 Vital Signs Temperature 96.7 F L 09/09/18 09:04 Pulse Rate 84 09/09/18 09:04 Respiratory Rate 18 09/09/18 09:04 Blood Pressure 121/68 09/09/18 09:04 O2 Sat by Pulse Oximetry (%) Laboratory Last Values WBC 4.8 K/mm3 (4.0-10.0) 09/08/18 15:10 RBC 5.24 M/mm3 (4.00-5.60) 09/08/18 15:10 Hgb 16.0 GM/dL (11.7-16.9) 09/08/18 15:10 Hct 48.9 % (35.4-49) 09/08/18 15:10 MCV 93.3 fl (80-96) 09/08/18 15:10 MCH 30.6 pg (25.7-33.7) 09/08/18 15:10 MCHC 32.8 g/dl (32.0-35.9) 09/08/18 15:10 RDW 14.5 % (11.9-15.9) 09/08/18 15:10 Plt Count 197 K/MM3 (134-434) 09/08/18 15:10 MPV 8.4 fl (7.5-11.1) 09/08/18 15:10 Sodium 140 mmol/L (136-145) 09/08/18 15:10 Potassium 4.2 mmol/L (3.5-5.1) 09/08/18 15:10 Chloride 103 mmol/L (98-107) 09/08/18 15:10 Carbon Dioxide 28 mmol/L (21-32) 09/08/18 15:10 Anion Gap 9 MMOL/L (8-16) 09/08/18 15:10 BUN 16 mg/dL (7-18) 09/08/18 15:10 Creatinine 1.2 mg/dL (0.55-1.3) 09/08/18 15:10 Est GFR (CKD-EPI)AfAm 86.53 09/08/18 15:10 Est GFR (CKD-EPI)NonAf 74.66 09/08/18 15:10 Random Glucose 89 mg/dL (74-106) 09/08/18 15:10 Calcium 9.0 mg/dL (8.5-10.1) 09/08/18 15:10 Total Bilirubin 0.9 mg/dL (0.2-1) 09/08/18 15:10 AST 58 U/L (15-37) H 09/08/18 15:10 ALT 57 U/L (13-61) 09/08/18 15:10 Alkaline Phosphatase 97 U/L (45-117) 09/08/18 15:10 Total Protein 8.0 g/dl (6.4-8.2) 09/08/18 15:10 Albumin 4.0 g/dl (3.4-5.0) 09/08/18 15:10 Urine Color Yellow 09/08/18 18:45 Urine Appearance Clear 09/08/18 18:45 Urine pH 6.5 (5.0-8.0) 09/08/18 18:45 Ur Specific [place] 1.015 (1.010-1.035) 09/08/18 18:45 Urine Protein Negative (NEGATIVE) 09/08/18 18:45 Urine Glucose (UA) Negative (NEGATIVE) 09/08/18 18:45 Urine Ketones Negative (NEGATIVE) 09/08/18 18:45 Urine Blood Negative (NEGATIVE) 09/08/18 18:45 Urine Nitrite Negative (NEGATIVE) 09/08/18 18:45 Urine Bilirubin Negative (NEGATIVE) 09/08/18 18:45 Urine Urobilinogen 1.0 mg/dL (0.2-1.0) 09/08/18 18:45 Ur Leukocyte Esterase Negative (NEGATIVE) 09/08/18 18:45 lab noted Assessment: 09/09/18 10:46 alcohol and opiate withdrawal sx Plan: continue detox
[2018-09-09] MEDS: diazePAM 5 MG TABLET PO PRN ×2 (12:16→18:10)
[2018-09-09] MEDS: QUEtiapine FUMARATE 100 MG TABLET (FP) PO SCH (22:20)
[2018-09-09] MEDS: THIAMINE HCL 100 MG TABLET (FP) PO SCH (22:20)
[2018-09-10] MEDS: diazePAM 5 MG TABLET PO PRN ×3 (04:05→20:33)
[2018-09-10] MEDS: METHOCARBAMOL 500 MG TABLET PO PRN ×3 (04:05→17:58)
[2018-09-10] MEDS ORDERED: METHADONE HCL 10 MG TABLET (FOR DETOX USE ONLY) PO ONE (10:00)
[2018-09-10] MEDS: ASPIRIN 81 MG CHEWABLE TABLETS PO SCH (10:26)
[2018-09-10] MEDS: PRENATAL VITAMINS W/ FOLIC ACID TABLET (FP) PO SCH (10:26)
[2018-09-10] MEDS: amLODIPine BESYLATE 5 MG TABLET (FP) PO SCH (10:26)
[2018-09-10] MEDS: ISOSORBIDE MONONITRATE 60 MG TAB.SR.24H (FP) PO SCH (10:27)
[2018-09-10] MEDS: TOLNAFTATE 1% CREAM 15 GM TUBE TP SCH ×2 (10:27→22:40)
[2018-09-10] MEDS: LISINOPRIL 10 MG TABLET (FP) PO SCH (10:30)
[2018-09-10] MEDS: hydrOXYzine PAMOATE 25 MG CAPSULE (FP) PO PRN ×2 (10:30→17:58)
[2018-09-10] MEDS: diazePAM 5 MG TABLET PO SCH ×2 (10:30→22:40)
[2018-09-10] MEDS: NICOTINE POLACRILEX 2 MG GUM BUC PRN (10:33)
--- NOTE | 2018-09-10 10:51 | PN ---
[facility] CIWA - CIWA Score Nausea/Vomitin-Mild Nausea/No Vomiting Muscle Tremors: 3 Anxiety: 2 Agitation: 3 Paroxysmal Sweats: 1-Minimal Palms Moist Orientation: 1-Uncertain about Date Tacttile Disturbances: 0-None Auditory Disturbances: 0-None Visual Disturbances: 0-None Headache: 1-Very Mild CIWA-Ar Total Score: 12 BHS COWS - Scale Resting Pulse: 0= [place] 80 or Below Sweatin= Chills/Flushing Restless Observation: 0= Sits Still Pupil Size: 0= Normal to Room Light Bone or Joint Aches: 2= Severe Diffuse Aches Runny Nose/ Eye Tearin= Nasal Congestion GI Upset > 30mins: 1= Stomach Cramp Tremor Observation of Outstretched Hands: 2= Slight Tremor Visible Yawning Observation: 2= >3x During Session Anxiety or Irritability: 2=Irritable/Anxious Goose Flesh Skin: 0=Smooth Skin COWS Score: 11 [facility] Progress Note (SOAP) Subjective: body aches tremor feeling ok today ambulating on hallway social with peers Objective: 09/10/18 10:57 Vital Signs Temperature 97.9 F 09/10/18 09:14 Pulse Rate 65 09/10/18 09:14 Respiratory Rate 18 09/10/18 09:14 Blood Pressure 144/90 09/10/18 09:14 O2 Sat by Pulse Oximetry (%) Laboratory Last Values WBC 4.8 K/mm3 (4.0-10.0) 09/08/18 15:10 RBC 5.24 M/mm3 (4.00-5.60) 09/08/18 15:10 Hgb 16.0 GM/dL (11.7-16.9) 09/08/18 15:10 Hct 48.9 % (35.4-49) 09/08/18 15:10 MCV 93.3 fl (80-96) 09/08/18 15:10 MCH 30.6 pg (25.7-33.7) 09/08/18 15:10 MCHC 32.8 g/dl (32.0-35.9) 09/08/18 15:10 RDW 14.5 % (11.9-15.9) 09/08/18 15:10 Plt Count 197 K/MM3 (134-434) 09/08/18 15:10 MPV 8.4 fl (7.5-11.1) 09/08/18 15:10 Sodium 140 mmol/L (136-145) 09/08/18 15:10 Potassium 4.2 mmol/L (3.5-5.1) 09/08/18 15:10 Chloride 103 mmol/L (98-107) 09/08/18 15:10 Carbon Dioxide 28 mmol/L (21-32) 09/08/18 15:10 Anion Gap 9 MMOL/L (8-16) 09/08/18 15:10 BUN 16 mg/dL (7-18) 09/08/18 15:10 Creatinine 1.2 mg/dL (0.55-1.3) 09/08/18 15:10 Est GFR (CKD-EPI)AfAm 86.53 09/08/18 15:10 Est GFR (CKD-EPI)NonAf 74.66 09/08/18 15:10 Random Glucose 89 mg/dL (74-106) 09/08/18 15:10 Calcium 9.0 mg/dL (8.5-10.1) 09/08/18 15:10 Total Bilirubin 0.9 mg/dL (0.2-1) 09/08/18 15:10 AST 58 U/L (15-37) H 09/08/18 15:10 ALT 57 U/L (13-61) 09/08/18 15:10 Alkaline Phosphatase 97 U/L (45-117) 09/08/18 15:10 Total Protein 8.0 g/dl (6.4-8.2) 09/08/18 15:10 Albumin 4.0 g/dl (3.4-5.0) 09/08/18 15:10 Urine Color Yellow 09/08/18 18:45 Urine Appearance Clear 09/08/18 18:45 Urine pH 6.5 (5.0-8.0) 09/08/18 18:45 Ur Specific [place] 1.015 (1.010-1.035) 09/08/18 18:45 Urine Protein Negative (NEGATIVE) 09/08/18 18:45 Urine Glucose (UA) Negative (NEGATIVE) 09/08/18 18:45 Urine Ketones Negative (NEGATIVE) 09/08/18 18:45 Urine Blood Negative (NEGATIVE) 09/08/18 18:45 Urine Nitrite Negative (NEGATIVE) 09/08/18 18:45 Urine Bilirubin Negative (NEGATIVE) 09/08/18 18:45 Urine Urobilinogen 1.0 mg/dL (0.2-1.0) 09/08/18 18:45 Ur Leukocyte Esterase Negative (NEGATIVE) 09/08/18 18:45 RPR Titer Nonreactive (NONREACTIVE) 09/08/18 15:10 HIV 1&2 Antibody Screen Negative 09/08/18 15:10 HIV P24 Antigen Negative 09/08/18 15:10 lab noted Assessment: 09/10/18 10:57 alcohol and opiate withdrawal sx Plan: continue detox
[2018-09-10] MEDS ORDERED: ONDANSETRON *ODT* 4 MG TABLET SL ONE (11:37)
[2018-09-10] MEDS: cloNIDine HCL 0.1 MG TABLET PO PRN (17:58)
[2018-09-10] MEDS: MAG HYDROX/AL HYDROX/SIMETH 30 ML UNIT-DOSE CUP PO PRN (17:59)
[2018-09-10] MEDS ORDERED: PROCHLORPERAZINE MALEATE 5 MG TABLET PO PRN (18:04)
[2018-09-10] MEDS: DICYCLOMINE HCL 10 MG CAPSULE PO PRN (18:11)
[2018-09-10] MEDS ORDERED: TRIMETHOBENZAMIDE HCL 200MG/2ML INJ IM PRN (21:32)
[2018-09-10] MEDS: THIAMINE HCL 100 MG TABLET (FP) PO SCH (22:40)
[2018-09-10] MEDS: QUEtiapine FUMARATE 100 MG TABLET (FP) PO SCH (22:40)
[2018-09-10] MEDS: IBUPROFEN 400 MG TABLET (FP) PO PRN (23:31)
[2018-09-11] MEDS ORDERED: diazePAM 5 MG TABLET PO SCH (06:00)
[2018-09-11] MEDS: METHOCARBAMOL 500 MG TABLET PO PRN (06:18)
[2018-09-11] MEDS: DICYCLOMINE HCL 10 MG CAPSULE PO PRN (06:18)
[2018-09-11] MEDS: IBUPROFEN 400 MG TABLET (FP) PO PRN (06:19)
[2018-09-11] MEDS ORDERED: METHADONE (DETOX) 10 MG, METHADONE (DETOX) 5 MG PO ONE (10:00)
[2018-09-11] MEDS ORDERED: METHADONE HCL 10 MG TABLET (FOR DETOX USE ONLY) PO ONE (10:00)
[2018-09-11] MEDS: LISINOPRIL 10 MG TABLET (FP) PO SCH (10:45)
[2018-09-11] MEDS: PRENATAL VITAMINS W/ FOLIC ACID TABLET (FP) PO SCH (10:45)
[2018-09-11] MEDS: ASPIRIN 81 MG CHEWABLE TABLETS PO SCH (10:45)
[2018-09-11] MEDS: ISOSORBIDE MONONITRATE 60 MG TAB.SR.24H (FP) PO SCH (10:45)
[2018-09-11] MEDS: amLODIPine BESYLATE 5 MG TABLET (FP) PO SCH (10:45)
[2018-09-11] MEDS ORDERED: METHADONE HCL 5 MG TABLET (FOR DETOX USE ONLY) ONE (10:46)
[2018-09-11] MEDS ORDERED: METHADONE HCL 10 MG TABLET (FOR DETOX USE ONLY) ONE (10:46)
[2018-09-11] MEDS: TOLNAFTATE 1% CREAM 15 GM TUBE TP SCH ×2 (10:46→23:10)
--- NOTE | 2018-09-11 11:58 | PN ---
S CIWA - CIWA Score Nausea/Vomitin Muscle Tremors: 2 Anxiety: 4-Mod. Anxious/Guarded Agitation: 0-Normal Activity Paroxysmal Sweats: 2 Orientation: 0-Oriented Tacttile Disturbances: 1-Very Mild Itch/Numbness Auditory Disturbances: 0-None Visual Disturbances: 0-None Headache: 0-None Present CIWA-Ar Total Score: 15 [facility]HS COWS - Scale Resting Pulse: 0= [place] 80 or Below Sweatin= Chills/Flushing Restless Observation: 0= Sits Still Pupil Size: 0= Normal to Room Light Bone or Joint Aches: 2= Severe Diffuse Aches Runny Nose/ Eye Tearin= None GI Upset > 30mins: 5=Frequent Vomit/Diarrhea Tremor Observation of Outstretched Hands: 2= Slight Tremor Visible Yawning Observation: 1= 1-2x During Session Anxiety or Irritability: 2=Irritable/Anxious Goose Flesh Skin: 0=Smooth Skin COWS Score: 13 S Progress Note (SOAP) Subjective: Vomiting (Frequent), Diarrhea, Anxious, Sweating. Objective: PATIENT A & O X 3, OBSERVED LYING BED.. 09/11/18 11:56 Vital Signs Temperature 99.2 F 09/11/18 09:35 Pulse Rate 80 09/11/18 09:35 Respiratory Rate 18 09/11/18 09:35 Blood Pressure 147/98 09/11/18 09:35 O2 Sat by Pulse Oximetry (%) Laboratory Tests 09/08/18 09/08/18 09/08/18 15:10 15:10 15:10 WBC 4.8 RBC 5.24 Hgb 16.0 Hct 48.9 MCV 93.3 MCH 30.6 MCHC 32.8 RDW 14.5 Plt Count 197 MPV 8.4 Sodium 140 Potassium 4.2 Chloride 103 Carbon Dioxide 28 Anion Gap 9 BUN 16 Creatinine 1.2 Est GFR (CKD-EPI)AfAm 86.53 Est GFR (CKD-EPI)NonAf 74.66 Random Glucose 89 Calcium 9.0 Total Bilirubin 0.9 AST 58 H ALT 57 Alkaline Phosphatase 97 Total Protein 8.0 Albumin 4.0 Urine Color Urine Appearance Urine pH Ur Specific [place] Urine Protein Urine Glucose (UA) Urine Ketones Urine Blood Urine Nitrite Urine Bilirubin Urine Urobilinogen Ur Leukocyte Esterase RPR Titer HIV 1&2 Antibody Screen Negative HIV P24 Antigen Negative 09/08/18 09/08/18 15:10 18:45 WBC RBC Hgb Hct MCV MCH MCHC RDW Plt Count MPV Sodium Potassium Chloride Carbon Dioxide Anion Gap BUN Creatinine Est GFR (CKD-EPI)AfAm Est GFR (CKD-EPI)NonAf Random Glucose Calcium Total Bilirubin AST ALT Alkaline Phosphatase Total Protein Albumin Urine Color Yellow Urine Appearance Clear Urine pH 6.5 Ur Specific [place] 1.015 Urine Protein Negative Urine Glucose (UA) Negative Urine Ketones Negative Urine Blood Negative Urine Nitrite Negative Urine Bilirubin Negative Urine Urobilinogen 1.0 Ur Leukocyte Esterase Negative RPR Titer Nonreactive HIV 1&2 Antibody Screen HIV P24 Antigen LABS NOTED. Assessment: 09/11/18 11:56 WITHDRAWAL SYMPTOMS. HYPERTENSION. VOMITING. Plan: CONTINUE DETOX. [facility]QUENT [facility]OM[facility]. SEE FOLLOWING [facility] PROGRESS NOTE.
--- NOTE | 2018-09-11 12:03 | PN ---
[facility] Progress Note Note: PATIENT C/O FREQUENT VOMITING AND ABDOMINAL PAIN (GENERALIZED) THAT HE FEELS ARE BECOMING MORE SEVERE WITH TIME. PATIENT ALSO REPORTING SWEATING AND CHILLS. PATIENT REPORTS VOMITING X 7 TODAY THUS FAR. VOMIT HAS "YELLOW-BROWN" COLOR TO IT. PATIENT REPORTS THAT ABDOMINAL PAIN IS CONSTANT, SHARP IN QUALITY AND 10/10 ON PAIN SCALE. PATIENT REPORTS POOR EFFECT FROM ANTI-EMITIC MEDICATIONS (ZOFRAN SL AND TIGAN IM ) ADMINISTERED THUS FAR. PATIENT APPEARS IN DISTRESS AND GUARDED LYING IN BED. BP INTERMITTENTLY ELEVATED (PATIENT HAS HISTORY OF HTN). OTHER VS STABLE. TEMP. ELEVATED X 1 LAST NIGHT, HOWEVER, PATIENT AFEBRILE AT THIS TIME. PATIENT HAS HISTORY OF GASTRITIS DURING PREVIOUS DETOX ADMISSION IN PAST. ABDOMEN TENDER UPON PALPATION, GENERALIZED THROUGHOUT ABDOMEN, BUT MORE PRONOUNCED IN EPIGASTRIC AREA. REPORT GIVEN TO DR. COLLAZO AT [facility]. PATIENT TO BE TAKEN VIA AMBULANCE TO [facility] FOR FURTHER MEDICAL EVALUATION. Lupis HENRY NP
[2018-09-11 13:13] VITALS: BP 152/91; PULSE 72; TEMP 98.5
[2018-09-11] MEDS: QUEtiapine FUMARATE 100 MG TABLET (FP) PO SCH (23:10)
[2018-09-11] MEDS: THIAMINE HCL 100 MG TABLET (FP) PO SCH (23:11)
[2018-09-12] MEDS ORDERED: METHADONE HCL 5 MG TABLET (FOR DETOX USE ONLY) PO ONE (06:00)
[2018-09-12] MEDS ORDERED: METHADONE HCL 10 MG TABLET (FOR DETOX USE ONLY) PO ONE (10:00)
[2018-09-13] MEDS ORDERED: METHADONE HCL 5 MG TABLET (FOR DETOX USE ONLY) PO ONE (06:00)
== END 2018-09-11 23:14 | disposition short-term general hospital (02) | DRG 773 ==
LOC: YASAS 12:05 → Y3N 15:34
PROVIDERS: ADMIT Surgery; ATTEND Surgery
PROC: HZ2ZZZZ Detoxification Services for Substance Abuse Treatment (ICD-10-PCS; principal; 2018-09-08)
DX: F11.23 Opioid dependence with withdrawal (principal); F10.230 Alcohol dependence with withdrawal, uncomplicated; F14.20 Cocaine dependence, uncomplicated; F12.20 Cannabis dependence, uncomplicated; F17.210 Nicotine dependence, cigarettes, uncomplicated; I10 Essential (primary) hypertension; L90.5 Scar conditions and fibrosis of skin; B35.3 Tinea pedis; R63.4 Abnormal weight loss; B18.2 Chronic viral hepatitis C; I25.10 Atherosclerotic heart disease of native coronary artery without angina pectoris; I25.2 Old myocardial infarction; R76.11 Nonspecific reaction to tuberculin skin test without active tuberculosis; R11.10 Vomiting, unspecified; R10.9 Unspecified abdominal pain; Z91.14 Patient's other noncompliance with medication regimen; Z91.013 Allergy to seafood; Z95.5 Presence of coronary angioplasty implant and graft; Z86.74 Personal history of sudden cardiac arrest
CPT/HCPCS: 36415; 80053; 81003; 85027; 86593; 87389; J0735; Q0162

== ENCOUNTER 2018-09-11 13:19 | Inpatient (IN) | payer OTHER ==
[2018-09-11] MEDS ORDERED: FAMOTIDINE 20 MG/50 ML IVPB 20 MG/50 ML MG IVPB ONE ×2 (13:53→14:06)
[2018-09-11] MEDS ORDERED: SODIUM CHLORIDE 1,000 ML IV STA (13:53)
[2018-09-11] MEDS ORDERED: METOCLOPRAMIDE HCL INJECTION 10 MG/2 ML VIAL IVPUSH ONE (14:02)
[2018-09-11] MEDS ORDERED: morphine CARPU-JECT 4 MG/1 ML DISP.SYRIN IVPUSH ONE (14:02)
[2018-09-11] MEDS ORDERED: MAG HYDROX/AL HYDROX/SIMETH 30 ML UNIT-DOSE CUP PO ONE (14:02)
[2018-09-11] MEDS ORDERED: METOCLOPRAMIDE HCL INJECTION 10 MG/2 ML VIAL ONE (14:06)
[2018-09-11] MEDS ORDERED: MAG HYDROX/AL HYDROX/SIMETH 30 ML UNIT-DOSE CUP ONE (14:06)
[2018-09-11] MEDS ORDERED: MORPHINE SULFATE 2 MG/ML VIAL ONE (14:44)
[2018-09-11 14:46] LABS: BASO % 0.6 % (0-2.0); EOS % 0.1 % (0-4.5); HEMATOCRIT 51.8 % (35.4-49); HEMOGLOBIN 17.2 GM/dL (11.7-16.9); LYMPH % 15.6 % (8-40); MCH 29.9 pg (25.7-33.7); MCHC 33.3 g/dl (32.0-35.9); MEAN CELL VOLUME 89.7 fl (80-96); MEAN PLT VOLUME 7.7 fl (7.5-11.1); NEUT % 67.7 % (42.8-82.8); PLATELET COUNT 226 K/MM3 (134-434); RBC 5.78 M/mm3 (4.00-5.60); RDW 13.9 % (11.9-15.9); WHITE BLOOD COUNT 8.8 K/mm3 (4.0-10.0)
--- NOTE | 2018-09-11 15:06 | PDOC ---
Documentation entered by Loly Plunkett SCRIBE, acting as scribe for Nina Estrada MD. Nina Estrada MD: This documentation has been prepared by the scribe, Loly Plunkett SCRIBE, under my direction and personally reviewed by me in its entirety. I confirm that the documentation accurately reflects all work, treatment, procedures, and medical decision making performed by me. History of Present Illness - General Chief Complaint: Pain Stated Complaint: DETOX Time Seen by Provider: 09/11/18 13:53 History Source: Patient, Old Records Exam Limitations: No Limitations - History of Present Illness Initial Comments: 09/11/18 14:44 Mr. Fuller is a 43-year-old male with a past medical history significant for HTN , CAD/[place] s/p Stents (2016), hx of gastritis and polysubstance abuse (alcohol, cocaine, IV Heroin, Xanax and Marijuana use) presents to the emergency department from [facility] for diffuse abdominal pain. The patient presents with 4 days of abdominal pain, associated with nausea with multiple episodes of NBNB emesis, noted to be yellow/rust colored emesis today, associated with hiccups. The patient was given Tygan IM and Zofran SL, without relief. The patient reports the abdominal pain is associated with lower back pain. Denies diarrhea, hematochezia, melena, constipation, dysuria, hematuria, frequency/urgency to urinate, hematemesis, cough, fever, chills. Denies taking any pain medication. currently in detox for polysubstance abuse,with last ETOH/IVDU about 5 days ago prior to detox presentation. Allergies: NKDA, fish containing product Smoking: current smoker Alcohol: last drink was 5 days ago, 1 pint a day drinker. Drugs: cocaine abuse, heroin dependence, xanax dependence Surgical history: Angioplasty with stent (2016) and tonsillectomy (1994). 09/11/18 15:15 Past History - Past Medical History Allergies/Adverse Reactions: Allergies Allergy/AdvReac Type Severity Reaction Status Date / Time No Known Drug Allergies Allergy Verified 09/11/18 13:34 Fish Containing Products AdvReac Severe Vomiting Verified 09/11/18 13:34 Home Medications: Ambulatory Orders Isosorbide Mononitrate [Imdur -] 60 mg PO DAILY #30 tab.sr.24h 06/11/17 Aspirin [ASA -] 81 mg PO DAILY #14 tab.chew 04/01/18 Lisinopril [Prinivil] 10 mg PO DAILY #14 tablet 04/01/18 Amlodipine Besylate [Norvasc -] 5 mg PO DAILY 09/08/18 Quetiapine Fumarate [Seroquel -] 100 mg PO HS 09/08/18 Anemia: No Asthma: No Cancer: No Cardiac Disorders: Yes (cardiac arrest d/t drugs S/P ANGIOPLASTY WITH STENT ( Feb 2013)) CVA: No COPD: No CHF: No Dementia: No Diabetes: No GI Disorders: No Disorders: No HTN: Yes (ON MEDICATION - Lisinopril 5 mg and Isorbide ) Hypercholesterolemia: No Kidney Stones: No Liver Disease: No Seizures: No Thyroid Disease: No - Surgical History Abdominal Surgery: No Appendectomy: No Cardiac Surgery: Yes (S/P ANGIOPLASTY [id number]) Cholecystectomy: No Lung Surgery: No Neurologic Surgery: No Orthopedic Surgery: No - Reproductive History Testicular Surgery: No - Immunization History Immunization Up to Date: Yes - Suicide/Smoking/Psychosocial Hx Smoking History: Current every day smoker Have you smoked in the past 12 months: Yes Number of Cigarettes Smoked Daily: 20 Cigars Per Day: 0 Information on smoking cessation initiated: No 'Breaking Loose' booklet given: 09/08/18 Hx Alcohol Use: Yes Drug/Substance Use Hx: Yes Substance Use Type: Alcohol, Cocaine, Heroin, Marijuana Hx Substance Use Treatment: Yes ([facility] 06/01/18 to 06/05/18) Review of Systems - Review of Systems Able to Perform ROS?: Yes Comments:: 09/11/18 14:41 Constitutional: no fevers or chills. HEENT: no headache or dizziness. CVS: no cp or syncope. Resp: no sob. No cough. Gastrointestinal: +abdominal pain, nausea, vomiting, and hiccups. Denies hematemesis, diarrhea, melena. Genitourinary: no urinary sx, hematuria or dysuria. MUSCULOSKELETAL: +lower back pain. No joint pain and swelling. No neck pain. SKIN: no redness or skin changes, no discharge, no rash. No wounds. Hematologic: no easy bruising/bleeding. NEUROLOGIC: No headache, dizziness, LOC or altered mental status. No weakness, numbness or tingling. Psych: no anxiety or depression Allergic/Immunologic: fish allergies All other systems reviewed and negative, or as documented in HPI. 09/11/18 15:16 *Physical Exam - Vital Signs Last Vital Signs Temp Pulse Resp BP Pulse Ox 97.9 F 101 H 18 151/110 H 97 09/11/18 13:32 09/11/18 13:32 09/11/18 13:32 09/11/18 13:32 09/11/18 13:32 - Physical Exam Comments: 09/11/18 14:43 General: Well appearing, awake and alert, NAD. HEENT: NCAT, PERRL, EOMI, clear conjunctiva, anicteric, dry mucus membranes, clear oropharynx, no oral lesions.. Neck: neck supple, FROM Resp: CTAB, normal and even respirations, no respiratory distress CVS: RRR, no murmurs, 2+ peripheral pulses throughout, no peripheral edema Abdomen: +diffuse abdominal tenderness, soft, nondistended, no rebound or guarding. No CVAT. no peritoneal signs. Back: nontender, normal inspection and ROM MSK: no edema, LEON x4, ROM intact. No clubbing or cyanosis. normal bulk and tone. Neuro: alert, no focal neuro deficits. Skin: warm and well perfused, cap refill <2 sec, normal color. +extrem track qureshi. 09/11/18 15:19 Heart Score/ECG Review #1 ECG reviewed & interpreted by me at: 15:30 General ECG Interpretation: Sinus Rhythm, Normal Rate, Normal Intervals Compared to previous ECG there are: No significant change 09/11/18 15:48 EKG normal sinus rhythm at 62 bpm, no interval abnormalities, narrow QRS, ST and T wave segments and morphology normal, nonspecific repolarization and no reciprocal ST depressions. Nonspecific T wave abnormalities - some limitations with artifact. ED Treatment Course - LABORATORY CBC & Chemistry Diagram: 09/11/18 14:39 09/11/18 15:52 - ADDITIONAL ORDERS Additional order review: 09/11/18 14:39 RBC 5.78 H MCV 89.7 MCHC 33.3 RDW 13.9 MPV 7.7 Neutrophils % 67.7 Lymphocytes % 15.6 Monocytes % 16.0 H D Eosinophils % 0.1 Basophils % 0.6 - RADIOLOGY Radiology Studies Ordered: Category Date Time Status ABDOMEN US -LIMITED [US] Stat Ultrasound 09/11/18 14:03 Ordered - Medications Given in the ED: ED Medications Discontinued Medications Generic Name Dose Route Start Last Admin Trade Name Luis Felipe PRN Reason Stop Dose Admin Al Hydroxide/Mg Hydroxide 30 ml 09/11/18 14:02 09/11/18 14:50 Mylanta Oral Suspension - PO 09/11/18 14:03 30 ml ONCE ONE Administration Famotidine/Sodium Chloride 20 mg in 50 mls @ 100 mls/hr 09/11/18 13:53 14:39 Pepcid 20 Mg Premixed Ivpb - IVPB 09/11/18 14:22 100 mls/hr ONCE ONE Administration Sodium Chloride 1,000 mls @ 1,000 mls/hr 09/11/18 13:53 09/11/18 14:50 Normal Saline - IV 09/11/18 14:52 1,000 mls/hr ASDIR STA Administration Metoclopramide HCl 10 mg 09/11/18 14:02 09/11/18 14:43 Reglan Injection - IVPUSH 09/11/18 14:03 10 mg ONCE ONE Administration Morphine Sulfate 4 mg 09/11/18 14:02 09/11/18 14:50 Morphine Injection - IVPUSH 09/11/18 14:03 4 mg ONCE ONE Administration Medical Decision Making - Medical Decision Making 09/11/18 15:20 hpi as documented VS reviewed, hypertensive likely from pain/nausea DDx abdominal pain: Renal colic, biliary colic, metabolic/electrolyte derangements. GERD, gastritis, PUD, esophageal spasm, pancreatitis, hepatitis, constipation, colitis, gastroenteritis, cholecystitis, UTI, pyelonephritis, ileus, medication side effect, hernia doubt cardiac, no cp or sob; more abdominal etiology noted as below and in HPI/ PE. ED course: - IVF hydration, reglan and analgesia - labs and lytes with hemoconcentration noted, likely from dehydration and n/v. Cr elevated 2.1, likely from pre-renal/dehydration. - UA neg for blood, +ketones. - EKG with normal intervals, sinus rhythm, MIAN appearance, no ST depression, upsloping ST segments similar to prior EKG, no changes - abdomen US: No evidence of cholelithiasis or cholecystitis. No biliary tract dilatation, nonobstructing 2 mm nephrolithiasis that is unlikely the etiology of his symptoms. - repeat VS normalized - lipase elevated 1300, c/w acute pancreatitis; no stones, so likely from alcohol/drug induced vs idiopathic. 09/11/18 16:57 - on reassessment, unable to neelam PO, still nauseous and c/o abdominal pain. results as above. results with dehydration/SANDY additional renal lytes/osm ordered given additional IVF with LR, tylenol and banana bag. call to [facility] to provide update and regimen, as sx today likely from withdrawal from ETOH/benzos/opioids. spoke with MARILIA Mcnair regarding regimen - tomorrow 10mg methadone 09/12, 5 methadone on 09/13 no meds for alcohol w/d. already got methadone 15mg dosing. GI cs with Dr Duong. plan discussed admit observation for acute pancreatitis, dehydration, intractable vomiting and Ap. NPO, bowel rest, pain control, hydration. medical management admit to hospitalist service for medical management, s/o VEGETABLE WORKER Dr Joe Palacios service 09/11/18 17:05 09/11/18 17:38 09/11/18 17:46 09/11/18 17:48 *DC/Admit/Observation/Transfer Diagnosis at time of Disposition: Dehydration, SANDY (acute kidney injury) Intractable vomiting with nausea Qualifiers: Vomiting type: unspecified Qualified Code(s): R11.2 - Nausea with vomiting, unspecified Pancreatitis Qualifiers: Chronicity: acute Pancreatitis type: unspecified pancreatitis type Acute pancreatitis complication: unspecified Qualified Code(s): K85.90 - Acute pancreatitis without necrosis or infection, unspecified - Discharge Dispostion Condition at time of disposition: Guarded Decision to Admit order: Yes Decision to Admit order Date/Time: 09/11/18 17:09 Decision to Admit Order Category Date Time Status Decision to Admit to Hospital Routine Admission 09/11/18 17:08 Ordered - Referrals - Patient Instructions - Post Discharge Activity
[2018-09-11 16:15] LABS: EPI CELLS 1.1 /HPF (0-5/HPF); HYALINE CASTS 6 /lpf (0-8); PH,URINE 6.5 (5.0-8.0); URINE APPEARANCE CLEAR; URINE BACTERIA 7.1 /hpf (NEGATIVE); URINE BILIRUBIN NEGATIVE (NEGATIVE); URINE COLOR YELLOW; URINE GLUCOSE (UA) NEGATIVE (NEGATIVE); URINE KETONE 1+ (NEGATIVE); URINE LEUK ESTERASE TRACE (NEGATIVE); URINE NITRITE NEGATIVE (NEGATIVE); URINE PROTEIN 1+ (NEGATIVE); URINE RBC 1 /hpf (0-4); URINE WBC 2 /hpf (0-5)
[2018-09-11 16:31] LABS: ALBUMIN 4.3 g/dl (3.4-5.0); BILIRUBIN,TOTAL 0.6 mg/dL (0.2-1); CALCIUM 9.6 mg/dL (8.5-10.1); CREATININE 2.1 mg/dL (0.55-1.3); POTASSIUM 3.9 mmol/L (3.5-5.1); TOT PROT 8.3 g/dl (6.4-8.2)
[2018-09-11] MEDS ORDERED: ACETAMINOPHEN 1000 MG/100 ML VIAL (NON FORMULARY) IVPB ONE (16:56)
[2018-09-11] MEDS ORDERED: LACTATED RINGERS SOLUTION 1000 ML INFUS.BAG IV ONE (16:56)
[2018-09-11] MEDS ORDERED: FOLIC ACID INJECTION - 1 MG, THIAMINE HCL 100 MG, MULTIVIT INJECTION ADULT 10 ML in SOD... IVPB ONE (16:57)
[2018-09-11] MEDS ORDERED: ACETAMINOPHEN INJECTION 100 ML IVPB ONE (17:02)
[2018-09-11] MEDS ORDERED: LACTATED RINGERS SOLUTION 1,000 ML/1,000 ML INFUS.BAG IV SCH ×2 (18:00)
--- NOTE | 2018-09-11 19:15 | PN ---
Teaching Attending Note Name of Resident: Norma Morgan ATTENDING PHYSICIAN STATEMENT I saw and evaluated the patient. I reviewed the resident's note and discussed the case with the resident. I agree with the resident's findings and plan as documented. SUBJECTIVE: Patient is a 43 year old man with PMH of HTN, Tobacco use, CAD/VT (s/p Stents 2016), gastritis and polysubstance abuse (alcohol, cocaine, IV Heroin, Xanax and Marijuana) who presents to the ER from [facility] for diffuse abdominal pain for 4 days. Has nausea with multiple episodes of NBNB vomiting, noted to be yellow/rust colored today and associated with hiccups. The patient was given Tygan IM and Zofran SL, without relief. Says the abdominal pain is associated with lower back pain. Denies diarrhea, hematochezia, melena, constipation, dysuria, hematuria, frequency/urgency to urinate, hematemesis, cough, fever, chills. Denies taking any pain medication. Currently in detox for polysubstance abuse,with last ETOH/IVDU about 5 days ago prior to detox presentation. OBJECTIVE: Alert Vital Signs Period Temp Pulse Resp BP Sys/Lehman Pulse Ox Last 24 Hr 97.9 F-98.5 F 67-101 18-20 137-157/91-110 97-100 HEENT: No Jaundice, eye redness or discharge, PERRLA, EOMI. Dry mucous membrane. Normocephalic, atraumatic. External ears are normal and hearing is grossly intact. No nasal discharge. Neck: Supple, nontender. No palpable adenopathy or thyromegaly. No JVD Chest: Good effort. Clear to auscultation and percussion. Heart: Regular. No S3, rub or murmur Abdomen: Not distended, soft, nontender and no HSM. No rebound or guarding. Normal bowel sounds. Ext: Peripheral pulses intact. No leg edema. Skin: Warm and dry. No petechiae, rash or ecchymosis. Neuro: Alert. Tremulous. Oriented x3. CN 2-12 grossly intact. Sensation grossly intact in all four extremities and DTR are symmetric. Psych: Appropriate mood and affect. Good insight. Current Medications Generic Name Dose Route Start Last Admin Trade Name Freq PRN Reason Stop Dose Admin Folic Acid 1 mg/ Thiamine HCl 1,000 mls @ 125 mls/hr 09/11/18 16:57 09/11/18 17:45 100 mg/ Multivitamins/Minerals IVPB 09/12/18 00:56 125 mls/hr 10 ml/ Sodium Chloride ONCE ONE Administration Lactated Ringer's 1,000 ml in 1,000 mls @ 125 mls/hr 09/11/18 18:00 Lactated Ringers Solution IV ASDIR TAY Lactated Ringer's 1,000 ml in 1,000 mls @ 100 mls/hr 09/11/18 18:00 Lactated Ringers Solution IV ASDIR TAY Home Medications Medication Instructions Recorded Isosorbide Mononitrate [Imdur -] 60 mg PO DAILY #30 tab.sr.24h 06/11/17 Aspirin [ASA -] 81 mg PO DAILY #14 tab.chew 04/01/18 Lisinopril [Prinivil] 10 mg PO DAILY #14 tablet 04/01/18 Amlodipine Besylate [Norvasc -] 5 mg PO DAILY 09/08/18 Quetiapine Fumarate [Seroquel -] 100 mg PO HS 09/08/18 Abnormal Lab Results 09/11/18 09/11/18 09/11/18 14:39 15:52 15:52 RBC 5.78 H Hgb 17.2 H Hct 51.8 H Monocytes % 16.0 H D BUN 23 H Creatinine 2.1 H Random Glucose 107 H AST 43 H Total Protein 8.3 H Lipase 1392 H Urine Protein 1+ H Urine Ketones 1+ H ASSESSMENT AND PLAN: 1. Abdominal pain/Nausea/Vomiting - Findings may signal drug withdrawal. He reported got methadone 15 mg today at [facility], but says he promptly vomited it. Elevated lipase suggests pancreatitis. Abdominal sonogram revealed only right side nonobstructing kidney stone. Will get a CT abdomen to evaluate the pancreas. Got banana bag in the ER. Will treat with IV LR at 250 ml/hour and use morphine for pain control and provide a bowel regimen. EKG and CXR pending. Erythrocytosis likely due to dehydration - will repeat CBC after adequate hydration. Will implement [facility] librium alcohol withdrawal protocol and do neurochecks. Monitor for drug withdrawal and treat accordingly. Implement seizure, fall and aspiration precautions. Treat with thiamine and folic acid and monitor electrolytes (Ca,Mg,K,P). Counseled patient about abstaining from alcohol/ illicit drugs. Will consult payroll and benefits specialist and refer to alcohol/drug detox upon discharge. 2. Tobacco Use Counseled on risks associated with tobacco use. We will provide patient all the necessary assistance to facilitate smoking cessation and prescribe Nicotine patch. 3. SANDY? - Likely due to volume loss. Will hold lisinopril for now. Avoid nephrotoxic agents such as NSAIDS, aminoglycosides, contrast dyes and certain Alternative medicine products. If azotemia persists after adequate hydration, then will refer to modular home crew member. 4. Hypertension - Restart outpatient antihypertensive drugs and revise regimen to ensure smooth [id number] good BP control. Nonpharmacologic measures to control hypertension like weight loss, salt restriction and exercise discussed. 5. DVT prophylaxis - Heparin 5000u sq tid. 6. Advance directives - Full code
[2018-09-11 20:10] VITALS: BMI 23.1
[2018-09-11] MEDS ORDERED: morphine CARPU-JECT 2 MG/1 ML DISP.SYRIN IVPUSH PRN (20:39)
--- NOTE | 2018-09-11 20:47 | HP ---
CHIEF COMPLAINT: Abdominal, chest and back pain PCP: HISTORY OF PRESENT ILLNESS: Pt. is a 43 y.o. M w/ PMHx. of HTN, CAD ([place] s/p 2 stents in 2017), HCV(untreated), Gastritis, and Polysubstance abuse (EtOH, cocaine, IV heroin, Xanax and marijuana) presents to from Detox abdominal, chest and back pain secondary to suspected pancreatitis. Pt. states the pain began 3 days ago after going to detox 4 days ago. Pt. states that he last used EtoH, cocaine, and IV heroin 5 days ago. He last used Xanax last week, and he smoked marijuana daily. Pt states that his last episode of pancreatitis was three months ago. Pt. endorses have 3 episodes of pancreatitis within the last year. Pt. endorses chills, feeling anxious and having hiccups. Pt. currently denies, nausea, vomiting, diarrhea, constipation, fever, headache, hallucinations(auditory or visual), or shortness of breath. ER course was notable for: (1)IVF, CBC, CMP, lipase (2)Abd US, EKG (3) Morphine, Reglan, famotidine Recent Travel: No PAST MEDICAL HISTORY: As noted above PAST SURGICAL HISTORY: As noted above, Tonsillectomy (1994) Social History: SmokinPPD for 23 years Alcohol: 1 pint per day Drugs: As above Family History: Denies Allergies No Known Drug Allergies Allergy (Verified 09/11/18 13:34) Fish Containing Products Adverse Reaction (Severe, Verified 09/11/18 13:34) Vomiting HOME MEDICATIONS: Home Medications Medication Instructions Recorded Isosorbide Mononitrate [Imdur -] 60 mg PO DAILY #30 tab.sr.24h 06/11/17 Aspirin [ASA -] 81 mg PO DAILY #14 tab.chew 04/01/18 Lisinopril [Prinivil] 10 mg PO DAILY #14 tablet 04/01/18 Amlodipine Besylate [Norvasc -] 5 mg PO DAILY 09/08/18 Quetiapine Fumarate [Seroquel -] 100 mg PO HS 09/08/18 REVIEW OF SYSTEMS As noted above PHYSICAL EXAMINATION Vital Signs - 24 hr 09/11/18 09/11/18 09/11/18 13:32 15:55 18:08 Temperature 97.9 F 98.5 F Pulse Rate 101 H Pulse Rate [ 88 67 Apical] Respiratory 18 20 20 Rate Blood Pressure 151/110 H Blood Pressure 137/91 157/100 [Left Arm] O2 Sat by Pulse 97 100 98 Oximetry (%) 09/11/18 09/11/18 20:06 20:14 Temperature 99.3 F Pulse Rate 65 Pulse Rate [ Apical] Respiratory 20 20 Rate Blood Pressure 130/91 Blood Pressure [Left Arm] O2 Sat by Pulse 98 Oximetry (%) GENERAL: Awake, alert, and fully oriented, diaphoretic, in moderate distress. HEAD: Normal with no signs of trauma. EYES: Extraocular movements intact, sclera anicteric, conjunctiva clear. EARS, NOSE, THROAT: Ears normal, nares patent, oropharynx clear without exudates. Dry mucous membranes. NECK: Normal range of motion, supple without lymphadenopathy, JVD, or masses. Right EJ peripheral line. Track rhona in left EJ LUNGS: Breath sounds equal, clear to auscultation bilaterally. No wheezes, and no crackles. No accessory muscle use. HEART: Regular rate and rhythm, normal S1 and S2 without murmur ABDOMEN: Soft, nontender, not distended, normoactive bowel sounds, no guarding, no rebound, no masses. No [place] duarte or Joe's sign. No hepatomegaly or splenomegaly. MUSCULOSKELETAL: Normal range of motion at all joints. No bony deformities or tenderness. No CVA tenderness. UPPER EXTREMITIES: 2+ radial pulses, warm, well-perfused. No cyanosis. No clubbing. No peripheral edema. LOWER EXTREMITIES: 2+ dorsal pedal pulses, warm, well-perfused. No calf tenderness. No peripheral edema. NEUROLOGICAL: Normal speech. Normal gait. PSYCHIATRIC: Cooperative. Good eye contact. Appropriate mood and affect. SKIN: Warm, dry, normal turgor, no rashes or lesions noted, normal capillary refill. Laboratory Results - last 24 hr 09/11/18 09/11/18 09/11/18 14:27 14:39 15:52 WBC 8.8 RBC 5.78 H Hgb 17.2 H Hct 51.8 H MCV 89.7 MCH 29.9 MCHC 33.3 RDW 13.9 Plt Count 226 MPV 7.7 Absolute Neuts (auto) 6.0 Neutrophils % 67.7 Lymphocytes % 15.6 Monocytes % 16.0 H D Eosinophils % 0.1 Basophils % 0.6 Nucleated RBC % 0 Sodium Cancelled Potassium Cancelled Chloride Cancelled Carbon Dioxide Cancelled Anion Gap Cancelled BUN Cancelled Creatinine Cancelled Est GFR (CKD-EPI)AfAm Cancelled Est GFR (CKD-EPI)NonAf Cancelled Random Glucose Cancelled Calcium Cancelled Total Bilirubin Cancelled AST Cancelled ALT Cancelled Alkaline Phosphatase Cancelled Total Protein Cancelled Albumin Cancelled Lipase Cancelled Urine Color Yellow Urine Appearance Clear Urine pH 6.5 Ur Specific [place] 1.019 Urine Protein 1+ H Urine Glucose (UA) Negative Urine Ketones 1+ H Urine Blood Negative Urine Nitrite Negative Urine Bilirubin Negative Urine Urobilinogen 1.0 Ur Leukocyte Esterase Trace Urine WBC (Auto) 2 Urine RBC (Auto) 1 Urine Casts (Auto) 6 U Epithel Cells (Auto) 1.1 Urine Bacteria (Auto) 7.1 09/11/18 15:52 WBC RBC Hgb Hct MCV MCH MCHC RDW Plt Count MPV Absolute Neuts (auto) Neutrophils % Lymphocytes % Monocytes % Eosinophils % Basophils % Nucleated RBC % Sodium 137 Potassium 3.9 Chloride 99 Carbon Dioxide 29 Anion Gap 9 BUN 23 H Creatinine 2.1 H Est GFR (CKD-EPI)AfAm 43.99 Est GFR (CKD-EPI)NonAf 37.95 Random Glucose 107 H Calcium 9.6 Total Bilirubin 0.6 AST 43 H ALT 50 Alkaline Phosphatase 95 Total Protein 8.3 H Albumin 4.3 Lipase 1392 H Urine Color Urine Appearance Urine pH Ur Specific [place] Urine Protein Urine Glucose (UA) Urine Ketones Urine Blood Urine Nitrite Urine Bilirubin Urine Urobilinogen Ur Leukocyte Esterase Urine WBC (Auto) Urine RBC (Auto) Urine Casts (Auto) U Epithel Cells (Auto) Urine Bacteria (Auto) ASSESSMENT/PLAN: Pt. is a 43 y.o. M w/ PMHx. of HTN, CAD (LA s/p 2 stents in 2017), HCV(untreated ), Gastritis, and Polysubstance abuse (EtOH, cocaine, IV heroin, Xanax and marijuana) presents to from Detox abdominal, chest and back pain secondary to suspected pancreatitis. #Acute Pancreatitis 2/2 EtOH Lipase: 1392 Abd. US shows 2mm non-obstructing R. renal calculus no cholecystitis and cholelithiasis, No biliary duct dilatation LFTs wnl GI Consult (Dr. Duong) appreciated Aggressive IVF Morphine 2mg Q6H Given 4mg and banana bag in ED f/u CT AP w/o contrast f/u CXR Protonix 40mg Trigs: 109 #Polysubstance Abuse CIWA: 10 COWs: 8 likely overlap between evaluations for dual pathologies c/w Methadone Protocol, Pt. to receive 10mg on 09/12 and 5 mg on 09/13 Per DEBURRING MACHINE OPERATOR Xu, Pt. not on EtoH Withdrawal regimen currently EKG: NSR, similar to prior EKG, QTc 468 #SANDY likely secondary to dehydration Cr. 2.1 c/w aggressive IVF will monitor #HTN Hold Lisinopril c/w Norvasc 5 mg can increase if BP is not controlled #CAD s/p 2 stents c/w Imdur 60mg c/w ASA 81mg #FEN LR @ 250 monitor electyrolytes and replete as needed NPO #DVT Ppx. Hep. SQ Visit type - Emergency Visit Emergency Visit: Yes ED Registration Date: 09/11/18 Care time: The patient presented to the Emergency Department on the above date and was hospitalized for further evaluation of their emergent condition. - New Patient This patient is new to me today: Yes Date on this admission: 09/11/18 - Critical Care Critical Care patient: No
[2018-09-11] MEDS ORDERED: QUEtiapine FUMARATE 50 MG TABLET PO SCH (22:00)
[2018-09-11] MEDS: HEPARIN NA (PORCINE) 5,000 UNITS/ML 1ML VIAL SQ SCH (22:03)
[2018-09-11] MEDS: MORPHINE SULFATE 2 MG/ML VIAL IVPUSH PRN (22:07)
[2018-09-11] MEDS: LACTATED RINGERS SOLUTION 1,000 ML/1,000 ML INFUS.BAG IV SCH (23:37)
[2018-09-12] MEDS: LACTATED RINGERS SOLUTION 1,000 ML/1,000 ML INFUS.BAG IV SCH (03:40)
[2018-09-12] MEDS: MORPHINE SULFATE 2 MG/ML VIAL IVPUSH PRN (04:03)
[2018-09-12] MEDS: HEPARIN NA (PORCINE) 5,000 UNITS/ML 1ML VIAL SQ SCH ×2 (06:25→13:29)
--- NOTE | 2018-09-12 08:39 | PN ---
Progress Note (short form) - Note Progress Note: states pain has significantly improved. requesting something to eat. states he had similar pains in the past and always contributing to his withdrawing. denies Cp,SOB, fever, chills, N/V/C/D/ was never told he had gallstones in the past Current Medications Generic Name Dose Route Start Last Admin Trade Name Freq PRN Reason Stop Dose Admin Amlodipine Besylate 5 mg 09/12/18 10:00 Norvasc - PO DAILY TAY Aspirin 81 mg 09/12/18 10:00 Asa - PO DAILY TAY Heparin Sodium (Porcine) 5,000 unit 09/11/18 22:00 09/12/18 06:25 Heparin - SQ Not Given TID TAY Lactated Ringer's 1,000 ml in 1,000 mls @ 250 mls/hr 09/11/18 20:45 09/12/18 03:40 Lactated Ringers Solution IV 09/13/18 00:44 250 mls/hr ASDIR TAY Administration Isosorbide Mononitrate 60 mg 09/12/18 10:00 Imdur - PO DAILY TAY Morphine Sulfate 2 mg 09/11/18 22:02 09/12/18 04:03 Morphine Sulfate IVPUSH 2 mg Q6H PRN Administration PAIN LEVEL 7 - 10 Pantoprazole Sodium 40 mg 09/12/18 10:00 Protonix Iv IVPUSH DAILY TAY Quetiapine Fumarate 100 mg 09/11/18 22:00 09/11/18 22:03 Seroquel - PO 100 mg HS TAY Administration Last Vital Signs Temp Pulse Resp BP Pulse Ox 99.0 F 64 20 141/85 98 09/12/18 06:00 09/12/18 06:00 09/12/18 06:00 09/12/18 06:00 09/11/18 20:14 General NAD HEENT KADIE CV S1 S2 RRR no murmur/rub/gallop Lungs CTA B/L no wheezing/rales/rhonchi Abdomen mild epigastric tenderness on deep palpation, no rebound or guarding Extremities no pedal edema, no tremor no piloerection CBCD WBC 8.8 K/mm3 (4.0-10.0) 09/11/18 14:39 RBC 5.78 M/mm3 (4.00-5.60) H 09/11/18 14:39 Hgb 17.2 GM/dL (11.7-16.9) H 09/11/18 14:39 Hct 51.8 % (35.4-49) H 09/11/18 14:39 MCV 89.7 fl (80-96) 09/11/18 14:39 MCHC 33.3 g/dl (32.0-35.9) 09/11/18 14:39 RDW 13.9 % (11.9-15.9) 09/11/18 14:39 Plt Count 226 K/MM3 (134-434) 09/11/18 14:39 MPV 7.7 fl (7.5-11.1) 09/11/18 14:39 CMP Sodium 137 mmol/L (136-145) 09/11/18 15:52 Potassium 3.9 mmol/L (3.5-5.1) 09/11/18 15:52 Chloride 99 mmol/L (98-107) 09/11/18 15:52 Carbon Dioxide 29 mmol/L (21-32) 09/11/18 15:52 Anion Gap 9 MMOL/L (8-16) 09/11/18 15:52 BUN 23 mg/dL (7-18) H 09/11/18 15:52 Creatinine 2.1 mg/dL (0.55-1.3) H 09/11/18 15:52 Calcium 9.6 mg/dL (8.5-10.1) 09/11/18 15:52 Total Bilirubin 0.6 mg/dL (0.2-1) 09/11/18 15:52 AST 43 U/L (15-37) H 09/11/18 15:52 ALT 50 U/L (13-61) 09/11/18 15:52 Alkaline Phosphatase 95 U/L (45-117) 09/11/18 15:52 Total Protein 8.3 g/dl (6.4-8.2) H 09/11/18 15:52 Albumin 4.3 g/dl (3.4-5.0) 09/11/18 15:52 A/P 43yo M wtih PMH HTN, CAD s/p Stents and polysubstance abuse [facility] was found to have acute pancreatitis 1. Acute Pancreatitis- based on clinical presentation and labs. CT negative for inflammation. no stones seen in gallbladder, labs not suggestive of cholestasis. doubt this pain is from incidental finding of non-obstructing R sided nephrolithasis. clinically improved. will start clear liquids and evaluate if tolerates. instructed to stop eating if pain remits. will reduce IVF if tolerating diet. will slowly advance as tolerated. GI consulted. d/c morphne for pain as is on methadone detox which he is interested in completing 2. Non-obstructing R nephrolithasis- does not show obstruction and no signs of hydro. will donnaley pass on its own. cont IVF 3. HTN- above goal. will give this AM meds now. adjust as needed to optimize control, some component likely due to IVF and pain 4. SANDY- due to dehydration vs medication. awaiting repeat labs from this AM. avoid nephrotoxic agents. holding ACEI 5. Polycythemia- suspected dehydration. awaiting repeat labs. consider workup if persists 6. continuous polysubstance abuse( cocaine, ETOH, IV heroin, THC)- last use of all substances was 5 days ago. completed valium detox. did receive methadone yesterday. CIWA 0 COWS0. should receive methadone 10mg today and 5mg tomorrow and complete his detox at that time. counselled on risks assoc with continued use and need for abstinence. not sure if he is interested in inpatient rehab going forward. will think about if over his time here in the hospital 7. CAD s/p stents- cont home regimen 8. DVT ppx- hep sq 9. anticipate discharge in next 24-48H pending continued clinical improvement Visit type - Emergency Visit Emergency Visit: Yes ED Registration Date: 09/11/18 Care time: The patient presented to the Emergency Department on the above date and was hospitalized for further evaluation of their emergent condition. - New Patient This patient is new to me today: Yes Date on this admission: 09/12/18 - Critical Care Critical Care patient: No - Discharge Referral Referred to [facility] Med P.C.: No
[2018-09-12 09:08] LABS: BASO % 0.6 % (0-2.0); EOS % 0.5 % (0-4.5); HEMATOCRIT 48.5 % (35.4-49); HEMOGLOBIN 16.3 GM/dL (11.7-16.9); LYMPH % 19.2 % (8-40); MCH 30.3 pg (25.7-33.7); MCHC 33.7 g/dl (32.0-35.9); MEAN CELL VOLUME 90.1 fl (80-96); MEAN PLT VOLUME 7.8 fl (7.5-11.1); MONO % 9.1 % (3.8-10.2); NEUT % 70.6 % (42.8-82.8); PLATELET COUNT 168 K/MM3 (134-434); RBC 5.38 M/mm3 (4.00-5.60); WHITE BLOOD COUNT 7.9 K/mm3 (4.0-10.0)
[2018-09-12] MEDS ORDERED: METHADONE HCL 10 MG TABLET PO ONE (09:16)
[2018-09-12] MEDS ORDERED: ACETAMINOPHEN 325 MG TABLET (FP) PO PRN (09:21)
[2018-09-12 09:55] LABS: ALBUMIN 3.7 g/dl (3.4-5.0); CREATININE 1.4 mg/dL (0.55-1.3); MAGNESIUM 2.4 mg/dL (1.8-2.4); POTASSIUM 4.8 mmol/L (3.5-5.1); TOT PROT 7.3 g/dl (6.4-8.2)
[2018-09-12] MEDS ORDERED: ASPIRIN 81 MG CHEWABLE TABLETS PO SCH (10:00)
[2018-09-12] MEDS ORDERED: ISOSORBIDE MONONITRATE 60 MG TAB.SR.24H (FP) PO SCH (10:00)
[2018-09-12] MEDS ORDERED: amLODIPine BESYLATE 5 MG TABLET (FP) PO SCH (10:00)
[2018-09-12] MEDS ORDERED: PANTOPRAZOLE SODIUM 40 MG VIAL IVPUSH SCH (10:00)
--- NOTE | 2018-09-12 13:29 | CON.GI ---
Consult Consult Specialty:: Gastroenterology ( covering [facility] GI service) Referred by:: Nina Estrada MD Reason for Consultation:: Pancreatitis - History of Present Illness Chief Complaint: Abdominal pain History of Present Illness: 43M was transferred from [facility]. with abdominal pain. He describes it as his " usual withdrawal" pain. No vomiting. No radiation into the back. He tells me that he has had pancreatitis related to alcohol in the past on 2 occasions. He drinks a fifth of vodka daily. He is a polysubstance abuser including heroin IVDA, smoking cocaine, Xanax, marijuana and alcohol and smokes 1 PPD. He has HCV and has never had it treated. He is negative for HIV. He has multiple children by multiple partners. - History Source History Provided By: Patient Limitations to Obtaining History: No Limitations - Past Medical History Cardio/Vascular: Yes: CAD (coronarty stenting after DC in 2017 at [facility]), Hyperlipdemia, DC (2017) Gastrointestinal: Yes: Pancreatitis (alcohol related) Renal/: Yes: Renal Calculi - Past Surgical History Past Surgical History: Yes: Tonsillectomy - Alcohol/Substance Use Hx Alcohol Use: Yes (fifth vodka daily) History of Substance Use: reports: Cocaine (smokes), Heroin (IVDA), Marijuana ( smokes), Prescription (xanax) - Smoking History Smoking history: Current every day smoker Have you smoked in the past 12 months: Yes Aproximately how many cigarettes per day: 20 - Social History Usual Living Arrangement: With Significant Other ADL: Independent 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 Place of : [facility] History of Recent Travel: No Home Medications - Allergies Allergies/Adverse Reactions: Allergies Allergy/AdvReac Type Severity Reaction Status Date / Time No Known Drug Allergies Allergy Verified 09/11/18 13:34 Fish Containing Products AdvReac Severe Vomiting Verified 09/11/18 13:34 - Home Medications Home Medications: Ambulatory Orders Isosorbide Mononitrate [Imdur -] 60 mg PO DAILY #30 tab.sr.24h 06/11/17 Aspirin [ASA -] 81 mg PO DAILY #14 tab.chew 04/01/18 Amlodipine Besylate [Norvasc -] 5 mg PO DAILY 09/08/18 Quetiapine Fumarate [Seroquel -] 100 mg PO HS 09/08/18 Family Disease History - Family Disease History Family Disease History: Respiratory: Mother (Emphysema), Other: Father (Unknown) Review of Systems - Review of Systems Constitutional: reports: No Symptoms Eyes: reports: No Symptoms HENT: reports: No Symptoms Neck: reports: No Symptoms Cardiovascular: reports: No Symptoms Respiratory: reports: No Symptoms Gastrointestinal: reports: Abdominal Pain Musculoskeletal: reports: No Symptoms Physical Exam-GI Vital Signs: Vital Signs Temperature 99.1 F 09/12/18 09:11 Pulse Rate 64 09/12/18 09:11 Respiratory Rate 20 09/12/18 09:11 Blood Pressure 174/114 H 09/12/18 09:11 O2 Sat by Pulse Oximetry (%) 98 09/12/18 09:00 CBC,CMP WBC 7.9 K/mm3 (4.0-10.0) 09/12/18 08:55 RBC 5.38 M/mm3 (4.00-5.60) 09/12/18 08:55 Hgb 16.3 GM/dL (11.7-16.9) 09/12/18 08:55 Hct 48.5 % (35.4-49) 09/12/18 08:55 MCV 90.1 fl (80-96) 09/12/18 08:55 MCH 30.3 pg (25.7-33.7) 09/12/18 08:55 MCHC 33.7 g/dl (32.0-35.9) 09/12/18 08:55 RDW 14.0 % (11.9-15.9) 09/12/18 08:55 Plt Count 168 K/MM3 (134-434) D 09/12/18 08:55 MPV 7.8 fl (7.5-11.1) 09/12/18 08:55 Absolute Neuts (auto) 5.6 K/mm3 (1.5-8.0) 09/12/18 08:55 Neutrophils % 70.6 % (42.8-82.8) 09/12/18 08:55 Lymphocytes % 19.2 % (8-40) D 09/12/18 08:55 Monocytes % 9.1 % (3.8-10.2) 09/12/18 08:55 Eosinophils % 0.5 % (0-4.5) D 09/12/18 08:55 Basophils % 0.6 % (0-2.0) 09/12/18 08:55 Nucleated RBC % 0 % (0-0) 09/12/18 08:55 Sodium 143 mmol/L (136-145) 09/12/18 08:55 Potassium 4.8 mmol/L (3.5-5.1) 09/12/18 08:55 Chloride 106 mmol/L (98-107) 09/12/18 08:55 Carbon Dioxide 28 mmol/L (21-32) 09/12/18 08:55 Anion Gap 9 MMOL/L (8-16) 09/12/18 08:55 BUN 16 mg/dL (7-18) 09/12/18 08:55 Creatinine 1.4 mg/dL (0.55-1.3) H 09/12/18 08:55 Est GFR (CKD-EPI)AfAm 71.82 09/12/18 08:55 Est GFR (CKD-EPI)NonAf 61.96 09/12/18 08:55 POC Glucometer 79 UNITS (80-120) 09/12/18 12:07 Random Glucose 97 mg/dL (74-106) 09/12/18 08:55 Serum Osmolality 353 mosm/kg (278-305) H 09/11/18 15:52 Calcium 9.0 mg/dL (8.5-10.1) 09/12/18 08:55 Magnesium 2.4 mg/dL (1.8-2.4) 09/12/18 08:55 Total Bilirubin 1.0 mg/dL (0.2-1) 09/12/18 08:55 AST 45 U/L (15-37) H 09/12/18 08:55 ALT 51 U/L (13-61) 09/12/18 08:55 Alkaline Phosphatase 86 U/L (45-117) 09/12/18 08:55 Total Protein 7.3 g/dl (6.4-8.2) 09/12/18 08:55 Albumin 3.7 g/dl (3.4-5.0) 09/12/18 08:55 Triglycerides 109 mg/dL (0-150) 09/11/18 15:52 Lipase 186 U/L (73-393) 09/12/18 08:55 Current Medications Generic Name Dose Route Start Last Admin Trade Name Freq PRN Reason Stop Dose Admin Acetaminophen 650 mg 09/12/18 09:21 Tylenol - PO Q6H PRN pain Amlodipine Besylate 5 mg 09/12/18 10:00 09/12/18 09:13 Norvasc - PO 5 mg DAILY TAY Administration Aspirin 81 mg 09/12/18 10:00 09/12/18 09:13 Asa - PO 81 mg DAILY TAY Administration Heparin Sodium (Porcine) 5,000 unit 09/11/18 22:00 09/12/18 13:29 Heparin - SQ Not Given TID TAY Lactated Ringer's 1,000 ml in 1,000 mls @ 250 mls/hr 09/11/18 20:45 09/12/18 03:40 Lactated Ringers Solution IV 09/13/18 00:44 250 mls/hr ASDIR TAY Administration Isosorbide Mononitrate 60 mg 09/12/18 10:00 09/12/18 09:13 Imdur - PO 60 mg DAILY TAY Administration Methadone HCl 5 mg 09/13/18 09:16 Dolophine - PO 09/13/18 09:17 ONCE ONE Pantoprazole Sodium 40 mg 09/12/18 10:00 09/12/18 09:14 Protonix Iv IVPUSH 40 mg DAILY TAY Administration Quetiapine Fumarate 100 mg 09/11/18 22:00 09/11/18 22:03 Seroquel - PO 100 mg HS TAY Administration Constitutional: Yes: No Distress Eyes: Yes: Conjunctiva Clear HENT: Yes: Atraumatic Neck: Yes: Supple Cardiovascular: Yes: Regular Rate and Rhythm Respiratory: Yes: CTA Bilaterally Gastrointestinal Inspection: Yes: WNL ...Auscultate: Yes: Normoactive Bowel Sounds ...Palpate: Yes: Soft, Other (nontender) ...Rectal Exam: Yes: Deferred (declined) Edema: No 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: Yes: Alert, Oriented Labs: CBC, BMP 09/12/18 08:55 09/12/18 08:55 Laboratory Tests 08/25/16 05/03/17 05/03/17 13:56 08:40 09:09 WBC BUN Creatinine Total Bilirubin AST ALT Alkaline Phosphatase Triglycerides Lipase 102 Opiates Screen Positive Phencyclidine Screen Positive Benzodiazepines Screen Positive U Marijuana (THC) Screen Positive Alcohol, Quantitative < 5.0 RPR Titer HIV 1&2 Antibody Screen HIV P24 Antigen 09/08/18 09/08/18 09/11/18 15:10 15:10 15:52 WBC BUN Creatinine Total Bilirubin AST ALT Alkaline Phosphatase Triglycerides 109 Lipase 1392 H Opiates Screen Phencyclidine Screen Benzodiazepines Screen U Marijuana (THC) Screen Alcohol, Quantitative RPR Titer Nonreactive HIV 1&2 Antibody Screen Negative HIV P24 Antigen Negative 09/12/18 09/12/18 08:55 08:55 WBC 7.9 BUN 16 Creatinine 1.4 H Total Bilirubin 1.0 AST 45 H ALT 51 Alkaline Phosphatase 86 Triglycerides Lipase 186 Opiates Screen Phencyclidine Screen Benzodiazepines Screen U Marijuana (THC) Screen Alcohol, Quantitative RPR Titer HIV 1&2 Antibody Screen HIV P24 Antigen Imaging - Results Cat Scan: Report Reviewed ( Final Report CT ABDOMEN & PELVIS CT W/O CONTR Show Printer-Friendly Version Patient Name: Michael Gutiérrezien : Aug-1975 ID: [id number] Study Date: 11-Sep-2018 21:08 [facility] Name: SKY GUTIÉRREZ DEPARTMENT OF RADIOLOGY Phys: Vladimir Tran RESIDENT : 1975 Age: 43 Sex: M [facility] [place] Acct: [id number] Loc: [address] Exam Date: 09/11/18 Status: [place] [address] Unit Number: [id number] EXAM#: TYPE/EXAM: RESULT: [id number] CT/ABDOMEN PELVIS CT W/O CONTR Abdomen and pelvis CT without contrast Clinical information: pancreatitis Multiplanar imaging was performed. As requested no intravenous or enteric contrast was administered. No prior CT/MRI studies are available at this facility for direct comparison. The pancreas, liver, spleen, gallbladder, adrenal glands and left kidney demonstrate no obvious noncontrast pathology. No peripancreatic edema or fluid accumulation is seen. There is no aortic aneurysm. No gross lymphadenopathy is identified. There is no biliary tract dilatation. A 2 mm nonobstructing right renal calyceal calculus is visualized. The appendix appears unremarkable. There is no obvious evidence of acute diverticulitis or colitis allowing for somewhat limited visualization due to contiguous unopacified bowel loops. No gross noncontrast small bowel abnormality is identified. No evidence of pneumoperitoneum, free intraperitoneal fluid or bowel obstruction. There is no obvious noncontrast pelvic abnormality. The visualized osseous structures demonstrate no obvious acute pathology. Impression: There is no definite CT evidence of pancreatic pathology on noncontrast imaging. Mild acute pancreatitis may not be demonstrable on CT or MRI. Clinical/laboratory correlation is suggested. Follow-up imaging as clinically indicated. 2 mm nonobstructing right renal calculus. Reported By: Francisco Bhardwaj MD 09/12/188 Technologist: Syeda Wall Transcribed Date/Time: 8 Roll Builder: Francisco Bhardwaj Printed Date/Time: By: Signed by: Francisco Bhardwaj Signed on: 12-Sep-2018 00:10) Problem List - Problems (1) Pancreatitis Assessment/Plan: Doubt true pancreatitis in the absence of vomiting, elevated WBC and CT imaging evidence. The patient tells me this is nothing more than his usual abdominal discomfort associated with withdrawal. He is pain free, wants to eat and to go home. Will order solid lunch. If tolerated can discharge Code(s): K85.90 - ACUTE PANCREATITIS WITHOUT NECROSIS OR INFECTION, UNSP Qualifiers: Chronicity: acute Pancreatitis type: unspecified pancreatitis type Acute pancreatitis complication: unspecified Qualified Code(s): K85.90 - Acute pancreatitis without necrosis or infection, unspecified (2) IVDU (intravenous drug user) Code(s): F19.90 - OTHER PSYCHOACTIVE SUBSTANCE USE, UNSPECIFIED, UNCOMPLICATED (3) Alcohol dependence with uncomplicated withdrawal Assessment/Plan: I discussed the risks associated with continued alcohol and other substance abuse and strongly advised against continuing any of these habits. I advised him to join Code(s): F10.230 - ALCOHOL DEPENDENCE WITH WITHDRAWAL, UNCOMPLICATED (4) CAD (coronary artery disease) Code(s): I25.10 - ATHSCL HEART DISEASE OF [place] CORONARY ARTERY W/O ANG PCTRS Qualifiers: Coronary Disease-Associated Artery/Lesion type: [place] artery [place] vs. transplanted heart: [place] heart Associated angina: without angina Qualified Code(s): I25.10 - Atherosclerotic heart disease of [place] coronary artery without angina pectoris (5) H/O heart artery stent Code(s): Z95.5 - PRESENCE OF CORONARY ANGIOPLASTY IMPLANT AND GRAFT (6) Hepatitis C Assessment/Plan: I have informed Sky that HCV is curable and failure to do so can lead to cirrhosis and liver cancer. He will seek referral for such therapy through his PMD Code(s): B19.20 - UNSPECIFIED VIRAL HEPATITIS C WITHOUT HEPATIC COMA Qualifiers: Viral hepatitis chronicity: chronic Hepatic coma status: without hepatic coma Qualified Code(s): B18.2 - Chronic viral hepatitis C Assessment/Plan Impression: - Doubt true pancreatitis in the absence of vomiting, elevated WBC and CT imaging evidence. The patient tells me this is nothing more than his usual abdominal discomfort associated with withdrawal. He is pain free, wants to eat and to go home. - HCV - Alcoholism and polysubstance abuse Plan: -- Will order solid lunch. If tolerated can discharge -- I have informed Sky that HCV is curable and failure to do so can lead to cirrhosis and liver cancer. He will seek referral for such therapy through his PMD -- I discussed the risks associated with continued alcohol and other substance abuse and strongly advised against continuing any of these habits. I advised him to join AA
--- NOTE | 2018-09-12 13:49 | DS ---
Physical Exam: SUBJECTIVE: Patient seen and examined OBJECTIVE: Vital Signs Period Temp Pulse Resp BP Sys/Lehman Pulse Ox Last 24 Hr 98.5 F-99.3 F 64-88 20-20 118-174/64-114 98-100 PHYSICAL EXAM GENERAL: The patient is awake, alert, and fully oriented, in no acute distress. HEAD: Normal with no signs of trauma. EYES: PERRL, extraocular movements intact, sclera anicteric, conjunctiva clear. ENT: Ears normal, nares patent, oropharynx clear without exudates, moist mucous membranes. NECK: Trachea midline, full range of motion, supple. LUNGS: Breath sounds equal, clear to auscultation bilaterally, no wheezes, no crackles, no accessory muscle use. HEART: Regular rate and rhythm, S1, S2 without murmur, rub or gallop. ABDOMEN: Soft, nontender, nondistended, normoactive bowel sounds, no guarding, no rebound, no hepatosplenomegaly, no masses. EXTREMITIES: 2+ pulses, warm, well-perfused, no edema. NEUROLOGICAL: Cranial nerves II through XII grossly intact. Normal speech, gait not observed. PSYCH: Normal mood, normal affect. SKIN: Warm, dry, normal turgor, no rashes or lesions noted. LABS Laboratory Results - last 24 hr 09/11/18 09/11/18 09/11/18 14:27 14:39 15:52 WBC 8.8 RBC 5.78 H Hgb 17.2 H Hct 51.8 H MCV 89.7 MCH 29.9 MCHC 33.3 RDW 13.9 Plt Count 226 MPV 7.7 Absolute Neuts (auto) 6.0 Neutrophils % 67.7 Lymphocytes % 15.6 Monocytes % 16.0 H D Eosinophils % 0.1 Basophils % 0.6 Nucleated RBC % 0 Sodium Cancelled Potassium Cancelled Chloride Cancelled Carbon Dioxide Cancelled Anion Gap Cancelled BUN Cancelled Creatinine Cancelled Est GFR (CKD-EPI)AfAm Cancelled Est GFR (CKD-EPI)NonAf Cancelled POC Glucometer Random Glucose Cancelled Serum Osmolality Calcium Cancelled Magnesium Total Bilirubin Cancelled AST Cancelled ALT Cancelled Alkaline Phosphatase Cancelled Total Protein Cancelled Albumin Cancelled Triglycerides Lipase Cancelled Urine Color Yellow Urine Appearance Clear Urine pH 6.5 Ur Specific [place] 1.019 Urine Protein 1+ H Urine Glucose (UA) Negative Urine Ketones 1+ H Urine Blood Negative Urine Nitrite Negative Urine Bilirubin Negative Urine Urobilinogen 1.0 Ur Leukocyte Esterase Trace Urine WBC (Auto) 2 Urine RBC (Auto) 1 Urine Casts (Auto) 6 U Epithel Cells (Auto) 1.1 Urine Bacteria (Auto) 7.1 Urine Osmolality Ur Random Creatinine U Random Total Protein Ur Random Sodium 09/11/18 09/12/18 09/12/18 15:52 00:08 03:30 WBC RBC Hgb Hct MCV MCH MCHC RDW Plt Count MPV Absolute Neuts (auto) Neutrophils % Lymphocytes % Monocytes % Eosinophils % Basophils % Nucleated RBC % Sodium 137 Potassium 3.9 Chloride 99 Carbon Dioxide 29 Anion Gap 9 BUN 23 H Creatinine 2.1 H Est GFR (CKD-EPI)AfAm 43.99 Est GFR (CKD-EPI)NonAf 37.95 POC Glucometer 90 Random Glucose 107 H Serum Osmolality 353 H Calcium 9.6 Magnesium Total Bilirubin 0.6 AST 43 H ALT 50 Alkaline Phosphatase 95 Total Protein 8.3 H Albumin 4.3 Triglycerides 109 Lipase 1392 H Urine Color Urine Appearance Urine pH Ur Specific [place] Urine Protein Urine Glucose (UA) Urine Ketones Urine Blood Urine Nitrite Urine Bilirubin Urine Urobilinogen Ur Leukocyte Esterase Urine WBC (Auto) Urine RBC (Auto) Urine Casts (Auto) U Epithel Cells (Auto) Urine Bacteria (Auto) Urine Osmolality 394 Ur Random Creatinine 81.0 U Random Total Protein 16.7 H Ur Random Sodium 89 09/12/18 09/12/18 09/12/18 05:46 08:55 08:55 WBC 7.9 RBC 5.38 Hgb 16.3 Hct 48.5 MCV 90.1 MCH 30.3 MCHC 33.7 RDW 14.0 Plt Count 168 D MPV 7.8 Absolute Neuts (auto) 5.6 Neutrophils % 70.6 Lymphocytes % 19.2 D Monocytes % 9.1 Eosinophils % 0.5 D Basophils % 0.6 Nucleated RBC % 0 Sodium 143 Potassium 4.8 Chloride 106 Carbon Dioxide 28 Anion Gap 9 BUN 16 Creatinine 1.4 H Est GFR (CKD-EPI)AfAm 71.82 Est GFR (CKD-EPI)NonAf 61.96 POC Glucometer 103 Random Glucose 97 Serum Osmolality Calcium 9.0 Magnesium 2.4 Total Bilirubin 1.0 AST 45 H ALT 51 Alkaline Phosphatase 86 Total Protein 7.3 Albumin 3.7 Triglycerides Lipase 186 Urine Color Urine Appearance Urine pH Ur Specific [place] Urine Protein Urine Glucose (UA) Urine Ketones Urine Blood Urine Nitrite Urine Bilirubin Urine Urobilinogen Ur Leukocyte Esterase Urine WBC (Auto) Urine RBC (Auto) Urine Casts (Auto) U Epithel Cells (Auto) Urine Bacteria (Auto) Urine Osmolality Ur Random Creatinine U Random Total Protein Ur Random Sodium 09/12/18 12:07 WBC RBC Hgb Hct MCV MCH MCHC RDW Plt Count MPV Absolute Neuts (auto) Neutrophils % Lymphocytes % Monocytes % Eosinophils % Basophils % Nucleated RBC % Sodium Potassium Chloride Carbon Dioxide Anion Gap BUN Creatinine Est GFR (CKD-EPI)AfAm Est GFR (CKD-EPI)NonAf POC Glucometer 79 Random Glucose Serum Osmolality Calcium Magnesium Total Bilirubin AST ALT Alkaline Phosphatase Total Protein Albumin Triglycerides Lipase Urine Color Urine Appearance Urine pH Ur Specific [place] Urine Protein Urine Glucose (UA) Urine Ketones Urine Blood Urine Nitrite Urine Bilirubin Urine Urobilinogen Ur Leukocyte Esterase Urine WBC (Auto) Urine RBC (Auto) Urine Casts (Auto) U Epithel Cells (Auto) Urine Bacteria (Auto) Urine Osmolality Ur Random Creatinine U Random Total Protein Ur Random Sodium HOSPITAL COURSE: Date of Admission:09/11/18 Date of Discharge: 09/12/18 Discharge Summary Reason For Visit: INTRACTABLE VOMITING WITH NAUSEA, ABDOMINAL PAIN Current Active Problems SANDY (acute kidney injury) (Acute) Dehydration (Acute) Intractable vomiting with nausea (Acute) Pancreatitis (Acute) Condition: Guarded - Instructions Diet, Activity, Other Instructions: You were admitted to the hospital because you have acute pancreatitis.This was likely due to your drinking and has resolved You were also found to have renal impairment which has improved. Continue to drink plenty of water. You need to have your renal function repeated next week. Until then hold your lisinopril. Follow up with your primary care doctor next week, You need your labs repeated to check your kidney function AVOID drinking alcohol or taking any illicit substances. these are detrimental to your health. Refer to AA and NA meetings Return to the ER if you develop chest pain or worsening abdominal pain - Home Medications Comprehensive Discharge Medication List: Ambulatory Orders Isosorbide Mononitrate [Imdur -] 60 mg PO DAILY #30 tab.sr.24h 06/11/17 Aspirin [ASA -] 81 mg PO DAILY #14 tab.chew 04/01/18 Amlodipine Besylate [Norvasc -] 5 mg PO DAILY 09/08/18 Quetiapine Fumarate [Seroquel -] 100 mg PO HS 09/08/18 - Discharge Referral Referred to [facility] No
[2018-09-12 14:33] VITALS: BP 136/85; PULSE 61; TEMP 98.2
[2018-09-13] MEDS ORDERED: METHADONE HCL 10 MG TABLET PO ONE (09:16)
--- NOTE | 2018-09-13 15:33 | EKG ---
Test Reason : Blood Pressure : / mmHG Vent. Rate : 062 BPM Atrial Rate : 062 BPM P-R Int : 138 ms QRS Dur : 080 ms QT Int : 462 ms P-R-T Axes : 046 060 063 degrees QTc Int : 468 ms POOR DATA QUALITY, INTERPRETATION MAY BE ADVERSELY AFFECTED NORMAL SINUS RHYTHM POSSIBLE INFERIOR INFARCT (CITED ON OR BEFORE 09-JUN-2017) ABNORMAL ECG WHEN COMPARED WITH ECG OF 29-MAR-2018 19:31, COMPARED TO EKG NO SIGNIFICANT CHANGE IS FOUND Confirmed by LOLIS DAVIS MD ([id number]) on 09/13/2018 3:32:48 PM Referred By: Confirmed By:LOLIS DAVIS MD
== END 2018-09-12 15:21 | disposition home or self-care (01) | DRG 282 ==
LOC: JER 13:19 → JERBED 17:08 → J6S 18:28
PROVIDERS: ADMIT Internal Medicine; ATTEND Internal Medicine
DX: K85.20 Alcohol induced acute pancreatitis without necrosis or infection (principal); N17.9 Acute kidney failure, unspecified; F11.20 Opioid dependence, uncomplicated; D75.1 Secondary polycythemia; I10 Essential (primary) hypertension; I25.10 Atherosclerotic heart disease of native coronary artery without angina pectoris; I25.2 Old myocardial infarction; F14.10 Cocaine abuse, uncomplicated; F12.10 Cannabis abuse, uncomplicated; E86.0 Dehydration; F17.210 Nicotine dependence, cigarettes, uncomplicated; K29.60 Other gastritis without bleeding; N20.0 Calculus of kidney; F10.230 Alcohol dependence with withdrawal, uncomplicated; B19.20 Unspecified viral hepatitis C without hepatic coma
CPT/HCPCS: 36415; 71045-TC-FY; 74176-TC; 76705-TC; 80053; 81003; 82565; 82962; 83690; 83735; 83930; 83935; 84156; 84300; 84478; 85025; 93005; 93010; 99285-25; J0131; J1644; J7030

== ENCOUNTER 2018-10-28 10:51 | Inpatient (IN) | payer OTHER ==
[2018-10-28 12:07] VITALS: BMI 22.6
--- NOTE | 2018-10-28 13:41 | HP ---
COWS - Scale Resting Pulse: 1= [place] 81-100 (patient qualifies for detox) Sweatin= Chills/Flushing Restless Observation: 5= Unable to Sit Still Pupil Size: 2= Moderately Dilated Bone or Joint Aches: 4=Acute Joint/Muscle Pain Runny Nose/ Eye Tearin= Runny Nose/Eyes GI Upset > 30mins: 2= Nausea/Diarrhea Tremor Observation: 4= Gross Tremor/Twitching Yawning Observation: 2= >3x During Session Anxiety or Irritability: 0= None Goose Flesh Skin: 3=Piloerection COWS Score: 26 CIWA Score Nausea/Vomitin-Mild Nausea/No Vomiting Muscle Tremors: 4-Moderate,w/Arms Extend Anxiety: 4-Mod. Anxious/Guarded Agitation: 4-Moderately Restless Paroxysmal Sweats: 1-Minimal Palms Moist Orientation: 0-Oriented Tacttile Disturbances: 0-None Auditory Disturbances: 0-None Visual Disturbances: 0-None Headache: 0-None Present CIWA-Ar Total Score: 14 - Admission Criteria [facility]ASAS Guidelines: Admission for Medically Managed Detox: Requires at least one of the followin. CIWA greater than 12 2. Seizures within the past 24 hours 3. Delirium tremens within the past 24 hours 4. Hallucinations within the past 24 hours 5. Acute intervention needed for co occurring medical disorder 6. Acute intervention needed for co occurring psychiatric disorder 7. Severe withdrawal that cannot be handled at a lower level of care (continued vomiting, continued diarrhea, abnormal vital signs) requiring intravenous medication and/or fluids 8. Patient meet criteria for admission to detox for alchol, heroin and marijuana. Admission [facility] Chief Complaint: Patient entering detox because he is tired of the same thing and wants to stop using drugs. He is using alcohol, heroin and marijuana. You had multiple admissions to detox 08/2018. patient has not had blackouts or seizures from withdrawals. Patient used this morning pint of cognac, 1 bundle this morning, 1/8 ounce marijuana. Allergies/Adverse Reactions: Allergies Allergy/AdvReac Type Severity Reaction Status Date / Time No Known Drug Allergies Allergy Verified 10/28/18 11:58 Fish Containing Products AdvReac Severe Vomiting Verified 10/28/18 11:58 Exam Limitations: No Limitations - Ebola screening Have you traveled outside of the country in the last 21 days: No (N) Have you had contact with anyone from an Ebola affected area: No Do you have a fever: No - Review of Systems Constitutional: Diaphoresis, Loss of Appetite EENT: reports: No Symptoms Reported Respiratory: reports: No Symptoms reported Cardiac: reports: No Symptoms Reported GI: reports: Diarrhea, Nausea, Poor Appetite, Abdominal cramping : reports: No Symptoms Reported Musculoskeletal: reports: Back Pain, Muscle Pain Integumentary: reports: No Symptoms Reported Neuro: reports: Tremors Endocrine: reports: No Symptoms Reported Hematology: reports: No Symptoms Reported Psychiatric: reports: No Sypmtoms Reported, Anxious Patient History - Patient Medical History Hx Anemia: No Hx Asthma: No Hx Chronic Obstructive Pulmonary Disease (COPD): No Hx Cancer: No Hx Cardiac Disorders: Yes (cardiac arrest d/t drugs S/P ANGIOPLASTY WITH STENT ( Feb 2013)) Hx Congestive Heart Failure: No Hx Hypertension: Yes (ON MEDICATION - Lisinopril 5 mg and Isorbide ) Hx Hypercholesterolemia: No Hx Pacemaker: No HX Cerebrovascular Accident: No Hx Seizures: No Hx Dementia: No Hx Diabetes: No Hx Gastrointestinal Disorders: No Hx Liver Disease: No Hx Genitourinary Disorders: No Hx Sexually Transmitted Disorders: No Hx Renal Disease (ESRD): No Hx Thyroid Disease: No Hx Human Immunodeficiency Virus (HIV): No (negative last 03/01) Hx Hepatitis C: Yes (Not treated) Hx Depression: No Hx Suicide Attempt: No (denies) Hx Bipolar Disorder: No Hx Schizophrenia: No - Patient Surgical History Past Surgical History: Yes Hx Neurologic Surgery: No Hx Cataract Extraction: No Hx Cardiac Surgery: Yes (S/P ANGIOPLASTY [id number]) Hx Lung Surgery: No Hx Breast Surgery: No Hx Breast Biopsy: No Hx Abdominal Surgery: No Hx Appendectomy: No Hx Cholecystectomy: No Hx Genitourinary Surgery: No Hx Section: No Hx Orthopedic Surgery: No Other Surgical History: tonsillectomy in 1994 Anesthesia Reaction: No - PPD History Previous Implant?: No Documented Results: Positive w/o proof Implanted On Prior R Admission?: No Results: c-xray(-),03/31 PPD to be Administered?: No - Smoking Cessation Smoking history: Current every day smoker Have you smoked in the past 12 months: Yes Aproximately how many cigarettes per day: 20 Cigars Per Day: 0 Hx Chewing Tobacco Use: No Initiated information on smoking cessation: Yes 'Breaking Loose' booklet given: 10/28/18 - Substance & Tx. History Hx Alcohol Use: Yes (never had seizures or black out) Hx Substance Use: Yes (heroin use at high levels) Substance Use Type: Alcohol, Heroin, Marijuana - Substances abused Alcohol Substance route: Oral Frequency: Daily Amount used: 2 PINT [place] Age of first use: 23 Date of last use: 10/28/18 Heroin Substance route: Injection Frequency: Daily Amount used: 4 BUNDLES Age of first use: 27 Date of last use: 10/28/18 Marijuana/Hashish Substance route: Smoking Frequency: Daily Amount used: 7GM Age of first use: 16 Date of last use: 10/28/18 Cocaine Substance route: Smoking Frequency: 1-2 times per week Amount used: 1 GM Age of first use: 27 Date of last use: 10/27/18 Alprazolam (Xanax) Substance route: Oral Frequency: Daily Amount used: 2 BARS Age of first use: 41 Date of last use: 10/25/18 Family Disease History - Family Disease History Family Disease History: Respiratory: Mother (Emphysema), Other: Father (Unknown) Admission Physical Exam [facility] - Vital Signs Vital Signs: Vital Signs - 24 hr 10/28/18 11:54 Temperature 98.6 F Pulse Rate 91 H Respiratory 17 Rate Blood Pressure 116/74 - Physical General Appearance: Yes: Within Normal Limits, Moderate Distress HEENTM: Yes: Normal ENT Inspection Respiratory: Yes: Lungs Clear, Normal Breath Sounds Neck: Yes: No masses,lesions,Nodules, Trachea in good position Breast: Yes: Within Normal Limits Cardiology: Yes: Regular Rhythm, Regular Rate Abdominal: Yes: Normal Bowel Sounds, Non Tender, Soft Genitourinary: Yes: Within Normal Limits Back: Yes: Muscle Spasm Musculoskeletal: Yes: full range of Motion, Muscle Pain Extremities: Yes: Within Normal Limits, Normal Inspection, Normal Range of Motion 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: Yes: 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 NML intact, Fully Oriented, Alert, Motor Strength 5/5, Normal Response Integumentary: Yes: Dry Lymphatic: Yes: Within Normal Limits Cleared for Admission [facility] - Detox or Rehab [facility] Level of Care: Medically Managed Detox Regimen/Protocol: Librium Claeared for Rehab Admission: No (not indicated at this time) Breathalyzer - Breathalyzer Breathalyzer: 0.054 Urine Drug Screen - Test Device Lot number: [id number] Expiration date: 08/11/20 - Control Is test valid?: Yes - Results Drug screen NEGATIVE: No Urine drug screen results: THC-Marijuana, LUPIS-Cocaine, FEN-Fentanyl, MOP-Opiates , OXY-Oxycodone Inpatient Rehab Admission - Rehab Decision to Admit Inpatient rehab admission?: No
[2018-10-28] MEDS ORDERED: chlordiazePOXIDE HCL 25 MG CAPSULE PO PRN (13:52)
[2018-10-28] MEDS ORDERED: METHADONE HCL 10 MG TABLET (FOR DETOX USE ONLY) PO ONE (14:30)
[2018-10-28] MEDS ORDERED: CYCLOBENZAPRINE HCL 10 MG TABLET (FP) PO SCH (14:30)
[2018-10-28] MEDS: ASPIRIN 81 MG CHEWABLE TABLETS PO SCH (15:16)
[2018-10-28] MEDS: amLODIPine BESYLATE 5 MG TABLET (FP) PO SCH (15:16)
[2018-10-28] MEDS ORDERED: NICOTINE POLACRILEX 4 MG GUM BUC PRN (15:21)
[2018-10-28] MEDS: ISOSORBIDE MONONITRATE 60 MG TAB.SR.24H (FP) PO SCH (17:15)
[2018-10-28] MEDS: CYCLOBENZAPRINE HCL 10 MG TABLET (FP) PO PRN (17:19)
[2018-10-28] MEDS: QUEtiapine FUMARATE 100 MG TABLET (FP) PO SCH (22:37)
[2018-10-28] MEDS: chlordiazePOXIDE HCL 25 MG CAPSULE PO SCH (22:37)
[2018-10-29] MEDS: chlordiazePOXIDE HCL 25 MG CAPSULE PO SCH ×4 (06:04→23:23)
[2018-10-29] MEDS ORDERED: METHADONE (DETOX) 20 MG, METHADONE (DETOX) 5 MG PO ONE (10:00)
[2018-10-29 10:25] LABS: HEMATOCRIT 40.4 % (35.4-49); HEMOGLOBIN 13.9 GM/dL (11.7-16.9); MCH 30.8 pg (25.7-33.7); MCHC 34.4 g/dl (32.0-35.9); MEAN CELL VOLUME 89.5 fl (80-96); MEAN PLT VOLUME 8.2 fl (7.5-11.1); RBC 4.52 M/mm3 (4.00-5.60); RDW 13.8 % (11.9-15.9); WHITE BLOOD COUNT 3.3 K/mm3 (4.0-10.0)
[2018-10-29 10:33] LABS: ALBUMIN 3.3 g/dl (3.4-5.0); BILIRUBIN,TOTAL 0.9 mg/dL (0.2-1); BLOOD UREA NITROGEN 14.7 mg/dL (7-18); CALCIUM 8.6 mg/dL (8.5-10.1); CREATININE 1.1 mg/dL (0.55-1.3); POTASSIUM 4.3 mmol/L (3.5-5.1); TOT PROT 6.4 g/dl (6.4-8.2)
[2018-10-29 10:40] LABS: PLATELET COUNT 161 K/MM3 (134-434)
--- NOTE | 2018-10-29 10:47 | PN ---
S CIWA - CIWA Score Nausea/Vomitin-No Nausea/No Vomiting Muscle Tremors: 4-Moderate,w/Arms Extend Anxiety: 4-Mod. Anxious/Guarded Agitation: 4-Moderately Restless Paroxysmal Sweats: 3 Orientation: 0-Oriented Tacttile Disturbances: 0-None Auditory Disturbances: 0-None Visual Disturbances: 0-None Headache: 0-None Present CIWA-Ar Total Score: 15 BHS COWS - Scale Resting Pulse: 0= [place] 80 or Below Sweatin= Chills/Flushing Restless Observation: 1= Difficult to Sit Still Pupil Size: 0= Normal to Room Light Bone or Joint Aches: 2= Severe Diffuse Aches Runny Nose/ Eye Tearin= Runny Nose/Eyes GI Upset > 30mins: 0= None Tremor Observation of Outstretched Hands: 2= Slight Tremor Visible Yawning Observation: 2= >3x During Session Anxiety or Irritability: 2=Irritable/Anxious Goose Flesh Skin: 0=Smooth Skin COWS Score: 12 S Progress Note (SOAP) Subjective: tired sweats body aches interrupted sleep agitation nausea restless Objective: 10/29/18 10:37 Vital Signs Temperature 97.9 F 10/29/18 09:44 Pulse Rate 58 L 10/29/18 09:44 Respiratory Rate 18 10/29/18 09:44 Blood Pressure 177/101 H 10/29/18 09:44 O2 Sat by Pulse Oximetry (%) Laboratory Tests 10/29/18 07:00 Sodium 141 Potassium 4.3 Chloride 106 Carbon Dioxide 30 Anion Gap 5 L BUN 14.7 Creatinine 1.1 Est GFR (CKD-EPI)AfAm 96.13 Est GFR (CKD-EPI)NonAf 82.94 Random Glucose 79 Calcium 8.6 Total Bilirubin 0.9 AST 32 ALT 34 Alkaline Phosphatase 78 Total Protein 6.4 Albumin 3.3 L rest of labs pending will f/u with HTN repeat v/s after pt has been medicated aaox3 lying in bed no acute distress Assessment: 10/29/18 10:47 withdrawal sx Plan: continue detox increase fluids
[2018-10-29] MEDS: amLODIPine BESYLATE 5 MG TABLET (FP) PO SCH (10:59)
[2018-10-29] MEDS: ASPIRIN 81 MG CHEWABLE TABLETS PO SCH (10:59)
[2018-10-29] MEDS ORDERED: METHADONE HCL 5 MG TABLET (FOR DETOX USE ONLY) ONE (11:01)
[2018-10-29] MEDS ORDERED: METHADONE HCL 10 MG TABLET (FOR DETOX USE ONLY) ONE (11:01)
[2018-10-29] MEDS: ISOSORBIDE MONONITRATE 60 MG TAB.SR.24H (FP) PO SCH (11:02)
--- NOTE | 2018-10-29 13:02 | CONSULT ---
[facility] Psychiatric Consult - Data Date of interview: 10/29/18 Psychiatric History: Patient was approached at bedside whils asleep. Told signwriter that he was tired, wanted to rest and did not feel like talking today
[2018-10-29] MEDS ORDERED: ONDANSETRON *ODT* 4 MG TABLET SL PRN (13:07)
--- NOTE | 2018-10-29 13:08 | PN ---
S Progress Note Note: Vital Signs Temperature 97.9 F 10/29/18 09:44 Pulse Rate 58 L 10/29/18 09:44 Respiratory Rate 18 10/29/18 09:44 Blood Pressure 177/101 H 10/29/18 09:44 O2 Sat by Pulse Oximetry (%) nausea and vomiting zofran PRN fluids as tolerated repeat v/s continue to monitor
[2018-10-29] MEDS ORDERED: QUEtiapine FUMARATE 50 MG TABLET ONE (21:21)
[2018-10-29] MEDS: ONDANSETRON *ODT* 4 MG TABLET SL PRN (22:44)
[2018-10-29] MEDS: CYCLOBENZAPRINE HCL 10 MG TABLET (FP) PO PRN (23:00)
[2018-10-29] MEDS: QUEtiapine FUMARATE 100 MG TABLET (FP) PO SCH (23:00)
[2018-10-30] MEDS: cloNIDine HCL 0.1 MG TABLET PO PRN ×3 (02:37→22:37)
[2018-10-30] MEDS: chlordiazePOXIDE HCL 25 MG CAPSULE PO SCH ×4 (06:16→22:34)
[2018-10-30] MEDS ORDERED: METHADONE HCL 10 MG TABLET (FOR DETOX USE ONLY) PO ONE (10:00)
--- NOTE | 2018-10-30 10:49 | PN ---
S CIWA - CIWA Score Nausea/Vomitin Muscle Tremors: 2 Anxiety: 2 Agitation: 2 Paroxysmal Sweats: 2 Orientation: 0-Oriented Tacttile Disturbances: 2-Mild Itch/Numbness/Burn Auditory Disturbances: 0-None Visual Disturbances: 0-None Headache: 0-None Present CIWA-Ar Total Score: 12 BHS COWS - Scale Resting Pulse: 0= [place] 80 or Below Sweatin= Chills/Flushing Restless Observation: 1= Difficult to Sit Still Pupil Size: 1= Pupils >than Normal Bone or Joint Aches: 1= Mild Discomfort Runny Nose/ Eye Tearin= Nasal Congestion GI Upset > 30mins: 1= Stomach Cramp Tremor Observation of Outstretched Hands: 2= Slight Tremor Visible Yawning Observation: 0= None Anxiety or Irritability: 1=Feels Anxious/Irritable Goose Flesh Skin: 0=Smooth Skin COWS Score: 9 BHS Progress Note (SOAP) Subjective: interrupted sleep, sweats , shakes Objective: 10/30/18 10:50 Vital Signs Temperature 97.9 F 10/30/18 09:18 Pulse Rate 54 L 10/30/18 09:18 Respiratory Rate 18 10/30/18 09:18 Blood Pressure 147/83 10/30/18 09:18 O2 Sat by Pulse Oximetry (%) Laboratory Tests 10/29/18 10/29/18 10/29/18 07:00 07:00 07:00 WBC 3.3 L RBC 4.52 Hgb 13.9 Hct 40.4 D MCV 89.5 MCH 30.8 MCHC 34.4 RDW 13.8 Plt Count 161 MPV 8.2 Sodium 141 Potassium 4.3 Chloride 106 Carbon Dioxide 30 Anion Gap 5 L BUN 14.7 Creatinine 1.1 Est GFR (CKD-EPI)AfAm 96.13 Est GFR (CKD-EPI)NonAf 82.94 Random Glucose 79 Calcium 8.6 Total Bilirubin 0.9 AST 32 ALT 34 Alkaline Phosphatase 78 Total Protein 6.4 Albumin 3.3 L RPR Titer Nonreactive HIV 1&2 Antibody Screen HIV P24 Antigen 10/29/18 07:00 WBC RBC Hgb Hct MCV MCH MCHC RDW Plt Count MPV Sodium Potassium Chloride Carbon Dioxide Anion Gap BUN Creatinine Est GFR (CKD-EPI)AfAm Est GFR (CKD-EPI)NonAf Random Glucose Calcium Total Bilirubin AST ALT Alkaline Phosphatase Total Protein Albumin RPR Titer HIV 1&2 Antibody Screen Negative HIV P24 Antigen Negative pending labs pt aox3 in bed in nad Assessment: 10/30/18 10:50 withdrawal sx's Plan: cont, detox increase fluids f/up pending labs
[2018-10-30] MEDS: ASPIRIN 81 MG CHEWABLE TABLETS PO SCH (11:24)
[2018-10-30] MEDS: ISOSORBIDE MONONITRATE 60 MG TAB.SR.24H (FP) PO SCH (11:25)
[2018-10-30] MEDS: amLODIPine BESYLATE 5 MG TABLET (FP) PO SCH (11:25)
[2018-10-30] MEDS: QUEtiapine FUMARATE 100 MG TABLET (FP) PO SCH (22:34)
[2018-10-30] MEDS: ONDANSETRON *ODT* 4 MG TABLET SL PRN (22:37)
[2018-10-30] MEDS: CYCLOBENZAPRINE HCL 10 MG TABLET (FP) PO PRN (22:37)
[2018-10-31] MEDS ORDERED: chlordiazePOXIDE HCL 10 MG CAPSULE PO PRN
[2018-10-31] MEDS: chlordiazePOXIDE HCL 10 MG CAPSULE PO SCH ×4 (07:14→23:05)
[2018-10-31] MEDS ORDERED: METHADONE HCL 10 MG TABLET (FOR DETOX USE ONLY) ONE (08:32)
[2018-10-31] MEDS ORDERED: METHADONE HCL 5 MG TABLET (FOR DETOX USE ONLY) ONE (08:32)
[2018-10-31] MEDS: ASPIRIN 81 MG CHEWABLE TABLETS PO SCH (10:00)
[2018-10-31] MEDS ORDERED: METHADONE (DETOX) 10 MG, METHADONE (DETOX) 5 MG PO ONE (10:00)
[2018-10-31] MEDS: amLODIPine BESYLATE 5 MG TABLET (FP) PO SCH (10:01)
[2018-10-31] MEDS: ISOSORBIDE MONONITRATE 60 MG TAB.SR.24H (FP) PO SCH (10:01)
[2018-10-31] MEDS: CYCLOBENZAPRINE HCL 10 MG TABLET (FP) PO PRN ×2 (10:02→18:05)
--- NOTE | 2018-10-31 11:39 | PN ---
[facility] CIWA - CIWA Score Nausea/Vomitin-No Nausea/No Vomiting Muscle Tremors: None Anxiety: 3 Agitation: 2 Paroxysmal Sweats: 3 Orientation: 0-Oriented Tacttile Disturbances: 0-None Auditory Disturbances: 0-None Visual Disturbances: 0-None Headache: 1-Very Mild CIWA-Ar Total Score: 9 [facility] COWS - Scale Resting Pulse: 1= [place] 81-100 Sweatin= Beads of Sweat on Face Restless Observation: 1= Difficult to Sit Still Pupil Size: 0= Normal to Room Light Bone or Joint Aches: 2= Severe Diffuse Aches Runny Nose/ Eye Tearin= None GI Upset > 30mins: 0= None Tremor Observation of Outstretched Hands: 0= None Yawning Observation: 1= 1-2x During Session Anxiety or Irritability: 2=Irritable/Anxious Goose Flesh Skin: 0=Smooth Skin COWS Score: 10 [facility] Progress Note (SOAP) Subjective: c/o sweats, headache, anxiety, and interrupted sleep. Objective: 10/31/18 11:38 Vital Signs 10/31/18 10/31/18 08:16 09:00 Temperature 98.4 F 98.2 F Pulse Rate 80 91 H Respiratory 18 16 Rate Blood Pressure 138/99 149/81 Assessment: 10/31/18 11:38 AOX3, in no acute distress. Full ROM, ambulating in the unit. withdrawal symptoms. Plan: continue detox.
[2018-10-31] MEDS: QUEtiapine FUMARATE 100 MG TABLET (FP) PO SCH (23:05)
[2018-11-01] MEDS: chlordiazePOXIDE HCL 10 MG CAPSULE PO SCH ×2 (06:44→17:54)
[2018-11-01] MEDS ORDERED: cloNIDine HCL 0.1 MG TABLET PO ONE (07:28)
--- NOTE | 2018-11-01 07:38 | PN ---
S Progress Note Note: Patient's blood pressure is B/P 171/107. Patient is asymptomatic Vital Signs Temperature 98.2 F 11/01/18 07:03 Pulse Rate 74 11/01/18 07:33 Respiratory Rate 18 11/01/18 07:33 Blood Pressure 171/107 H 11/01/18 07:33 O2 Sat by Pulse Oximetry (%) Action: Clonidine 0.1mg 1 tablet oral ordered
[2018-11-01] MEDS ORDERED: METHADONE HCL 10 MG TABLET (FOR DETOX USE ONLY) PO ONE (10:00)
[2018-11-01] MEDS: amLODIPine BESYLATE 5 MG TABLET (FP) PO SCH (10:41)
[2018-11-01] MEDS: ASPIRIN 81 MG CHEWABLE TABLETS PO SCH (10:41)
[2018-11-01] MEDS: ISOSORBIDE MONONITRATE 60 MG TAB.SR.24H (FP) PO SCH (10:41)
--- NOTE | 2018-11-01 13:33 | PN ---
S CIWA - CIWA Score Nausea/Vomitin-No Nausea/No Vomiting Muscle Tremors: None Anxiety: 2 Agitation: 0-Normal Activity Paroxysmal Sweats: No Perspiration Orientation: 0-Oriented Tacttile Disturbances: 0-None Auditory Disturbances: 0-None Visual Disturbances: 0-None Headache: 2-Mild CIWA-Ar Total Score: 4 S COWS - Scale Resting Pulse: 0= [place] 80 or Below Sweatin= No chills or Flushing Restless Observation: 0= Sits Still Pupil Size: 0= Normal to Room Light Bone or Joint Aches: 1= Mild Discomfort Runny Nose/ Eye Tearin= None GI Upset > 30mins: 0= None Tremor Observation of Outstretched Hands: 0= None Yawning Observation: 1= 1-2x During Session Anxiety or Irritability: 2=Irritable/Anxious Goose Flesh Skin: 0=Smooth Skin COWS Score: 4 S Progress Note (SOAP) Subjective: Patient c/o anxiety, restlessness, feeling tired and mild body aches Objective: 11/01/18 13:32 Laboratory Tests 10/29/18 10/29/18 10/29/18 07:00 07:00 07:00 WBC 3.3 L RBC 4.52 Hgb 13.9 Hct 40.4 D MCV 89.5 MCH 30.8 MCHC 34.4 RDW 13.8 Plt Count 161 MPV 8.2 Sodium 141 Potassium 4.3 Chloride 106 Carbon Dioxide 30 Anion Gap 5 L BUN 14.7 Creatinine 1.1 Est GFR (CKD-EPI)AfAm 96.13 Est GFR (CKD-EPI)NonAf 82.94 Random Glucose 79 Calcium 8.6 Total Bilirubin 0.9 AST 32 ALT 34 Alkaline Phosphatase 78 Total Protein 6.4 Albumin 3.3 L RPR Titer Nonreactive HIV 1&2 Antibody Screen HIV P24 Antigen 10/29/18 07:00 WBC RBC Hgb Hct MCV MCH MCHC RDW Plt Count MPV Sodium Potassium Chloride Carbon Dioxide Anion Gap BUN Creatinine Est GFR (CKD-EPI)AfAm Est GFR (CKD-EPI)NonAf Random Glucose Calcium Total Bilirubin AST ALT Alkaline Phosphatase Total Protein Albumin RPR Titer HIV 1&2 Antibody Screen Negative HIV P24 Antigen Negative Vital Signs Temperature 98.4 F 11/01/18 09:37 Pulse Rate 77 11/01/18 09:37 Respiratory Rate 16 11/01/18 09:37 Blood Pressure 123/82 11/01/18 09:37 O2 Sat by Pulse Oximetry (%) PE: alert and oriented x 3 skin warm and dry +perrla eoms intact bl ext full rom, amb ad jez, no tremors mildly anxious, restless Assessment: 11/01/18 13:33 withdrawal sx Plan: continue detox for d/c in am
[2018-11-01] MEDS: CYCLOBENZAPRINE HCL 10 MG TABLET (FP) PO PRN ×2 (17:54→22:56)
[2018-11-01] MEDS: QUEtiapine FUMARATE 100 MG TABLET (FP) PO SCH (22:55)
[2018-11-02] MEDS ORDERED: chlordiazePOXIDE HCL 10 MG CAPSULE PO ONE (05:00)
[2018-11-02] MEDS ORDERED: METHADONE HCL 5 MG TABLET (FOR DETOX USE ONLY) PO ONE (06:00)
[2018-11-02 09:22] VITALS: BP 124/64; PULSE 56; TEMP 98.1
--- NOTE | 2018-11-02 10:04 | DS ---
[facility] Detox Discharge Summary Admission Date: 10/28/18 Discharge Date: 11/02/18 - History Present History: Alcohol Dependence, Opioid Dependence - Physical Exam Results Vital Signs: Vital Signs Temperature 98.1 F 11/02/18 09:21 Pulse Rate 56 L 11/02/18 09:21 Respiratory Rate 18 11/02/18 09:21 Blood Pressure 124/64 11/02/18 09:21 O2 Sat by Pulse Oximetry (%) Pertinent Admission Physical Exam Findings: pt arrived in withdrawals Laboratory Tests 10/29/18 10/29/18 10/29/18 07:00 07:00 07:00 WBC 3.3 L RBC 4.52 Hgb 13.9 Hct 40.4 D MCV 89.5 MCH 30.8 MCHC 34.4 RDW 13.8 Plt Count 161 MPV 8.2 Sodium 141 Potassium 4.3 Chloride 106 Carbon Dioxide 30 Anion Gap 5 L BUN 14.7 Creatinine 1.1 Est GFR (CKD-EPI)AfAm 96.13 Est GFR (CKD-EPI)NonAf 82.94 Random Glucose 79 Calcium 8.6 Total Bilirubin 0.9 AST 32 ALT 34 Alkaline Phosphatase 78 Total Protein 6.4 Albumin 3.3 L RPR Titer Nonreactive HIV 1&2 Antibody Screen HIV P24 Antigen 10/29/18 07:00 WBC RBC Hgb Hct MCV MCH MCHC RDW Plt Count MPV Sodium Potassium Chloride Carbon Dioxide Anion Gap BUN Creatinine Est GFR (CKD-EPI)AfAm Est GFR (CKD-EPI)NonAf Random Glucose Calcium Total Bilirubin AST ALT Alkaline Phosphatase Total Protein Albumin RPR Titer HIV 1&2 Antibody Screen Negative HIV P24 Antigen Negative today pt is aaox3 ambulating no acute distress no s/s of withdrawals - Treatment Hospital Course: Detox Protocol Followed, Detoxed Safely, Responded well, Discharged Condition Good, Rehab Referral Accepted Patient has Accepted a Rehab Referral to: pt declined rehab; referral provided - Medication Discharge Medications: Ambulatory Orders Isosorbide Mononitrate [Imdur -] 60 mg PO DAILY #30 tab.sr.24h 06/11/17 Aspirin [ASA -] 81 mg PO DAILY #14 tab.chew 04/01/18 Amlodipine Besylate [Norvasc -] 5 mg PO DAILY 09/08/18 Quetiapine Fumarate [Seroquel -] 100 mg PO HS 09/08/18 - Diagnosis (1) SANDY (acute kidney injury) Current Visit: No Status: Acute (2) IVDU (intravenous drug user) Current Visit: Yes Status: Chronic (3) Alcohol dependence with uncomplicated withdrawal Current Visit: Yes Status: Chronic (4) CAD (coronary artery disease) Current Visit: Yes Status: Chronic Qualifiers: Coronary Disease-Associated Artery/Lesion type: [place] artery [place] vs. transplanted heart: [place] heart Associated angina: without angina Qualified Code(s): I25.10 - Atherosclerotic heart disease of [place] coronary artery without angina pectoris (5) H/O heart artery stent Current Visit: No Status: Chronic (6) Hepatitis C Current Visit: Yes Status: Chronic Qualifiers: Viral hepatitis chronicity: chronic Hepatic coma status: without hepatic coma Qualified Code(s): B18.2 - Chronic viral hepatitis C (7) Hypertension Current Visit: Yes Status: Chronic Qualifiers: Hypertension type: essential hypertension Qualified Code(s): I10 - Essential (primary) hypertension (8) Nicotine dependence Current Visit: Yes Status: Chronic Qualifiers: Nicotine product type: cigarettes Substance use status: uncomplicated Qualified Code(s): F17.210 - Nicotine dependence, cigarettes, uncomplicated (9) Old MD (myocardial infarction) Current Visit: No Status: Chronic (10) Opioid dependence with withdrawal Current Visit: Yes Status: Chronic (11) PPD positive Current Visit: No Status: Chronic (12) Tinea pedis of both feet Current Visit: Yes Status: Chronic (13) Track qureshi due to intravenous drug abuse Current Visit: Yes Status: Chronic - AMA Did Patient Leave Against Medical Advice: No (declined rehab; referral provided)
== END 2018-11-02 09:15 | disposition home or self-care (01) | DRG 773 ==
LOC: YASAS 10:51 → Y6N 14:13
PROVIDERS: ADMIT Surgery; ATTEND Surgery
PROC: HZ2ZZZZ Detoxification Services for Substance Abuse Treatment (ICD-10-PCS; principal; 2018-10-28)
DX: F11.23 Opioid dependence with withdrawal (principal); F10.230 Alcohol dependence with withdrawal, uncomplicated; F17.210 Nicotine dependence, cigarettes, uncomplicated; I10 Essential (primary) hypertension; I25.10 Atherosclerotic heart disease of native coronary artery without angina pectoris; I25.2 Old myocardial infarction; M17.9 Osteoarthritis of knee, unspecified; B18.2 Chronic viral hepatitis C; R76.11 Nonspecific reaction to tuberculin skin test without active tuberculosis; B35.3 Tinea pedis; L90.5 Scar conditions and fibrosis of skin; Z86.74 Personal history of sudden cardiac arrest; Z95.5 Presence of coronary angioplasty implant and graft; Z91.013 Allergy to seafood
CPT/HCPCS: 36415; 80053; 85027; 86593; 87389; J0735; Q0162

== ENCOUNTER 2018-11-19 15:01 | Inpatient (IN) | payer OTHER ==
[2018-11-19 15:58] VITALS: BMI 21.9
--- NOTE | 2018-11-19 17:46 | HP ---
COWS - Scale Resting Pulse: 0= ND 80 or Below Sweatin= Chills/Flushing Restless Observation: 1= Difficult to Sit Still Pupil Size: 0= Normal to Room Light Bone or Joint Aches: 2= Severe Diffuse Aches Runny Nose/ Eye Tearin= Runny Nose/Eyes GI Upset > 30mins: 3= Vomiting/Diarrhea Tremor Observation: 1= Tremor [place], Not Seen Yawning Observation: 1= 1-2x During Session Anxiety or Irritability: 2=Irritable/Anxious Goose Flesh Skin: 0=Smooth Skin COWS Score: 13 CIWA Score Nausea/Vomitin Muscle Tremors: 1-None Visible, but [place] Anxiety: 2 Agitation: 0-Normal Activity Paroxysmal Sweats: 1-Minimal Palms Moist Orientation: 0-Oriented Tacttile Disturbances: 2-Mild Itch/Numbness/Burn Auditory Disturbances: 0-None Visual Disturbances: 1-Very Mild Sensitivity Headache: 2-Mild CIWA-Ar Total Score: 12 - Admission Criteria OASAS Guidelines: Admission for Medically Managed Detox: Requires at least one of the followin. CIWA greater than 12 2. Seizures within the past 24 hours 3. Delirium tremens within the past 24 hours 4. Hallucinations within the past 24 hours 5. Acute intervention needed for co occurring medical disorder 6. Acute intervention needed for co occurring psychiatric disorder 7. Severe withdrawal that cannot be handled at a lower level of care (continued vomiting, continued diarrhea, abnormal vital signs) requiring intravenous medication and/or fluids 8. Patient presents the following: CIWA greater than 12, Acute intervention needed for co-occurring med or psych disorder Admission Criteria Met: Admission criteria met Admission ROS [facility] Chief Complaint: alcohol, xanax, and heroin withdrawal sx Allergies/Adverse Reactions: Allergies Allergy/AdvReac Type Severity Reaction Status Date / Time No Known Drug Allergies Allergy Verified 11/19/18 15:45 Fish Containing Products AdvReac Severe Vomiting Verified 11/19/18 15:45 History of Present Illness: Patient is a 43 yo AA male with hx of alcohol, xanax, THC, cocaine and heroin ( intravenous) dependence is here seeking inpatient detox d/t withdrawal symptoms , this is one of multiple admissions, but keeps relapsing. Reports hx of MAT with methadone maintenance 10 years ago but stopped attending, patient is motivated to attend rehab after completing detox. Reports two year sobriety after he was release from [facility], has been relapsing for the past two years. PMHX : HTN, Hep C ( untreated), hx of Cardiac STENT. Psych : denies. Denies SI/HI. Denies hx of seizures or overdose. Exam Limitations: No Limitations - Ebola screening Have you traveled outside of the country in the last 21 days: No Have you had contact with anyone from an Ebola affected area: No - Review of Systems Constitutional: Chills, Loss of Appetite, Changes in sleep, Weakness, Unintentional Wgt. Loss EENT: reports: Nose Congestion Respiratory: reports: No Symptoms reported Cardiac: reports: No Symptoms Reported GI: reports: Diarrhea, Nausea, Poor Appetite, Poor Fluid Intake, Abdominal cramping : reports: No Symptoms Reported Musculoskeletal: reports: Back Pain, Joint Pain Integumentary: reports: No Symptoms Reported Neuro: reports: Headache Endocrine: reports: No Symptoms Reported Hematology: reports: No Symptoms Reported Psychiatric: reports: Orientated x3, Anxious Other Systems: Reviewed and Negative Patient History - Patient Medical History Hx Anemia: No Hx Asthma: No Hx Chronic Obstructive Pulmonary Disease (COPD): No Hx Cancer: No Hx Cardiac Disorders: Yes (cardiac arrest d/t drugs S/P ANGIOPLASTY WITH STENT ( Feb 2013)) Hx Congestive Heart Failure: No Hx Hypertension: Yes (ON MEDICATION - Lisinopril 5 mg and Isorbide ) Hx Hypercholesterolemia: No Hx Pacemaker: No HX Cerebrovascular Accident: No Hx Seizures: No Hx Dementia: No Hx Diabetes: No Hx Gastrointestinal Disorders: No Hx Liver Disease: No Hx Genitourinary Disorders: No Hx Sexually Transmitted Disorders: No Hx Renal Disease (ESRD): No Hx Thyroid Disease: No Hx Human Immunodeficiency Virus (HIV): No (negative last 03/01) Hx Hepatitis C: Yes (Not treated) Hx Depression: No Hx Suicide Attempt: No (denies) Hx Bipolar Disorder: No Hx Schizophrenia: No - Patient Surgical History Past Surgical History: Yes Hx Neurologic Surgery: No Hx Cataract Extraction: No Hx Cardiac Surgery: Yes (S/P ANGIOPLASTY [id number]) Hx Lung Surgery: No Hx Breast Surgery: No Hx Breast Biopsy: No Hx Abdominal Surgery: No Hx Appendectomy: No Hx Cholecystectomy: No Hx Genitourinary Surgery: No Hx Section: No Hx Orthopedic Surgery: No Other Surgical History: tonsillectomy in 1994 Anesthesia Reaction: No - PPD History Results: c-xray(-),03/31 PPD to be Administered?: No - Smoking Cessation Smoking history: Current every day smoker Have you smoked in the past 12 months: Yes Aproximately how many cigarettes per day: 20 Cigars Per Day: 0 Hx Chewing Tobacco Use: No Initiated information on smoking cessation: Yes 'Breaking Loose' booklet given: 11/19/18 - Substance & Tx. History Hx Alcohol Use: Yes Hx Substance Use: Yes Substance Use Type: Alcohol, Cocaine Hx Substance Use Treatment: Yes - Substances abused Alcohol Substance route: Oral Frequency: Daily Amount used: 2 [place] Age of first use: 23 Date of last use: 11/18/18 Heroin Substance route: Injection Frequency: Daily Amount used: 2 BUNDLES Age of first use: 27 Date of last use: 11/18/18 Marijuana/Hashish Substance route: Smoking Frequency: Daily Amount used: 8th Age of first use: 16 Date of last use: 11/19/18 Cocaine Substance route: Smoking Frequency: Daily Amount used: 1 GM Age of first use: 27 Date of last use: 11/18/18 Alprazolam (Xanax) Substance route: Oral Frequency: Daily Amount used: 2 BARS Age of first use: 41 Date of last use: 11/18/18 Family Disease History - Family Disease History Family Disease History: Respiratory: Mother (Emphysema), Other: Father (Unknown) Admission Physical Exam S - Vital Signs Vital Signs: Vital Signs - 24 hr 11/19/18 15:48 Temperature 97.8 F Pulse Rate 74 Respiratory 18 Rate Blood Pressure 124/67 - Physical General Appearance: Yes: Disheveled, Thin, Sweating, Anxious HEENTM: Yes: EOMI, Hearing grossly Normal, Normal ENT Inspection, Normocephalic , Normal Voice, KADIE, Pharynx Normal, Tm's normal Respiratory: Yes: Chest Non-Tender, Lungs Clear, Normal Breath Sounds, No Respiratory Distress, No Accessory Muscle Use Neck: Yes: Within Normal Limits Breast: Yes: Breast Exam Deferred Cardiology: Yes: Regular Rhythm, Regular Rate, Murmur Abdominal: Yes: Normal Bowel Sounds, Non Tender, Flat, Soft Genitourinary: Yes: Within Normal Limits Back: Yes: Normal Inspection Musculoskeletal: Yes: full range of Motion, Gait Steady, Pelvis Stable Extremities: Yes: Normal Capillary Refill, Normal Inspection, Normal Range of Motion, Non-Tender 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: Yes: occupational medicine officer II-XII NML intact, Fully Oriented, Alert, Motor Strength 5/5, Normal Response, Depressed Affect Integumentary: Yes: Track Qureshi (left side of neck, no cellulitis) Lymphatic: Yes: Within Normal Limits - Diagnostic (1) Alcohol dependence with uncomplicated withdrawal Current Visit: No Status: Chronic (2) CAD (coronary artery disease) Current Visit: No Status: Chronic Qualifiers: Coronary Disease-Associated Artery/Lesion type: [place] artery [place] vs. transplanted heart: [place] heart Associated angina: without angina Qualified Code(s): I25.10 - Atherosclerotic heart disease of [place] coronary artery without angina pectoris (3) H/O heart artery stent Current Visit: Yes Status: Chronic (4) Hepatitis C Current Visit: No Status: Chronic Qualifiers: Viral hepatitis chronicity: chronic Hepatic coma status: without hepatic coma Qualified Code(s): B18.2 - Chronic viral hepatitis C (5) Hypertension Current Visit: Yes Status: Chronic Qualifiers: Hypertension type: essential hypertension Qualified Code(s): I10 - Essential (primary) hypertension (6) IVDU (intravenous drug user) Current Visit: Yes Status: Chronic (7) Nicotine dependence Current Visit: Yes Status: Chronic Qualifiers: Nicotine product type: cigarettes Substance use status: uncomplicated Qualified Code(s): F17.210 - Nicotine dependence, cigarettes, uncomplicated (8) Opioid dependence with withdrawal Current Visit: Yes Status: Chronic (9) PPD positive Current Visit: Yes Status: Chronic (10) Track qureshi due to intravenous drug abuse Current Visit: Yes Status: Chronic (11) Sedative, hypnotic or anxiolytic dependence with withdrawal, uncomplicated Current Visit: Yes Status: Acute Cleared for Admission [facility] - Detox or Rehab [facility] Level of Care: Medically Managed Detox Regimen/Protocol: Methadone/Valium Breathalyzer - Breathalyzer Breathalyzer: 0.008 Urine Drug Screen - Test Device Lot number: [id number] Expiration date: 08/11/20 - Control Is test valid?: Yes - Results Drug screen NEGATIVE: No Urine drug screen results: THC-Marijuana, LUPIS-Cocaine, MOP-Opiates, BZO- Benzodiazepines Inpatient Rehab Admission - Rehab Decision to Admit Inpatient rehab admission?: No
[2018-11-19] MEDS ORDERED: MAGNESIUM CITRATE 300 ML BOTTLE PO PRN (17:55)
[2018-11-19] MEDS ORDERED: ACETAMINOPHEN 325 MG TABLET (FP) PO PRN ×2 (17:55)
[2018-11-19] MEDS ORDERED: METHADONE HCL 10 MG TABLET (FOR DETOX USE ONLY) PO ONE (17:55)
[2018-11-19] MEDS ORDERED: cloNIDine HCL 0.1 MG TABLET PO PRN (17:55)
[2018-11-19] MEDS ORDERED: MELATONIN 5 MG TABLETS PO PRN (17:55)
[2018-11-19] MEDS ORDERED: BISMUTH SUBSALICYLATE 524 MG/30 ML UD PO PRN (17:55)
[2018-11-19] MEDS ORDERED: MENTHOL/PHENOL 1 EACH UD MM PRN (17:55)
[2018-11-19] MEDS ORDERED: MAGNESIUM HYDROX 2400MG/30ML ORAL SUSPENSION 30 ML CUP PO PRN (17:55)
[2018-11-19] MEDS ORDERED: MAG HYDROX/AL HYDROX/SIMETH 30 ML UNIT-DOSE CUP PO PRN (17:55)
[2018-11-19] MEDS ORDERED: IBUPROFEN 400 MG TABLET (FP) PO PRN (17:55)
[2018-11-19] MEDS: diazePAM 5 MG TABLET PO PRN (19:20)
[2018-11-19] MEDS: METHOCARBAMOL 500 MG TABLET PO PRN (19:20)
[2018-11-19] MEDS ORDERED: QUEtiapine FUMARATE 50 MG TABLET PO ONE (22:00)
[2018-11-19] MEDS: diazePAM 5 MG TABLET PO SCH (22:26)
[2018-11-19] MEDS: THIAMINE HCL 100 MG TABLET (FP) PO SCH (22:26)
[2018-11-20] MEDS: diazePAM 5 MG TABLET PO SCH ×3 (07:52→22:13)
[2018-11-20] MEDS ORDERED: METHADONE HCL 10 MG TABLET (FOR DETOX USE ONLY) ONE (08:11)
[2018-11-20] MEDS ORDERED: METHADONE HCL 5 MG TABLET (FOR DETOX USE ONLY) ONE (08:12)
[2018-11-20] MEDS ORDERED: METHADONE (DETOX) 20 MG, METHADONE (DETOX) 5 MG PO ONE (10:00)
[2018-11-20 10:49] LABS: HEMATOCRIT 38.9 % (35.4-49); HEMOGLOBIN 13.3 GM/dL (11.7-16.9); MCH 30.3 pg (25.7-33.7); MCHC 34.2 g/dl (32.0-35.9); MEAN CELL VOLUME 88.5 fl (80-96); MEAN PLT VOLUME 7.7 fl (7.5-11.1); PLATELET COUNT 171 K/MM3 (134-434); RBC 4.39 M/mm3 (4.00-5.60); RDW 13.7 % (11.9-15.9); WHITE BLOOD COUNT 3.5 K/mm3 (4.0-10.0)
[2018-11-20] MEDS: amLODIPine BESYLATE 5 MG TABLET (FP) PO SCH (10:51)
[2018-11-20] MEDS: PRENATAL VITAMINS W/ FOLIC ACID TABLET (FP) PO SCH (10:51)
[2018-11-20] MEDS: ASPIRIN 81 MG CHEWABLE TABLETS PO SCH (10:51)
[2018-11-20] MEDS: METHOCARBAMOL 500 MG TABLET PO PRN ×2 (10:52→22:14)
[2018-11-20] MEDS: NICOTINE 14 MG/24 HOURS TOPICAL PATCH TD SCH (10:52)
[2018-11-20] MEDS: diazePAM 5 MG TABLET PO PRN ×2 (10:54→16:41)
[2018-11-20 11:04] LABS: ALBUMIN 3.1 g/dl (3.4-5.0); BILIRUBIN,TOTAL 1.2 mg/dL (0.2-1); BLOOD UREA NITROGEN 14.8 mg/dL (7-18); CALCIUM 8.4 mg/dL (8.5-10.1); CREATININE 0.9 mg/dL (0.55-1.3); POTASSIUM 3.4 mmol/L (3.5-5.1)
[2018-11-20] MEDS: ISOSORBIDE MONONITRATE 60 MG TAB.SR.24H (FP) PO SCH (11:52)
--- NOTE | 2018-11-20 15:56 | PN ---
S CIWA - CIWA Score Nausea/Vomitin Muscle Tremors: 3 Anxiety: 3 Agitation: 1-Slight > Activity Paroxysmal Sweats: 2 (Hot / Cold Sensations.) Orientation: 0-Oriented Tacttile Disturbances: 2-Mild Itch/Numbness/Burn Auditory Disturbances: 0-None Visual Disturbances: 0-None Headache: 0-None Present CIWA-Ar Total Score: 14 BHS COWS - Scale Resting Pulse: 0= ME 80 or Below Sweatin= Chills/Flushing Restless Observation: 1= Difficult to Sit Still Pupil Size: 0= Normal to Room Light Bone or Joint Aches: 2= Severe Diffuse Aches Runny Nose/ Eye Tearin= None GI Upset > 30mins: 2= Nausea/Diarrhea Tremor Observation of Outstretched Hands: 2= Slight Tremor Visible Yawning Observation: 1= 1-2x During Session Anxiety or Irritability: 2=Irritable/Anxious Goose Flesh Skin: 3=Piloerection COWS Score: 14 BHS Progress Note (SOAP) Subjective: Anxious, Body Aches, Tremors, Nausea, Stomach Cramping, Hot / Cold Sensations, Diarrhea. Objective: PATIENT A & O X 3, OBSERVED AMBULATING ON DETOX UNIT UNASSISTED. IN NO ACUTE DISTRESS. 11/20/18 15:54 Vital Signs Temperature 98.1 F 11/20/18 13:51 Pulse Rate 59 L 11/20/18 13:51 Respiratory Rate 16 11/20/18 13:51 Blood Pressure 140/82 11/20/18 13:51 O2 Sat by Pulse Oximetry (%) Laboratory Tests 11/20/18 11/20/18 11/20/18 07:00 07:00 07:00 WBC 3.5 L RBC 4.39 Hgb 13.3 Hct 38.9 MCV 88.5 MCH 30.3 MCHC 34.2 RDW 13.7 Plt Count 171 MPV 7.7 Sodium 143 Potassium 3.4 L Chloride 108 H Carbon Dioxide 30 Anion Gap 5 L BUN 14.8 Creatinine 0.9 Est GFR (CKD-EPI)AfAm 122.52 Est GFR (CKD-EPI)NonAf 105.71 Random Glucose 75 Calcium 8.4 L Total Bilirubin 1.2 H AST 25 ALT 25 Alkaline Phosphatase 70 Total Protein 6.0 L Albumin 3.1 L RPR Titer Nonreactive LABS NOTED. Assessment: 11/20/18 15:55 WITHDRAWAL SYMPTOMS. HYPOKALEMIA. LEUKOPENIA. Plan: CONTINUE DETOX. INCREASE DAILY PO WATER INTAKE.] K-DUR, 40 MEQ PO X 1 DOSE NOWE, THEN 20 MEQ PO BID TOMORROW. RE-CHECK POTASSIUM LEVEL ON 11/22/2018.
[2018-11-20] MEDS ORDERED: POTASSIUM CHLORIDE TABS 20 MEQ TABLET.ER (FP) PO ONE (17:00)
[2018-11-20] MEDS: THIAMINE HCL 100 MG TABLET (FP) PO SCH (22:13)
[2018-11-20] MEDS ORDERED: QUEtiapine FUMARATE 50 MG TABLET PO SCH (22:45)
[2018-11-20] MEDS ORDERED: QUEtiapine FUMARATE 50 MG TABLET PO ONE (22:59)
[2018-11-21] MEDS: diazePAM 5 MG TABLET PO SCH ×2 (06:15→17:54)
[2018-11-21] MEDS ORDERED: METHADONE HCL 10 MG TABLET (FOR DETOX USE ONLY) PO ONE (10:00)
[2018-11-21] MEDS: PRENATAL VITAMINS W/ FOLIC ACID TABLET (FP) PO SCH (10:30)
[2018-11-21] MEDS: POTASSIUM CHLORIDE TABS 20 MEQ TABLET.ER (FP) PO SCH ×2 (10:30→17:54)
[2018-11-21] MEDS: ASPIRIN 81 MG CHEWABLE TABLETS PO SCH (10:30)
[2018-11-21] MEDS: ISOSORBIDE MONONITRATE 60 MG TAB.SR.24H (FP) PO SCH (10:30)
[2018-11-21] MEDS: amLODIPine BESYLATE 5 MG TABLET (FP) PO SCH (10:30)
[2018-11-21] MEDS: NICOTINE 14 MG/24 HOURS TOPICAL PATCH TD SCH (10:31)
[2018-11-21] MEDS ORDERED: ONDANSETRON *ODT* 4 MG TABLET SL ONE (12:38)
--- NOTE | 2018-11-21 12:53 | PN ---
S CIWA - CIWA Score Nausea/Vomitin Muscle Tremors: 2 Anxiety: 3 Agitation: 0-Normal Activity Paroxysmal Sweats: 3 Orientation: 0-Oriented Tacttile Disturbances: 0-None Auditory Disturbances: 0-None Visual Disturbances: 0-None Headache: 2-Mild CIWA-Ar Total Score: 12 BHS COWS - Scale Resting Pulse: 0= SD 80 or Below Sweatin= Beads of Sweat on Face Restless Observation: 1= Difficult to Sit Still Pupil Size: 0= Normal to Room Light Bone or Joint Aches: 2= Severe Diffuse Aches Runny Nose/ Eye Tearin= None GI Upset > 30mins: 1= Stomach Cramp Tremor Observation of Outstretched Hands: 2= Slight Tremor Visible Yawning Observation: 1= 1-2x During Session Anxiety or Irritability: 1=Feels Anxious/Irritable Goose Flesh Skin: 0=Smooth Skin COWS Score: 11 S Progress Note (SOAP) Subjective: c/o nausea, sweats, anxiety, and headache. Objective: 11/21/18 12:51 Vital Signs 11/21/18 11/21/18 06:46 09:58 Temperature 97 F L 98.4 F Pulse Rate 53 L 62 Respiratory 16 18 Rate Blood Pressure 157/92 174/108 H Lab Results WBC 3.5 K/mm3 (4.0-10.0) L 11/20/18 07:00 RBC 4.39 M/mm3 (4.00-5.60) 11/20/18 07:00 Hgb 13.3 GM/dL (11.7-16.9) 11/20/18 07:00 Hct 38.9 % (35.4-49) 11/20/18 07:00 MCV 88.5 fl (80-96) 11/20/18 07:00 MCHC 34.2 g/dl (32.0-35.9) 11/20/18 07:00 RDW 13.7 % (11.9-15.9) 11/20/18 07:00 Plt Count 171 K/MM3 (134-434) 11/20/18 07:00 Sodium 143 mmol/L (136-145) 11/20/18 07:00 Potassium 3.4 mmol/L (3.5-5.1) L 11/20/18 07:00 Chloride 108 mmol/L (98-107) H 11/20/18 07:00 Carbon Dioxide 30 mmol/L (21-32) 11/20/18 07:00 Anion Gap 5 MMOL/L (8-16) L 11/20/18 07:00 BUN 14.8 mg/dL (7-18) 11/20/18 07:00 Creatinine 0.9 mg/dL (0.55-1.3) 11/20/18 07:00 Random Glucose 75 mg/dL (74-106) 11/20/18 07:00 Calcium 8.4 mg/dL (8.5-10.1) L 11/20/18 07:00 Labs noted. Assessment: 11/21/18 12:52 AOX3, in no acute respiratory distress Full ROM, ambulating in the unit. withdrawal symptoms. pt c/o nausea Plan: continue detox. Zofran 4mg SL x1dose.
--- NOTE | 2018-11-21 15:49 | PN ---
BHS Progress Note Note: S: Pt's BP is high. Pt states, "i don't feel good". Denies any chest pain, sob, headache, palpitation, or N/V at the moment. O: Vital Signs 11/21/18 11/21/18 09:58 15:25 Temperature 98.4 F 98.6 F Pulse Rate 62 48 L Respiratory 18 18 Rate Blood Pressure 174/108 H 194/92 H Physical exam: HEENT: normal ENT inspection, KADIE, pharynx normal RESPIRATORY: Lungs clear b/l, normal breath sounds CARDIAC: Bradycardia, S1, S2, no murmur Extremities: normal capillary refill, no swelling Neuro: Fully oriented and alert A: Hypertension Bradycardia EKG showed sinus bradycardia, minimal voltage criteria for LVH, may be normal variant. P: EKG Stat continue to monitor BP/HR and notify provider on-call.
--- NOTE | 2018-11-21 21:43 | PN ---
[facility] Progress Note Note: Patient c/o abdominal pain and vomiting x 1 day. Denies CP Hx: Alcohol, Benzo, THC, Cocaine and Heroin (IV) use disorder. Placed on methadone and valium detox protocol. Assessment: Dry lips/mucous membranes; decreased skin turgor: Dehydration Bradycardia Intractable nausea LUQ abd pain w/ rebound tenderness Hyperactive BS Vital Signs 11/21/18 11/21/18 18:29 21:44 Temperature 99.9 F H 99.1 F Pulse Rate 46 L 51 L Respiratory 18 19 Rate Blood Pressure 196/94 H 159/79 Laboratory Last Values WBC 3.5 K/mm3 (4.0-10.0) L 11/20/18 07:00 RBC 4.39 M/mm3 (4.00-5.60) 11/20/18 07:00 Hgb 13.3 GM/dL (11.7-16.9) 11/20/18 07:00 Hct 38.9 % (35.4-49) 11/20/18 07:00 MCV 88.5 fl (80-96) 11/20/18 07:00 MCH 30.3 pg (25.7-33.7) 11/20/18 07:00 MCHC 34.2 g/dl (32.0-35.9) 11/20/18 07:00 RDW 13.7 % (11.9-15.9) 11/20/18 07:00 Plt Count 171 K/MM3 (134-434) 11/20/18 07:00 MPV 7.7 fl (7.5-11.1) 11/20/18 07:00 Sodium 143 mmol/L (136-145) 11/20/18 07:00 Potassium 3.4 mmol/L (3.5-5.1) L 11/20/18 07:00 Chloride 108 mmol/L (98-107) H 11/20/18 07:00 Carbon Dioxide 30 mmol/L (21-32) 11/20/18 07:00 Anion Gap 5 MMOL/L (8-16) L 11/20/18 07:00 BUN 14.8 mg/dL (7-18) 11/20/18 07:00 Creatinine 0.9 mg/dL (0.55-1.3) 11/20/18 07:00 Est GFR (CKD-EPI)AfAm 122.52 11/20/18 07:00 Est GFR (CKD-EPI)NonAf 105.71 11/20/18 07:00 Random Glucose 75 mg/dL (74-106) 11/20/18 07:00 Calcium 8.4 mg/dL (8.5-10.1) L 11/20/18 07:00 Total Bilirubin 1.2 mg/dL (0.2-1) H 11/20/18 07:00 AST 25 U/L (15-37) 11/20/18 07:00 ALT 25 U/L (13-61) 11/20/18 07:00 Alkaline Phosphatase 70 U/L (45-117) 11/20/18 07:00 Total Protein 6.0 g/dl (6.4-8.2) L 11/20/18 07:00 Albumin 3.1 g/dl (3.4-5.0) L 11/20/18 07:00 RPR Titer Nonreactive (NONREACTIVE) 11/20/18 07:00 Plan: Send to ED for evaluation via ambulance. Report given to HCP: Ms. Richardson at [facility] ED.
[2018-11-21 21:44] VITALS: BP 159/79; PULSE 51; TEMP 99.1
[2018-11-21] MEDS ORDERED: QUEtiapine FUMARATE 50 MG TABLET PO SCH (22:00)
[2018-11-21] MEDS: THIAMINE HCL 100 MG TABLET (FP) PO SCH (22:40)
[2018-11-22] MEDS ORDERED: diazePAM 5 MG TABLET PO ONE (06:00)
[2018-11-22] MEDS ORDERED: METHADONE (DETOX) 10 MG, METHADONE (DETOX) 5 MG PO ONE (10:00)
--- NOTE | 2018-11-22 14:22 | EKG ---
Test Reason : Blood Pressure : / mmHG Vent. Rate : 048 BPM Atrial Rate : 048 BPM P-R Int : 142 ms QRS Dur : 094 ms QT Int : 502 ms P-R-T Axes : 006 058 064 degrees QTc Int : 448 ms SINUS BRADYCARDIA MINIMAL VOLTAGE CRITERIA FOR LVH, MAY BE NORMAL VARIANT BORDERLINE ECG WHEN COMPARED WITH ECG OF 11-SEP-2018 15:28, ST NO LONGER DEPRESSED IN INFERIOR LEADS ST NO LONGER ELEVATED IN LATERAL LEADS Confirmed by MD Gil, Butch ([id number]) on 11/22/2018 2:22:31 PM Referred By: Confirmed By:Butch Cordero MD
[2018-11-23] MEDS ORDERED: METHADONE HCL 10 MG TABLET (FOR DETOX USE ONLY) PO ONE (10:00)
[2018-11-24] MEDS ORDERED: METHADONE HCL 5 MG TABLET (FOR DETOX USE ONLY) PO ONE (06:00)
== END 2018-11-21 23:59 | disposition short-term general hospital (02) | DRG 773 ==
LOC: YASAS 15:01 → Y3N 18:08
PROVIDERS: ADMIT Surgery; ATTEND Surgery
PROC: HZ2ZZZZ Detoxification Services for Substance Abuse Treatment (ICD-10-PCS; principal; 2018-11-19)
DX: F11.23 Opioid dependence with withdrawal (principal); F10.230 Alcohol dependence with withdrawal, uncomplicated; F13.230 Sedative, hypnotic or anxiolytic dependence with withdrawal, uncomplicated; F14.20 Cocaine dependence, uncomplicated; F12.20 Cannabis dependence, uncomplicated; F17.210 Nicotine dependence, cigarettes, uncomplicated; I10 Essential (primary) hypertension; I25.10 Atherosclerotic heart disease of native coronary artery without angina pectoris; E86.0 Dehydration; R00.1 Bradycardia, unspecified; R11.0 Nausea; R10.31 Right lower quadrant pain; R19.12 Hyperactive bowel sounds; D72.819 Decreased white blood cell count, unspecified; E87.6 Hypokalemia; B18.2 Chronic viral hepatitis C; R76.11 Nonspecific reaction to tuberculin skin test without active tuberculosis; L90.5 Scar conditions and fibrosis of skin; Z86.74 Personal history of sudden cardiac arrest; Z91.013 Allergy to seafood; Z95.5 Presence of coronary angioplasty implant and graft
CPT/HCPCS: 36415; 80053; 85027; 86593; 93005; 93010; Q0162

== ENCOUNTER 2018-11-21 22:48 | Inpatient (IN) | payer OTHER | END 2018-11-24 09:20 | disposition short-term general hospital (02) | LOC: JER 22:48 → JERBED 11-22 00:10 → J5S 11-22 04:28 ==

== ENCOUNTER 2019-01-19 12:16 | Inpatient (IN) | payer OTHER ==
[2019-01-19 13:06] VITALS: BMI 24.2
--- NOTE | 2019-01-19 18:13 | HP ---
COWS - Scale Resting Pulse: 0= [place] 80 or Below Sweatin=Flushed/Facial Moisture Restless Observation: 1= Difficult to Sit Still Pupil Size: 0= Normal to Room Light Bone or Joint Aches: 1= Mild Discomfort Runny Nose/ Eye Tearin= Runny Nose/Eyes GI Upset > 30mins: 2= Nausea/Diarrhea Tremor Observation: 2= Slight Tremor Visible Yawning Observation: 0= None Anxiety or Irritability: 2=Irritable/Anxious Goose Flesh Skin: 0=Smooth Skin COWS Score: 12 CIWA Score Nausea/Vomitin Muscle Tremors: 3 Anxiety: 3 Agitation: 2 Paroxysmal Sweats: 2 Orientation: 0-Oriented Tacttile Disturbances: 0-None Auditory Disturbances: 0-None Visual Disturbances: 0-None Headache: 0-None Present CIWA-Ar Total Score: 12 - Admission Criteria OASAS Guidelines: Admission for Medically Managed Detox: Requires at least one of the followin. CIWA greater than 12 2. Seizures within the past 24 hours 3. Delirium tremens within the past 24 hours 4. Hallucinations within the past 24 hours 5. Acute intervention needed for co occurring medical disorder 6. Acute intervention needed for co occurring psychiatric disorder 7. Severe withdrawal that cannot be handled at a lower level of care (continued vomiting, continued diarrhea, abnormal vital signs) requiring intravenous medication and/or fluids 8. Admitting History and Physical - Past Medical History Cardiovascular: Yes: CAD (coronarty stenting after TX in 2017 at [facility]), Hyperlipdemia, TX (2017) Gastrointestinal: Yes: Pancreatitis (alcohol related) Renal/: Yes: Renal Calculi - Past Surgical History Past Surgical History: Yes: Tonsillectomy - Smoking History Smoking history: Current every day smoker Have you smoked in the past 12 months: Yes Aproximately how many cigarettes per day: 10 - Alcohol/Substance Use Hx Alcohol Use: Yes (1 pint of vodka daily) History of Substance Use: reports: Cocaine (smokes), Heroin (IVDA), Marijuana ( smokes), Prescription (xanax) - Social History ADL: Independent 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 Recently in detox in November. Had to go to hospital for vomiting. Relapses because he does not want to get sick. Years ago was on methadone maintenance, stopped going. Longest sobriety 2 years, 4 years ago. Alcohol: 2 pints cognac every day, last drink this morning; never had a withdrawal seizure, Heroin: 3 bundles every day, injects into his neck, last used this morning, since 27 years old; withdrawal seizure, never OD Cocaine: $20 of cocaine every day, sniffs; 5 years Surgery: never Live: [facility], lives with girl; 6 kids, supportive of him becoming clean Work: n/a - Ebola screening Have you traveled outside of the country in the last 21 days: No (N) Have you had contact with anyone from an Ebola affected area: No Do you have a fever: No - Review of Systems Constitutional: Chills, Diaphoresis, Loss of Appetite, Unintentional Wgt. Loss EENT: reports: Blurred Vision, Nose Congestion Respiratory: reports: No Symptoms reported Cardiac: reports: No Symptoms Reported GI: reports: No Symptoms Reported, Nausea, Abdominal cramping : reports: No Symptoms Reported Musculoskeletal: reports: Back Pain, Joint Pain, Muscle Pain Integumentary: reports: No Symptoms Reported Neuro: reports: No Symptoms reported Endocrine: reports: No Symptoms Reported Hematology: reports: No Symptoms Reported Psychiatric: reports: No Sypmtoms Reported, Judgement Intact, Mood/Affect Appropiate, Orientated x3, Agitated, Anxious Patient History - Patient Medical History Hx Anemia: No Hx Asthma: No Hx Chronic Obstructive Pulmonary Disease (COPD): No Hx Cancer: No Hx Cardiac Disorders: Yes (cardiac arrest d/t drugs S/P ANGIOPLASTY WITH STENT ( Feb 2013)) Hx Congestive Heart Failure: No Hx Hypertension: Yes (ON MEDICATION - Lisinopril 5 mg and Isorbide ) Hx Hypercholesterolemia: No Hx Pacemaker: No HX Cerebrovascular Accident: No Hx Seizures: No Hx Dementia: No Hx Diabetes: No Hx Gastrointestinal Disorders: No Hx Liver Disease: No Hx Genitourinary Disorders: No Hx Sexually Transmitted Disorders: No Hx Renal Disease (ESRD): No Hx Thyroid Disease: No Hx Human Immunodeficiency Virus (HIV): No (negative last 03/01) Hx Hepatitis C: Yes (Not treated) Hx Depression: No Hx Suicide Attempt: No (denies) Hx Bipolar Disorder: No Hx Schizophrenia: No - Patient Surgical History Past Surgical History: Yes Hx Neurologic Surgery: No Hx Cataract Extraction: No Hx Cardiac Surgery: Yes (S/P ANGIOPLASTY [id number]) Hx Lung Surgery: No Hx Breast Surgery: No Hx Breast Biopsy: No Hx Abdominal Surgery: No Hx Appendectomy: No Hx Cholecystectomy: No Hx Genitourinary Surgery: No Hx Section: No Hx Orthopedic Surgery: No Other Surgical History: tonsillectomy in 1994 Anesthesia Reaction: No - PPD History Results: c-xray(-),03/31 - Smoking Cessation Smoking history: Current every day smoker Have you smoked in the past 12 months: Yes Aproximately how many cigarettes per day: 10 Cigars Per Day: 0 Hx Chewing Tobacco Use: No Initiated information on smoking cessation: Yes 'Breaking Loose' booklet given: 01/19/19 - Substances abused Alcohol Substance route: Oral Frequency: Daily Amount used: 2 PINT OF COGNAC Age of first use: 23 Date of last use: 01/19/19 Heroin Substance route: Injection Frequency: Daily Amount used: 2 BUNDLES Age of first use: 27 Date of last use: 01/18/19 Marijuana/Hashish Substance route: Smoking Frequency: Daily Amount used: $50 Age of first use: 16 Date of last use: 01/19/19 Cocaine Substance route: Smoking Frequency: Daily Amount used: 1 GM Age of first use: 27 Date of last use: 01/19/19 Alprazolam (Xanax) Substance route: Oral Frequency: Daily Amount used: 2 BARS Age of first use: 41 Date of last use: 01/18/19 Admission Physical Exam BHS - Vital Signs Vital Signs: Vital Signs - 24 hr 01/19/19 12:54 Temperature 98.3 F - Physical General Appearance: Yes: Within Normal Limits, No Apparent Distress, Nourished HEENTM: Yes: EOMI, Normal ENT Inspection, Normocephalic, Normal Voice Respiratory: Yes: Chest Non-Tender, Normal Breath Sounds Neck: Yes: Within Normal Limits Cardiology: Yes: Within Normal Limits, Regular Rhythm, Regular Rate, Systolic Murmur Abdominal: Yes: Normal Bowel Sounds, Non Tender, Flat, Soft Genitourinary: Yes: Within Normal Limits Back: Yes: Within Normal Limits Musculoskeletal: Yes: full range of Motion Extremities: Yes: Normal Capillary Refill 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: Yes: 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
[2019-01-19] MEDS ORDERED: MAG HYDROX/AL HYDROX/SIMETH 30 ML UNIT-DOSE CUP PO PRN (18:37)
[2019-01-19] MEDS ORDERED: ACETAMINOPHEN 325 MG TABLET (FP) PO PRN ×2 (18:37)
[2019-01-19] MEDS ORDERED: BISMUTH SUBSALICYLATE 524 MG/30 ML UD PO PRN (18:37)
[2019-01-19] MEDS ORDERED: MAGNESIUM CITRATE 300 ML BOTTLE PO PRN (18:37)
[2019-01-19] MEDS ORDERED: MAGNESIUM HYDROX 2400MG/30ML ORAL SUSPENSION 30 ML CUP PO PRN (18:37)
[2019-01-19] MEDS ORDERED: IBUPROFEN 400 MG TABLET (FP) PO PRN (18:37)
[2019-01-19] MEDS ORDERED: hydrOXYzine PAMOATE 25 MG CAPSULE (FP) PO PRN (18:37)
[2019-01-19] MEDS ORDERED: chlordiazePOXIDE HCL 25 MG CAPSULE PO PRN (18:37)
[2019-01-19] MEDS ORDERED: cloNIDine HCL 0.1 MG TABLET PO PRN (18:37)
[2019-01-19] MEDS ORDERED: MENTHOL/PHENOL 1 EACH UD MM PRN (18:37)
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
[2019-01-19] MEDS ORDERED: QUEtiapine FUMARATE 25 MG TABLET (FP) PO ONE (18:42)
[2019-01-19] MEDS ORDERED: METHADONE HCL 10 MG TABLET (FOR DETOX USE ONLY) PO ONE (19:45)
[2019-01-19] MEDS: METHOCARBAMOL 500 MG TABLET PO PRN (20:01)
[2019-01-19] MEDS: ASPIRIN 81 MG CHEWABLE TABLETS PO SCH (20:01)
[2019-01-19] MEDS ORDERED: MELATONIN 5 MG TABLETS PO PRN (22:00)
[2019-01-19] MEDS: THIAMINE HCL 100 MG TABLET (FP) PO SCH (23:43)
[2019-01-19] MEDS: chlordiazePOXIDE HCL 25 MG CAPSULE PO SCH (23:43)
[2019-01-20] MEDS: chlordiazePOXIDE HCL 25 MG CAPSULE PO SCH ×4 (07:31→22:51)
[2019-01-20] MEDS ORDERED: METHADONE HCL 10 MG TABLET (FOR DETOX USE ONLY) ONE (09:42)
[2019-01-20] MEDS ORDERED: METHADONE HCL 5 MG TABLET (FOR DETOX USE ONLY) ONE (09:43)
[2019-01-20] MEDS ORDERED: METHADONE (DETOX) 20 MG, METHADONE (DETOX) 5 MG PO ONE (10:00)
[2019-01-20] MEDS: PRENATAL VITAMINS W/ FOLIC ACID TABLET (FP) PO SCH (10:12)
[2019-01-20] MEDS: ASPIRIN 81 MG CHEWABLE TABLETS PO SCH (10:12)
[2019-01-20] MEDS: METHOCARBAMOL 500 MG TABLET PO PRN (10:16)
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
[2019-01-20] MEDS ORDERED: IBUPROFEN 400 MG TABLET (FP) PO PRN (14:20)
[2019-01-20] MEDS: ONDANSETRON *ODT* 4 MG TABLET SL PRN (17:21)
[2019-01-20] MEDS ORDERED: SUVOREXANT 10 MG TABLET PO PRN (22:00)
[2019-01-20] MEDS: THIAMINE HCL 100 MG TABLET (FP) PO SCH (22:51)
[2019-01-21] MEDS: ONDANSETRON *ODT* 4 MG TABLET SL PRN ×2 (00:40→07:25)
[2019-01-21] MEDS: METHOCARBAMOL 500 MG TABLET PO PRN (00:43)
[2019-01-21] MEDS: chlordiazePOXIDE HCL 25 MG CAPSULE PO SCH ×4 (07:25→23:54)
[2019-01-21] MEDS ORDERED: METHADONE HCL 10 MG TABLET (FOR DETOX USE ONLY) PO ONE (10:00)
[2019-01-21] MEDS ORDERED: METHADONE DETOX 10 MG/1 ML [20ML VIAL] IM ONE ×2 (11:06→15:06)
[2019-01-21] MEDS ORDERED: ISOSORBIDE MONONITRATE 60 MG TAB.SR.24H (FP) PO SCH (11:15)
[2019-01-21] MEDS ORDERED: amLODIPine BESYLATE 5 MG TABLET (FP) PO SCH (11:15)
[2019-01-21] MEDS: ASPIRIN 81 MG CHEWABLE TABLETS PO SCH (11:28)
--- NOTE | 2019-01-21 11:28 | PN ---
[facility] CIWA - CIWA Score Nausea/Vomitin-Mild Nausea/No Vomiting Muscle Tremors: 3 Anxiety: 2 Agitation: 3 Paroxysmal Sweats: 2 Orientation: 0-Oriented Tacttile Disturbances: 0-None Auditory Disturbances: 0-None Visual Disturbances: 0-None Headache: 0-None Present CIWA-Ar Total Score: 11 S COWS - Scale Resting Pulse: 0= [place] 80 or Below Sweatin= Chills/Flushing Restless Observation: 1= Difficult to Sit Still Pupil Size: 0= Normal to Room Light Bone or Joint Aches: 2= Severe Diffuse Aches Runny Nose/ Eye Tearin= Nasal Congestion GI Upset > 30mins: 2= Nausea/Diarrhea Tremor Observation of Outstretched Hands: 1= Tremor [place], Not Seen Yawning Observation: 2= >3x During Session Anxiety or Irritability: 2=Irritable/Anxious Goose Flesh Skin: 0=Smooth Skin COWS Score: 12 [facility] Progress Note (SOAP) Subjective: sweats shakes body aches nausea irritable Objective: 01/21/19 11:27 Vital Signs Temperature 97.9 F 01/21/19 06:31 Pulse Rate 45 L 01/21/19 06:31 Respiratory Rate 20 01/21/19 06:31 Blood Pressure 178/90 H 01/21/19 06:31 O2 Sat by Pulse Oximetry (%) will re-order labs aaox3 lying in bed no acute distress Assessment: 01/21/19 11:28 withdrawal sx Plan: continue detox increase fluids tigan IM methadone 10mg IM
[2019-01-21] MEDS: PRENATAL VITAMINS W/ FOLIC ACID TABLET (FP) PO SCH (11:29)
--- NOTE | 2019-01-21 11:50 | PN ---
S Progress Note Note: pt was found on the floor states he "fell". Pt c/o he hit his head. No s/s of GRAFF , dizziness, bruising to any part of body. last BP 165/110 HR 42 RR 18, temp 97.[address] Rausch at [place] ED for pt evaluation.
--- NOTE | 2019-01-21 15:13 | PN ---
[facility] Progress Note Note: pt arrived and his d/c papers indicate he was sent to [facility] with no head ct done. pt had fallen and claimed he hit his head. Our protocol is to have pt evaluated in our ED at [facility] however, pt was sent another hospital unknown to us. Pt will be given his methadone IM 10mg and will be sent to [facility] ED for head ct /evaluation. at [facility] made aware.
[2019-01-21 15:49] VITALS: BP 166/95; PULSE 51; TEMP 98.2
[2019-01-21] MEDS: THIAMINE HCL 100 MG TABLET (FP) PO SCH (23:55)
[2019-01-22] MEDS ORDERED: chlordiazePOXIDE HCL 10 MG CAPSULE PO PRN
[2019-01-22] MEDS ORDERED: chlordiazePOXIDE HCL 10 MG CAPSULE PO SCH (05:00)
[2019-01-22] MEDS ORDERED: METHADONE HCL 5 MG TABLET (FOR DETOX USE ONLY) ONE (08:02)
[2019-01-22] MEDS ORDERED: METHADONE HCL 10 MG TABLET (FOR DETOX USE ONLY) ONE (08:02)
--- NOTE | 2019-01-22 09:31 | DS ---
[facility] Detox Discharge Summary Admission Date: 01/19/19 Discharge Date: 01/21/19 - History Present History: Alcohol Dependence, Opioid Dependence - Physical Exam Results Vital Signs: Vital Signs Temperature 98.2 F 01/21/19 15:47 Pulse Rate 51 L 01/21/19 15:47 Respiratory Rate 18 01/21/19 15:47 Blood Pressure 166/95 01/21/19 15:47 O2 Sat by Pulse Oximetry (%) Pertinent Admission Physical Exam Findings: pt was admitted for detox d/t his alcohol and heroin dependence. during his stay pt states he fell and hit his head. pt was sent to [facility] ED for evaluation and was admitted. pt will continue his detox at [facility] Course: Detox Protocol Followed, Detoxed Safely, Responded well, Discharged Condition Good, Rehab Referral Accepted - Medication Discharge Medications: Ambulatory Orders Isosorbide Mononitrate [Imdur -] 60 mg PO DAILY #30 tab.sr.24h 06/11/17 Aspirin [ASA -] 81 mg PO DAILY #14 tab.chew 04/01/18 Amlodipine Besylate [Norvasc -] 5 mg PO DAILY 09/08/18 Quetiapine Fumarate [Seroquel -] 100 mg PO HS 09/08/18 - Diagnosis (1) Cannabis dependence Current Visit: Yes Status: Chronic (2) Chest pain Current Visit: No Status: Acute (3) Cocaine dependence Current Visit: Yes Status: Chronic Qualifiers: Substance use status: uncomplicated Qualified Code(s): F14.20 - Cocaine dependence, uncomplicated (4) Hypertension Current Visit: Yes Status: Acute Qualifiers: Hypertension type: unspecified Qualified Code(s): I10 - Essential (primary ) hypertension (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 (6) Substance-induced sleep disorder Current Visit: Yes Status: Acute (7) CAD (coronary artery disease) Current Visit: Yes Status: Chronic (8) Dyslipidemia Current Visit: Yes Status: Chronic (9) Hepatitis C Current Visit: Yes Status: Chronic (10) Myocardial infarction Current Visit: Yes Status: Resolved (11) Pancreatitis Current Visit: Yes Status: Resolved (12) S/P angioplasty with stent Current Visit: Yes Status: Resolved (13) SANDY (acute kidney injury) Current Visit: No Status: Acute (14) Alcohol dependence with uncomplicated withdrawal Current Visit: Yes Status: Chronic (15) CAD (coronary artery disease) Current Visit: No Status: Acute Qualifiers: Coronary Disease-Associated Artery/Lesion type: [place] artery [place] vs. transplanted heart: [place] heart Associated angina: without angina Qualified Code(s): I25.10 - Atherosclerotic heart disease of [place] coronary artery without angina pectoris (16) IVDU (intravenous drug user) Current Visit: No Status: Acute (17) Opioid dependence with withdrawal Current Visit: Yes Status: Chronic (18) Sedative, hypnotic or anxiolytic dependence with withdrawal, uncomplicated Current Visit: Yes Status: Acute (19) H/O heart artery stent Current Visit: Yes Status: Chronic (20) Hepatitis C Current Visit: No Status: Chronic Qualifiers: Viral hepatitis chronicity: chronic Hepatic coma status: without hepatic coma Qualified Code(s): B18.2 - Chronic viral hepatitis C (21) Nicotine dependence Current Visit: Yes Status: Chronic Qualifiers: Nicotine product type: cigarettes Substance use status: uncomplicated Qualified Code(s): F17.210 - Nicotine dependence, cigarettes, uncomplicated (22) Old LA (myocardial infarction) Current Visit: No Status: Chronic (23) PPD positive Current Visit: No Status: Chronic (24) Track qureshi due to intravenous drug abuse Current Visit: No Status: Chronic (25) Pancreatitis Current Visit: No Status: Ruled-out Qualifiers: Chronicity: acute Pancreatitis type: alcohol induced (26) Hypokalemia Current Visit: No Status: Inactive - AMA Did Patient Leave Against Medical Advice: No (pt sent and admitted to [facility] ED)
[2019-01-22] MEDS ORDERED: METHADONE (DETOX) 10 MG, METHADONE (DETOX) 5 MG PO ONE (10:00)
[2019-01-23] MEDS ORDERED: chlordiazePOXIDE HCL 10 MG CAPSULE PO SCH (05:00)
[2019-01-23] MEDS ORDERED: METHADONE HCL 10 MG TABLET (FOR DETOX USE ONLY) PO ONE (10:00)
[2019-01-24] MEDS ORDERED: chlordiazePOXIDE HCL 10 MG CAPSULE PO ONE (05:00)
[2019-01-24] MEDS ORDERED: METHADONE HCL 5 MG TABLET (FOR DETOX USE ONLY) PO ONE (06:00)
== END 2019-01-21 15:52 | disposition short-term general hospital (02) | DRG 773 ==
LOC: YASAS 12:16 → Y6N 19:12
PROVIDERS: ADMIT Allergy & Immunology; ATTEND Allergy & Immunology
PROC: HZ2ZZZZ Detoxification Services for Substance Abuse Treatment (ICD-10-PCS; principal; 2019-01-19)
DX: F11.23 Opioid dependence with withdrawal (principal); F10.230 Alcohol dependence with withdrawal, uncomplicated; F13.230 Sedative, hypnotic or anxiolytic dependence with withdrawal, uncomplicated; F14.20 Cocaine dependence, uncomplicated; F12.20 Cannabis dependence, uncomplicated; F17.210 Nicotine dependence, cigarettes, uncomplicated; I25.10 Atherosclerotic heart disease of native coronary artery without angina pectoris; I10 Essential (primary) hypertension; Z95.5 Presence of coronary angioplasty implant and graft; I25.2 Old myocardial infarction; E78.5 Hyperlipidemia, unspecified; N17.9 Acute kidney failure, unspecified; B18.2 Chronic viral hepatitis C; K86.9 Disease of pancreas, unspecified; R76.11 Nonspecific reaction to tuberculin skin test without active tuberculosis; Z86.74 Personal history of sudden cardiac arrest; S09.8XXA Other specified injuries of head, initial encounter; W19.XXXA Unspecified fall, initial encounter; Y93.89 Activity, other specified; Y92.238 Other place in hospital as the place of occurrence of the external cause; Y99.8 Other external cause status; Z91.013 Allergy to seafood
CPT/HCPCS: J0735; Q0162

== ENCOUNTER 2019-01-19 13:56 | Emergency (ER) | payer OTHER ==
[2019-01-19 14:05] VITALS: BP 128/75; PULSE 70; TEMP 98.9; BMI 22.1
[2019-01-19] MEDS ORDERED: IBUPROFEN 400 MG TABLET (FP) PO ONE (15:14)
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
[2019-01-19] MEDS ORDERED: IBUPROFEN 400 MG TABLET (FP) PO PRN (15:19)
== END 2019-01-19 16:28 | disposition home or self-care (01) ==
LOC: JERFT 13:56
PROC: 2W3CX1Z Immobilization of Right Lower Arm using Splint (ICD-10-PCS; principal; 2019-01-19)
DX: S52.124A Nondisplaced fracture of head of right radius, initial encounter for closed fracture (principal); Y04.2XXA Assault by strike against or bumped into by another person, initial encounter; Y93.89 Activity, other specified; Y92.89 Other specified places as the place of occurrence of the external cause; Y99.8 Other external cause status; Y07.6 Multiple perpetrators of maltreatment and neglect; I25.10 Atherosclerotic heart disease of native coronary artery without angina pectoris; I10 Essential (primary) hypertension; Z95.5 Presence of coronary angioplasty implant and graft; Z86.74 Personal history of sudden cardiac arrest; F19.10 Other psychoactive substance abuse, uncomplicated; Z91.013 Allergy to seafood
CPT/HCPCS: 29126; 73090-TC-RT-FY; 73110-TC-RT-FY; 73130-TC-RT-FY; 99282-25

== ENCOUNTER 2019-01-21 16:12 | Inpatient (IN) | payer OTHER ==
[2019-01-21] MEDS ORDERED: ASPIRIN 81 MG CHEWABLE TABLETS PO ONE (16:25)
[2019-01-21] MEDS ORDERED: SODIUM CHLORIDE 1,000 ML IV STA (16:25)
[2019-01-21 17:04] VITALS: BMI 24.3
[2019-01-21] MEDS ORDERED: DICYCLOMINE HCL 20 MG/2 ML AMPUL IM ONE (17:10)
[2019-01-21 17:12] LABS: BASO % 0.5 % (0-2.0); CORRECTED WBC 4.41 K/mm3; EOS % 0.1 % (0-4.5); HEMATOCRIT 53.1 % (35.4-49); HEMOGLOBIN 17.8 GM/dL (11.7-16.9); LYMPH % 12.5 % (8-40); MCH 29.4 pg (25.7-33.7); MCHC 33.5 g/dl (32.0-35.9); MEAN CELL VOLUME 87.8 fl (80-96); MEAN PLT VOLUME 7.6 fl (7.5-11.1); MONO % 3.2 % (3.8-10.2); NEUT % 83.7 % (42.8-82.8); PLATELET COUNT 293 K/MM3 (134-434); RBC 6.05 M/mm3 (4.00-5.60); RDW 13.5 % (11.9-15.9); WHITE BLOOD COUNT 5.2 K/mm3 (4.0-10.0)
[2019-01-21] MEDS ORDERED: LORazepam 2 MG/ML SDV VIAL ONE (17:15)
[2019-01-21 17:18] LABS: INR 0.97 (0.83-1.09); PROTHROMBIN TIME (PATIENT) 11.5 SEC (9.7-13.0)
--- NOTE | 2019-01-21 17:19 | PDOC ---
History of Present Illness - General Chief Complaint: Injury Stated Complaint: FALL Time Seen by Provider: 01/21/19 16:24 History Source: Patient Exam Limitations: No Limitations - History of Present Illness Initial Comments: Sky Fuller is a 43 yo M w a hx of an SD in 2017 s/p PCI after cocaine use, polysubstance abuse including cocaine, alcohol, and heroin who presents to the [facility] er BIBEMS from [facility] after he fell down and hit his head and [facility] requested the patient to have a head CT. In the ambulance the patient was complaining of a significant amount of chest and back pain. The patient states he has not used cocaine in 3 days, and has not used heroin or alcohol in the past 2 days. He is currently at [facility] receiving methadone and clonidine for heroin withdrawal as well as chlordiazepoxide for alcohol withdrawal. he got all of these meds this morning. The patient states is also profusely diaphoretic as well as has many tears coming from his eyes. His EKG in the ambulance was suspicious for hyperacute T waves in V2-V4 as well as TWI's in II , III, and aVF. Upon entrance to the ED his repeat EKG only showed a hyperacute T wave in V# which was present on both 11/21 and 11/22. The EKG today in the ER looks better than his prior EKG's 2 month prior. He had an echocardiogram performed on 11/23/18 which showed basal posterolateral wall mild hypokinesis wall motion abnormalities. Patient was originally sent to ER because he fell down multiple times today at [facility] and hit his head on multiple falls. The patient also endorses multiple vomiting episodes earlier today. PCP: None Process Mechanic: None - Seen Sadiq in past PSH: Stent Social Hx: Abuses cocaine, heroin, and alcohol Allergies: NKA, NKDA Past History - Past Medical History Allergies/Adverse Reactions: Allergies Allergy/AdvReac Type Severity Reaction Status Date / Time No Known Drug Allergies Allergy Verified 01/19/19 12:56 Fish Containing Products AdvReac Severe Vomiting Verified 01/19/19 12:56 Home Medications: Ambulatory Orders Isosorbide Mononitrate [Imdur -] 60 mg PO DAILY #30 tab.sr.24h 06/11/17 Aspirin [ASA -] 81 mg PO DAILY #14 tab.chew 04/01/18 Amlodipine Besylate [Norvasc -] 5 mg PO DAILY 09/08/18 Quetiapine Fumarate [Seroquel -] 100 mg PO HS 09/08/18 Famotidine 20 mg PO DAILY #30 tablet 11/24/18 Acetaminophen [Tylenol] 975 mg PO TID #60 capsule 01/19/19 Ibuprofen 800 mg PO TID #30 tablet 01/19/19 Anemia: No Asthma: No Cancer: No Cardiac Disorders: Yes (cardiac arrest d/t drugs S/P ANGIOPLASTY WITH STENT ( Feb 2013)) CVA: No COPD: No CHF: No Dementia: No Diabetes: No GI Disorders: No Disorders: No HTN: Yes (ON MEDICATION - Lisinopril 5 mg and Isorbide ) Hypercholesterolemia: No Kidney Stones: No Liver Disease: No Seizures: No Thyroid Disease: No - Surgical History Abdominal Surgery: No Appendectomy: No Cardiac Surgery: Yes (S/P ANGIOPLASTY [id number]) Cholecystectomy: No Lung Surgery: No Neurologic Surgery: No Orthopedic Surgery: No - Reproductive History Testicular Surgery: No - Immunization History Immunization Up to Date: Yes - Psycho Social/Smoking Cessation Hx Smoking History: Current every day smoker Have you smoked in the past 12 months: Yes Number of Cigarettes Smoked Daily: 20 Cigars Per Day: 0 Information on smoking cessation initiated: Yes 'Breaking Loose' booklet given: 01/19/19 Hx Alcohol Use: Yes (2 pintt a day) Drug/Substance Use Hx: Yes (heroin) Substance Use Type: Alcohol, Cocaine Hx Substance Use Treatment: Yes (multiple detoxes for substances) Review of Systems - Review of Systems Able to Perform ROS?: Yes Comments:: CONSTITUTIONAL: Absent: fever, no chills, no fatigue EYES: Absent: visual changes ENT: Absent: ear pain, no sore throat CARDIOVASCULAR: Present: Chest pain Absent: syncope, palpitations, irregular heart rate, lightheadedness, peripheral edema RESPIRATORY: Present: SOB Absent: cough GI: Present: Nausea Absent: abdominal pain, no vomiting, no constipation, no diarrhea GENITOURINARY: Absent: dysuria, no frequency, no hematuria MUSKULOSKELETAL: Present: back pain Absent: no arthralgia, no myalgia SKIN: Absent: rash NEURO: Absent: headache *Physical Exam - Vital Signs Last Vital Signs Temp Pulse Resp BP Pulse Ox 99.0 F 47 L 20 197/106 H 98 10/10/19 16:45 01/21/19 16:45 01/21/19 16:45 01/21/19 16:45 01/21/19 16:45 - Physical Exam Comments: GENERAL: Patient looks like he is in significant distress. HEENT: Eyes are tearing. Normocephalic, atraumatic. PERRL, EOM intact. CARDIOVASCULAR: Bardycardic rate. Normal S1, S2. Regular rhythm. Distal pulses are 2+ and symmetric. PULMONARY: No evidence of respiratory distress. Lungs clear to auscultation bilaterally. No wheezing, rales or rhonchi. ABDOMEN: Soft, non-distended, non-tender. EXTREMITIES: The right arm has a cast on. Normal ROM in all four extremities. No gross deformities. SKIN: Warm, diaphoretic. No rash NEUROLOGICAL: No focal neurological deficits. ED Treatment Course - LABORATORY CBC & Chemistry Diagram: 01/21/19 16:57 01/21/19 16:57 - RADIOLOGY Radiology Studies Ordered: Category Date Time Status CHEST PA & LAT [RAD] Stat Radiology 01/21/19 16:25 Ordered CHEST X-RAY PORTABLE* [RAD] Stat Radiology 01/21/19 17:11 Ordered Medical Decision Making - Medical Decision Making Sky Fuller is a 43 yo M w a hx of an SD in 2017 s/p PCI after cocaine use, polysubstance abuse including cocaine, alcohol, and heroin who presents to the [facility] er BIBEMS from [facility] after he fell down and hit his head and [facility] requested the patient to have a head CT. In the ambulance the patient was complaining of a significant amount of chest and back pain. The patient states he has not used cocaine in 3 days, and has not used heroin or alcohol in the past 2 days. He is currently at [facility] receiving methadone and clonidine for heroin withdrawal as well as chlordiazepoxide for alcohol withdrawal. he got all of these meds this morning. The patient states is also profusely diaphoretic as well as has many tears coming from his eyes. His EKG in the ambulance was suspicious for hyperacute T waves in V2-V4 as well as TWI's in II , III, and aVF. Upon entrance to the ED his repeat EKG only showed a hyperacute T wave in V# which was present on both 11/21 and 11/22. The EKG today in the ER looks better than his prior EKG's 2 month prior. He had an echocardiogram performed on 11/23/18 which showed basal posterolateral wall mild hypokinesis wall motion abnormalities. Patient was originally sent to ER because he fell down multiple times today at [facility] and hit his head on multiple falls. The patient also endorses multiple vomiting episodes earlier today. Vital Signs Temp Pulse Resp BP Pulse Ox 99.0 F 47 L 20 197/106 H 98 01/21/19 16:45 01/21/19 16:45 01/21/19 16:45 01/21/19 16:45 01/21/19 16:45 Left Arm BP: 215/96 -- 211/110 -- 216/107 (Lying supine) Right Arm BP: 195/90 -- 198/100 -- 208/89 (lying supine) - Hypertensive - Bradycardic DDx IBNLT: ACS/SD, Aortic Dissection, Alcohol withdrawal, heroin withdrawal, intra-cranial hemorrhage, electrolyte/metabolic disturbance, endocarditis, pneumothorax Plan: EKG, quality assurance monitor body, labs, CXR, CT, analgesia, IV hydration, re-assess. EKG: NS bradycardic rate of 46, narrow complexes, normal axis, no hypertrophy, no ST elevations or depressions, oeajed T wave in v3 unchanged since 11/21, TWI in V6 unchanged from 2 months prior. Labs: Elevated potassium with EKG changes - Peaked T waves and U waves. Trop 1 negative. - Will give cocktail of insulin, D50, albuterol, lasix, and lokelma CXR: Unremarkable = no widened mediastynum CT: No evidence of intracranial bleed Re-assessment: Patient endorses relief of his chest pain after getting [facility] Cardiac consult - Dr. Palmer: Reviewed EKG with Dr. messina and will admit patient to telemetry to obtain an echocardiogram and a stress test. Disposition: Admit to Telemetry for ACS workup Discharge - Discharge Information Problems reviewed: Yes Clinical Impression/Diagnosis: Hypertension Qualifiers: Hypertension type: unspecified Qualified Code(s): I10 - Essential (primary) hypertension Chest pain Qualifiers: Chest pain type: unspecified Qualified Code(s): R07.9 - Chest pain, unspecified Condition: Stable - Admission Yes - Follow up/Referral - Patient Discharge Instructions - Post Discharge Activity
[2019-01-21 17:52] LABS: ALBUMIN 4.3 g/dl (3.4-5.0); BILIRUBIN,TOTAL 1.1 mg/dL (0.2-1); BLOOD UREA NITROGEN 17.4 mg/dL (7-18); CALCIUM 9.9 mg/dL (8.5-10.1); CREATININE 1.3 mg/dL (0.55-1.3); MAGNESIUM 2.1 mg/dL (1.8-2.4); PHOSPHOROUS 4.9 mg/dL (2.5-4.9); POTASSIUM 5.6 mmol/L (3.5-5.1); TOT PROT 8.8 g/dl (6.4-8.2)
[2019-01-21] MEDS ORDERED: CALCIUM GLUCONATE 10% - 1,000 MG/10 ML VIAL IVPUSH ONE (17:57)
[2019-01-21] MEDS ORDERED: DEXTROSE 50%-WATER - 25 GM/50 ML VIAL IVPUSH ONE (17:59)
[2019-01-21] MEDS ORDERED: INSULIN REGULAR HUMAN 100 UNITS/ML *VIAL IVPUSH ONE (17:59)
[2019-01-21] MEDS ORDERED: ALBUTEROL SO4 0.083% IH SOL 2.5 MG/3 ML VIAL.NEB. NEB ONE ×2 (18:00→18:08)
[2019-01-21] MEDS ORDERED: FUROSEMIDE 40 MG/4 ML INJECTABLE VIAL IVPUSH ONE (18:01)
[2019-01-21] MEDS ORDERED: NITROGLYCERIN SUBLINGUAL 1/150 0.4 MG TAB SL ONE (18:05)
--- NOTE | 2019-01-21 18:06 | PDOC ---
Documentation entered by Cristofer Bradley SCRIBE, acting as scribe for Rosy Henderson DO. Rosy Henderson DO: This documentation has been prepared by the Kirk kapoor Xhesika, SCRIBE, under my direction and personally reviewed by me in its entirety. I confirm that the documentation accurately reflects all work, treatment, procedures, and medical decision making performed by me. 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 Patient notes he hit his head, however, he denies LOC. Patient notes he endorses mid sternal chest pain, SOB, 3 episodes of vomiting, nausea and sweats. Patient notes he has not used cocaine in 3 days, and has not used heroin or alcohol in the past 2 days. The patient denies headache and dizziness. Denies fever, cough, diarrhea and constipation. Denies dysuria, frequency, urgency and hematuria. Allergies: NKDA - Physicial Exam PE: 01/21/19 18:07 GENERAL: Awake, alert, and fully oriented, in no acute distress HEAD: No signs of trauma EYES: + teary eyes ENT: + L neck track qureshi. Auricles normal inspection, hearing grossly normal, nares patent, oropharynx clear without exudates. NECK: Normal ROM, supple, no lymphadenopathy, JVD, or masses LUNGS: Breath sounds equal, clear to auscultation bilaterally. No wheezes, and no crackles HEART: +bradycardic. no murmurs, rubs or gallops ABDOMEN: Soft, nontender, normoactive bowel sounds. No guarding, no rebound. No masses EXTREMITIES: +L forearm splint. No clubbing or cyanosis. NEUROLOGICAL: + L wrist and b/l feet pulses intact. Cranial nerves II through XII grossly intact. SKIN: + piloerection on arm. Warm, Dry. - Medical Decision Making 01/21/19 17:46 I, Dr. Rosy Henderson, DO, attest that this document has been prepared under my direction and personally reviewed by me in its entirety. I further attest, that it accurately reflects all work, treatment, procedures and medical decision -making performed by me. a/p: 43yo male with hx of AZ 2 years ago that was cocaine induced and recent cocaine/heroin/etoh use with midsternal cp today -no radiation -assoc with sob, nausea, diaphoresis -concern for acs vs cocaine induced cp - though last use was 3 days ago, vs withdrawal syndrome -will send labs, trop, ekg -will obtain cxr -will medicate for withdrawal, ativan and bentyl -bp control -will medicate bp with nitro for cp and htn -will monitor and reassess -pt will need obs vs admission for acs r/o 01/21/19 18:06 trop neg hyperkalemia 01/21/19 18:10 cxr clear no enlarged mediastinum 01/21/19 19:[address] 01/21/19 19:58 no acute findings on head ct will admit for cp eval, uncontrolled htn 01/21/19 20:38 case discussed with JOEL who accepts pt to service Heart Score/ECG Review - ECG Intrepretation Comment:: 01/21/19 18:11 sinus anna at 46, nl axis, hyperacute t waves, no acute st changes, abnl ekg
[2019-01-21] MEDS ORDERED: CALCIUM GLUCONATE 10% - 1,000 MG/10 ML VIAL ONE (18:08)
[2019-01-21] MEDS ORDERED: DEXTROSE 5%-NORMAL SALINE 1,000 ML IV ONE (18:11)
[2019-01-21] MEDS ORDERED: DEXTROSE 50%-WATER - 25 GM/50 ML VIAL ONE (18:14)
[2019-01-21] MEDS ORDERED: SODIUM ZIRCONIUM CYCLOSILICATE (LOKELMA) 5 GM PACKET PO ONE (19:09)
[2019-01-21] MEDS ORDERED: FUROSEMIDE 40 MG/4 ML INJECTABLE VIAL ONE (19:27)
--- NOTE | 2019-01-21 21:08 | PN ---
Teaching Attending Note Name of Resident: Dm Carr ATTENDING PHYSICIAN STATEMENT I saw and evaluated the patient. I reviewed the resident's note and discussed the case with the resident. I agree with the resident's findings and plan as documented. 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 Patient notes he hit his head, however, he denies LOC. Patient notes he has mid sternal chest pain, SOB, three episodes of vomiting, nausea and sweats. Pain radiates to the back. Patient notes he has not used cocaine in 3 days, and has not used heroin or alcohol in the past 2 days. The patient denies headache and dizziness. Denies fever, cough , diarrhea and constipation. Denies dysuria, frequency, urgency or hematuria. OBJECTIVE: Alert and not orthostatic Vital Signs Period Temp Pulse Resp BP Sys/Lehman Pulse Ox Last 24 Hr 99.0 F 47-49 18-20 197-202/106-106 98-100 HEENT: No Jaundice, eye redness or discharge, PERRLA, EOMI. Normocephalic, atraumatic. External ears are normal and hearing is grossly intact. No nasal discharge. Neck: Supple, nontender. No palpable adenopathy or thyromegaly. No JVD Chest: Good effort. Clear to auscultation and percussion. Heart: Regular. No S3, rub or murmur Abdomen: Not distended, soft, nontender and no HSM. No rebound or guarding. Normal bowel sounds. Ext: Peripheral pulses intact. No leg edema. Skin: Warm and dry. No petechiae, rash or ecchymosis. Neuro: Alert. Oriented x3. Not tremulous and no asterexis. CN 2-12 grossly intact. Sensation grossly intact in all four extremities and DTR are symmetric. Psych: Appropriate mood and affect. Good insight. Home Medications Medication Instructions Recorded Isosorbide Mononitrate [Imdur -] 60 mg PO DAILY #30 tab.sr.24h 06/11/17 Aspirin [ASA -] 81 mg PO DAILY #14 tab.chew 04/01/18 Amlodipine Besylate [Norvasc -] 5 mg PO DAILY 09/08/18 Quetiapine Fumarate [Seroquel -] 100 mg PO HS 09/08/18 Famotidine 20 mg PO DAILY #30 tablet 11/24/18 Acetaminophen [Tylenol] 975 mg PO TID #60 capsule 01/19/19 Ibuprofen 800 mg PO TID #30 tablet 01/19/19 Abnormal Lab Results 01/21/19 01/21/19 16:57 16:57 RBC 6.05 H Hgb 17.8 H Hct 53.1 H D Neutrophils % 83.7 H D Monocytes % 3.2 L Nucleated RBC % 18 H* Potassium 5.6 H Carbon Dioxide 33 H Total Bilirubin 1.1 H AST 88 H Total Protein 8.8 H ASSESSMENT AND PLAN: 1. Fall/Chest pain - No acute abnormality noted on head CT and on CXR. EKG shows sinus bradycardia with peaked t waves in V2 and initial troponin is negative. Will admit to telemetry to rule out ACS and get ECHO. Consult cardiology. Get chest CTA since his pain radiates to the back - aneurysm? Fall may be related to alcohol or drug use. Hyperkalemia likely due to erythrocytosis - will get simultaneous serum and plasma K+ to confirm; hydrate gently and repeat BMP. If hyperkalemia is not artifactual, then will treat with kayexalate. Nucleated RBC and erythrocytosis may be due to chronic hypoxia, but will consult hematology. Get HIV test and UA. Will continue comprehensive care for all of patients comorbid conditions. 2. Tobacco Use Counseled on risks associated with tobacco use. We will provide patient all the necessary assistance to facilitate smoking cessation and prescribe Nicotine patch. 3. Polysubstance/Alcohol abuse - Will monitor closely for drug withdrawal and continue clonidine and methadone. [facility] and do neurochecks. Implement seizure, fall and aspiration precautions. Provide bowel regimen. Treat with thiamine and folic acid and monitor electrolytes (Ca,Mg,K,P). Counseled patient about abstaining from alcohol and illicit drugs. Will consult digital campaign specialist and refer to drug/ alcohol detox upon discharge. 4. Hypertensive urgency - BP improved in the ER after initial therapy. Restart suitable outpatient antihypertensive drugs when clinically appropriate. Revise regimen to ensure [id number] excellent BP control and corrections counselor patient on the injurious effects of uncontrolled hypertension. Nonpharmacologic measures to control hypertension like weight loss, salt restriction and exercise discussed. Importance of adherence to treatment regimen and attainment of normotension emphasized. 5. DVT prophylaxis - Lovenox 40 mg SQ q 24 hours. 6. Advance directives - Full code
[2019-01-21 22:36] LABS: BLOOD UREA NITROGEN 15.1 mg/dL (7-18); CALCIUM 8.7 mg/dL (8.5-10.1); CREATININE 1.4 mg/dL (0.55-1.3); POTASSIUM 3.6 mmol/L (3.5-5.1)
[2019-01-21] MEDS ORDERED: dilTIAZem HCL 50 MG/10 ML - 10 ML VIAL IVPUSH ONE (22:36)
--- NOTE | 2019-01-21 22:38 | HP ---
CHIEF COMPLAINT: chest pain PCP: HISTORY OF PRESENT ILLNESS: Patient is a 43 year old male with history of myocardial infarct in 2017 s/p 2 stents (on plavix and aspirin, cocaine induced) polysubstance abuse (cocaine, alcohol, and IV heroin; last use two days ago) presents from [facility] for a fall, chest pain. Patient endorses chest pain that is sharp, substernal, and radiates to the back. Ongoing for the past two days and has been worsening. States symptoms began once patient entered [facility] facility. Denies palliative or provocative features. He endorses numerous episodes of nausea vomiting (nonbloody, nonbillious) last episode today. Patient admits he was getting up from bathroom earlier today and fell down, hitting his head. Patient states he was on ground for less than 5 minutes before being helped up. Endorses prodromal lightheadedness, as he was getting up. Denies tremors, or fecal or urinary incontinence ER course was notable for: (1) BP 202/ 106 (2) EKG: Sinus bradycardia, peaked T waves V1-V3. Potassium 5.6 (3) Recent Travel: Denies PAST MEDICAL HISTORY: NM, HTN, polysubstance abuse PAST SURGICAL HISTORY: Cardiac stents X2 (2017) Social History: Smoking: current smoker; approx 10/ day, far past 20 years Alcohol: admits 1 pint of Vodka daily Drugs: cocaine, heroine Allergies No Known Drug Allergies Allergy (Verified 01/19/19 12:56) Fish Containing Products Adverse Reaction (Severe, Verified 01/19/19 12:56) Vomiting HOME MEDICATIONS: Home Medications Medication Instructions Recorded Isosorbide Mononitrate [Imdur -] 60 mg PO DAILY #30 tab.sr.24h 06/11/17 Aspirin [ASA -] 81 mg PO DAILY #14 tab.chew 04/01/18 Amlodipine Besylate [Norvasc -] 5 mg PO DAILY 09/08/18 Quetiapine Fumarate [Seroquel -] 100 mg PO HS 09/08/18 Famotidine 20 mg PO DAILY #30 tablet 11/24/18 Acetaminophen [Tylenol] 975 mg PO TID #60 capsule 01/19/19 Ibuprofen 800 mg PO TID #30 tablet 01/19/19 REVIEW OF SYSTEMS CONSTITUTIONAL: Admits: diaphoresis, generalized weakness. Absent: fever, chills, generalized weakness, malaise, loss of appetite, weight change HEENT: Admits; rhinorrhea. Absent: nasal congestion, throat pain, throat swelling, difficulty swallowing, mouth swelling, ear pain, eye pain, visual changes CARDIOVASCULAR: Admits: chest pain. Absent: palpitations, irregular heart rate, lightheadedness , peripheral edema RESPIRATORY: Absent: cough, shortness of breath, dyspnea with exertion, orthopnea, wheezing, stridor, hemoptysis GASTROINTESTINAL: Admits: abdominal pain, nausea, vomiting. Absent: abdominal distension, constipation, melena, hematochezia GENITOURINARY: Absent: dysuria, frequency, urgency, hesitancy, hematuria, flank pain, genital pain MUSCULOSKELETAL: Admits: myalgias. Absent: arthralgia, joint swelling, back pain, neck pain SKIN: Absent: rash, itching, pallor HEMATOLOGIC/IMMUNOLOGIC: Absent: easy bleeding, easy bruising, lymphadenopathy, frequent infections ENDOCRINE: Absent: unexplained weight gain, unexplained weight loss, heat intolerance, cold intolerance NEUROLOGIC: Admits: headache. Absent: focal weakness or paresthesias, dizziness, unsteady gait, seizure, mental status changes, bladder or bowel incontinence PSYCHIATRIC: Absent: anxiety, depression, suicidal or homicidal ideation, hallucinations. PHYSICAL EXAMINATION Vital Signs - 24 hr 01/21/19 01/21/19 16:45 20:30 Temperature 99.0 F Pulse Rate 47 L Pulse Rate [ 49 L Left Radial] Respiratory 20 18 Rate Blood Pressure 197/106 H Blood Pressure 202/106 H [Left Arm] O2 Sat by Pulse 98 100 Oximetry (%) GENERAL: The patient is tremulous, sleepy, arousble to verbal stimulation, in mild distress. HEAD: Normocephalic, atraumatic. EYES: PERRL, extraocular movements intact, sclera anicteric, conjunctiva clear. ENT: Oropharynx clear, without erythema or exudates. Moist mucous membranes. NECK: Trachea midline, full range of motion. Supple without lymphadenopathy. LUNGS: Breath sounds equal, clear to auscultation bilaterally, no wheezes, no crackles. No accessory muscle use. HEART: Bradycardic. S1, S2 without murmur, rub or gallop. ABDOMEN: Soft, nondistended, nontender to light and deep palpation x4 quadrants , no rebound tenderness, no guarding. Normoactive bowel sounds x4 quadrants. No hepatosplenomegaly palpated, no masses. EXTREMITIES: Right upper extremity cast s/p recent fracture. 1+ radial pulse on left, 2+ dorsalis pedis pulses bilaterally. Warm, well-perfused. No lower extremity edema bilaterally. NEUROLOGICAL: Cranial nerves II through XII grossly intact. Normal speech. No gross focal deficits. PSYCH: Normal mood, normal affect upon my encounter. SKIN: Warm, diaphoretic. Laboratory Results - last 24 hr 01/21/19 01/21/19 01/21/19 16:57 16:57 16:57 WBC 5.2 Corrected WBC (auto) 4.41 RBC 6.05 H Hgb 17.8 H Hct 53.1 H D MCV 87.8 MCH 29.4 MCHC 33.5 RDW 13.5 Plt Count 293 D MPV 7.6 Absolute Neuts (auto) 4.3 Neutrophils % 83.7 H D Lymphocytes % 12.5 D Monocytes % 3.2 L Eosinophils % 0.1 D Basophils % 0.5 Nucleated RBC % 18 H* PT with INR 11.50 INR 0.97 Sodium 139 Potassium 5.6 H Chloride 99 Carbon Dioxide 33 H Anion Gap 8 BUN 17.4 Creatinine 1.3 Est GFR (CKD-EPI)AfAm 78.55 Est GFR (CKD-EPI)NonAf 67.77 Random Glucose 92 Calcium 9.9 Phosphorus 4.9 Magnesium 2.1 Total Bilirubin 1.1 H AST 88 H ALT 52 Alkaline Phosphatase 96 Troponin I Total Protein 8.8 H Albumin 4.3 Lipase 84 01/21/19 01/21/19 16:57 21:45 WBC Corrected WBC (auto) RBC Hgb Hct MCV MCH MCHC RDW Plt Count MPV Absolute Neuts (auto) Neutrophils % Lymphocytes % Monocytes % Eosinophils % Basophils % Nucleated RBC % PT with INR INR Sodium 142 Potassium 3.6 Chloride 102 Carbon Dioxide 31 Anion Gap 9 BUN 15.1 Creatinine 1.4 H Est GFR (CKD-EPI)AfAm 71.82 Est GFR (CKD-EPI)NonAf 61.96 Random Glucose 137 H Calcium 8.7 Phosphorus Magnesium Total Bilirubin AST ALT Alkaline Phosphatase Troponin I < 0.02 0.02 Total Protein Albumin Lipase ASSESSMENT/PLAN: Patient is a 43 year old male with history of myocardial infarct in 2017 s/p 2 stents (on plavix and aspirin, cocaine induced) polysubstance abuse (cocaine, alcohol, and heroin; last use two days ago) presents from [facility] for a fall, and chest pain. Atypical chest pain -Chest pain somewhat reproducible upon palpation, however continues to persist. Troponins negative. Will trend. -Given history of recent Cocaine use, and chest pain radiating to back, concern for aortic dissection. Follow CTA chest. -EKG: Sinus bradycardia, T wave elevated V1-V3 however similar elevations noted on prior ECG (11/21/2018). Negative for acute ST elevations -Cardiac monitoring -Cardiology evaluation (Dr. Babcock) Hypertensive Urgency -BP 202/106 -> 184/ 90mmHg -> 158/82. Given Lasix 40mg IV, Nitro paste in ED. BP reduction already at goal (no more than 20% reduction within first 24 hours) . Will withhold any further antihypertensive medications and monitor vital signs closely. -Troponins negative. No evidence of end organ damage noted. -Continue patient's home Amlodipine 5mg PO daily in the morning. -Avoid beta blockers in setting of recent cocaine use. Pre-syncopal episode -CT head negative for acute intracranial pathology. -Cardiac ECHO -Cardiology evaluation (Dr. Babcock) History of NM, s/p two stents -Continue home Aspirin 81mg PO daily Hyperkalemia -resolved -K+ 5.6 -> 3.6 -Patient received 7 units Insulin, 1 amp D50, Calcium Gluconate 1000mg IV, Lokelma 5mg PO -EKG: Sinus did reveal T wave elevations in leads V1-V3 however similar elevations noted on prior ECG (11/21/2018) Polysubstance abuse -cocaine, heroine, alcohol -CIWA score 14. Continue Librium protocol. Discussed with [facility]- patient has completed 50mg dose of Librium taper, will continue with 25mg dose and taper as appropriate. -COWS score 12. Continue Methadone taper. Discussed with [facility]- patient given 25mg PO yesterday, and he received injection of Librium 10mg IV today ( equivalent to 20mg PO dose). Will continue taper at 15mg PO for tomorrow morning. -Thiamine 100mg PO daily -Folate 1mg PO daily -Fall precautions -Aspiration precautions -Seizure precautions Acute kidney injury -Likely pre-renal etiology secondary to excessive vomiting. Will gently hydrate with IV normal saline at 75mL/ hour given patient's BP is coming down, and patient will be receiving IV contrast for CTA chest. -Follow BUN/ Cr closely Polycythemia with elevated nucleated RBC -Polycythemia likely secondary to dehydration given repeated episodes vomiting -Will obtain HIV Ab to evaluate for elevated nucleated RBC. Verbal consent obtained from patient. -Hematolgy consult Dr. Nae JENNINGS -IV normal saline at 75mL/ hour -Hyperkalemia- resolved. Follow BMP -NPO pending cardiology evaluation for potential stress test. Prophylaxis -Heparin 5000 units subq TID Disposition -Admit to Telemetry Visit type - Emergency Visit Emergency Visit: Yes ED Registration Date: 01/21/19 Care time: The patient presented to the Emergency Department on the above date and was hospitalized for further evaluation of their emergent condition. - New Patient This patient is new to me today: Yes Date on this admission: 01/21/19 - Critical Care Critical Care patient: No ATTENDING PHYSICIAN STATEMENT I saw and evaluated the patient. I reviewed the resident's note and discussed the case with the resident. I agree with the resident's findings and plan as documented. SUBJECTIVE: OBJECTIVE: ASSESSMENT AND PLAN:
[2019-01-21] MEDS ORDERED: ONDANSETRON 4 MG/2 ML VIAL IVPUSH ONE (23:34)
[2019-01-21] MEDS ORDERED: chlordiazePOXIDE HCL 25 MG CAPSULE ONE (23:39)
[2019-01-21] MEDS: chlordiazePOXIDE HCL 25 MG CAPSULE PO SCH (23:54)
[2019-01-22] MEDS ORDERED: chlordiazePOXIDE HCL 10 MG CAPSULE PO PRN
[2019-01-22] MEDS ORDERED: SODIUM CHLORIDE 1,000 ML IV SCH (03:15)
[2019-01-22] MEDS ORDERED: chlordiazePOXIDE HCL 25 MG CAPSULE ONE ×2 (05:32→11:28)
[2019-01-22] MEDS: chlordiazePOXIDE HCL 25 MG CAPSULE PO SCH ×2 (05:34→11:32)
[2019-01-22] MEDS ORDERED: HEPARIN NA (PORCINE) 5,000 UNITS/ML 1ML VIAL SQ SCH (06:00)
[2019-01-22 06:33] LABS: PH,URINE 7.5 (5.0-8.0); URINE APPEARANCE CLEAR; URINE BILIRUBIN NEGATIVE (NEGATIVE); URINE COLOR YELLOW; URINE GLUCOSE (UA) NEGATIVE (NEGATIVE); URINE KETONE NEGATIVE (NEGATIVE); URINE LEUK ESTERASE NEGATIVE (NEGATIVE); URINE NITRITE NEGATIVE (NEGATIVE); URINE PROTEIN TRACE (NEGATIVE)
[2019-01-22] MEDS ORDERED: METHADONE HCL 10 MG TABLET ONE (09:18)
[2019-01-22] MEDS ORDERED: METHADONE HCL 5 MG TABLET ONE (09:19)
[2019-01-22 09:58] LABS: BASO % 0.8 % (0-2.0); EOS % 0.3 % (0-4.5); HEMATOCRIT 50.3 % (35.4-49); LYMPH % 16.8 % (8-40); MCH 29.5 pg (25.7-33.7); MCHC 33.8 g/dl (32.0-35.9); MEAN CELL VOLUME 87.4 fl (80-96); MEAN PLT VOLUME 7.6 fl (7.5-11.1); MONO % 9.1 % (3.8-10.2); PLATELET COUNT 280 K/MM3 (134-434); RBC 5.75 M/mm3 (4.00-5.60); RDW 13.9 % (11.9-15.9); WHITE BLOOD COUNT 7.7 K/mm3 (4.0-10.0)
[2019-01-22] MEDS ORDERED: THIAMINE HCL 100 MG TABLET (FP) PO SCH (10:00)
[2019-01-22] MEDS ORDERED: ASPIRIN 81 MG CHEWABLE TABLETS PO SCH (10:00)
[2019-01-22] MEDS ORDERED: MULTIVITAMINS (DAILY MVI) TABLET (FP) PO SCH (10:00)
[2019-01-22] MEDS ORDERED: HYDROCHLOROTHIAZIDE 12.5 MG CAPSULE (FP) PO SCH (10:00)
[2019-01-22] MEDS ORDERED: amLODIPine BESYLATE 5 MG TABLET (FP) PO SCH (10:00)
[2019-01-22] MEDS ORDERED: FOLIC ACID 1 MG TABLET (FP) PO SCH (10:00)
[2019-01-22] MEDS ORDERED: METHADONE HCL 10 MG TABLET PO ONE ×2 (10:00)
[2019-01-22] MEDS ORDERED: LISINOPRIL 5 MG TABLET (FP) PO SCH (10:00)
[2019-01-22 10:22] LABS: ALBUMIN 3.9 g/dl (3.4-5.0); BILIRUBIN,TOTAL 1.1 mg/dL (0.2-1); BLOOD UREA NITROGEN 15.1 mg/dL (7-18); CREATININE 1.2 mg/dL (0.55-1.3); PHOSPHOROUS 3.6 mg/dL (2.5-4.9); POTASSIUM 4.1 mmol/L (3.5-5.1); TOT PROT 7.9 g/dl (6.4-8.2)
--- NOTE | 2019-01-22 11:14 | ECHO ---
Name: JUANA GUTIÉRREZ Exam:Adult Echocardiogram Study Date: 01/22/2019 10:27 AM Age: 43 yrs Reason For Study: LV Function Height: 69 in Weight: 165 lb BSA: 1.9 m2 MMode/2D Measurements & Calculations IVSd: 1.2 cm Ao root diam: 2.4 cm LVIDd: 5.3 cm LA dimension: 3.4 cm LVIDs: 4.5 cm LVPWd: 0.69 cm EDV(Teich): 132.9 ml LVOT diam: 2.0 cm ESV(Teich): 90.9 ml LAV (MOD-bp): 64.1 ml Doppler Measurements & Calculations MV E max ok: 110.0 cm/sec Ao V2 max: 149.3 cm/sec MV A max ok: 54.3 cm/sec Ao max P.9 mmHg MV E/A: 2.0 MV dec time: 0.18 sec ASHLEY(V,D): 2.9 cm2 LV V1 max P.2 mmHg MR max ok: 361.6 cm/sec LV V1 max: 133.9 cm/sec MR max P.3 mmHg PA V2 max: 169.7 cm/sec Med Peak E' Ok: 5.8 cm/sec PA max P.5 mmHg Med E/e': 19.1 Lat Peak E' Ok: 14.0 cm/sec Lat E/e': 7.8 PI Vmax: 107.2 cm/sec Left Ventricle There is mild concentric left ventricular hypertrophy. Left ventricular systolic function is normal. Ejection Fraction = 55-60%. Right Ventricle The right ventricle is normal in size and function. Atria Normal left and right atrial size and function. Mitral Valve The mitral valve is normal in structure and function. There is no mitral valve stenosis. There is tra ce to mild mitral regurgitation. Tricuspid Valve The tricuspid valve is normal in structure and function. There is Trace to mild tricuspid regurgitati on. Aortic Valve The aortic valve is trileaflet. No hemodynamically significant valvular aortic stenosis. No aortic regurgitation is present. Pulmonic Valve The pulmonic valve is not well seen, but is grossly normal. There is no pulmonic valvular stenosis. T here is no pulmonic valvular regurgitation. Great Vessels The aortic root is normal size. Pericardium/Pleura There is no pericardial effusion. Interpretation Summary Left ventricular systolic function is normal. Ejection Fraction = 55-60%. There is mild concentric left ventricular hypertrophy. The right ventricle is normal in size and function. There is trace to mild mitral regurgitation. There is no pericardial effusion. MD Pagan *Sophia 01/22/2019 11:13 AM
[2019-01-22 11:39] VITALS: BP 161/90; PULSE 51; TEMP 98.4
--- NOTE | 2019-01-22 14:32 | EKG ---
Test Reason : Blood Pressure : / mmHG Vent. Rate : 046 BPM Atrial Rate : 046 BPM P-R Int : 148 ms QRS Dur : 088 ms QT Int : 534 ms P-R-T Axes : 051 063 061 degrees QTc Int : 467 ms SINUS BRADYCARDIA CANNOT RULE OUT INFERIOR INFARCT , AGE UNDETERMINED ABNORMAL ECG WHEN COMPARED WITH ECG OF 22-NOV-2018 00:06, PREMATURE VENTRICULAR COMPLEXES ARE NO LONGER PRESENT NONSPECIFIC T WAVE ABNORMALITY NOW EVIDENT IN LATERAL LEADS Confirmed by QUINTON CARABALLO MD ([id number]) on 01/22/2019 2:31:33 PM Referred By: Confirmed By:QUINTON CARABALLO MD
[2019-01-22] MEDS ORDERED: FOLIC ACID INJECTION - 1 MG, THIAMINE HCL 100 MG, MULTIVIT INJECTION ADULT 10 ML in SOD... IVPB ONE (14:33)
--- NOTE | 2019-01-22 15:10 | CONSULT ---
Consult Consult Specialty:: Hematology and oncology Referred by:: Dr. 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 Patient was detoxing at [facility] from ETOH, Heroin and cocaine and had been comlpaining of nausea, vomiting, chest pain for the past few days. Prior to admission to [facility], he was going to the bathroom when he fell and hit his head. In the ED, he was found to have an erythrocythemia with a Hb of 17.8 and 18% nucleated RBCs. Hematology was consulted to assist in the evaluation of this finding. On interview, the patient was found in bed in the ER looking uncomfortable. He complained of whole body pain as well as nausea and vomiting in addition to lacrimation. The patient states that he has never been told that he had elevated blood counts in the past, but has not need a doctor in some time. Patient denies any family history of blood disorders or cancer in the family. Patient denies any bleeding or clotting in the past. Patient does endorse generalized weakness and dizziness, however. Patient is current every day smoker of approx. 1 pack per day. - History Source History Provided By: Patient, Medical Record Limitations to Obtaining History: No Limitations - Past Medical History Cardio/Vascular: Yes: CAD (coronarty stenting after CT in 2017 at [facility]), Hyperlipdemia, CT (2017) Gastrointestinal: Yes: Pancreatitis (alcohol related) Renal/: Yes: Renal Calculi - Past Surgical History Past Surgical History: Yes: Tonsillectomy - Alcohol/Substance Use Hx Alcohol Use: Yes (2 pintt a day) History of Substance Use: reports: Cocaine (smokes), Heroin (IVDA), Marijuana ( smokes), Prescription (xanax) - Smoking History Smoking history: Current every day smoker Have you smoked in the past 12 months: Yes Aproximately how many cigarettes per day: 20 - Social History Usual Living Arrangement: With Significant Other ADL: Independent 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 History of Recent Travel: No Home Medications - Allergies Allergies/Adverse Reactions: Allergies Allergy/AdvReac Type Severity Reaction Status Date / Time No Known Drug Allergies Allergy Verified 01/19/19 12:56 Fish Containing Products AdvReac Severe Vomiting Verified 01/19/19 12:56 - Home Medications Home Medications: Ambulatory Orders Isosorbide Mononitrate [Imdur -] 60 mg PO DAILY #30 tab.sr.24h 06/11/17 Aspirin [ASA -] 81 mg PO DAILY #14 tab.chew 04/01/18 Amlodipine Besylate [Norvasc -] 5 mg PO DAILY 09/08/18 Quetiapine Fumarate [Seroquel -] 100 mg PO HS 09/08/18 Review of Systems - Review of Systems Constitutional: reports: Diaphoresis, Weakness. denies: Chills, Fever Cardiovascular: reports: Chest Pain. denies: Palpitations, Shortness of Breath Respiratory: reports: SOB. denies: Cough, Hemoptysis Gastrointestinal: reports: Abdominal Pain, Nausea, Vomiting. denies: Rectal Bleeding, Vomiting Blood Physical Exam Vital Signs: Vital Signs Temperature 98.4 F 01/22/19 09:20 Pulse Rate 51 L 01/22/19 09:20 Respiratory Rate 17 01/22/19 09:20 Blood Pressure 161/90 01/22/19 09:20 O2 Sat by Pulse Oximetry (%) 99 01/22/19 09:30 Constitutional: Yes: Anxious, Mild Distress Eyes: Yes: Tearing HENT: Yes: Atraumatic, Normocephalic Cardiovascular: Yes: Tachycardia, S1, S2. No: Gallop, Murmur, Rub Respiratory: Yes: Regular, CTA Bilaterally Gastrointestinal: Yes: Normal Bowel Sounds, Soft. 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 Patient was detoxing at [facility] from ETOH, Heroin and cocaine and had been complaining of nausea, vomiting, chest pain for the past few days. He was found to have a erythrocythemia on admission. #erythrocythemia likely 2/2 smoking, rule out myelodysplastic syndrome -Per chart review, patient had similar episodes of erythrocythemia on past admissions -patient is current everyday smoker, which may cause transient polycythemia -If erythrocytosis persists, can consider JAK2 mutation, Free testosterone, erythropoetin level -Will review smear
--- NOTE | 2019-01-22 15:20 | PN ---
Teaching Attending Note Name of Resident: Satnam Pedersen ATTENDING PHYSICIAN STATEMENT I saw and evaluated the patient. I reviewed the resident's note and discussed the case with the resident. I agree with the resident's findings and plan as documented. SUBJECTIVE: Patient seen and examined Every day smoker -1ppd x 20 years, drinker of 2 pints of cognac daily and IV drug abuser with heroin - last taken 3 days ago. Undergoing detox. Presents to ER after fall with chest pain and hypotension . CBC said to show Hct 53% and 50% with 18% normoblasts on 01/21 and 0% normoblasts on 01/22. Prior history of TX secondary to substance abuse. Last Vital Signs Temp Pulse Resp BP Pulse Ox 98.4 F 51 L 17 161/90 99 01/22/19 09:20 01/22/19 09:20 01/22/19 09:20 01/22/19 09:20 01/22/19 09:30 HEENT: ROXANA, EOM Intact Oropharynx: No thrush, No mucositis Neck: Supple Nodes: Without adenopathy Cor: RSR, No murmurs, No gallops Lungs: Clear to P&A Abd: Soft, Normal bowel sounds, No organomegaly Ext:No significant edema Skin: No rashes, Integument intact CBC, BMP 01/22/19 09:38 01/22/19 09:38 Abnormal Lab Results 01/21/19 01/21/19 01/21/19 16:57 16:57 21:45 RBC 6.05 H Hgb 17.8 H Hct 53.1 H D Neutrophils % 83.7 H D Monocytes % 3.2 L Nucleated RBC % 18 H* Potassium 5.6 H Carbon Dioxide 33 H Creatinine 1.4 H Random Glucose 137 H Total Bilirubin 1.1 H AST 88 H Creatine Kinase Total Protein 8.8 H 01/22/19 01/22/19 09:38 09:38 RBC 5.75 H Hgb 17.0 H Hct 50.3 H Neutrophils % Monocytes % Nucleated RBC % Potassium Carbon Dioxide Creatinine Random Glucose Total Bilirubin 1.1 H AST 62 H Creatine Kinase 939 H Total Protein Current Medications Generic Name Dose Route Start Last Admin Trade Name Freq PRN Reason Stop Dose Admin Amlodipine Besylate 5 mg 01/22/19 10:00 01/22/19 09:25 Norvasc - PO 5 mg DAILY TAY Administration Aspirin 81 mg 10/11/19 10:00 01/22/19 09:36 Asa - PO 81 mg DAILY TAY Administration Atorvastatin Calcium 20 mg 01/22/19 22:00 Lipitor - PO HS TAY Chlordiazepoxide HCl 10 mg 01/23/19 05:00 Librium - PO 01/23/19 23:01 [id number] TAY Chlordiazepoxide HCl 10 mg 01/24/19 05:00 Librium - PO 01/24/19 17:01 Q12H TAY Chlordiazepoxide HCl 10 mg 01/22/19 00:00 Librium - PO 01/25/19 00:00 Q4H PRN WITHDRAWAL(CONT SUBST) Chlordiazepoxide HCl 10 mg 01/25/19 05:00 Librium - PO 01/25/19 05:01 ONCE@0500 ONE Chlordiazepoxide HCl 25 mg 01/21/19 23:00 01/22/19 11:32 Librium - PO 01/22/19 17:01 25 mg [id number] TAY Administration Chlordiazepoxide HCl 25 mg 01/22/19 23:00 Librium - PO 01/22/19 23:01 ONCE ONE Folic Acid 1 mg 01/22/19 10:00 01/22/19 09:25 Folic Acid - PO 1 mg DAILY [facility] Administration Heparin Sodium (Porcine) 5,000 unit 01/22/19 06:00 Heparin - SQ TID TAY Sodium Chloride 1,000 mls @ 75 mls/hr 01/22/19 03:15 01/22/19 04:15 Normal Saline - IV 75 mls/hr ASDIR TAY Administration Folic Acid 1 mg/ Thiamine HCl 1,000 mls @ 125 mls/hr 01/22/19 14:33 100 mg/ Multivitamins/Minerals IVPB 01/22/19 22:32 10 ml/ Sodium Chloride ONCE ONE Multivitamins/Minerals/Vitamin C 1 tab 01/22/19 10:00 Tab-A-Vit - PO DAILY [facility] Thiamine HCl 100 mg 01/22/19 10:00 01/22/19 09:25 Vitamin B1 - PO 100 mg DAILY TAY Administration Impression Erythroytosis - ? secondary to smoking Normoblasts- to review smear If erythrocytosis persists - erythropoietin level and SILAS-2, as well as ABG's, and total and free testosterone. Further comments after smear is reviewed OBJECTIVE: ASSESSMENT AND PLAN:
--- NOTE | 2019-01-22 16:07 | PN ---
Teaching Attending Note Name of Resident: Abdoul Figueroa ATTENDING PHYSICIAN STATEMENT I saw and evaluated the patient. I reviewed the resident's note and discussed the case with the resident. I agree with the resident's findings and plan as documented with exceptions below. SUBJECTIVE: patient seen and examined. chest pain improved, denies any abdominal pain, asking to eat, no other complaints. OBJECTIVE: Vital Signs Period Temp Pulse Resp BP Sys/Lehman Pulse Ox Last 24 Hr 98.4 F-99.0 F 47-60 17-20 124-202/61-106 97-100 Intake & Output 01/19/19 01/20/19 01/21/19 01/22/19 23:59 23:59 23:59 23:59 Weight 165 lb general: lying in bed in no acute distress Chest: CTAB, no rales or wheezing, mild tenderness to palpation on chest wall areas, no swelling erythema or crepitus noted Abdomen;Soft, NT, ND, pos bowel wounds extremities: no edema neck: soft, supple Home Medications Medication Instructions Recorded Isosorbide Mononitrate [Imdur -] 60 mg PO DAILY #30 tab.sr.24h 06/11/17 Aspirin [ASA -] 81 mg PO DAILY #14 tab.chew 04/01/18 Amlodipine Besylate [Norvasc -] 5 mg PO DAILY 09/08/18 Quetiapine Fumarate [Seroquel -] 100 mg PO HS 09/08/18 Active Medications Amlodipine Besylate (Norvasc -) 5 mg PO DAILY [facility] Last Admin: 01/22/19 09:25 Dose: 5 mg Aspirin (Asa -) 81 mg PO DAILY [facility] Last Admin: 01/22/19 09:36 Dose: 81 mg Atorvastatin Calcium (Lipitor -) 20 mg PO HS [facility] Chlordiazepoxide HCl (Librium -) 10 mg PO [id number] [facility] Stop: 01/23/19 23:01 Chlordiazepoxide HCl (Librium -) 10 mg PO Q12H [facility] Stop: 01/24/19 17:01 Chlordiazepoxide HCl (Librium -) 10 mg PO Q4H PRN PRN Reason: WITHDRAWAL(CONT SUBST) Stop: 01/25/19 00:00 Chlordiazepoxide HCl (Librium -) 10 mg PO ONCE@0500 ONE Stop: 01/25/19 05:01 Chlordiazepoxide HCl (Librium -) 25 mg PO [id number] [facility] Stop: 01/22/19 17:01 Last Admin: 01/22/19 11:32 Dose: 25 mg Chlordiazepoxide HCl (Librium -) 25 mg PO ONCE ONE Stop: 01/22/19 23:01 Folic Acid (Folic Acid -) 1 mg PO DAILY [facility] Last Admin: 01/22/19 09:25 Dose: 1 mg Heparin Sodium (Porcine) (Heparin -) 5,000 unit SQ TID [facility] Sodium Chloride (Normal Saline -) 1,000 mls @ 75 mls/hr IV ASDIR [facility] Last Admin: 01/22/19 04:15 Dose: 75 mls/hr Folic Acid 1 mg/ Thiamine HCl 100 mg/ Multivitamins/Minerals 10 ml/ Sodium Chloride 1,000 mls @ 125 mls/hr IVPB ONCE ONE Stop: 01/22/19 22:32 Methadone HCl (Dolophine -) 5 mg PO DAILY@0600 [facility] Stop: 01/23/19 06:01 Multivitamins/Minerals/Vitamin C (Tab-A-Vit -) 1 tab PO DAILY [facility] Thiamine HCl (Vitamin B1 -) 100 mg PO DAILY [facility] Last Admin: 01/22/19 09:25 Dose: 100 mg Laboratory Results - last 24 hr 01/21/19 01/21/19 01/21/19 16:57 16:57 16:57 WBC 5.2 Corrected WBC (auto) 4.41 RBC 6.05 H Hgb 17.8 H Hct 53.1 H D MCV 87.8 MCH 29.4 MCHC 33.5 RDW 13.5 Plt Count 293 D MPV 7.6 Absolute Neuts (auto) 4.3 Neutrophils % 83.7 H D Lymphocytes % 12.5 D Monocytes % 3.2 L Eosinophils % 0.1 D Basophils % 0.5 Nucleated RBC % 18 H* PT with INR 11.50 INR 0.97 Sodium 139 Potassium 5.6 H Chloride 99 Carbon Dioxide 33 H Anion Gap 8 BUN 17.4 Creatinine 1.3 Est GFR (CKD-EPI)AfAm 78.55 Est GFR (CKD-EPI)NonAf 67.77 Random Glucose 92 Hemoglobin A1c % Calcium 9.9 Phosphorus 4.9 Magnesium 2.1 Total Bilirubin 1.1 H AST 88 H ALT 52 Alkaline Phosphatase 96 Creatine Kinase Creatine Kinase Index CK-MB (CK-2) Troponin I Total Protein 8.8 H Albumin 4.3 Lipase 84 Urine Color Urine Appearance Urine pH Ur Specific [place] Urine Protein Urine Glucose (UA) Urine Ketones Urine Blood Urine Nitrite Urine Bilirubin Urine Urobilinogen Ur Leukocyte Esterase HIV 1&2 Antibody Screen HIV P24 Antigen 01/21/19 01/21/19 01/22/19 16:57 21:45 05:50 WBC Corrected WBC (auto) RBC Hgb Hct MCV MCH MCHC RDW Plt Count MPV Absolute Neuts (auto) Neutrophils % Lymphocytes % Monocytes % Eosinophils % Basophils % Nucleated RBC % PT with INR INR Sodium 142 Potassium 3.6 Chloride 102 Carbon Dioxide 31 Anion Gap 9 BUN 15.1 Creatinine 1.4 H Est GFR (CKD-EPI)AfAm 71.82 Est GFR (CKD-EPI)NonAf 61.96 Random Glucose 137 H Hemoglobin A1c % Calcium 8.7 Phosphorus Magnesium Total Bilirubin AST ALT Alkaline Phosphatase Creatine Kinase Creatine Kinase Index CK-MB (CK-2) Troponin I < 0.02 0.02 Total Protein Albumin Lipase Urine Color Yellow Urine Appearance Clear Urine pH 7.5 Ur Specific [place] 1.034 Urine Protein Trace Urine Glucose (UA) Negative Urine Ketones Negative Urine Blood Negative Urine Nitrite Negative Urine Bilirubin Negative Urine Urobilinogen 1.0 Ur Leukocyte Esterase Negative HIV 1&2 Antibody Screen HIV P24 Antigen 01/22/19 01/22/19 01/22/19 09:38 09:38 09:38 WBC 7.7 Corrected WBC (auto) RBC 5.75 H Hgb 17.0 H Hct 50.3 H MCV 87.4 MCH 29.5 MCHC 33.8 RDW 13.9 Plt Count 280 MPV 7.6 Absolute Neuts (auto) 5.7 Neutrophils % 73.0 Lymphocytes % 16.8 D Monocytes % 9.1 D Eosinophils % 0.3 D Basophils % 0.8 Nucleated RBC % 0 PT with INR INR Sodium 138 Potassium 4.1 Chloride 103 Carbon Dioxide 26 Anion Gap 9 BUN 15.1 Creatinine 1.2 Est GFR (CKD-EPI)AfAm 86.53 Est GFR (CKD-EPI)NonAf 74.66 Random Glucose 105 Hemoglobin A1c % Calcium 9.0 Phosphorus 3.6 Magnesium 2.0 Total Bilirubin 1.1 H AST 62 H ALT 46 Alkaline Phosphatase 87 Creatine Kinase 939 H Creatine Kinase Index 0.1 CK-MB (CK-2) 1.4 Troponin I 0.02 Total Protein 7.9 Albumin 3.9 Lipase Urine Color Urine Appearance Urine pH Ur Specific [place] Urine Protein Urine Glucose (UA) Urine Ketones Urine Blood Urine Nitrite Urine Bilirubin Urine Urobilinogen Ur Leukocyte Esterase HIV 1&2 Antibody Screen Negative HIV P24 Antigen Negative 01/22/19 09:38 WBC Corrected WBC (auto) RBC Hgb Hct MCV MCH MCHC RDW Plt Count MPV Absolute Neuts (auto) Neutrophils % Lymphocytes % Monocytes % Eosinophils % Basophils % Nucleated RBC % PT with INR INR Sodium Potassium Chloride Carbon Dioxide Anion Gap BUN Creatinine Est GFR (CKD-EPI)AfAm Est GFR (CKD-EPI)NonAf Random Glucose Hemoglobin A1c % 5.0 Calcium Phosphorus Magnesium Total Bilirubin AST ALT Alkaline Phosphatase Creatine Kinase Creatine Kinase Index CK-MB (CK-2) Troponin I Total Protein Albumin Lipase Urine Color Urine Appearance Urine pH Ur Specific [place] Urine Protein Urine Glucose (UA) Urine Ketones Urine Blood Urine Nitrite Urine Bilirubin Urine Urobilinogen Ur Leukocyte Esterase HIV 1&2 Antibody Screen HIV P24 Antigen CTA chest/A/P results noted ASSESSMENT AND PLAN: 43 yom with PMHx of reported CAD s/p PCI, polysubstance abuse (cocaine/Heroine/ ETOH), HTn admitted from [facility] chest pain and hypertensive urgency -Atypical chest pain -Hypertensive urgency -Polysubstance abuse with cocaine/ETOH/Heroine -Erythrocytosis, ?From smoking -Reported CAD Plan: telemetry, ACS ruled out. EKG non concerning, symptoms atypical. 2D echo results noted Follow up cardiology input. Librium/methadone detox. Detox consult. BP Improved, resume amlodipine. Avoid beta blockers, monitor for now. CTA neg for concerns Hematology input noted, IV hydration, monitor h/h. DVTPPX heparin dispo to [facility] pending cardiology input and clinical improvement. Discussed with patient.
--- NOTE | 2019-01-22 16:28 | DS ---
Physical Exam: SUBJECTIVE: Patient seen and examined OBJECTIVE: Vital Signs Period Temp Pulse Resp BP Sys/Lehman Pulse Ox Last 24 Hr 98.4 F-99.0 F 47-60 17-20 124-202/61-106 97-100 PHYSICAL EXAM GENERAL: The patient is awake, alert, and fully oriented, in no acute distress. HEAD: Normal with no signs of trauma. EYES: PERRL, extraocular movements intact, sclera anicteric, conjunctiva clear. ENT: Ears normal, nares patent, oropharynx clear without exudates, moist mucous membranes. NECK: Trachea midline, full range of motion, supple. LUNGS: Breath sounds equal, clear to auscultation bilaterally, no wheezes, no crackles, no accessory muscle use. HEART: Regular rate and rhythm, S1, S2 without murmur, rub or gallop. ABDOMEN: Soft, nontender, nondistended, normoactive bowel sounds, no guarding, no rebound, no hepatosplenomegaly, no masses. EXTREMITIES: 2+ pulses, warm, well-perfused, no edema. NEUROLOGICAL: Cranial nerves II through XII grossly intact. Normal speech, gait not observed. PSYCH: Normal mood, normal affect. SKIN: Warm, dry, normal turgor, no rashes or lesions noted. LABS Laboratory Results - last 24 hr 01/21/19 01/21/19 01/21/19 16:57 16:57 16:57 WBC 5.2 Corrected WBC (auto) 4.41 RBC 6.05 H Hgb 17.8 H Hct 53.1 H D MCV 87.8 MCH 29.4 MCHC 33.5 RDW 13.5 Plt Count 293 D MPV 7.6 Absolute Neuts (auto) 4.3 Neutrophils % 83.7 H D Lymphocytes % 12.5 D Monocytes % 3.2 L Eosinophils % 0.1 D Basophils % 0.5 Nucleated RBC % 18 H* PT with INR 11.50 INR 0.97 Sodium 139 Potassium 5.6 H Chloride 99 Carbon Dioxide 33 H Anion Gap 8 BUN 17.4 Creatinine 1.3 Est GFR (CKD-EPI)AfAm 78.55 Est GFR (CKD-EPI)NonAf 67.77 Random Glucose 92 Hemoglobin A1c % Calcium 9.9 Phosphorus 4.9 Magnesium 2.1 Total Bilirubin 1.1 H AST 88 H ALT 52 Alkaline Phosphatase 96 Creatine Kinase Creatine Kinase Index CK-MB (CK-2) Troponin I Total Protein 8.8 H Albumin 4.3 Lipase 84 Urine Color Urine Appearance Urine pH Ur Specific [place] Urine Protein Urine Glucose (UA) Urine Ketones Urine Blood Urine Nitrite Urine Bilirubin Urine Urobilinogen Ur Leukocyte Esterase HIV 1&2 Antibody Screen HIV P24 Antigen 01/21/19 01/21/19 01/22/19 16:57 21:45 05:50 WBC Corrected WBC (auto) RBC Hgb Hct MCV MCH MCHC RDW Plt Count MPV Absolute Neuts (auto) Neutrophils % Lymphocytes % Monocytes % Eosinophils % Basophils % Nucleated RBC % PT with INR INR Sodium 142 Potassium 3.6 Chloride 102 Carbon Dioxide 31 Anion Gap 9 BUN 15.1 Creatinine 1.4 H Est GFR (CKD-EPI)AfAm 71.82 Est GFR (CKD-EPI)NonAf 61.96 Random Glucose 137 H Hemoglobin A1c % Calcium 8.7 Phosphorus Magnesium Total Bilirubin AST ALT Alkaline Phosphatase Creatine Kinase Creatine Kinase Index CK-MB (CK-2) Troponin I < 0.02 0.02 Total Protein Albumin Lipase Urine Color Yellow Urine Appearance Clear Urine pH 7.5 Ur Specific [place] 1.034 Urine Protein Trace Urine Glucose (UA) Negative Urine Ketones Negative Urine Blood Negative Urine Nitrite Negative Urine Bilirubin Negative Urine Urobilinogen 1.0 Ur Leukocyte Esterase Negative HIV 1&2 Antibody Screen HIV P24 Antigen 01/22/19 01/22/19 01/22/19 09:38 09:38 09:38 WBC 7.7 Corrected WBC (auto) RBC 5.75 H Hgb 17.0 H Hct 50.3 H MCV 87.4 MCH 29.5 MCHC 33.8 RDW 13.9 Plt Count 280 MPV 7.6 Absolute Neuts (auto) 5.7 Neutrophils % 73.0 Lymphocytes % 16.8 D Monocytes % 9.1 D Eosinophils % 0.3 D Basophils % 0.8 Nucleated RBC % 0 PT with INR INR Sodium 138 Potassium 4.1 Chloride 103 Carbon Dioxide 26 Anion Gap 9 BUN 15.1 Creatinine 1.2 Est GFR (CKD-EPI)AfAm 86.53 Est GFR (CKD-EPI)NonAf 74.66 Random Glucose 105 Hemoglobin A1c % Calcium 9.0 Phosphorus 3.6 Magnesium 2.0 Total Bilirubin 1.1 H AST 62 H ALT 46 Alkaline Phosphatase 87 Creatine Kinase 939 H Creatine Kinase Index 0.1 CK-MB (CK-2) 1.4 Troponin I 0.02 Total Protein 7.9 Albumin 3.9 Lipase Urine Color Urine Appearance Urine pH Ur Specific [place] Urine Protein Urine Glucose (UA) Urine Ketones Urine Blood Urine Nitrite Urine Bilirubin Urine Urobilinogen Ur Leukocyte Esterase HIV 1&2 Antibody Screen Negative HIV P24 Antigen Negative 01/22/19 09:38 WBC Corrected WBC (auto) RBC Hgb Hct MCV MCH MCHC RDW Plt Count MPV Absolute Neuts (auto) Neutrophils % Lymphocytes % Monocytes % Eosinophils % Basophils % Nucleated RBC % PT with INR INR Sodium Potassium Chloride Carbon Dioxide Anion Gap BUN Creatinine Est GFR (CKD-EPI)AfAm Est GFR (CKD-EPI)NonAf Random Glucose Hemoglobin A1c % 5.0 Calcium Phosphorus Magnesium Total Bilirubin AST ALT Alkaline Phosphatase Creatine Kinase Creatine Kinase Index CK-MB (CK-2) Troponin I Total Protein Albumin Lipase Urine Color Urine Appearance Urine pH Ur Specific [place] Urine Protein Urine Glucose (UA) Urine Ketones Urine Blood Urine Nitrite Urine Bilirubin Urine Urobilinogen Ur Leukocyte Esterase HIV 1&2 Antibody Screen HIV P24 Antigen HOSPITAL COURSE: Date of Admission:01/21/19 Date of Discharge: 01/22/19 Discharge Summary Problems reviewed: Yes Reason For Visit: CHEST PAIN, HYPERTENSION Current Active Problems Chest pain (Acute) Condition: Stable - Instructions - Home Medications Comprehensive Discharge Medication List: Ambulatory Orders Isosorbide Mononitrate [Imdur -] 60 mg PO DAILY #30 tab.sr.24h 06/11/17 Aspirin [ASA -] 81 mg PO DAILY #14 tab.chew 04/01/18 Amlodipine Besylate [Norvasc -] 5 mg PO DAILY 09/08/18 Quetiapine Fumarate [Seroquel -] 100 mg PO HS 09/08/18 ATTENDING PHYSICIAN STATEMENT I saw and evaluated the patient. I reviewed the resident's note and discussed the case with the resident. I agree with the resident's findings and plan as documented. SUBJECTIVE: OBJECTIVE: ASSESSMENT AND PLAN:
[2019-01-22] MEDS ORDERED: SODIUM ZIRCONIUM CYCLOSILICATE (LOKELMA) 5 GM PACKET PO ONE (18:01)
[2019-01-22] MEDS ORDERED: ATORVASTATIN CA 20 MG TABLET (FP) PO SCH (22:00)
[2019-01-22] MEDS ORDERED: chlordiazePOXIDE HCL 25 MG CAPSULE PO ONE (23:00)
[2019-01-23] MEDS ORDERED: chlordiazePOXIDE 5 MG CAPSULE PO SCH (05:00)
[2019-01-23] MEDS ORDERED: METHADONE HCL 5 MG TABLET PO SCH (06:00)
[2019-01-24] MEDS ORDERED: chlordiazePOXIDE 5 MG CAPSULE PO SCH (05:00)
--- NOTE | 2019-01-24 08:29 | EKG ---
Test Reason : Blood Pressure : / mmHG Vent. Rate : 051 BPM Atrial Rate : 051 BPM P-R Int : 154 ms QRS Dur : 092 ms QT Int : 504 ms P-R-T Axes : 062 073 092 degrees QTc Int : 464 ms SINUS BRADYCARDIA CANNOT RULE OUT INFERIOR INFARCT (CITED ON OR BEFORE 21-JAN-2019) ABNORMAL ECG WHEN COMPARED WITH ECG OF 21-JAN-2019 16:34, NO SIGNIFICANT CHANGE WAS FOUND Confirmed by Clarita Knox ([id number]) on 01/24/2019 8:29:03 AM Referred By: Confirmed By:Clarita Knox
[2019-01-25] MEDS ORDERED: chlordiazePOXIDE 5 MG CAPSULE PO ONE (05:00)
[2019-01-25] MEDS ORDERED: METHADONE (DETOX) 10 MG, METHADONE (DETOX) 5 MG PO ONE (10:00)
[2019-01-26] MEDS ORDERED: METHADONE HCL 10 MG TABLET (FOR DETOX USE ONLY) PO ONE (10:00)
[2019-01-27] MEDS ORDERED: METHADONE HCL 5 MG TABLET (FOR DETOX USE ONLY) PO ONE (06:00)
== END 2019-01-22 18:30 | disposition left against medical advice (07) | DRG 663 ==
LOC: JER 16:12 → OBSVTOIN 20:15 → JERBED 20:15
PROVIDERS: ADMIT Internal Medicine; ATTEND Hospitalist
PROC: HZ2ZZZZ Detoxification Services for Substance Abuse Treatment (ICD-10-PCS; principal; 2019-01-21)
DX: D75.1 Secondary polycythemia (principal); R07.89 Other chest pain; M54.9 Dorsalgia, unspecified; I10 Essential (primary) hypertension; N17.9 Acute kidney failure, unspecified; I25.2 Old myocardial infarction; F17.210 Nicotine dependence, cigarettes, uncomplicated; F14.10 Cocaine abuse, uncomplicated; F10.20 Alcohol dependence, uncomplicated; F11.20 Opioid dependence, uncomplicated; I16.0 Hypertensive urgency; R00.1 Bradycardia, unspecified; E87.5 Hyperkalemia; I25.10 Atherosclerotic heart disease of native coronary artery without angina pectoris; E78.5 Hyperlipidemia, unspecified; Z95.5 Presence of coronary angioplasty implant and graft
CPT/HCPCS: 36415; 70450-TC; 71045-TC-FY; 71275-TC; 74174-TC; 80048; 80053; 81003; 82550; 82553; 83036; 83690; 83735; 84100; 84484; 85025; 85610; 87389; 93005; 93010; 93306-TC; 99285-25; J7030

== ENCOUNTER 2020-07-04 13:09 | Inpatient (IN) | payer OTHER ==
[2020-07-04 15:56] VITALS: BMI 22.1
[2020-07-04] MEDS ORDERED: METHADONE HCL 10 MG TABLET (FOR DETOX USE ONLY) PO ONE (18:29)
[2020-07-04] MEDS ORDERED: MENTHOL/PHENOL 1 EACH UD MM PRN (18:29)
[2020-07-04] MEDS ORDERED: NICOTINE POLACRILEX 2 MG GUM BUC PRN (18:29)
[2020-07-04] MEDS ORDERED: MAG HYDROX/AL HYDROX/SIMETH 30 ML UNIT-DOSE CUP PO PRN (18:29)
[2020-07-04] MEDS ORDERED: IBUPROFEN 400 MG TABLET (FP) PO PRN (18:29)
[2020-07-04] MEDS ORDERED: cloNIDine HCL 0.1 MG TABLET PO PRN (18:29)
[2020-07-04] MEDS ORDERED: ACETAMINOPHEN 325 MG TABLET (FP) PO PRN ×2 (18:29)
[2020-07-04] MEDS ORDERED: MAGNESIUM CITRATE 300 ML BOTTLE PO PRN (18:29)
[2020-07-04] MEDS ORDERED: MAGNESIUM HYDROX 2400MG/30ML ORAL SUSPENSION 30 ML CUP PO PRN (18:29)
[2020-07-04] MEDS ORDERED: METHOCARBAMOL 500 MG TABLET PO PRN (18:29)
[2020-07-04] MEDS ORDERED: BISMUTH SUBSALICYLATE 524 MG/30 ML UD PO PRN (18:29)
[2020-07-04] MEDS ORDERED: chlordiazePOXIDE HCL 25 MG CAPSULE PO PRN (18:29)
[2020-07-04] MEDS ORDERED: ONDANSETRON *ODT* 4 MG TABLET SL PRN (18:29)
[2020-07-04] MEDS ORDERED: METHADONE HCL 10 MG TABLET (FOR DETOX USE ONLY) ONE (19:16)
[2020-07-04] MEDS ORDERED: ONDANSETRON *ODT* 4 MG TABLET ONE (19:26)
[2020-07-04] MEDS: chlordiazePOXIDE HCL 25 MG CAPSULE PO SCH (22:49)
[2020-07-04] MEDS: hydrOXYzine PAMOATE 25 MG CAPSULE (FP) PO SCH (22:49)
[2020-07-04] MEDS: THIAMINE HCL 100 MG TABLET (FP) PO SCH (22:53)
[2020-07-04] MEDS: MELATONIN 5 MG TABLETS PO SCH (22:53)
[2020-07-05] MEDS: chlordiazePOXIDE HCL 25 MG CAPSULE PO SCH ×4 (07:48→23:21)
[2020-07-05] MEDS: hydrOXYzine PAMOATE 25 MG CAPSULE (FP) PO SCH ×5 (07:48→23:21)
[2020-07-05] MEDS ORDERED: METHADONE HCL 5 MG TABLET (FOR DETOX USE ONLY) ONE (09:12)
[2020-07-05] MEDS ORDERED: METHADONE HCL 10 MG TABLET (FOR DETOX USE ONLY) ONE (09:12)
[2020-07-05] MEDS ORDERED: LOPERAMIDE HCL 2 MG CAPSULE PO ONE (09:21)
[2020-07-05] MEDS ORDERED: ACETAMINOPHEN 325 MG TABLET (FP) PO ONE (09:24)
[2020-07-05] MEDS ORDERED: cloNIDine HCL 0.1 MG TABLET PO PRN (09:30)
[2020-07-05] MEDS ORDERED: NICOTINE 21 MG/24 HOURS TOPICAL PATCH TD SCH (10:00)
[2020-07-05] MEDS ORDERED: METHADONE (DETOX) 20 MG, METHADONE (DETOX) 5 MG PO ONE (10:00)
[2020-07-05] MEDS ORDERED: PRENATAL VITAMINS W/ FOLIC ACID TABLET (FP) PO SCH (10:00)
[2020-07-05] MEDS ORDERED: ASPIRIN 81 MG CHEWABLE TABLETS PO SCH (10:00)
[2020-07-05 10:41] LABS: HEMATOCRIT 43.6 % (35.4-49); HEMOGLOBIN 15.3 GM/dL (11.7-16.9); MCH 30.9 pg (25.7-33.7); MEAN CELL VOLUME 88.4 fl (80-96); MEAN PLT VOLUME 7.8 fl (7.5-11.1); PLATELET COUNT 203 K/MM3 (134-434); RBC 4.93 M/mm3 (4.00-5.60); RDW 14.8 % (11.9-15.9); WHITE BLOOD COUNT 4.1 K/mm3 (4.0-10.0)
[2020-07-05 10:59] LABS: POTASSIUM 4.7 mmol/L (3.5-5.1)
[2020-07-05 11:28] LABS: ALBUMIN 3.8 g/dl (3.4-5.0); CALCIUM 9.4 mg/dL (8.5-10.1)
[2020-07-05 11:32] LABS: CREATININE 1.2 mg/dL (0.55-1.3)
[2020-07-05 11:34] LABS: BILIRUBIN,TOTAL 1.1 mg/dL (0.2-1)
[2020-07-05 14:39] VITALS: BP 208/71; PULSE 40; TEMP 97.3
[2020-07-05] MEDS ORDERED: ATORVASTATIN CA 20 MG TABLET (FP) PO SCH (22:00)
[2020-07-05] MEDS: MELATONIN 5 MG TABLETS PO SCH (23:20)
[2020-07-05] MEDS: THIAMINE HCL 100 MG TABLET (FP) PO SCH (23:21)
[2020-07-06] MEDS ORDERED: chlordiazePOXIDE HCL 25 MG CAPSULE PO SCH (05:00)
[2020-07-06] MEDS ORDERED: METHADONE HCL 10 MG TABLET (FOR DETOX USE ONLY) PO ONE (10:00)
[2020-07-07] MEDS ORDERED: chlordiazePOXIDE HCL 10 MG CAPSULE PO PRN
[2020-07-07] MEDS ORDERED: chlordiazePOXIDE HCL 10 MG CAPSULE PO SCH (05:00)
[2020-07-07] MEDS ORDERED: METHADONE (DETOX) 10 MG, METHADONE (DETOX) 5 MG PO ONE (10:00)
[2020-07-08] MEDS ORDERED: chlordiazePOXIDE HCL 10 MG CAPSULE PO SCH (05:00)
[2020-07-08] MEDS ORDERED: METHADONE HCL 10 MG TABLET (FOR DETOX USE ONLY) PO ONE (10:00)
[2020-07-09] MEDS ORDERED: chlordiazePOXIDE HCL 10 MG CAPSULE PO ONE (05:00)
[2020-07-09] MEDS ORDERED: METHADONE HCL 5 MG TABLET (FOR DETOX USE ONLY) PO ONE (06:00)
== END 2020-07-06 09:07 | disposition short-term general hospital (02) | DRG 773 ==
LOC: YASAS 13:09 → Y6N 21:15
PROVIDERS: ADMIT Allergy & Immunology; ATTEND Allergy & Immunology
PROC: HZ2ZZZZ Detoxification Services for Substance Abuse Treatment (ICD-10-PCS; principal; 2020-07-04)
DX: F10.230 Alcohol dependence with withdrawal, uncomplicated (principal); F11.23 Opioid dependence with withdrawal; F19.20 Other psychoactive substance dependence, uncomplicated; F13.230 Sedative, hypnotic or anxiolytic dependence with withdrawal, uncomplicated; F12.20 Cannabis dependence, uncomplicated; F17.210 Nicotine dependence, cigarettes, uncomplicated; I25.10 Atherosclerotic heart disease of native coronary artery without angina pectoris; I10 Essential (primary) hypertension; Z95.5 Presence of coronary angioplasty implant and graft; I25.2 Old myocardial infarction; R10.84 Generalized abdominal pain; R19.7 Diarrhea, unspecified; R11.2 Nausea with vomiting, unspecified; R63.4 Abnormal weight loss; Z68.22 Body mass index [BMI] 22.0-22.9, adult; Z87.19 Personal history of other diseases of the digestive system; Z91.013 Allergy to seafood
CPT/HCPCS: 36415; 80053; 85027; 86780; 93005; 93010; C9803; J0735; Q0162; U0003

== ENCOUNTER 2020-07-05 16:00 | Inpatient (IN) | payer OTHER ==
[2020-07-05] MEDS ORDERED: METHADONE HCL 10 MG TABLET (FOR DETOX USE ONLY) PO ONE (17:28)
[2020-07-05] MEDS ORDERED: METHADONE HCL 10 MG TABLET ONE (17:32)
[2020-07-05] MEDS ORDERED: ACETAMINOPHEN 1000 MG/100 ML VIAL (NON FORMULARY) IVPB ONE (18:37)
[2020-07-05 18:38] LABS: CALCIUM 9.9 mg/dL (8.5-10.1); CHLORIDE 101 mmol/L (98-107); POTASSIUM 5.7 mmol/L (3.5-5.1); SODIUM 140 mmol/L (136-145)
[2020-07-05 18:39] LABS: ANION GAP 7 MMOL/L (8-16); CO2 32 mmol/L (21-32)
[2020-07-05 18:40] LABS: ALBUMIN 4.2 g/dl (3.4-5.0); LIPASE 54 U/L (73-393); MAGNESIUM 2.3 mg/dL (1.8-2.4)
[2020-07-05 18:41] LABS: GLUCOSE,RANDOM 117 mg/dL (74-106)
[2020-07-05 18:43] LABS: CREATININE 1.3 mg/dL (0.55-1.3); PHOSPHOROUS 3.8 mg/dL (2.5-4.9); SGOT/AST 60 U/L (15-37); SGPT/ALT 38 U/L (13-61)
[2020-07-05 18:45] LABS: BILIRUBIN,TOTAL 1.2 mg/dL (0.2-1); TOT PROT 8.4 g/dl (6.4-8.2)
[2020-07-05 18:46] LABS: ALK PHOS 104 U/L (45-117)
[2020-07-05 19:00] LABS: LACTIC ACID 3.6 mmol/L (0.4-2.0)
[2020-07-05] MEDS ORDERED: SODIUM CHLORIDE 0.9% 500 ML INFUS.BAG IV ONE ×2 (19:01→19:04)
[2020-07-05] MEDS ORDERED: ACETAMINOPHEN INJECTION 100 ML IVPB ONE (19:06)
[2020-07-06] MEDS ORDERED: morphine CARPU-JECT 4 MG/1 ML DISP.SYRIN IVPUSH ONE ×3 (01:16→06:47)
[2020-07-06 01:57] LABS: HEMATOCRIT 43.1 % (35.4-49); HEMOGLOBIN 14.9 GM/dL (11.7-16.9); MCH 30.5 pg (25.7-33.7); MCHC 34.5 g/dl (32.0-35.9); MEAN CELL VOLUME 88.3 fl (80-96); PLATELET COUNT 211 K/MM3 (134-434); RBC 4.88 M/mm3 (4.00-5.60); RDW 14.7 % (11.9-15.9); WHITE BLOOD COUNT 5.9 K/mm3 (4.0-10.0)
[2020-07-06 02:05] LABS: INR 1.09 (0.83-1.09); PROTHROMBIN TIME (PATIENT) 13.2 SEC (9.7-13.0)
[2020-07-06] MEDS ORDERED: MORPHINE SULFATE 2 MG/ML VIAL ONE ×2 (03:20→06:50)
[2020-07-06] MEDS ORDERED: ACETAMINOPHEN 325 MG TABLET (FP) PO PRN (09:19)
[2020-07-06] MEDS ORDERED: LORazepam 1 MG TABLET PO PRN (09:25)
[2020-07-06] MEDS: SODIUM CHLORIDE 1,000 ML IV SCH (09:56)
[2020-07-06] MEDS ORDERED: METHADONE HCL 10 MG TABLET (FOR DETOX USE ONLY) PO SCH ×2 (10:00→10:13)
[2020-07-06] MEDS ORDERED: PANTOPRAZOLE 40 MG TABLET PO SCH (10:00)
[2020-07-06] MEDS ORDERED: METHADONE HCL 10 MG TABLET ONE (10:16)
[2020-07-06] MEDS ORDERED: THIAMINE HCL 200 MG/2 ML VIAL ONE (10:17)
[2020-07-06] MEDS ORDERED: PANTOPRAZOLE SODIUM 40 MG VIAL ONE (10:17)
[2020-07-06] MEDS ORDERED: FOLIC ACID 1 MG TABLET (FP) ONE (10:17)
[2020-07-06] MEDS ORDERED: MULTIVITAMINS (DAILY MVI) TABLET (FP) ONE (10:17)
[2020-07-06] MEDS ORDERED: ENOXAPARIN NA (PORCINE) 40 MG/0.4 ML DISP.SYRIN SQ ONE (10:17)
[2020-07-06] MEDS: FOLIC ACID 1 MG TABLET (FP) PO SCH (10:23)
[2020-07-06] MEDS: PANTOPRAZOLE SODIUM 40 MG VIAL IVPUSH SCH (10:23)
[2020-07-06] MEDS: MULTIVITAMINS (DAILY MVI) TABLET (FP) PO SCH (10:23)
[2020-07-06] MEDS: ENOXAPARIN NA (PORCINE) 40 MG/0.4 ML DISP.SYRIN SQ SCH (10:35)
[2020-07-06] MEDS: THIAMINE HCL 200 MG/2 ML VIAL IVPB SCH (10:35)
[2020-07-06] MEDS ORDERED: LORazepam 2 MG/ML SDV VIAL ONE (11:37)
[2020-07-06] MEDS ORDERED: LORazepam 1 MG TABLET ONE ×3 (11:39→17:28)
[2020-07-06] MEDS: LORazepam 1 MG TABLET PO SCH ×3 (11:42→22:13)
[2020-07-06] MEDS: amLODIPine BESYLATE 10 MG TABLET (FP) PO SCH (14:44)
[2020-07-06] MEDS ORDERED: amLODIPine BESYLATE 5 MG TABLET (FP) ONE (14:44)
[2020-07-06 23:35] VITALS: BMI 20.7
[2020-07-07] MEDS ORDERED: ACETAMINOPHEN 1000 MG/100 ML VIAL (NON FORMULARY) IVPB ONE (00:14)
[2020-07-07] MEDS ORDERED: MORPHINE SULFATE 2 MG/ML VIAL IVPUSH ONE (00:30)
[2020-07-07] MEDS ORDERED: morphine CARPU-JECT 2 MG/1 ML DISP.SYRIN IVPUSH ONE (03:13)
[2020-07-07] MEDS ORDERED: METOCLOPRAMIDE HCL INJECTION 10 MG/2 ML VIAL IVPUSH ONE (03:30)
[2020-07-07] MEDS: LORazepam 1 MG TABLET PO SCH ×2 (06:07→13:41)
[2020-07-07 06:17] VITALS: TEMP 98.2
[2020-07-07 07:33] LABS: BASO % 0.8 % (0-2.0); EOS % 0.1 % (0-4.5); HEMATOCRIT 47.2 % (35.4-49); HEMOGLOBIN 16.4 GM/dL (11.7-16.9); LYMPH % 13.4 % (8-40); MCH 30.6 pg (25.7-33.7); MCHC 34.7 g/dl (32.0-35.9); MEAN CELL VOLUME 88.4 fl (80-96); MEAN PLT VOLUME 7.5 fl (7.5-11.1); MONO % 8.9 % (3.8-10.2); NEUT % 76.8 % (42.8-82.8); PLATELET COUNT 207 K/MM3 (134-434); RBC 5.34 M/mm3 (4.00-5.60); RDW 14.7 % (11.9-15.9); WHITE BLOOD COUNT 8.8 K/mm3 (4.0-10.0)
[2020-07-07 07:50] LABS: POTASSIUM 4.1 mmol/L (3.5-5.1)
[2020-07-07 07:52] LABS: ALBUMIN 3.7 g/dl (3.4-5.0); CALCIUM 9.5 mg/dL (8.5-10.1)
[2020-07-07 07:53] LABS: BLOOD UREA NITROGEN 16.6 mg/dL (7-18); MAGNESIUM 2.3 mg/dL (1.8-2.4)
[2020-07-07 07:56] LABS: CREATININE 1.1 mg/dL (0.55-1.3); PHOSPHOROUS 2.8 mg/dL (2.5-4.9)
[2020-07-07 07:57] LABS: BILIRUBIN,TOTAL 1.2 mg/dL (0.2-1); TOT PROT 7.2 g/dl (6.4-8.2)
[2020-07-07] MEDS: ENOXAPARIN NA (PORCINE) 40 MG/0.4 ML DISP.SYRIN SQ SCH (09:27)
[2020-07-07] MEDS: amLODIPine BESYLATE 10 MG TABLET (FP) PO SCH (09:27)
[2020-07-07] MEDS: SODIUM CHLORIDE 1,000 ML IV SCH (09:27)
[2020-07-07] MEDS: MULTIVITAMINS (DAILY MVI) TABLET (FP) PO SCH (09:27)
[2020-07-07] MEDS: THIAMINE HCL 200 MG/2 ML VIAL IVPB SCH (09:28)
[2020-07-07] MEDS: FOLIC ACID 1 MG TABLET (FP) PO SCH (09:28)
[2020-07-07] MEDS: PANTOPRAZOLE SODIUM 40 MG VIAL IVPUSH SCH (09:28)
[2020-07-07] MEDS ORDERED: METHADONE HCL 10 MG TABLET PO ONE (09:45)
[2020-07-07] MEDS ORDERED: NICOTINE 21 MG/24 HOURS TOPICAL PATCH TD SCH (10:00)
[2020-07-07] MEDS ORDERED: METHADONE (DETOX) 10 MG, METHADONE (DETOX) 5 MG PO ONE (10:13)
[2020-07-07] MEDS ORDERED: traMADol HCL 50 MG TABLET PO ONE (10:27)
[2020-07-07] MEDS ORDERED: METHADONE HCL 5 MG TABLET ONE (10:38)
[2020-07-07] MEDS ORDERED: METHADONE HCL 10 MG TABLET ONE (10:38)
[2020-07-07] MEDS ORDERED: METHADONE 10 MG, METHADONE 5 MG PO ONE (10:45)
[2020-07-07] MEDS ORDERED: LORazepam 1 MG TABLET PO SCH (17:00)
[2020-07-07 17:52] VITALS: BP 108/74; PULSE 62
[2020-07-08] MEDS ORDERED: LORazepam 1 MG TABLET PO SCH (05:00)
[2020-07-08] MEDS ORDERED: METHADONE HCL 10 MG TABLET PO ONE (10:14)
[2020-07-09] MEDS ORDERED: LORazepam 0.5 MG TABLET PO PRN
[2020-07-09] MEDS ORDERED: LORazepam 0.5 MG TABLET PO SCH (05:00)
[2020-07-09] MEDS ORDERED: METHADONE HCL 5 MG TABLET PO ONE (10:14)
[2020-07-10] MEDS ORDERED: LORazepam 0.5 MG TABLET PO ONE (05:00)
== END 2020-07-07 18:47 | disposition left against medical advice (07) | DRG 425 ==
LOC: JER 16:00 → JERBED 07-06 03:49 → J6WEST-2 07-06 20:15
PROVIDERS: ADMIT Internal Medicine; ATTEND Student in an Organized Health Care Education/Training Program
PROC: HZ2ZZZZ Detoxification Services for Substance Abuse Treatment (ICD-10-PCS; principal; 2020-07-05)
DX: E87.2 Acidosis (principal); F10.239 Alcohol dependence with withdrawal, unspecified; I25.10 Atherosclerotic heart disease of native coronary artery without angina pectoris; I25.2 Old myocardial infarction; I10 Essential (primary) hypertension; R10.9 Unspecified abdominal pain; F11.10 Opioid abuse, uncomplicated; F14.10 Cocaine abuse, uncomplicated; F13.10 Sedative, hypnotic or anxiolytic abuse, uncomplicated; I42.9 Cardiomyopathy, unspecified; N20.0 Calculus of kidney; E78.5 Hyperlipidemia, unspecified; F17.210 Nicotine dependence, cigarettes, uncomplicated; R00.1 Bradycardia, unspecified; Z95.5 Presence of coronary angioplasty implant and graft
CPT/HCPCS: 36415; 71045-TC-FY; 74177-TC; 76705-TC; 80053; 82550; 82553; 83605; 83690; 83735; 84100; 84132; 84484; 85025; 85027; 85610; 85730; 93005; 93010; 99285-25; C9803; J0131; Q9967; U0003; U0005

== ENCOUNTER 2020-10-19 20:12 | Inpatient (IN) | payer OTHER ==
[2020-10-19] MEDS ORDERED: BISMUTH SUBSALICYLATE 524 MG/30 ML PO PRN (21:36)
[2020-10-19] MEDS ORDERED: MAG HYDROX/AL HYDROX/SIMETH 30 ML UNIT-DOSE CUP PO PRN (21:36)
[2020-10-19] MEDS ORDERED: MAGNESIUM CITRATE 300 ML BOTTLE PO PRN (21:36)
[2020-10-19] MEDS ORDERED: NICOTINE POLACRILEX 2 MG GUM BUC PRN (21:36)
[2020-10-19] MEDS ORDERED: MENTHOL/PHENOL 1 EACH UD MM PRN (21:36)
[2020-10-19] MEDS ORDERED: IBUPROFEN 400 MG TABLET (FP) PO PRN (21:36)
[2020-10-19] MEDS ORDERED: methaDONE HCL 10 MG TABLET (FOR DETOX USE ONLY) PO ONE (21:36)
[2020-10-19] MEDS ORDERED: ACETAMINOPHEN 325 MG TABLET (FP) PO PRN ×2 (21:36)
[2020-10-19] MEDS ORDERED: MAGNESIUM HYDROX 2400MG/30ML ORAL SUSPENSION 30 ML CUP PO PRN (21:36)
[2020-10-19 21:59] VITALS: BMI 22.4
[2020-10-19] MEDS ORDERED: methaDONE HCL 10 MG TABLET (FOR DETOX USE ONLY) ONE (22:33)
[2020-10-19] MEDS: THIAMINE HCL 100 MG TABLET (FP) PO SCH (22:36)
[2020-10-19] MEDS: ONDANSETRON *ODT* 4 MG TABLET SL PRN (22:36)
[2020-10-19] MEDS: MELATONIN 5 MG TABLETS PO SCH (22:36)
[2020-10-19] MEDS ORDERED: ONDANSETRON *ODT* 4 MG TABLET ONE (22:37)
[2020-10-20] MEDS: ONDANSETRON *ODT* 4 MG TABLET SL PRN ×2 (06:07→14:24)
[2020-10-20] MEDS: METHOCARBAMOL 500 MG TABLET PO PRN ×2 (06:51→22:49)
[2020-10-20] MEDS: cloNIDine HCL 0.1 MG TABLET PO PRN ×3 (06:51→22:49)
[2020-10-20] MEDS: TRIMETHOBENZAMIDE HCL 200MG/2ML INJ IM PRN ×2 (07:59→16:45)
[2020-10-20] MEDS: diazePAM 5 MG TABLET PO PRN ×3 (07:59→22:43)
[2020-10-20] MEDS ORDERED: methaDONE HCL 10 MG TABLET (FOR DETOX USE ONLY) ONE (08:47)
[2020-10-20] MEDS: DICYCLOMINE HCL 10 MG CAPSULE PO PRN (10:46)
[2020-10-20] MEDS: ASPIRIN 81 MG CHEWABLE TABLETS PO SCH (10:46)
[2020-10-20] MEDS: PRENATAL VITAMINS W/ FOLIC ACID TABLET (FP) PO SCH (11:37)
[2020-10-20] MEDS: THIAMINE HCL 100 MG TABLET (FP) PO SCH (22:42)
[2020-10-20] MEDS: MELATONIN 5 MG TABLETS PO SCH (22:42)
[2020-10-20] MEDS: ATORVASTATIN CA 20 MG TABLET (FP) PO SCH (22:42)
[2020-10-21 08:58] LABS: HEMOGLOBIN 17.8 GM/dL (11.7-16.9); MCH 29.7 pg (25.7-33.7); MEAN PLT VOLUME 7.8 fl (7.5-11.1); PLATELET COUNT 260 10^3/uL (134-434); RBC 5.99 M/mm3 (4.00-5.60); RDW 13.7 % (11.9-15.9)
[2020-10-21 09:26] LABS: CALCIUM 9.2 mg/dL (8.5-10.1)
[2020-10-21 09:27] LABS: BLOOD UREA NITROGEN 17.8 mg/dL (7-18)
[2020-10-21 09:31] LABS: BILIRUBIN,TOTAL 1.2 mg/dL (0.2-1); TOT PROT 7.8 g/dl (6.4-8.2)
[2020-10-21] MEDS ORDERED: methaDONE HCL 10 MG TABLET (FOR DETOX USE ONLY) PO ONE (10:00)
[2020-10-21] MEDS: ONDANSETRON *ODT* 4 MG TABLET SL PRN ×2 (11:16→23:03)
[2020-10-21] MEDS: PRENATAL VITAMINS W/ FOLIC ACID TABLET (FP) PO SCH (11:16)
[2020-10-21] MEDS: diazePAM 5 MG TABLET PO PRN ×3 (11:16→20:59)
[2020-10-21] MEDS: DICYCLOMINE HCL 10 MG CAPSULE PO PRN (11:17)
[2020-10-21] MEDS: ASPIRIN 81 MG CHEWABLE TABLETS PO SCH (11:17)
[2020-10-21] MEDS: cloNIDine HCL 0.1 MG TABLET PO PRN ×2 (15:29→20:56)
[2020-10-21] MEDS ORDERED: HYDROCHLOROTHIAZIDE 25 MG TABLET (FP) PO ONE (18:21)
[2020-10-21] MEDS: ATORVASTATIN CA 20 MG TABLET (FP) PO SCH (23:03)
[2020-10-21] MEDS: MELATONIN 5 MG TABLETS PO SCH (23:03)
[2020-10-21] MEDS: THIAMINE HCL 100 MG TABLET (FP) PO SCH (23:03)
[2020-10-21] MEDS ORDERED: amLODIPine BESYLATE 10 MG TABLET (FP) PO ONE (23:47)
[2020-10-22] MEDS ORDERED: methaDONE HCL 10 MG TABLET (FOR DETOX USE ONLY) ONE (08:48)
[2020-10-22] MEDS: METHOCARBAMOL 500 MG TABLET PO PRN (09:51)
[2020-10-22] MEDS: DICYCLOMINE HCL 10 MG CAPSULE PO PRN (09:51)
[2020-10-22] MEDS: PRENATAL VITAMINS W/ FOLIC ACID TABLET (FP) PO SCH (09:51)
[2020-10-22] MEDS: ASPIRIN 81 MG CHEWABLE TABLETS PO SCH (09:51)
[2020-10-22] MEDS: diazePAM 5 MG TABLET PO PRN ×3 (09:54→22:59)
[2020-10-22] MEDS: amLODIPine BESYLATE 10 MG TABLET (FP) PO SCH (18:27)
[2020-10-22] MEDS: MELATONIN 5 MG TABLETS PO SCH (22:59)
[2020-10-22] MEDS: LISINOPRIL 10 MG TABLET PO SCH (22:59)
[2020-10-22] MEDS: THIAMINE HCL 100 MG TABLET (FP) PO SCH (22:59)
[2020-10-22] MEDS: ATORVASTATIN CA 20 MG TABLET (FP) PO SCH (22:59)
[2020-10-23 09:55] VITALS: BP 116/85; PULSE 99; TEMP 97.1
[2020-10-23] MEDS ORDERED: methaDONE HCL 10 MG TABLET (FOR DETOX USE ONLY) PO ONE (10:00)
[2020-10-23] MEDS: PRENATAL VITAMINS W/ FOLIC ACID TABLET (FP) PO SCH (10:20)
[2020-10-23] MEDS: LISINOPRIL 10 MG TABLET PO SCH (10:20)
[2020-10-23] MEDS: ASPIRIN 81 MG CHEWABLE TABLETS PO SCH (10:20)
[2020-10-23] MEDS: amLODIPine BESYLATE 10 MG TABLET (FP) PO SCH (10:22)
== END 2020-10-23 11:07 | disposition home or self-care (01) | DRG 773 ==
LOC: YASAS 20:12 → Y3N 23:17
PROVIDERS: ADMIT Allergy & Immunology; ATTEND Allergy & Immunology
PROC: HZ2ZZZZ Detoxification Services for Substance Abuse Treatment (ICD-10-PCS; principal; 2020-10-19)
DX: F11.23 Opioid dependence with withdrawal (principal); F14.20 Cocaine dependence, uncomplicated; I25.10 Atherosclerotic heart disease of native coronary artery without angina pectoris; I10 Essential (primary) hypertension; I25.2 Old myocardial infarction; Z95.5 Presence of coronary angioplasty implant and graft; K86.0 Alcohol-induced chronic pancreatitis; E78.5 Hyperlipidemia, unspecified; B18.2 Chronic viral hepatitis C; R76.11 Nonspecific reaction to tuberculin skin test without active tuberculosis; R00.1 Bradycardia, unspecified
CPT/HCPCS: 36415; 80053; 85027; 86780; 93005; 93010; C9803; J0735; Q0162; U0003; U0005

== ENCOUNTER 2020-12-28 16:54 | Inpatient (IN) | payer OTHER ==
[2020-12-28 21:31] VITALS: BMI 20.7
[2020-12-28] MEDS ORDERED: NICOTINE POLACRILEX 2 MG GUM BUC PRN (23:33)
[2020-12-28] MEDS ORDERED: MENTHOL/PHENOL 1 EACH UD MM PRN (23:33)
[2020-12-28] MEDS ORDERED: BISMUTH SUBSALICYLATE 524 MG/30 ML PO PRN (23:33)
[2020-12-28] MEDS ORDERED: MAGNESIUM CITRATE 300 ML BOTTLE PO PRN (23:33)
[2020-12-28] MEDS ORDERED: MAG HYDROX/AL HYDROX/SIMETH 30 ML UNIT-DOSE CUP PO PRN (23:33)
[2020-12-28] MEDS ORDERED: MAGNESIUM HYDROX 2400MG/30ML ORAL SUSPENSION 30 ML CUP PO PRN (23:33)
[2020-12-28] MEDS ORDERED: ACETAMINOPHEN 325 MG TABLET (FP) PO PRN ×2 (23:33)
[2020-12-28] MEDS ORDERED: IBUPROFEN 400 MG TABLET (FP) PO PRN (23:33)
[2020-12-28] MEDS ORDERED: methaDONE HCL 10 MG TABLET (FOR DETOX USE ONLY) PO ONE (23:40)
[2020-12-29] MEDS: cloNIDine HCL 0.1 MG TABLET PO PRN ×2 (01:44→18:05)
[2020-12-29] MEDS: ONDANSETRON *ODT* 4 MG TABLET SL PRN ×2 (01:44→17:02)
[2020-12-29] MEDS: METHOCARBAMOL 500 MG TABLET PO PRN ×2 (01:48→19:03)
[2020-12-29] MEDS ORDERED: MELATONIN 5 MG TABLETS PO STA (02:11)
[2020-12-29 08:32] LABS: HEMATOCRIT 39.8 % (35.4-49); HEMOGLOBIN 13.9 GM/dL (11.7-16.9); MCH 30.7 pg (25.7-33.7); MCHC 34.9 g/dl (32.0-35.9); MEAN PLT VOLUME 7.6 fl (7.5-11.1); PLATELET COUNT 177 10^3/uL (134-434); RBC 4.52 M/mm3 (4.00-5.60); RDW 14.6 % (11.9-15.9); WHITE BLOOD COUNT 5.5 K/mm3 (4.0-10.0)
[2020-12-29 09:15] LABS: ALBUMIN 3.1 g/dl (3.4-5.0)
[2020-12-29 09:19] LABS: BILIRUBIN,TOTAL 0.6 mg/dL (0.2-1); CREATININE 0.9 mg/dL (0.55-1.3)
[2020-12-29 09:20] LABS: CALCIUM 8.1 mg/dL (8.5-10.1); TOT PROT 6.3 g/dl (6.4-8.2)
[2020-12-29] MEDS ORDERED: methaDONE HCL 10 MG TABLET (FOR DETOX USE ONLY) ONE (09:37)
[2020-12-29] MEDS: PRENATAL VITAMINS W/ FOLIC ACID TABLET (FP) PO SCH (10:52)
[2020-12-29] MEDS: NICOTINE 21 MG/24 HOURS TOPICAL PATCH TD SCH (10:54)
[2020-12-29] MEDS ORDERED: TRIMETHOBENZAMIDE HCL 200MG/2ML INJ IM ONE (17:40)
[2020-12-29] MEDS: LISINOPRIL 10 MG TABLET PO SCH (19:33)
[2020-12-29] MEDS: ASPIRIN 81 MG CHEWABLE TABLETS PO SCH (19:33)
[2020-12-29] MEDS ORDERED: THIAMINE HCL 100 MG TABLET (FP) PO SCH (22:00)
[2020-12-29] MEDS ORDERED: MELATONIN 5 MG TABLETS PO SCH (22:00)
[2020-12-29] MEDS ORDERED: SUVOREXANT 10 MG TABLET PO PRN (22:00)
[2020-12-30] MEDS: METHOCARBAMOL 500 MG TABLET PO PRN (08:00)
[2020-12-30 09:10] VITALS: TEMP 98.2
[2020-12-30] MEDS ORDERED: methaDONE HCL 10 MG TABLET (FOR DETOX USE ONLY) PO ONE (10:00)
[2020-12-30] MEDS: ASPIRIN 81 MG CHEWABLE TABLETS PO SCH (10:55)
[2020-12-30] MEDS: NICOTINE 21 MG/24 HOURS TOPICAL PATCH TD SCH (10:55)
[2020-12-30] MEDS: PRENATAL VITAMINS W/ FOLIC ACID TABLET (FP) PO SCH ×2 (10:55→11:00)
[2020-12-30] MEDS: LISINOPRIL 10 MG TABLET PO SCH (10:55)
[2020-12-30 13:53] VITALS: BP 132/82; PULSE 51
[2021-01-01] MEDS ORDERED: methaDONE HCL 10 MG TABLET (FOR DETOX USE ONLY) PO ONE (10:00)
== END 2020-12-30 13:22 | disposition left against medical advice (07) | DRG 770 ==
LOC: YASAS 16:54 → Y6N 23:38
PROVIDERS: ADMIT Allergy & Immunology; ATTEND Allergy & Immunology
PROC: HZ2ZZZZ Detoxification Services for Substance Abuse Treatment (ICD-10-PCS; principal; 2020-12-28)
DX: F11.23 Opioid dependence with withdrawal (principal); F10.20 Alcohol dependence, uncomplicated; F13.20 Sedative, hypnotic or anxiolytic dependence, uncomplicated; F14.20 Cocaine dependence, uncomplicated; F16.20 Hallucinogen dependence, uncomplicated; F12.20 Cannabis dependence, uncomplicated; F17.210 Nicotine dependence, cigarettes, uncomplicated; E78.5 Hyperlipidemia, unspecified; I25.10 Atherosclerotic heart disease of native coronary artery without angina pectoris; I10 Essential (primary) hypertension; Z95.5 Presence of coronary angioplasty implant and graft; I25.2 Old myocardial infarction; R76.11 Nonspecific reaction to tuberculin skin test without active tuberculosis; R10.84 Generalized abdominal pain; R11.2 Nausea with vomiting, unspecified; Z87.19 Personal history of other diseases of the digestive system
CPT/HCPCS: 36415; 80053; 85027; 86780; J0735; Q0162

== ENCOUNTER 2020-12-29 20:50 | Emergency (ER) | payer OTHER ==
[2020-12-29 21:15] VITALS: TEMP 98.9; BMI 20.7
[2020-12-29] MEDS ORDERED: SODIUM CHLORIDE 0.9% 500 ML INFUS.BAG IV ONE (21:51)
[2020-12-29] MEDS ORDERED: KETOROLAC TROMETHAMINE 15 MG/ML VIAL IVPUSH ONE (22:25)
[2020-12-29] MEDS ORDERED: KETOROLAC TROMETHAMINE 15 MG/ML VIAL ONE (22:41)
[2020-12-29 22:43] LABS: BASO % 0.3 % (0-2.0); EOS % 0.1 % (0-4.5); HEMATOCRIT 44.7 % (35.4-49); HEMOGLOBIN 15.5 GM/dL (11.7-16.9); LYMPH % 9.4 % (8-40); MCH 30.3 pg (25.7-33.7); MCHC 34.7 g/dl (32.0-35.9); MEAN CELL VOLUME 87.5 fl (80-96); MEAN PLT VOLUME 7.6 fl (7.5-11.1); MONO % 3.8 % (3.8-10.2); NEUT % 86.4 % (42.8-82.8); PLATELET COUNT 237 10^3/uL (134-434); RBC 5.11 M/mm3 (4.00-5.60); RDW 14.5 % (11.9-15.9)
[2020-12-29 22:59] LABS: ALBUMIN 3.4 g/dl (3.4-5.0); BLOOD UREA NITROGEN 14.5 mg/dL (7-18); CALCIUM 8.5 mg/dL (8.5-10.1)
[2020-12-29 23:02] LABS: CREATININE 1.1 mg/dL (0.55-1.3)
[2020-12-29 23:04] LABS: BILIRUBIN,TOTAL 0.6 mg/dL (0.2-1); TOT PROT 6.9 g/dl (6.4-8.2)
[2020-12-29 23:48] LABS: MAGNESIUM 1.8 mg/dL (1.8-2.4)
[2020-12-29] MEDS ORDERED: ACETAMINOPHEN 1000 MG/100 ML VIAL (NON FORMULARY) IVPB ONE (23:55)
[2020-12-29] MEDS ORDERED: ACETAMINOPHEN INJECTION 100 ML IVPB ONE (23:59)
[2020-12-30] MEDS ORDERED: MAG HYDROX/AL HYDROX/SIMETH 30 ML UNIT-DOSE CUP PO ONE (01:00)
[2020-12-30] MEDS ORDERED: FAMOTIDINE 20 MG/50 ML IVPB 20 MG/50 ML MG IVPB ONE ×2 (01:00→01:03)
[2020-12-30] MEDS ORDERED: MAG HYDROX/AL HYDROX/SIMETH 30 ML UNIT-DOSE CUP ONE (01:03)
[2020-12-30] MEDS ORDERED: morphine CARPU-JECT 2 MG/1 ML DISP.SYRIN IVPUSH ONE ×2 (02:40→02:46)
[2020-12-30] MEDS ORDERED: MORPHINE SULFATE 2 MG/ML VIAL ONE (02:48)
[2020-12-30 07:07] VITALS: BP 153/86; PULSE 50
== END 2020-12-30 07:11 | disposition home or self-care (01) ==
LOC: JER 20:50
PROC: 3E0333Z Introduction of Anti-inflammatory into Peripheral Vein, Percutaneous Approach (ICD-10-PCS; principal; 2020-12-29)
PROC: 3E033GC Introduction of Other Therapeutic Substance into Peripheral Vein, Percutaneous Approach (ICD-10-PCS; 2020-12-29)
PROC: 3E0333Z Introduction of Anti-inflammatory into Peripheral Vein, Percutaneous Approach (ICD-10-PCS; 2020-12-29)
PROC: 3E033NZ Introduction of Analgesics, Hypnotics, Sedatives into Peripheral Vein, Percutaneous Approach (ICD-10-PCS; 2020-12-29)
DX: R10.84 Generalized abdominal pain (principal)
CPT/HCPCS: 36415; 74177-TC; 80053; 83690; 83735; 84484; 85025; 93005; 93010; 99285-25; J0131

== ENCOUNTER 2021-03-28 13:13 | Inpatient (IN) | payer OTHER ==
[2021-03-28] MEDS ORDERED: MAG HYDROX/AL HYDROX/SIMETH 30 ML UNIT-DOSE CUP PO PRN (13:55)
[2021-03-28] MEDS ORDERED: methaDONE HCL 10 MG TABLET (FOR DETOX USE ONLY) PO ONE (13:55)
[2021-03-28] MEDS ORDERED: ONDANSETRON *ODT* 4 MG TABLET SL PRN (13:55)
[2021-03-28] MEDS ORDERED: BISMUTH SUBSALICYLATE 262 MG/15 ML BTL PO PRN (13:55)
[2021-03-28] MEDS ORDERED: cloNIDine HCL 0.1 MG TABLET PO PRN (13:55)
[2021-03-28] MEDS ORDERED: IBUPROFEN 400 MG TABLET (FP) PO PRN (13:55)
[2021-03-28] MEDS ORDERED: ACETAMINOPHEN 325 MG TABLET (FP) PO PRN ×2 (13:55)
[2021-03-28] MEDS ORDERED: MENTHOL/PHENOL 1 EACH UD MM PRN (13:55)
[2021-03-28] MEDS ORDERED: MAGNESIUM HYDROX 2400MG/30ML ORAL SUSPENSION 30 ML CUP PO PRN (13:55)
[2021-03-28] MEDS ORDERED: MAGNESIUM CITRATE 300 ML BOTTLE PO PRN (13:55)
[2021-03-28] MEDS ORDERED: NICOTINE 10 MG CARTRIDGE (INHALER) IH PRN (13:55)
[2021-03-28 14:27] VITALS: BMI 23.3
[2021-03-28] MEDS ORDERED: cloNIDine HCL 0.1 MG TABLET ONE (14:55)
[2021-03-28] MEDS ORDERED: ALBUTEROL SO4 HFA INHALER IH PRN (15:01)
[2021-03-28] MEDS: METHOCARBAMOL 500 MG TABLET PO PRN (15:20)
[2021-03-28] MEDS: hydrOXYzine PAMOATE 25 MG CAPSULE (FP) PO SCH ×2 (15:20→18:33)
[2021-03-29] MEDS: ATORVASTATIN CA 20 MG TABLET (FP) PO SCH ×2 (01:02→22:54)
[2021-03-29] MEDS: MELATONIN 5 MG TABLETS PO SCH ×2 (01:02→23:03)
[2021-03-29] MEDS: THIAMINE HCL 100 MG TABLET (FP) PO SCH ×2 (01:03→23:03)
[2021-03-29] MEDS: hydrOXYzine PAMOATE 25 MG CAPSULE (FP) PO SCH ×5 (01:03→18:55)
[2021-03-29] MEDS: LISINOPRIL 10 MG TABLET PO SCH ×3 (01:03→22:54)
[2021-03-29] MEDS ORDERED: methaDONE HCL 10 MG TABLET (FOR DETOX USE ONLY) ONE (09:36)
[2021-03-29] MEDS: PRENATAL VITAMINS W/ FOLIC ACID TABLET (FP) PO SCH (10:56)
[2021-03-29] MEDS: ASPIRIN 81 MG CHEWABLE TABLETS PO SCH (10:56)
[2021-03-29] MEDS: amLODIPine BESYLATE 10 MG TABLET (FP) PO SCH (10:57)
[2021-03-29] MEDS: METHOCARBAMOL 500 MG TABLET PO PRN (11:16)
[2021-03-29 12:43] LABS: HEMATOCRIT 45.1 % (35.4-49); HEMOGLOBIN 15.5 GM/dL (11.7-16.9); MCH 30.6 pg (25.7-33.7); MCHC 34.5 g/dl (32.0-35.9); MEAN CELL VOLUME 88.7 fl (80-96); MEAN PLT VOLUME 7.6 fl (7.5-11.1); PLATELET COUNT 195 10^3/uL (134-434); RBC 5.09 M/mm3 (4.00-5.60); RDW 15.2 % (11.9-15.9); WHITE BLOOD COUNT 4.1 K/mm3 (4.0-10.0)
[2021-03-29 12:54] LABS: ALBUMIN 3.8 g/dl (3.4-5.0); BLOOD UREA NITROGEN 9.4 mg/dL (7-18); CALCIUM 9.2 mg/dL (8.5-10.1)
[2021-03-29 12:58] LABS: CREATININE 0.9 mg/dL (0.55-1.3)
[2021-03-29 12:59] LABS: TOT PROT 7.4 g/dl (6.4-8.2)
[2021-03-29] MEDS ORDERED: PROCHLORPERAZINE INJECTION 10 MG/2 ML VIAL IM ONE (17:42)
[2021-03-29] MEDS ORDERED: TRIMETHOBENZAMIDE HCL 200MG/2ML INJ IM ONE (17:59)
[2021-03-29 20:29] VITALS: TEMP 96.8
[2021-03-29] MEDS ORDERED: DICYCLOMINE HCL 10 MG CAPSULE PO ONE (20:42)
[2021-03-29] MEDS ORDERED: diazePAM 5 MG TABLET PO PRN (20:43)
[2021-03-29] MEDS ORDERED: methaDONE HCL 10 MG TABLET (FOR DETOX USE ONLY) PO ONE (20:46)
[2021-03-30 02:16] VITALS: BP 150/90; PULSE 56
[2021-03-30] MEDS ORDERED: methaDONE HCL 10 MG TABLET (FOR DETOX USE ONLY) PO ONE (10:00)
[2021-03-30] MEDS: ASPIRIN 81 MG CHEWABLE TABLETS PO SCH (11:17)
[2021-03-30] MEDS: amLODIPine BESYLATE 10 MG TABLET (FP) PO SCH (11:19)
[2021-03-30] MEDS: PRENATAL VITAMINS W/ FOLIC ACID TABLET (FP) PO SCH (11:19)
[2021-03-30] MEDS: LISINOPRIL 10 MG TABLET PO SCH (11:19)
== END 2021-03-30 11:56 | disposition short-term general hospital (02) | DRG 773 ==
LOC: YASAS 13:13 → Y6N 14:25
PROVIDERS: ADMIT Allergy & Immunology; ATTEND Allergy & Immunology
PROC: HZ2ZZZZ Detoxification Services for Substance Abuse Treatment (ICD-10-PCS; principal; 2021-03-28)
DX: F11.23 Opioid dependence with withdrawal (principal); F13.230 Sedative, hypnotic or anxiolytic dependence with withdrawal, uncomplicated; F10.230 Alcohol dependence with withdrawal, uncomplicated; F12.20 Cannabis dependence, uncomplicated; F17.210 Nicotine dependence, cigarettes, uncomplicated; I10 Essential (primary) hypertension; R00.1 Bradycardia, unspecified; R07.89 Other chest pain; I25.2 Old myocardial infarction; D57.3 Sickle-cell trait; Z86.19 Personal history of other infectious and parasitic diseases; Z86.79 Personal history of other diseases of the circulatory system; Z91.013 Allergy to seafood; Z95.5 Presence of coronary angioplasty implant and graft; Z56.0 Unemployment, unspecified
CPT/HCPCS: 36415; 80053; 85027; 86780; 93005; 93010; C9803; J0735; Q0162; U0003; U0005

== ENCOUNTER 2021-03-30 03:52 | Observation (INO) | payer OTHER ==
[2021-03-30 04:20] VITALS: BMI 23.0
[2021-03-30] MEDS ORDERED: cloNIDine HCL 0.1 MG TABLET PO ONE (04:27)
[2021-03-30] MEDS ORDERED: ASPIRIN 325 MG TABLET PO ONE (04:27)
[2021-03-30] MEDS ORDERED: ONDANSETRON 4 MG/2 ML VIAL IVPUSH ONE (04:27)
[2021-03-30] MEDS ORDERED: cloNIDine HCL 0.1 MG TABLET ONE (04:41)
[2021-03-30] MEDS ORDERED: ASPIRIN 325 MG ENTERIC COATED TABLET (FP) ONE (04:41)
[2021-03-30] MEDS ORDERED: ONDANSETRON 4 MG/2 ML VIAL ONE (04:41)
[2021-03-30] MEDS ORDERED: LACTATED RINGERS SOLUTION 1000 ML INFUS.BAG IV ONE (05:40)
[2021-03-30 06:06] LABS: INR 1.06 (0.83-1.09); PROTHROMBIN TIME (PATIENT) 12.4 SEC (9.7-13.0)
[2021-03-30] MEDS ORDERED: methaDONE HCL 10 MG TABLET (FOR DETOX USE ONLY) PO ONE (06:06)
[2021-03-30 06:09] LABS: ACTIVATED PTT 36.8 SECONDS (25.2-36.5)
[2021-03-30 06:15] LABS: CHLORIDE 97 mmol/L (98-107); SODIUM 138 mmol/L (136-145)
[2021-03-30 06:17] LABS: BLOOD UREA NITROGEN 16.2 mg/dL (7-18); CALCIUM 9.9 mg/dL (8.5-10.1)
[2021-03-30 06:18] LABS: ANION GAP 8 MMOL/L (8-16); CO2 33 mmol/L (21-32); GLUCOSE,RANDOM 166 mg/dL (74-106)
[2021-03-30] MEDS ORDERED: methaDONE HCL 10 MG TABLET ONE (06:19)
[2021-03-30 06:21] LABS: SGOT/AST 40 U/L (15-37); SGPT/ALT 38 U/L (13-61)
[2021-03-30 06:22] LABS: CREATININE 1.1 mg/dL (0.55-1.3)
[2021-03-30 06:24] LABS: ALK PHOS 162 U/L (45-117)
[2021-03-30 06:29] LABS: BASO % 0.3 % (0-2.0); HEMATOCRIT 51.8 % (35.4-49); HEMOGLOBIN 17.9 GM/dL (11.7-16.9); LYMPH % 8.9 % (8-40); MCH 30.1 pg (25.7-33.7); MCHC 34.5 g/dl (32.0-35.9); MEAN CELL VOLUME 87.3 fl (80-96); MEAN PLT VOLUME 7.4 fl (7.5-11.1); MONO % 4.3 % (3.8-10.2); NEUT % 86.5 % (42.8-82.8); PLATELET COUNT 306 10^3/uL (134-434); RBC 5.94 M/mm3 (4.00-5.60); RDW 15.1 % (11.9-15.9); WHITE BLOOD COUNT 6.3 K/mm3 (4.0-10.0)
[2021-03-30 07:33] LABS: ALBUMIN 4.6 g/dl (3.4-5.0)
[2021-03-30] MEDS ORDERED: LORazepam 1 MG TABLET PO PRN (11:28)
[2021-03-30] MEDS ORDERED: TRIMETHOBENZAMIDE HCL 200MG/2ML INJ IM PRN (12:18)
[2021-03-30] MEDS ORDERED: SODIUM CHLORIDE 1,000 ML IV SCH (12:30)
[2021-03-30] MEDS ORDERED: LORazepam 1 MG TABLET ONE ×2 (12:58→18:58)
[2021-03-30] MEDS ORDERED: ACETAMINOPHEN INJECTION 100 ML IVPB ONE (18:58)
[2021-03-30] MEDS: LORazepam 1 MG TABLET PO PRN (19:06)
[2021-03-30] MEDS ORDERED: LISINOPRIL 5 MG TABLET ONE (21:49)
[2021-03-30] MEDS ORDERED: ATORVASTATIN CA 20 MG TABLET (FP) ONE (21:49)
[2021-03-30] MEDS ORDERED: ATORVASTATIN CA 20 MG TABLET (FP) PO SCH (22:00)
[2021-03-30] MEDS: LISINOPRIL 10 MG TABLET PO SCH (22:46)
[2021-03-31] MEDS ORDERED: LORazepam 1 MG TABLET ONE ×3 (00:39→16:33)
[2021-03-31] MEDS: LORazepam 1 MG TABLET PO PRN ×2 (00:44→16:37)
[2021-03-31] MEDS ORDERED: methaDONE HCL 10 MG TABLET ONE (06:24)
[2021-03-31 09:00] LABS: WHITE BLOOD COUNT 9.1 K/mm3 (4.0-10.0)
[2021-03-31 09:01] LABS: BASO % 0.4 % (0-2.0); HEMATOCRIT 50.5 % (35.4-49); HEMOGLOBIN 17.6 GM/dL (11.7-16.9); MCH 30.7 pg (25.7-33.7); MCHC 34.9 g/dl (32.0-35.9); MEAN CELL VOLUME 87.9 fl (80-96); MEAN PLT VOLUME 7.6 fl (7.5-11.1); MONO % 10.1 % (3.8-10.2); NEUT % 77.5 % (42.8-82.8); PLATELET COUNT 245 10^3/uL (134-434); RBC 5.74 M/mm3 (4.00-5.60); RDW 15.1 % (11.9-15.9)
[2021-03-31] MEDS ORDERED: ASPIRIN 81 MG CHEWABLE TABLETS ONE (09:06)
[2021-03-31] MEDS ORDERED: ENOXAPARIN NA (PORCINE) 40 MG/0.4 ML DISP.SYRIN SQ ONE (09:07)
[2021-03-31] MEDS ORDERED: amLODIPine BESYLATE 5 MG TABLET (FP) ONE (09:07)
[2021-03-31] MEDS ORDERED: LISINOPRIL 5 MG TABLET ONE (09:08)
[2021-03-31 09:11] LABS: CHLORIDE 105 mmol/L (98-107); SODIUM 138 mmol/L (136-145)
[2021-03-31 09:15] LABS: ANION GAP 9 MMOL/L (8-16); CALCIUM 8.9 mg/dL (8.5-10.1); CO2 24 mmol/L (21-32)
[2021-03-31 09:16] LABS: MAGNESIUM 2.1 mg/dL (1.8-2.4)
[2021-03-31 09:18] LABS: ALBUMIN 3.7 g/dl (3.4-5.0); BLOOD UREA NITROGEN 24.4 mg/dL (7-18); GLUCOSE,RANDOM 103 mg/dL (74-106)
[2021-03-31 09:19] LABS: CREATININE 1.1 mg/dL (0.55-1.3); SGOT/AST 30 U/L (15-37); SGPT/ALT 33 U/L (13-61)
[2021-03-31 09:21] LABS: BILIRUBIN,TOTAL 1.6 mg/dL (0.2-1); CHOLESTEROL 208 mg/dL (50-200); PHOSPHOROUS 3.4 mg/dL (2.5-4.9); TOT PROT 7.6 g/dl (6.4-8.2); TRIGLYCERIDES 107 mg/dL (0-150)
[2021-03-31 09:22] LABS: LDL CHOLESTEROL (ONLY SJRH) 103 mg/dL (5-100)
[2021-03-31 09:27] LABS: HDL CHOLESTEROL 82 mg/dL (40-60)
[2021-03-31 09:31] LABS: ALK PHOS 129 U/L (45-117)
[2021-03-31] MEDS ORDERED: amLODIPine BESYLATE 5 MG TABLET (FP) PO SCH (10:00)
[2021-03-31] MEDS ORDERED: NICOTINE 21 MG/24 HOURS TOPICAL PATCH TD SCH (10:00)
[2021-03-31] MEDS ORDERED: ENOXAPARIN NA (PORCINE) 40 MG/0.4 ML DISP.SYRIN SQ SCH (10:00)
[2021-03-31] MEDS ORDERED: ASPIRIN COATED 81 MG TABLET.EC PO SCH (10:00)
[2021-03-31] MEDS: LISINOPRIL 10 MG TABLET PO SCH (10:10)
[2021-03-31] MEDS ORDERED: THIAMINE HCL 100 MG TABLET (FP) PO SCH (10:15)
[2021-03-31] MEDS ORDERED: FOLIC ACID 1 MG TABLET (FP) PO SCH (10:15)
[2021-03-31] MEDS ORDERED: FOLIC ACID 1 MG TABLET (FP) ONE (10:49)
[2021-03-31] MEDS ORDERED: THIAMINE HCL 100 MG TABLET (FP) ONE (10:51)
[2021-03-31] MEDS ORDERED: FOLIC ACID INJECTION - 1 MG, THIAMINE HCL 100 MG, MULTIVIT INJECTION ADULT 10 ML in SOD... IVPB ONE (13:06)
[2021-03-31 15:59] VITALS: BP 113/71; PULSE 66; TEMP 98.6
[2021-03-31] MEDS ORDERED: FAMOTIDINE 20 MG TABLET PO ONE (17:52)
[2021-03-31] MEDS ORDERED: FAMOTIDINE 20 MG TABLET ONE (18:59)
[2021-04-01] MEDS ORDERED: methaDONE HCL 10 MG TABLET PO ONE (06:00)
== END 2021-03-31 21:33 | disposition other institution (70) ==
LOC: JER 03:52 → JERBED 06:52
PROVIDERS: ADMIT Internal Medicine; ATTEND Internal Medicine
PROC: 3E033GC Introduction of Other Therapeutic Substance into Peripheral Vein, Percutaneous Approach (ICD-10-PCS; principal; 2021-03-30)
DX: R07.89 Other chest pain (principal); R10.9 Unspecified abdominal pain; F11.23 Opioid dependence with withdrawal; F12.10 Cannabis abuse, uncomplicated; F17.210 Nicotine dependence, cigarettes, uncomplicated; I25.10 Atherosclerotic heart disease of native coronary artery without angina pectoris; I10 Essential (primary) hypertension; D45 Polycythemia vera; Z91.14 Patient's other noncompliance with medication regimen; Z95.5 Presence of coronary angioplasty implant and graft; Z79.01 Long term (current) use of anticoagulants; Z91.013 Allergy to seafood
CPT/HCPCS: 36415; 71045-TC-FY; 80053; 80061; 82550; 82553; 83735; 84100; 84484; 85025; 85610; 85730; 93005; 93010; 96365; 96366; 96375; 99285-25; C9803; G0378; J0735; U0003; U0005

== ENCOUNTER 2021-03-31 21:36 | Inpatient (IN) | payer OTHER ==
[~2021-03-31 21:36] MED LIST: ACETAMINOPHEN 325 MG TABLET (FP) PO PRN; BISMUTH SUBSALICYLATE 524 MG/30 ML PO PRN; IBUPROFEN 400 MG TABLET (FP) PO PRN; MAG HYDROX/AL HYDROX/SIMETH 30 ML UNIT-DOSE CUP PO PRN; MAGNESIUM CITRATE 300 ML BOTTLE PO PRN; MAGNESIUM HYDROX 2400MG/30ML ORAL SUSPENSION 30 ML CUP PO PRN; MELATONIN 5 MG TABLETS PO SCH; MENTHOL/PHENOL 1 EACH UD MM PRN; METHOCARBAMOL 500 MG TABLET PO PRN; NICOTINE 21 MG/24 HOURS TOPICAL PATCH TD SCH; NICOTINE POLACRILEX 2 MG GUM BUC PRN; ONDANSETRON *ODT* 4 MG TABLET SL PRN; PRENATAL VITAMINS W/ FOLIC ACID TABLET (FP) PO SCH; THIAMINE HCL 100 MG TABLET (FP) PO SCH; chlordiazePOXIDE HCL 10 MG CAPSULE PO ONE; chlordiazePOXIDE HCL 10 MG CAPSULE PO PRN; chlordiazePOXIDE HCL 10 MG CAPSULE PO SCH; chlordiazePOXIDE HCL 25 MG CAPSULE PO PRN; chlordiazePOXIDE HCL 25 MG CAPSULE PO SCH; cloNIDine HCL 0.1 MG TABLET PO PRN; hydrOXYzine PAMOATE 25 MG CAPSULE (FP) PO SCH; methaDONE HCL 10 MG TABLET (FOR DETOX USE ONLY) PO ONE
[2021-03-31 21:46] VITALS: BMI 20.8
[2021-03-31] MEDS ORDERED: MAGNESIUM HYDROX 2400MG/30ML ORAL SUSPENSION 30 ML CUP PO PRN (23:09)
[2021-03-31] MEDS ORDERED: cloNIDine HCL 0.1 MG TABLET PO PRN (23:09)
[2021-03-31] MEDS ORDERED: ACETAMINOPHEN 325 MG TABLET (FP) PO PRN ×2 (23:09)
[2021-03-31] MEDS ORDERED: hydrOXYzine PAMOATE 25 MG CAPSULE (FP) PO PRN (23:09)
[2021-03-31] MEDS ORDERED: MAGNESIUM CITRATE 300 ML BOTTLE PO PRN (23:09)
[2021-03-31] MEDS ORDERED: BISMUTH SUBSALICYLATE 524 MG/30 ML PO PRN (23:09)
[2021-03-31] MEDS ORDERED: MAG HYDROX/AL HYDROX/SIMETH 30 ML UNIT-DOSE CUP PO PRN (23:09)
[2021-03-31] MEDS ORDERED: IBUPROFEN 400 MG TABLET (FP) PO PRN (23:09)
[2021-03-31] MEDS ORDERED: NICOTINE POLACRILEX 2 MG GUM BUC PRN (23:09)
[2021-03-31] MEDS ORDERED: ONDANSETRON *ODT* 4 MG TABLET SL PRN (23:09)
[2021-03-31] MEDS ORDERED: METHOCARBAMOL 500 MG TABLET PO PRN (23:09)
[2021-03-31] MEDS ORDERED: MENTHOL/PHENOL 1 EACH UD MM PRN (23:09)
[2021-04-01 09:52] VITALS: BP 129/86; PULSE 72; TEMP 97.4
[2021-04-01] MEDS ORDERED: methaDONE HCL 10 MG TABLET (FOR DETOX USE ONLY) PO ONE (10:00)
[2021-04-01] MEDS ORDERED: NICOTINE 14 MG/24 HOURS TOPICAL PATCH TD SCH (10:00)
[2021-04-01] MEDS ORDERED: PRENATAL VITAMINS W/ FOLIC ACID TABLET (FP) PO SCH (10:00)
[2021-04-01] MEDS ORDERED: MELATONIN 5 MG TABLETS PO SCH (22:00)
[2021-04-01] MEDS ORDERED: THIAMINE HCL 100 MG TABLET (FP) PO SCH (22:00)
== END 2021-04-01 09:37 | disposition home or self-care (01) | DRG 773 ==
LOC: YASAS 21:36 → Y6N 23:19
PROVIDERS: ADMIT Allergy & Immunology; ATTEND Allergy & Immunology
PROC: HZ2ZZZZ Detoxification Services for Substance Abuse Treatment (ICD-10-PCS; principal; 2021-03-31)
DX: F11.23 Opioid dependence with withdrawal (principal); F14.20 Cocaine dependence, uncomplicated; F12.20 Cannabis dependence, uncomplicated; F16.10 Hallucinogen abuse, uncomplicated; F17.210 Nicotine dependence, cigarettes, uncomplicated; I10 Essential (primary) hypertension; I25.10 Atherosclerotic heart disease of native coronary artery without angina pectoris; I25.2 Old myocardial infarction; E78.5 Hyperlipidemia, unspecified; B18.2 Chronic viral hepatitis C; D57.3 Sickle-cell trait; N17.9 Acute kidney failure, unspecified; Z86.79 Personal history of other diseases of the circulatory system; Z91.013 Allergy to seafood; Z95.5 Presence of coronary angioplasty implant and graft; Z86.11 Personal history of tuberculosis
CPT/HCPCS: 87811; C9803; U0003; U0005

== ENCOUNTER 2021-09-05 14:09 | Inpatient (IN) | payer OTHER ==
[2021-09-05 15:20] VITALS: BMI 22.1
[2021-09-05] MEDS ORDERED: ALBUTEROL SO4 HFA INHALER IH PRN (16:51)
[2021-09-05] MEDS ORDERED: MAGNESIUM CITRATE 300 ML BOTTLE PO PRN (16:52)
[2021-09-05] MEDS ORDERED: MAG HYDROX/AL HYDROX/SIMETH 30 ML UNIT-DOSE CUP PO PRN (16:52)
[2021-09-05] MEDS ORDERED: IBUPROFEN 400 MG TABLET (FP) PO PRN (16:52)
[2021-09-05] MEDS ORDERED: P-EPHED 60MG/TRIPROLIDI 2.5MG TABLET PO PRN (16:52)
[2021-09-05] MEDS ORDERED: LOPERAMIDE HCL 2 MG CAPSULE PO PRN (16:52)
[2021-09-05] MEDS ORDERED: NICOTINE POLACRILEX 2 MG GUM BUC PRN (16:52)
[2021-09-05] MEDS ORDERED: BISMUTH SUBSALICYLATE 524 MG/30 ML PO PRN (16:52)
[2021-09-05] MEDS ORDERED: MAGNESIUM HYDROX 2400MG/30ML ORAL SUSPENSION 30 ML CUP PO PRN (16:52)
[2021-09-05] MEDS ORDERED: BENZOCAINE/MENTHOL (CHLORASEPTIC ) LOZENGE MM PRN (16:52)
[2021-09-05] MEDS ORDERED: ACETAMINOPHEN 325 MG TABLET (FP) PO PRN ×2 (16:52)
[2021-09-05] MEDS ORDERED: guaiFENesin 200 MG/10 ML 10 ML UNIT-DOSE CUPS PO PRN (16:52)
[2021-09-05] MEDS ORDERED: DICYCLOMINE HCL 10 MG CAPSULE PO PRN (16:52)
[2021-09-05] MEDS ORDERED: methaDONE HCL 10 MG TABLET (FOR DETOX USE ONLY) PO ONE (16:56)
[2021-09-05] MEDS: METHOCARBAMOL 500 MG TABLET PO PRN (20:14)
[2021-09-05] MEDS: hydrOXYzine PAMOATE 25 MG CAPSULE (FP) PO PRN (20:14)
[2021-09-05] MEDS: MELATONIN 5 MG TABLETS PO PRN (22:57)
[2021-09-05] MEDS: THIAMINE HCL 100 MG TABLET (FP) PO SCH (22:57)
[2021-09-05] MEDS: diazePAM 5 MG TABLET PO SCH (22:58)
[2021-09-05] MEDS: ONDANSETRON *ODT* 4 MG TABLET SL PRN (23:00)
[2021-09-06] MEDS: hydrOXYzine PAMOATE 25 MG CAPSULE (FP) PO PRN (07:46)
[2021-09-06] MEDS: diazePAM 5 MG TABLET PO SCH ×4 (07:46→22:47)
[2021-09-06] MEDS ORDERED: methaDONE HCL 10 MG TABLET (FOR DETOX USE ONLY) ONE (09:28)
[2021-09-06] MEDS: PRENATAL VITAMINS W/ FOLIC ACID TABLET (FP) PO SCH (10:15)
[2021-09-06] MEDS: METHOCARBAMOL 500 MG TABLET PO PRN ×2 (10:15→22:46)
[2021-09-06 10:48] LABS: HEMATOCRIT 44.2 % (35.4-49); HEMOGLOBIN 14.8 GM/dL (11.7-16.9); MCH 29.1 pg (25.7-33.7); MCHC 33.4 g/dl (32.0-35.9); MEAN PLT VOLUME 7.9 fl (7.5-11.1); PLATELET COUNT 207 10^3/uL (134-434); RBC 5.08 M/mm3 (4.00-5.60); RDW 15.5 % (11.9-15.9); WHITE BLOOD COUNT 4.2 K/mm3 (4.0-10.0)
[2021-09-06 11:06] LABS: CALCIUM 9.3 mg/dL (8.5-10.1)
[2021-09-06 11:07] LABS: ALBUMIN 3.6 g/dl (3.4-5.0); BLOOD UREA NITROGEN 13.2 mg/dL (7-18)
[2021-09-06 11:10] LABS: CREATININE 0.9 mg/dL (0.55-1.3)
[2021-09-06 11:12] LABS: BILIRUBIN,TOTAL 0.8 mg/dL (0.2-1); TOT PROT 6.9 g/dl (6.4-8.2)
[2021-09-06] MEDS: ONDANSETRON *ODT* 4 MG TABLET SL PRN (18:14)
[2021-09-06] MEDS: cloNIDine HCL 0.1 MG TABLET PO PRN (22:46)
[2021-09-06] MEDS: THIAMINE HCL 100 MG TABLET (FP) PO SCH (22:46)
[2021-09-06] MEDS: MELATONIN 5 MG TABLETS PO PRN (22:46)
[2021-09-07] MEDS: ONDANSETRON *ODT* 4 MG TABLET SL PRN (04:00)
[2021-09-07] MEDS: cloNIDine HCL 0.1 MG TABLET PO PRN ×2 (06:23→23:01)
[2021-09-07] MEDS: hydrOXYzine PAMOATE 25 MG CAPSULE (FP) PO PRN (06:23)
[2021-09-07] MEDS: diazePAM 5 MG TABLET PO SCH ×3 (06:23→23:03)
[2021-09-07] MEDS ORDERED: methaDONE HCL 10 MG TABLET (FOR DETOX USE ONLY) PO ONE (10:00)
[2021-09-07] MEDS: PRENATAL VITAMINS W/ FOLIC ACID TABLET (FP) PO SCH (11:00)
[2021-09-07] MEDS: diazePAM 5 MG TABLET PO PRN (21:54)
[2021-09-07] MEDS: THIAMINE HCL 100 MG TABLET (FP) PO SCH (21:56)
[2021-09-07] MEDS: MELATONIN 5 MG TABLETS PO PRN (21:56)
[2021-09-08] MEDS: diazePAM 5 MG TABLET PO SCH ×2 (06:44→18:01)
[2021-09-08] MEDS ORDERED: methaDONE HCL 10 MG TABLET (FOR DETOX USE ONLY) ONE (09:42)
[2021-09-08] MEDS: PRENATAL VITAMINS W/ FOLIC ACID TABLET (FP) PO SCH (11:10)
[2021-09-08] MEDS: diazePAM 5 MG TABLET PO PRN (14:53)
[2021-09-08] MEDS ORDERED: cloNIDine HCL 0.1 MG TABLET PO ONE (18:14)
[2021-09-08] MEDS: THIAMINE HCL 100 MG TABLET (FP) PO SCH (22:40)
[2021-09-09] MEDS: hydrOXYzine PAMOATE 25 MG CAPSULE (FP) PO PRN (05:59)
[2021-09-09] MEDS ORDERED: diazePAM 5 MG TABLET PO ONE (06:00)
[2021-09-09] MEDS ORDERED: methaDONE HCL 10 MG TABLET (FOR DETOX USE ONLY) PO ONE (10:00)
[2021-09-09] MEDS ORDERED: cloNIDine HCL 0.1 MG TABLET PO ONE (10:39)
[2021-09-09] MEDS: PRENATAL VITAMINS W/ FOLIC ACID TABLET (FP) PO SCH (11:12)
[2021-09-09 13:26] VITALS: BP 131/83; PULSE 57; TEMP 96.1
== END 2021-09-09 13:45 | disposition home or self-care (01) | DRG 773 ==
LOC: YASAS 14:09 → Y3N 18:21
PROVIDERS: ADMIT Allergy & Immunology; ATTEND Surgery
PROC: HZ2ZZZZ Detoxification Services for Substance Abuse Treatment (ICD-10-PCS; principal; 2021-09-05)
DX: F11.23 Opioid dependence with withdrawal (principal); F10.230 Alcohol dependence with withdrawal, uncomplicated; F12.20 Cannabis dependence, uncomplicated; F17.210 Nicotine dependence, cigarettes, uncomplicated; I10 Essential (primary) hypertension; K86.0 Alcohol-induced chronic pancreatitis; B18.2 Chronic viral hepatitis C; D57.3 Sickle-cell trait; I25.2 Old myocardial infarction; Z95.5 Presence of coronary angioplasty implant and graft
CPT/HCPCS: 36415; 80053; 85027; 86780; C9803-CS; J0735; Q0162; U0003; U0005

== ENCOUNTER 2021-09-07 12:09 | Emergency (ER) | payer OTHER ==
[2021-09-07] MEDS ORDERED: METOCLOPRAMIDE HCL INJECTION 10 MG/2 ML VIAL IVPB ONE (12:29)
[2021-09-07] MEDS ORDERED: FOLIC ACID INJECTION - 1 MG, THIAMINE HCL 100 MG, MULTIVIT INJECTION ADULT 10 ML in SOD... IVPB ONE (12:29)
[2021-09-07] MEDS ORDERED: LORazepam 2 MG/ML SDV VIAL IVPUSH ONE (12:30)
[2021-09-07 12:39] VITALS: BMI 21.9
[2021-09-07] MEDS ORDERED: METOCLOPRAMIDE HCL INJECTION 10 MG/2 ML VIAL ONE (13:14)
[2021-09-07] MEDS ORDERED: ACETAMINOPHEN 1000 MG/100 ML BAG IVPB ONE (13:15)
[2021-09-07] MEDS ORDERED: ACETAMINOPHEN INJECTION 100 ML IVPB ONE (13:20)
[2021-09-07 13:30] LABS: BASO % 0.6 % (0-2.0); EOS % 0.1 % (0-4.5); HEMATOCRIT 52.1 % (35.4-49); LYMPH % 15.1 % (8-40); MCH 29.4 pg (25.7-33.7); MCHC 34.6 g/dl (32.0-35.9); MEAN PLT VOLUME 7.5 fl (7.5-11.1); MONO % 2.1 % (3.8-10.2); NEUT % 82.1 % (42.8-82.8); PLATELET COUNT 274 10^3/uL (134-434); RBC 6.13 M/mm3 (4.00-5.60); WHITE BLOOD COUNT 4.7 K/mm3 (4.0-10.0)
[2021-09-07 14:00] LABS: CALCIUM 10.6 mg/dL (8.5-10.1); MAGNESIUM 2.1 mg/dL (1.8-2.4)
[2021-09-07 14:01] LABS: BLOOD UREA NITROGEN 22.7 mg/dL (7-18)
[2021-09-07 14:03] LABS: CREATININE 1.3 mg/dL (0.55-1.3)
[2021-09-07 14:05] LABS: BILIRUBIN,TOTAL 0.8 mg/dL (0.2-1)
[2021-09-07 14:08] LABS: ALBUMIN 4.7 g/dl (3.4-5.0); TOT PROT 9.2 g/dl (6.4-8.2)
[2021-09-07 14:22] VITALS: BP 158/89; PULSE 52
[2021-09-07 15:00] VITALS: TEMP 98.5
[2021-09-07 18:20] LABS: PHOSPHOROUS 5.5 mg/dL (2.5-4.9)
[2021-09-07] MEDS ORDERED: ACETAMINOPHEN 325 MG TABLET (FP) ONE (19:58)
== END 2021-09-07 21:15 | disposition home or self-care (01) ==
LOC: JER 12:09
PROC: 3E033GC Introduction of Other Therapeutic Substance into Peripheral Vein, Percutaneous Approach (ICD-10-PCS; principal; 2021-09-07)
DX: M79.10 Myalgia, unspecified site (principal)
CPT/HCPCS: 0241U-QW; 36415; 70450-TC; 71045-TC-FY; 80053; 83690; 83735; 84100; 84484; 85025; 93005; 93010; 99285-25

== ENCOUNTER 2021-10-04 23:42 | Inpatient (IN) | payer OTHER ==
[2021-10-05 00:21] VITALS: BMI 23.9
[2021-10-05] MEDS ORDERED: ACETAMINOPHEN 325 MG TABLET (FP) PO PRN ×2 (00:23)
[2021-10-05] MEDS ORDERED: NICOTINE 10 MG CARTRIDGE (INHALER) IH PRN (00:23)
[2021-10-05] MEDS ORDERED: MAGNESIUM HYDROX 2400MG/30ML ORAL SUSPENSION 30 ML CUP PO PRN (00:23)
[2021-10-05] MEDS ORDERED: MAGNESIUM CITRATE 300 ML BOTTLE PO PRN (00:23)
[2021-10-05] MEDS ORDERED: NICOTINE POLACRILEX 2 MG GUM BUC PRN (00:23)
[2021-10-05] MEDS ORDERED: LOPERAMIDE HCL 2 MG CAPSULE PO PRN (00:23)
[2021-10-05] MEDS ORDERED: METHOCARBAMOL 500 MG TABLET PO PRN (00:23)
[2021-10-05] MEDS ORDERED: IBUPROFEN 600 MG TABLET (FP) PO PRN (00:23)
[2021-10-05] MEDS ORDERED: DICYCLOMINE HCL 10 MG CAPSULE PO PRN (00:23)
[2021-10-05] MEDS ORDERED: MAG HYDROX/AL HYDROX/SIMETH 30 ML UNIT-DOSE CUP PO PRN (00:23)
[2021-10-05] MEDS ORDERED: BISMUTH SUBSALICYLATE 524 MG/30 ML PO PRN (00:23)
[2021-10-05] MEDS ORDERED: BENZOCAINE/MENTHOL (CHLORASEPTIC ) LOZENGE MM PRN (00:23)
[2021-10-05] MEDS ORDERED: MELATONIN 5 MG TABLETS PO PRN (00:23)
[2021-10-05] MEDS ORDERED: IBUPROFEN 400 MG TABLET (FP) PO PRN (00:23)
[2021-10-05] MEDS ORDERED: methaDONE HCL 10 MG TABLET (FOR DETOX USE ONLY) PO ONE (00:25)
[2021-10-05] MEDS ORDERED: cloNIDine HCL 0.1 MG TABLET PO PRN (00:25)
[2021-10-05] MEDS ORDERED: QUEtiapine FUMARATE 25 MG TABLET PO ONE (00:28)
[2021-10-05] MEDS: ONDANSETRON *ODT* 4 MG TABLET SL PRN ×2 (01:42→20:17)
[2021-10-05] MEDS: diazePAM 5 MG TABLET PO PRN ×2 (01:52→10:51)
[2021-10-05] MEDS ORDERED: TRIMETHOBENZAMIDE HCL 200MG/2ML INJ IM ONE ×2 (01:58→21:32)
[2021-10-05] MEDS: hydrOXYzine PAMOATE 25 MG CAPSULE (FP) PO SCH ×3 (07:27→14:40)
[2021-10-05] MEDS ORDERED: methaDONE HCL 10 MG TABLET (FOR DETOX USE ONLY) ONE (09:59)
[2021-10-05] MEDS ORDERED: PRENATAL VITAMINS W/ FOLIC ACID TABLET (FP) PO SCH (10:00)
[2021-10-05] MEDS ORDERED: hydrOXYzine PAMOATE 25 MG CAPSULE (FP) PO PRN (14:31)
[2021-10-05] MEDS ORDERED: cloNIDine HCL 0.1 MG TABLET PO ONE (19:47)
[2021-10-05 21:47] VITALS: TEMP 97.7
[2021-10-05] MEDS ORDERED: THIAMINE HCL 100 MG TABLET (FP) PO SCH (22:00)
[2021-10-05 23:24] VITALS: BP 143/73; PULSE 47
[2021-10-06] MEDS ORDERED: methaDONE HCL 10 MG TABLET (FOR DETOX USE ONLY) PO ONE (10:00)
[2021-10-08] MEDS ORDERED: methaDONE HCL 10 MG TABLET (FOR DETOX USE ONLY) PO ONE (10:00)
== END 2021-10-06 04:10 | disposition short-term general hospital (02) | DRG 773 ==
LOC: YASAS 23:42 → Y3N 10-05 00:58
PROVIDERS: ADMIT Allergy & Immunology; ATTEND Allergy & Immunology
PROC: HZ2ZZZZ Detoxification Services for Substance Abuse Treatment (ICD-10-PCS; principal; 2021-10-05)
DX: F11.23 Opioid dependence with withdrawal (principal); F10.230 Alcohol dependence with withdrawal, uncomplicated; F12.20 Cannabis dependence, uncomplicated; F17.210 Nicotine dependence, cigarettes, uncomplicated; B18.2 Chronic viral hepatitis C; D57.3 Sickle-cell trait; I25.10 Atherosclerotic heart disease of native coronary artery without angina pectoris; I10 Essential (primary) hypertension; I25.2 Old myocardial infarction; Z95.5 Presence of coronary angioplasty implant and graft; R11.2 Nausea with vomiting, unspecified
CPT/HCPCS: C9803-CS; J0735; Q0162; U0003; U0005

== ENCOUNTER 2021-10-05 23:35 | Inpatient (IN) | payer OTHER ==
[2021-10-05 23:48] VITALS: BMI 22.1
[2021-10-06] MEDS ORDERED: ONDANSETRON 4 MG/2 ML VIAL IVPUSH ONE (00:11)
[2021-10-06] MEDS ORDERED: SODIUM CHLORIDE 1,000 ML IV STA (00:11)
[2021-10-06] MEDS ORDERED: LORazepam 2 MG/ML SDV VIAL IVPUSH ONE (00:21)
[2021-10-06 00:37] LABS: BASO % 0.7 % (0-2.0); HEMATOCRIT 53.6 % (35.4-49); HEMOGLOBIN 18.7 GM/dL (11.7-16.9); LYMPH % 11.1 % (8-40); MCH 29.9 pg (25.7-33.7); MEAN CELL VOLUME 85.4 fl (80-96); MEAN PLT VOLUME 6.9 fl (7.5-11.1); MONO % 3.7 % (3.8-10.2); NEUT % 84.5 % (42.8-82.8); PLATELET COUNT 263 10^3/uL (134-434); RBC 6.28 M/mm3 (4.00-5.60); RDW 14.6 % (11.9-15.9); WHITE BLOOD COUNT 7.6 K/mm3 (4.0-10.0)
[2021-10-06] MEDS ORDERED: ONDANSETRON 4 MG/2 ML VIAL ONE (00:37)
[2021-10-06 01:00] LABS: ALBUMIN 4.2 g/dl (3.4-5.0); BLOOD UREA NITROGEN 26.9 mg/dL (7-18); CALCIUM 9.9 mg/dL (8.5-10.1); MAGNESIUM 2.3 mg/dL (1.8-2.4)
[2021-10-06 01:04] LABS: CREATININE 1.5 mg/dL (0.55-1.3); PHOSPHOROUS 4.4 mg/dL (2.5-4.9); TOT PROT 8.4 g/dl (6.4-8.2)
[2021-10-06] MEDS ORDERED: LORazepam 1 MG TABLET PO PRN (02:33)
[2021-10-06] MEDS ORDERED: cloNIDine HCL 0.1 MG TABLET PO PRN (02:33)
[2021-10-06] MEDS ORDERED: methaDONE HCL 10 MG TABLET (FOR DETOX USE ONLY) PO ONE (02:33)
[2021-10-06] MEDS ORDERED: DOCUSATE SODIUM 100 MG CAPSULE (FP) PO PRN (02:36)
[2021-10-06] MEDS ORDERED: PROCHLORPERAZINE INJECTION 10 MG/2 ML VIAL IVPB PRN (02:36)
[2021-10-06] MEDS ORDERED: ACETAMINOPHEN 325 MG TABLET (FP) PO PRN (02:37)
[2021-10-06] MEDS ORDERED: FOLIC ACID 1 MG TABLET (FP) PO ONE (02:37)
[2021-10-06] MEDS ORDERED: NALOXONE HCL 4 MG NS PRN (02:42)
[2021-10-06] MEDS: SODIUM CHLORIDE 1,000 ML IV SCH (03:21)
[2021-10-06] MEDS ORDERED: LORazepam 1 MG TABLET ONE ×3 (05:37→22:12)
[2021-10-06] MEDS ORDERED: HEPARIN NA (PORCINE) 5,000 UNITS/ML 1ML VIAL ONE ×2 (05:38→22:13)
[2021-10-06] MEDS: LORazepam 1 MG TABLET PO SCH ×3 (05:41→22:21)
[2021-10-06] MEDS: HEPARIN NA (PORCINE) 5,000 UNITS/ML 1ML VIAL SQ SCH ×3 (05:41→22:22)
[2021-10-06] MEDS: THIAMINE HCL 100 MG TABLET (FP) PO SCH (10:30)
[2021-10-06] MEDS: amLODIPine BESYLATE 5 MG TABLET (FP) PO SCH (10:30)
[2021-10-06] MEDS: FOLIC ACID 1 MG TABLET (FP) PO SCH (10:30)
[2021-10-06] MEDS ORDERED: THIAMINE HCL 100 MG TABLET (FP) ONE (10:32)
[2021-10-06] MEDS ORDERED: amLODIPine BESYLATE 5 MG TABLET (FP) ONE (10:32)
[2021-10-06] MEDS ORDERED: FOLIC ACID 1 MG TABLET (FP) ONE (10:32)
[2021-10-06] MEDS ORDERED: ATORVASTATIN CA 20 MG TABLET (FP) PO SCH (22:00)
[2021-10-06] MEDS ORDERED: ATORVASTATIN CA 20 MG TABLET (FP) ONE (22:12)
[2021-10-07 04:06] VITALS: TEMP 99
[2021-10-07] MEDS: SODIUM CHLORIDE 1,000 ML IV SCH (04:20)
[2021-10-07] MEDS: LORazepam 1 MG TABLET PO SCH ×2 (04:21→11:45)
[2021-10-07] MEDS: HEPARIN NA (PORCINE) 5,000 UNITS/ML 1ML VIAL SQ SCH (06:34)
[2021-10-07 07:04] VITALS: PULSE 57
[2021-10-07 08:12] VITALS: BP 158/90
[2021-10-07 09:12] LABS: HEMATOCRIT 48.6 % (35.4-49); HEMOGLOBIN 16.9 GM/dL (11.7-16.9); MCH 29.8 pg (25.7-33.7); MCHC 34.7 g/dl (32.0-35.9); MEAN CELL VOLUME 85.7 fl (80-96); MEAN PLT VOLUME 7.5 fl (7.5-11.1); PLATELET COUNT 257 10^3/uL (134-434); RBC 5.67 M/mm3 (4.00-5.60); RDW 14.4 % (11.9-15.9); WHITE BLOOD COUNT 9.3 K/mm3 (4.0-10.0)
[2021-10-07 09:32] LABS: CALCIUM 9.2 mg/dL (8.5-10.1)
[2021-10-07 09:33] LABS: BLOOD UREA NITROGEN 31.1 mg/dL (7-18)
[2021-10-07 09:36] LABS: CREATININE 1.3 mg/dL (0.55-1.3)
[2021-10-07] MEDS ORDERED: ACETAMINOPHEN 1000 MG/100 ML BAG IVPB PRN (11:20)
[2021-10-07] MEDS: THIAMINE HCL 100 MG TABLET (FP) PO SCH (11:45)
[2021-10-07] MEDS: NICOTINE 21 MG/24 HOURS TOPICAL PATCH TD SCH ×2 (11:45→12:35)
[2021-10-07] MEDS: amLODIPine BESYLATE 5 MG TABLET (FP) PO SCH (11:45)
[2021-10-07] MEDS: FOLIC ACID 1 MG TABLET (FP) PO SCH (11:45)
[2021-10-07] MEDS: PNEUMOC 20-VAL CONJ-DIP CRM/PF 0.5 ML SYRINGE IM ONE ×2 (11:46→12:23)
[2021-10-07] MEDS ORDERED: methaDONE HCL 10 MG TABLET ONE (11:48)
[2021-10-08] MEDS ORDERED: LORazepam 0.5 MG TABLET PO PRN
[2021-10-08] MEDS ORDERED: LORazepam 0.5 MG TABLET PO SCH (05:00)
[2021-10-08] MEDS ORDERED: methaDONE HCL 10 MG TABLET PO ONE (10:00)
[2021-10-09] MEDS ORDERED: LORazepam 0.5 MG TABLET PO ONE (05:00)
[2021-10-10] MEDS ORDERED: methaDONE HCL 10 MG TABLET PO ONE (10:00)
== END 2021-10-07 14:56 | disposition left against medical advice (07) | DRG 469 ==
LOC: JER 23:35 → JERBED 10-06 02:51 → J7W 10-07 03:49
PROVIDERS: ADMIT Hospitalist; ATTEND Internal Medicine
DX: N17.9 Acute kidney failure, unspecified (principal); I42.9 Cardiomyopathy, unspecified; K86.0 Alcohol-induced chronic pancreatitis; D57.3 Sickle-cell trait; E78.5 Hyperlipidemia, unspecified; F10.20 Alcohol dependence, uncomplicated; F11.23 Opioid dependence with withdrawal; F12.90 Cannabis use, unspecified, uncomplicated; F17.210 Nicotine dependence, cigarettes, uncomplicated; I10 Essential (primary) hypertension; I25.10 Atherosclerotic heart disease of native coronary artery without angina pectoris; R11.2 Nausea with vomiting, unspecified; E86.0 Dehydration
CPT/HCPCS: 0241U-QW; 36415; 80048; 80053; 83690; 83735; 84100; 84484; 85025; 85027; 90677; 93005; 93010; 99285-25

== ENCOUNTER 2021-10-23 02:02 | Inpatient (IN) | payer OTHER ==
[2021-10-23 03:41] VITALS: BMI 20.7
[2021-10-23] MEDS ORDERED: IBUPROFEN 600 MG TABLET (FP) PO PRN (12:20)
[2021-10-23] MEDS ORDERED: MAGNESIUM HYDROX 2400MG/30ML ORAL SUSPENSION 30 ML CUP PO PRN (12:20)
[2021-10-23] MEDS ORDERED: MAGNESIUM CITRATE 300 ML BOTTLE PO PRN (12:20)
[2021-10-23] MEDS ORDERED: BISMUTH SUBSALICYLATE 262 MG/15 ML BTL PO PRN (12:20)
[2021-10-23] MEDS ORDERED: BENZOCAINE/MENTHOL (CHLORASEPTIC ) LOZENGE MM PRN (12:20)
[2021-10-23] MEDS ORDERED: ACETAMINOPHEN 325 MG TABLET (FP) PO PRN ×2 (12:20)
[2021-10-23] MEDS ORDERED: LOPERAMIDE HCL 2 MG CAPSULE PO PRN (12:20)
[2021-10-23] MEDS ORDERED: IBUPROFEN 400 MG TABLET (FP) PO PRN (12:20)
[2021-10-23] MEDS ORDERED: MAG HYDROX/AL HYDROX/SIMETH 30 ML UNIT-DOSE CUP PO PRN (12:20)
[2021-10-23] MEDS ORDERED: methaDONE HCL 10 MG TABLET (FOR DETOX USE ONLY) PO ONE (12:20)
[2021-10-23] MEDS ORDERED: ONDANSETRON *ODT* 4 MG TABLET SL PRN (12:20)
[2021-10-23] MEDS ORDERED: DICYCLOMINE HCL 10 MG CAPSULE PO PRN (12:20)
[2021-10-23] MEDS ORDERED: LORazepam 1 MG TABLET PO PRN (12:20)
[2021-10-23] MEDS ORDERED: NICOTINE 10 MG CARTRIDGE (INHALER) IH PRN (12:20)
[2021-10-23] MEDS ORDERED: NALOXONE HCL (KLOXXADO) 8 MG SPRAY NS PRN (12:20)
[2021-10-23] MEDS: NICOTINE 21 MG/24 HOURS TOPICAL PATCH TD SCH (13:44)
[2021-10-23] MEDS: METHOCARBAMOL 500 MG TABLET PO PRN ×2 (13:44→18:32)
[2021-10-23] MEDS: amLODIPine BESYLATE 5 MG TABLET (FP) PO SCH (13:44)
[2021-10-23] MEDS: LISINOPRIL 10 MG TABLET PO SCH (13:44)
[2021-10-23] MEDS: PRENATAL VITAMINS W/ FOLIC ACID TABLET (FP) PO SCH (13:45)
[2021-10-23] MEDS: ASPIRIN 81 MG CHEWABLE TABLETS PO SCH (13:46)
[2021-10-23] MEDS: hydrOXYzine PAMOATE 25 MG CAPSULE (FP) PO SCH ×2 (15:04→18:32)
[2021-10-23] MEDS: LORazepam 2 MG TABLET PO SCH (18:30)
[2021-10-23] MEDS ORDERED: FLUOCINONIDE 0.05% TOP OINT (60 GM TUBE) TP SCH (22:00)
[2021-10-24] MEDS: LORazepam 2 MG TABLET PO SCH ×5 (00:15→22:27)
[2021-10-24] MEDS: KETOCONAZOLE 2% CREAM - 60GM TUBE TP SCH ×3 (00:16→22:40)
[2021-10-24] MEDS: MELATONIN 5 MG TABLETS PO SCH ×2 (00:16→22:27)
[2021-10-24] MEDS: ATORVASTATIN CA 20 MG TABLET (FP) PO SCH ×2 (00:16→22:27)
[2021-10-24] MEDS: FLUOCINONIDE 0.05% TOP OINT (60 GM TUBE) TP SCH ×4 (00:16→22:39)
[2021-10-24] MEDS: hydrOXYzine PAMOATE 25 MG CAPSULE (FP) PO SCH ×5 (00:16→22:00)
[2021-10-24] MEDS: LISINOPRIL 10 MG TABLET PO SCH ×2 (00:16→10:50)
[2021-10-24] MEDS: THIAMINE HCL 100 MG TABLET (FP) PO SCH ×2 (00:17→22:27)
[2021-10-24] MEDS: cloNIDine HCL 0.1 MG TABLET PO PRN (05:33)
[2021-10-24] MEDS ORDERED: methaDONE HCL 10 MG TABLET (FOR DETOX USE ONLY) ONE (09:14)
[2021-10-24] MEDS: ASPIRIN 81 MG CHEWABLE TABLETS PO SCH (10:49)
[2021-10-24] MEDS: amLODIPine BESYLATE 5 MG TABLET (FP) PO SCH (10:50)
[2021-10-24] MEDS: NICOTINE 21 MG/24 HOURS TOPICAL PATCH TD SCH (10:50)
[2021-10-24] MEDS: PRENATAL VITAMINS W/ FOLIC ACID TABLET (FP) PO SCH (10:59)
[2021-10-24 11:04] LABS: HEMATOCRIT 40.3 % (35.4-49); HEMOGLOBIN 13.7 GM/dL (11.7-16.9); MCH 29.8 pg (25.7-33.7); MEAN CELL VOLUME 87.8 fl (80-96); MEAN PLT VOLUME 8.7 fl (7.5-11.1); PLATELET COUNT 204 10^3/uL (134-434); RBC 4.59 M/mm3 (4.00-5.60); RDW 14.2 % (11.9-15.9); WHITE BLOOD COUNT 5.1 K/mm3 (4.0-10.0)
[2021-10-24 11:16] LABS: CALCIUM 8.7 mg/dL (8.5-10.1)
[2021-10-24 11:17] LABS: ALBUMIN 3.6 g/dl (3.4-5.0); BLOOD UREA NITROGEN 12.7 mg/dL (7-18)
[2021-10-24 11:20] LABS: CREATININE 1.1 mg/dL (0.55-1.3)
[2021-10-24 11:23] LABS: BILIRUBIN,TOTAL 0.3 mg/dL (0.2-1); TOT PROT 6.6 g/dl (6.4-8.2)
[2021-10-24] MEDS ORDERED: LISINOPRIL 20 MG TABLET PO ONE (22:00)
[2021-10-25] MEDS: METHOCARBAMOL 500 MG TABLET PO PRN (03:44)
[2021-10-25] MEDS: hydrOXYzine PAMOATE 25 MG CAPSULE (FP) PO SCH ×3 (05:53→11:00)
[2021-10-25] MEDS: LORazepam 1 MG TABLET PO SCH ×2 (05:53→11:00)
[2021-10-25] MEDS: FLUOCINONIDE 0.05% TOP OINT (60 GM TUBE) TP SCH (05:55)
[2021-10-25] MEDS: cloNIDine HCL 0.1 MG TABLET PO PRN (05:56)
[2021-10-25 09:56] VITALS: BP 148/97; PULSE 73; TEMP 98.2
[2021-10-25] MEDS ORDERED: amLODIPine BESYLATE 10 MG TABLET (FP) PO SCH (10:00)
[2021-10-25] MEDS ORDERED: methaDONE HCL 10 MG TABLET (FOR DETOX USE ONLY) PO ONE (10:00)
[2021-10-25] MEDS ORDERED: LISINOPRIL 10 MG TABLET PO SCH (10:00)
[2021-10-25] MEDS ORDERED: HYDROCHLOROTHIAZIDE 12.5 MG CAPSULE (FP) PO SCH (10:15)
[2021-10-25] MEDS: ASPIRIN 81 MG CHEWABLE TABLETS PO SCH (10:58)
[2021-10-25] MEDS: PRENATAL VITAMINS W/ FOLIC ACID TABLET (FP) PO SCH (10:59)
[2021-10-25] MEDS: KETOCONAZOLE 2% CREAM - 60GM TUBE TP SCH (10:59)
[2021-10-25] MEDS: NICOTINE 21 MG/24 HOURS TOPICAL PATCH TD SCH (10:59)
[2021-10-26] MEDS ORDERED: LORazepam 0.5 MG TABLET PO PRN
[2021-10-26] MEDS ORDERED: LORazepam 0.5 MG TABLET PO SCH (05:00)
[2021-10-27] MEDS ORDERED: LORazepam 0.5 MG TABLET PO ONE (05:00)
[2021-10-27] MEDS ORDERED: methaDONE HCL 10 MG TABLET (FOR DETOX USE ONLY) PO ONE (10:00)
== END 2021-10-25 11:23 | disposition left against medical advice (07) | DRG 770 ==
LOC: YASAS 02:02 → Y6N 12:14
PROVIDERS: ADMIT Allergy & Immunology; ATTEND Surgery
PROC: HZ2ZZZZ Detoxification Services for Substance Abuse Treatment (ICD-10-PCS; principal; 2021-10-23)
DX: F11.23 Opioid dependence with withdrawal (principal); F10.230 Alcohol dependence with withdrawal, uncomplicated; F14.20 Cocaine dependence, uncomplicated; F12.20 Cannabis dependence, uncomplicated; F13.20 Sedative, hypnotic or anxiolytic dependence, uncomplicated; F17.210 Nicotine dependence, cigarettes, uncomplicated; D57.3 Sickle-cell trait; E78.5 Hyperlipidemia, unspecified; I25.10 Atherosclerotic heart disease of native coronary artery without angina pectoris; I10 Essential (primary) hypertension; I25.2 Old myocardial infarction; Z95.5 Presence of coronary angioplasty implant and graft; L30.9 Dermatitis, unspecified; B35.1 Tinea unguium; B18.2 Chronic viral hepatitis C; R76.11 Nonspecific reaction to tuberculin skin test without active tuberculosis
CPT/HCPCS: 36415; 80053; 85027; 86780; C9803-CS; J0735; Q0162; U0003; U0005

== ENCOUNTER 2021-10-23 05:01 | Emergency (ER) | payer OTHER ==
[2021-10-23 05:16] VITALS: BP 135/58; PULSE 79; TEMP 97.9; BMI 20.7
[2021-10-23] MEDS ORDERED: ONDANSETRON *ODT* 4 MG TABLET SL ONE (05:43)
[2021-10-23] MEDS ORDERED: chlordiazePOXIDE HCL 25 MG CAPSULE PO ONE (05:45)
[2021-10-23] MEDS ORDERED: ONDANSETRON *ODT* 4 MG TABLET ONE (05:48)
[2021-10-23] MEDS ORDERED: chlordiazePOXIDE HCL 25 MG CAPSULE ONE (05:48)
== END 2021-10-23 05:54 ==
LOC: JER 05:01
DX: F19.10 Other psychoactive substance abuse, uncomplicated (principal)
CPT/HCPCS: 99283-25; Q0162

== ENCOUNTER 2021-11-21 21:25 | Inpatient (IN) | payer OTHER ==
[2021-11-21] MEDS ORDERED: MAGNESIUM CITRATE 300 ML BOTTLE PO PRN (23:52)
[2021-11-21] MEDS ORDERED: MAG HYDROX/AL HYDROX/SIMETH 30 ML UNIT-DOSE CUP PO PRN (23:52)
[2021-11-21] MEDS ORDERED: IBUPROFEN 600 MG TABLET (FP) PO PRN (23:52)
[2021-11-21] MEDS ORDERED: MAGNESIUM HYDROX 2400MG/30ML ORAL SUSPENSION 30 ML CUP PO PRN (23:52)
[2021-11-21] MEDS ORDERED: DICYCLOMINE HCL 10 MG CAPSULE PO PRN (23:52)
[2021-11-21] MEDS ORDERED: guaiFENesin 200 MG/10 ML 10 ML UNIT-DOSE CUPS PO PRN (23:52)
[2021-11-21] MEDS ORDERED: LOPERAMIDE HCL 2 MG CAPSULE PO PRN (23:52)
[2021-11-21] MEDS ORDERED: BENZOCAINE/MENTHOL (CHLORASEPTIC ) LOZENGE MM PRN (23:52)
[2021-11-21] MEDS ORDERED: METHOCARBAMOL 500 MG TABLET PO PRN (23:52)
[2021-11-21] MEDS ORDERED: NALOXONE HCL (KLOXXADO) 8 MG SPRAY NS PRN (23:52)
[2021-11-21] MEDS ORDERED: P-EPHED 60MG/TRIPROLIDI 2.5MG TABLET PO PRN (23:52)
[2021-11-21] MEDS ORDERED: NICOTINE POLACRILEX 2 MG GUM BUC PRN (23:52)
[2021-11-21] MEDS ORDERED: IBUPROFEN 400 MG TABLET (FP) PO PRN (23:52)
[2021-11-21] MEDS ORDERED: NALOXONE HCL 0.4 MG/ML VIAL IM PRN (23:52)
[2021-11-21] MEDS ORDERED: ACETAMINOPHEN 325 MG TABLET (FP) PO PRN ×2 (23:52)
[2021-11-21] MEDS ORDERED: PROCHLORPERAZINE MALEATE 5 MG TABLET PO PRN (23:52)
[2021-11-21] MEDS ORDERED: BISMUTH SUBSALICYLATE 524 MG/30 ML PO PRN (23:52)
[2021-11-22] MEDS ORDERED: TRIMETHOBENZAMIDE HCL 200MG/2ML INJ IM ONE (00:22)
[2021-11-22 00:38] VITALS: BMI 20.7
[2021-11-22] MEDS ORDERED: cloNIDine HCL 0.1 MG TABLET PO ONE (02:11)
[2021-11-22] MEDS ORDERED: hydrOXYzine PAMOATE 50 MG CAPSULE (FP) PO ONE (02:12)
[2021-11-22] MEDS ORDERED: cloNIDine HCL 0.1 MG TABLET PO PRN (05:36)
[2021-11-22] MEDS ORDERED: chlordiazePOXIDE HCL 25 MG CAPSULE PO PRN (05:36)
[2021-11-22 06:10] VITALS: RESP 18
[2021-11-22] MEDS: chlordiazePOXIDE HCL 25 MG CAPSULE PO SCH ×3 (08:30→23:23)
[2021-11-22 09:41] VITALS: BP 150/90; PULSE 57; TEMP 97.3
[2021-11-22] MEDS ORDERED: PRENATAL VITAMINS W/ FOLIC ACID TABLET (FP) PO SCH (10:00)
[2021-11-22] MEDS ORDERED: NICOTINE 21 MG/24 HOURS TOPICAL PATCH TD SCH (10:00)
[2021-11-22] MEDS ORDERED: methaDONE HCL 10 MG TABLET (FOR DETOX USE ONLY) PO ONE (10:00)
[2021-11-22] MEDS ORDERED: TRIMETHOBENZAMIDE HCL 200MG/2ML INJ IM PRN (10:37)
[2021-11-22] MEDS ORDERED: amLODIPine BESYLATE 10 MG TABLET (FP) PO SCH (12:00)
[2021-11-22] MEDS ORDERED: DICYCLOMINE HCL 10 MG CAPSULE PO ONE (12:09)
[2021-11-22] MEDS ORDERED: THIAMINE HCL 100 MG TABLET (FP) PO SCH (22:00)
[2021-11-22] MEDS ORDERED: MELATONIN 5 MG TABLETS PO SCH (22:00)
[2021-11-23] MEDS ORDERED: chlordiazePOXIDE HCL 25 MG CAPSULE PO SCH (05:00)
[2021-11-24] MEDS ORDERED: chlordiazePOXIDE HCL 10 MG CAPSULE PO PRN
[2021-11-24] MEDS ORDERED: chlordiazePOXIDE HCL 10 MG CAPSULE PO SCH (05:00)
[2021-11-24] MEDS ORDERED: methaDONE HCL 10 MG TABLET (FOR DETOX USE ONLY) PO ONE (10:00)
[2021-11-25] MEDS ORDERED: chlordiazePOXIDE HCL 10 MG CAPSULE PO SCH (05:00)
[2021-11-26] MEDS ORDERED: chlordiazePOXIDE HCL 10 MG CAPSULE PO ONE (05:00)
[2021-11-26] MEDS ORDERED: methaDONE HCL 10 MG TABLET (FOR DETOX USE ONLY) PO ONE (10:00)
== END 2021-11-23 08:25 | disposition short-term general hospital (02) | DRG 773 ==
LOC: YASAS 21:25 → Y6N 11-22 01:53
PROVIDERS: ADMIT Allergy & Immunology; ATTEND Allergy & Immunology
PROC: HZ2ZZZZ Detoxification Services for Substance Abuse Treatment (ICD-10-PCS; principal; 2021-11-22)
DX: F11.23 Opioid dependence with withdrawal (principal); F10.230 Alcohol dependence with withdrawal, uncomplicated; F12.20 Cannabis dependence, uncomplicated; F14.20 Cocaine dependence, uncomplicated; F17.210 Nicotine dependence, cigarettes, uncomplicated; D57.3 Sickle-cell trait; I25.10 Atherosclerotic heart disease of native coronary artery without angina pectoris; I10 Essential (primary) hypertension; I25.2 Old myocardial infarction; Z95.5 Presence of coronary angioplasty implant and graft; Z87.19 Personal history of other diseases of the digestive system; Z91.19 Patient's noncompliance with other medical treatment and regimen
CPT/HCPCS: 36415; 86780; 87811; 93005; 93010; C9803-CS; J0735; U0003; U0005

== ENCOUNTER 2021-11-22 14:35 | Inpatient (IN) | payer OTHER ==
[2021-11-22] MEDS ORDERED: SODIUM CHLORIDE 0.9% 500 ML INFUS.BAG IV ONE (15:09)
[2021-11-22] MEDS ORDERED: ACETAMINOPHEN 1000 MG/100 ML BAG IVPB ONE (15:09)
[2021-11-22] MEDS ORDERED: TRIMETHOBENZAMIDE HCL 200MG/2ML INJ IM ONE ×2 (15:10→15:34)
[2021-11-22] MEDS ORDERED: FAMOTIDINE 20 MG/50 ML IVPB 20 MG/50 ML MG IVPB ONE ×2 (15:16→15:35)
[2021-11-22] MEDS ORDERED: MAG HYDROX/AL HYDROX/SIMETH 30 ML UNIT-DOSE CUP PO ONE (15:16)
[2021-11-22] MEDS ORDERED: ACETAMINOPHEN INJECTION 100 ML IVPB ONE (15:34)
[2021-11-22] MEDS ORDERED: MAG HYDROX/AL HYDROX/SIMETH 30 ML UNIT-DOSE CUP ONE (15:34)
[2021-11-22 16:56] LABS: BASO % 0.9 % (0-2.0); HEMATOCRIT 46.6 % (35.4-49); HEMOGLOBIN 16.1 GM/dL (11.7-16.9); LYMPH % 12.6 % (8-40); MCH 29.6 pg (25.7-33.7); MCHC 34.6 g/dl (32.0-35.9); MEAN CELL VOLUME 85.7 fl (80-96); MEAN PLT VOLUME 7.3 fl (7.5-11.1); MONO % 3.3 % (3.8-10.2); NEUT % 83.2 % (42.8-82.8); PLATELET COUNT 250 10^3/uL (134-434); RBC 5.44 M/mm3 (4.00-5.60); RDW 14.5 % (11.9-15.9); WHITE BLOOD COUNT 5.3 K/mm3 (4.0-10.0)
[2021-11-22 17:05] LABS: INR 1.09 (0.83-1.09); PROTHROMBIN TIME (PATIENT) 12.5 SEC (9.7-13.0)
[2021-11-22 17:08] LABS: ACTIVATED PTT 38.1 SECONDS (25.2-36.5)
[2021-11-22 17:26] LABS: ALBUMIN 4.3 g/dl (3.4-5.0); BLOOD UREA NITROGEN 15.3 mg/dL (7-18); CALCIUM 9.5 mg/dL (8.5-10.1); MAGNESIUM 1.9 mg/dL (1.8-2.4)
[2021-11-22 17:29] LABS: CREATININE 1.2 mg/dL (0.55-1.3)
[2021-11-22 17:31] LABS: BILIRUBIN,TOTAL 0.7 mg/dL (0.2-1); TOT PROT 8.3 g/dl (6.4-8.2)
[2021-11-22] MEDS ORDERED: morphine CARPU-JECT 2 MG/1 ML DISP.SYRIN IVPUSH ONE (18:00)
[2021-11-22] MEDS ORDERED: SUCRALFATE 1 GM TABLET (FP) PO ONE (19:46)
[2021-11-22] MEDS ORDERED: SUCRALFATE 1 GM TABLET (FP) ONE (20:00)
[2021-11-23] MEDS ORDERED: methaDONE HCL 10 MG TABLET (FOR DETOX USE ONLY) PO ONE (05:33)
[2021-11-23] MEDS: chlordiazePOXIDE HCL 25 MG CAPSULE PO SCH ×3 (06:00→16:24)
[2021-11-23] MEDS ORDERED: chlordiazePOXIDE HCL 25 MG CAPSULE PO PRN (06:02)
[2021-11-23] MEDS ORDERED: methaDONE HCL 10 MG TABLET ONE (06:06)
[2021-11-23] MEDS ORDERED: SODIUM CHLORIDE 1,000 ML IV SCH (06:15)
[2021-11-23 07:54] LABS: HEMATOCRIT 46.1 % (35.4-49); HEMOGLOBIN 16.1 GM/dL (11.7-16.9); MCH 29.4 pg (25.7-33.7); MCHC 34.9 g/dl (32.0-35.9); MEAN CELL VOLUME 84.2 fl (80-96); MEAN PLT VOLUME 7.5 fl (7.5-11.1); PLATELET COUNT 235 10^3/uL (134-434); RBC 5.47 M/mm3 (4.00-5.60); RDW 14.6 % (11.9-15.9)
[2021-11-23 08:41] LABS: ALBUMIN 3.9 g/dl (3.4-5.0); BILIRUBIN,TOTAL 0.7 mg/dL (0.2-1); BLOOD UREA NITROGEN 15.2 mg/dL (7-18); CALCIUM 8.9 mg/dL (8.5-10.1); MAGNESIUM 2.1 mg/dL (1.8-2.4); PHOSPHOROUS 3.3 mg/dL (2.5-4.9); TOT PROT 7.7 g/dl (6.4-8.2)
[2021-11-23] MEDS ORDERED: chlordiazePOXIDE HCL 25 MG CAPSULE ONE (10:28)
[2021-11-23] MEDS ORDERED: PANTOPRAZOLE SODIUM 40 MG VIAL ONE (10:29)
[2021-11-23] MEDS ORDERED: ENOXAPARIN NA (PORCINE) 40 MG/0.4 ML DISP.SYRIN SQ ONE (10:29)
[2021-11-23] MEDS: ENOXAPARIN NA (PORCINE) 40 MG/0.4 ML DISP.SYRIN SQ SCH (10:49)
[2021-11-23] MEDS: PANTOPRAZOLE SODIUM 40 MG VIAL IVPUSH SCH (10:50)
[2021-11-23] MEDS ORDERED: amLODIPine BESYLATE 10 MG TABLET (FP) ONE ×2 (12:22→12:24)
[2021-11-23] MEDS: amLODIPine BESYLATE 10 MG TABLET (FP) PO SCH (12:26)
[2021-11-23] MEDS: DEXTROSE 5%-WATER - 1,000 ML IV SCH (13:46)
[2021-11-23 14:02] VITALS: BMI 20.6
[2021-11-24] MEDS: chlordiazePOXIDE HCL 25 MG CAPSULE PO SCH ×5 (00:31→22:27)
[2021-11-24] MEDS: cloNIDine HCL 0.1 MG TABLET PO PRN ×2 (03:07→12:42)
[2021-11-24] MEDS: ENOXAPARIN NA (PORCINE) 40 MG/0.4 ML DISP.SYRIN SQ SCH (09:22)
[2021-11-24] MEDS: PANTOPRAZOLE SODIUM 40 MG VIAL IVPUSH SCH (09:23)
[2021-11-24] MEDS: amLODIPine BESYLATE 10 MG TABLET (FP) PO SCH (09:23)
[2021-11-24] MEDS: DEXTROSE 5%-WATER - 1,000 ML IV SCH ×3 (09:38→22:33)
[2021-11-24] MEDS ORDERED: ACETAMINOPHEN 1000 MG/100 ML BAG IVPB ONE (21:38)
[2021-11-25] MEDS ORDERED: chlordiazePOXIDE HCL 10 MG CAPSULE PO PRN
[2021-11-25] MEDS: chlordiazePOXIDE HCL 10 MG CAPSULE PO SCH ×2 (06:34→12:50)
[2021-11-25] MEDS: cloNIDine HCL 0.1 MG TABLET PO PRN (06:41)
[2021-11-25 06:43] VITALS: RESP 18
[2021-11-25] MEDS ORDERED: methaDONE HCL 10 MG TABLET PO ONE (10:00)
[2021-11-25 10:24] VITALS: BP 120/88; PULSE 82; TEMP 98.2
[2021-11-25] MEDS: amLODIPine BESYLATE 10 MG TABLET (FP) PO SCH (10:26)
[2021-11-25] MEDS: PANTOPRAZOLE SODIUM 40 MG VIAL IVPUSH SCH (10:26)
[2021-11-25] MEDS: ENOXAPARIN NA (PORCINE) 40 MG/0.4 ML DISP.SYRIN SQ SCH (10:27)
[2021-11-26] MEDS ORDERED: chlordiazePOXIDE HCL 10 MG CAPSULE PO SCH (05:00)
[2021-11-27] MEDS ORDERED: chlordiazePOXIDE HCL 10 MG CAPSULE PO ONE (05:00)
[2021-11-27] MEDS ORDERED: methaDONE HCL 10 MG TABLET PO ONE (10:00)
== END 2021-11-25 15:24 | disposition left against medical advice (07) | DRG 241 ==
LOC: JER 14:35 → JERBED 11-23 00:08 → J5S 11-23 13:23
PROVIDERS: ADMIT Internal Medicine; ATTEND Internal Medicine
PROC: HZ2ZZZZ Detoxification Services for Substance Abuse Treatment (ICD-10-PCS; principal; 2021-11-22)
DX: K29.60 Other gastritis without bleeding (principal); K92.0 Hematemesis; E78.5 Hyperlipidemia, unspecified; F11.23 Opioid dependence with withdrawal; I10 Essential (primary) hypertension; I25.10 Atherosclerotic heart disease of native coronary artery without angina pectoris; I25.2 Old myocardial infarction; R10.13 Epigastric pain; K86.0 Alcohol-induced chronic pancreatitis; F17.210 Nicotine dependence, cigarettes, uncomplicated; B19.20 Unspecified viral hepatitis C without hepatic coma; F10.239 Alcohol dependence with withdrawal, unspecified; F19.10 Other psychoactive substance abuse, uncomplicated; Z95.5 Presence of coronary angioplasty implant and graft; Z87.11 Personal history of peptic ulcer disease
CPT/HCPCS: 36415; 71045-TC-FY; 74177-TC; 80053; 83690; 83735; 84100; 84484; 85025; 85027; 85610; 85730; 87040; 99285-25; J0735; Q9967